=== PATIENT | female | born 1995 | race Caucasian/White ===

== ENCOUNTER → 2021-01-06 14:00 | Outpatient (BNVA) | payer MEDICAID, SELFPAY | PROVIDERS: Family Provider Nurse Practitioner Family; PCP Nurse Practitioner Family; Visit Provider Psychiatry & Neurology Psychiatry | DX: F43.12 Post-traumatic stress disorder, chronic (principal); F33.2 Major depressive disorder, recurrent severe without psychotic features; F41.1 Generalized anxiety disorder; F17.200 Nicotine dependence, unspecified, uncomplicated | CPT/HCPCS: 99204 ==

== ENCOUNTER 2021-01-15 20:46 | Emergency (ER) | payer MEDICAID, SELFPAY ==
[2021-01-15 21:22] VITALS: BP 146/96; PULSE 82; RESP 18; TEMP 36.5; O2SAT 97; BMI 45.0
--- NOTE | 2021-01-15 23:31 | W.ED.SKABFB ---
HPI - Skin/Abscess/Foreign Bdy General: Chief complaint: Skin/Abscess/Foreign Body Stated complaint: NOT WELL DUE TO MRSA INFECTION Time Seen by Provider: 01/15/21 23:08 Source: patient Mode of arrival: ambulatory Limitations: no limitations History of Present Illness: HPI narrative: 25-year-old female patient presents to the emergency department with complaints of not feeling well. She reports previous hospitalizations due to MRSA infections. She states went to urgent care this morning, was prescribed Bactrim for a staph infection to the left upper thigh. She reports has experienced nausea, and not feeling well since starting antibiotic. She reports has not taken tonight's dose. She reports previous prescription of Bactrim has been tolerated in the past. She denies fever or chills, she has denied vomiting. She is insistent she has blood work done to ensure she is not sick. She reports is concerned she is ill due to MRSA infection and may need hospitalization for IV antibiotics. She reports the boil to the left upper thigh did drain tonight. She reports popped it herself. Absents to the left lower extremity has been present for 4 days. She went to urgent care this morning and received prescription of Bactrim. She reports did not take her p.m. dose of Bactrim tonight. complaint: abscess/boil Onset (ago): day(s) (1) Location: LLE Severity: moderate Quality: burning Associated symptoms: Reports nausea; Deny chills, fever(s) or vomiting Treatments prior to arrival: attempted to drain pus at home Review of Systems General: Reports: 10 or more systems reviewed and unremarkable except in HPI and below Const: Reports: fatigue and malaise; Denies: fever(s), chills, change in appetite or diaphoresis Eyes: Denies: blurry vision or eye redness ENMT: Denies: throat pain, dental pain or disequilibrium Card: Denies: chest pain, palpitations or irregular heart rhythm Resp: Denies: dyspnea, productive cough, non-productive cough or wheezing GI: Reports: nausea; Denies: abdominal pain, vomiting, hematemesis, heartburn, diarrhea or constipation : Denies: difficulty voiding or dysuria Musc: Denies: neck pain, back pain, joint pain or joint warmth Skin/Breast: Denies: rash or pruritus Neuro: Denies: headache(s), weakness in extremities or behavioral changes Psych: Denies: anxiety, depression or change in appetite Vince/Lymph: Denies: easy bruising PFSH ED PFSH: Medical History (Updated 01/16/21 @ 00:00 by NAHOMY Suarez) MRSA (methicillin resistant Staphylococcus aureus) Social History Smoking and tobacco status: current every day smoker cigarettes Packs smoked per day: 1 Years cigarettes smoked: 15 Quit status (tobacco): has tried quititng Number of times tried to quit tobacco: 3 Second hand smoke exposure: No Female Reproductive History: Date of last menstrual period: 11/29/20 Physical Exam Const: COMMON NORMALS: no acute distress, patient oriented x3, healthy appearing, alert and well nourished GENERAL APPEARANCE: cooperative, well kempt, well developed and well hydrated NUTRITIONAL APPEARANCE: obese ORIENTATION/CONSCIOUSNESS: Yes awake, Yes oriented to person, Yes oriented to place and Yes oriented to time HENMT: COMMON NORMALS: normocephalic, atraumatic, Normal external nose present and moist oral mucous membranes HEAD & SCALP: normal to inspection, normocephalic and atraumatic NOSE: Normal external nose present MOUTH: Normal oral and palatal mucosa present, lip normal and tongue normal THROAT: posterior oropharynx normal, tonsils normal and uvula midline Eye: COMMON NORMALS: Equal, round and reactive pupils present and EOMs intact bilaterally GENERAL EYE: appearance normal, both eyes and all related structures PUPIL: Yes Equal, round and reactive pupils present Neck/C-Spine: COMMON NORMALS: full ROM and no lymphadenopathy GENERAL: Yes normal visual inspection and Yes trachea midline CERVICAL SPINE: Yes cervical ROM normal Lymph: LYMPHATIC: no lymphadenopathy noted Chest: COMMONS NORMALS: normal inspection of the chest and normal palpation of entire chest wall Resp: COMMON NORMALS: normal respiratory effort, No retractions, No use of accessory muscles and clear to auscultation bilaterally EFFORT & INSPECTION: Yes able to speak in complete sentences, No labored and No audible wheezes AUSCULTATION: clear to auscultation bilaterally Cardio: COMMON NORMALS: regular rate, regular rhythm, S1 normal heart sound present, S2 normal heart sound present and Peripheral pulses 2+ throughout RATE: regular rate RHYTHM: regular rhythm HEART SOUNDS: S1 normal heart sound present and S2 normal heart sound present PERIPHERAL PULSES: Peripheral pulses 2+ throughout GI: COMMON NORMALS: Normal to inspection, nondistended, normoactive bowel sounds present, Soft to palpation and non-tender INSPECTION: Yes normal to inspection, No abdominal wall ecchymosis, No abdominal distension and Yes central obesity AUSCULTATION: Yes normoactive bowel sounds PALPATION: Yes Soft to palpation and No Tenderness to palpation present (GI) : COMMON NORMALS: Yes no CVA tenderness BLADDER/KIDNEY EXAM: Yes no CVA tenderness Back/Pelvis: COMMON NORMALS: no CVA tenderness, thoracic and lumbar spine normal to inspection, no thoracic nor lumbar tenderness and thoraco-lumbar ROM normal Extremity: COMMON NORMALS: normal to inspection, full ROM, capillary refill normal, no joint enlargement, no clubbing, cyanosis or edema, no calf tenderness and no pedal edema GENERAL: Yes normal exam except as noted Neuro: COMMON NORMALS: patient oriented x3 and no focal motor deficits SENSORIUM/ORIENTATION: Yes alert, Yes oriented to person, Yes oriented to place and Yes oriented to time GAIT: Yes Normal gait present MOTOR EXAM: 5/5 motor strength present throughout Psych: COMMON NORMALS: mental status grossly normal, Normal thought process present and cooperative APPEARANCE: Yes well kempt ACTIVITY/MOTOR BEHAVIOR: Yes appropriate eye contact THOUGHT PROCESS: Normal thought process present Skin: COMMON NORMALS: no rashes or lesions noted, turgor normal, no petechiae and no mottling GENERAL SKIN EXAM: no rashes or lesions noted and turgor normal WOUNDS: Yes wounds noted size (1.5 cm x 1.5 cm abscess, increased warmth, no drainage, soft) and without odor; without any surrounding erythema Course Vital Signs: Vital signs: Vital Signs Temperature 97.7 F 01/15/21 21:22 Pulse Rate 82 01/15/21 21:22 Respiratory Rate 18 01/15/21 21:22 Blood Pressure 146/96 01/15/21 21:22 Pulse Oximetry 97 01/15/21 21:22 MDM - Skin/Abscess/Foreign Bdy MDM Narrative: Medical decision making narrative: 25-year-old female patient presents to the emergency department with history of MRSA, abscess to the left lower extremity, left upper thigh present for several days, she drained the abscess tonight -states started not feeling well and was concerned she may need IV antibiotics due to history of hospitalization due to MRSA in the past. White blood count 14.5 which is slightly elevated, she is only had 1 dose of antibiotic prior to tonight. She has prescription of Bactrim, Zofran alleviated her nausea. She reports was feeling better, she was able to drink a full glass of water without vomiting. She was discharged with Zofran and ibuprofen with instructions to continue Bactrim until all gone. She is advised to return the emergency department if she developed nausea vomiting fever, advised to follow-up with her primary care this week to ensure she was improving. Lab Data: Labs: Lab Results 01/15/21 01/15/21 01/15/21 Range/Units 23:40 23:40 23:40 WBC 14.5 H (4.0-10.0) 10^3/ uL RBC 4.52 (4.1-5.3) 10^6/u L Hgb 14.3 (11.5-15.3) g/dL Hct 42.4 (37.0-47.0) % MCV 93.8 (81-99) fL MCH 31.6 (28.0-34.0) pg MCHC 33.7 (30.0-36.0) g/dL RDW 13.2 (12.1-15.1) % Plt Count 432 H (130-400) 10^3/c mm MPV 9.5 (7.4-10.4) fL Neut % (Auto) 74.2 % Lymph % (Auto) 16.5 % [place] % (Auto) 6.6 % Eos % (Auto) 2.0 % Baso % (Auto) 0.3 % Neut # (Auto) 10.75 H (1.8-7.7) 10^3/u L Lymph # (Auto) 2.4 (0.8-4.8) 10^3/u L [place] # (Auto) 1.0 H (0.2-0.9) 10^3/u L Eos # (Auto) 0.3 (0.0-0.8) 10^3/u L Baso # (Auto) 0.0 (0.0-0.1) 10^3/u L Nucleated RBC % (a uto) 0 % Nucleated RBCs # 0.0 /100WBC Sodium 136 (136-145) mmol/L Potassium 3.8 (3.5-5.1) mmol/L Chloride 100 (98-107) mmol/L Carbon Dioxide 26 (22-29) mmol/L Anion Gap 13.8 (5-19) BUN 11 (6-20) mg/dL Creatinine 0.7 (0.5-0.9) mg/dL GFR Calculation 101.1 (90-130) mL/min Glucose 95 (65-115) mg/dL Calculated Osmolal ity 281 L (285-295) mOsm/k g Calcium 8.9 (8.5-10.5) mg/dL Total Bilirubin 0.2 (0.15-1.2) mg/dL AST 11 (0-32) U/L ALT 14 (0-33) U/L Alkaline Phosphata se 72 (35-105) IU/L Total Protein 7.2 (6.6-8.7) g/dL Albumin 4.1 (3.5-5.2) g/dL Globulin 3.1 (1.3-4.6) g/dL Lipase 29 (13-60) U/L HCG, Qual Negative (Negative) Discharge Plan Discharge Patient Disposition: Home Clinical Impression: MRSA (methicillin resistant Staphylococcus aureus) Abscess of skin or subcutaneous tissue Qualifiers: Site of cutaneous abscess: extremity Site of cutaneous abscess of extremity: lower extremity Laterality: left Qualified Code(s): L02.416 - Cutaneous abscess of left lower limb Condition: Stable Prescriptions: New Zofran 4 mg tablet 4 mg PO Q4H Qty: 10 RF: 0 IBU 600 mg tablet 600 mg PO TID PRN (Reason: pain) Qty: 20 RF: 0 No Action sulfamethoxazole-trimethoprim [Bactrim DS] 800-160 mg tablet 1 tab PO BID 7 Days Qty: 14 RF: 0 Latuda 120 mg tablet 120 mg PO DAILY Qty: 30 RF: 2 prazosin 5 mg capsule 5 mg PO .HS Qty: 30 RF: 2 trazodone 50 mg tablet 100 mg PO .HS PRN (Reason: insomnia) Qty: 60 RF: 2 fluoxetine [Prozac] 20 mg capsule 20 mg PO DAILY Qty: 30 RF: 2 Discharge Orders: Discharge ED (Routine); Ordered 01/15/21 Ordered By: Zhanna Lakhani Discharge Diet: Usual diet Discharge Activity: Resume usual activity Patient Instructions: Methicillin Resistant Staphylococcus Aureus (ED), Abscess (ED), Opioid Safety Activity Restrictions/Additional Instructions: Take Bactrim with large glass of water, complete prescription and until all gone, even if better Use antibacterial soap and wash the area daily, cover with Band-Aid if drainage occurs Wash hands after touching the area, you do not want to spread the infection Drink lots and lots of water to stay hydrated, follow-up with your primary care physician this week to ensure you are improving Coding Level of Care Code ED Eb[employer] Reseller for Sunil Fwd Exam Comprehensive
[2021-01-15] MEDS: sulfamethoxazole-trimeth DS 160-800 mg Tablet 1 TAB PO (23:39)
[2021-01-15] MEDS: ondansetron 4 MG Tablet PO (23:39)
[2021-01-15 23:49] LABS: Basophils % 0.3 %; Eosinophils # 0.3 10^3/uL (0.0-0.8); Hematocrit 42.4 % (37.0-47.0); Hemoglobin 14.3 g/dL (11.5-15.3); Lymphocytes # 2.4 10^3/uL (0.8-4.8); Lymphocytes % 16.5 %; Mean Corpuscular HGB Conc 33.7 g/dL (30.0-36.0); Mean Corpuscular Hemoglobin 31.6 pg (28.0-34.0); Mean Corpuscular Volume 93.8 fL (81-99); Mean Platelet Volume 9.5 fL (7.4-10.4); Monocytes % 6.6 %; Neutrophils # 10.75 10^3/uL (1.8-7.7); Neutrophils % 74.2 %; Nucleated Red Blood Cells % 0 %; Platelet Count 432 10^3/cmm (130-400); Red Blood Count 4.52 10^6/uL (4.1-5.3); Red Cell Distribution Width 13.2 % (12.1-15.1); White Blood Count 14.5 10^3/uL (4.0-10.0)
[2021-01-16 00:17] LABS: HCG, Serum Qual Negative (Negative)
[2021-01-16 00:23] LABS: Alanine Aminotransferase 14 U/L (0-33); Albumin Level 4.1 g/dL (3.5-5.2); Alkaline Phosphatase 72 IU/L (35-105); Anion Gap 13.8 (5-19); Aspartate Amino Transferase 11 U/L (0-32); Blood Urea Nitrogen 11 mg/dL (6-20); Calcium 8.9 mg/dL (8.5-10.5); Carbon Dioxide 26 mmol/L (22-29); Chloride 100 mmol/L (98-107); Globulin 3.1 g/dL (1.3-4.6); Glomerular Filtration Rate 101.1 mL/min (90-130); Glucose 95 mg/dL (65-115); Lipase 29 U/L (13-60); Osmolality Calculated 281 mOsm/kg (285-295); Potassium 3.8 mmol/L (3.5-5.1); Sodium 136 mmol/L (136-145); Total Bilirubin 0.2 mg/dL (0.15-1.2); Total Protein 7.2 g/dL (6.6-8.7)
[2021-01-16 00:40] VITALS: RESP 16; O2SAT 99
== END 2021-01-16 00:41 | disposition home or self-care (01) ==
PROVIDERS: Emergency Provider Nurse Practitioner Family
DX: L02.416 Cutaneous abscess of left lower limb (principal); A49.02 Methicillin resistant Staphylococcus aureus infection, unspecified site; Z86.14 Personal history of Methicillin resistant Staphylococcus aureus infection; F17.210 Nicotine dependence, cigarettes, uncomplicated
CPT/HCPCS: 80053; 83690; 84703; 85025; 99283; Q0162

== ENCOUNTER 2021-02-03 19:15 | Emergency (ER) | payer MEDICAID, SELFPAY ==
[2021-02-03 19:26] VITALS: BP 146/87; PULSE 80; RESP 16; TEMP 36.9; O2SAT 97; BMI 45.0
--- NOTE | 2021-02-03 19:31 | W.ED.DENTAL ---
HPI - Dental/Oral General: Chief complaint: Dental/Oral Stated complaint: tooth pain post extraction Time Seen by Provider: 02/03/21 19:31 History of Present Illness: HPI Narrative: Patient is a 25-year-old female comes to the ED with dental pain. Patient says on Sunday she had a tooth extracted. She states she is having increasing pain and rates it currently a 9 out of 10. Patient was unable to get a hold of her dentist today. She says that her dentist will be back in office on Sunday and she is going to call them then. Associated symptoms: Denies fever(s) or odynophagia Review of Systems Const: Denies: fever(s), chills or fatigue Eyes: Denies: change in vision or eye discomfort ENMT: Reports: dental pain; Denies: throat pain, odynophagia, nasal discharge or nasal congestion Card: Denies: chest pain, palpitations, edema, swelling of feet/ankles, dyspnea on exertion or orthopnea Resp: Denies: dyspnea, productive cough or non-productive cough GI: Denies: abdominal pain, nausea, vomiting, diarrhea, constipation or hematochezia : Denies: flank pain, dysuria or hematuria Musc: Denies: neck pain, back pain or extremity swelling Skin/Breast: Denies: rash or new lesions Neuro: Denies: headache(s), numbness in extremities or weakness in extremities PFSH ED PFSH: Medical History MRSA (methicillin resistant Staphylococcus aureus) Social History Smoking and tobacco status: current every day smoker cigarettes Packs smoked per day: 1 Years cigarettes smoked: 15 Quit status (tobacco): has tried quititng Number of times tried to quit tobacco: 3 Second hand smoke exposure: No Female Reproductive History: Date of last menstrual period: 01/28/21 Physical Exam Const: COMMON NORMALS: no acute distress, patient oriented x3 and alert GENERAL APPEARANCE: cooperative and comfortable NUTRITIONAL APPEARANCE: obese HENMT: COMMON NORMALS: normocephalic HEAD & SCALP: normocephalic MOUTH: Normal oral and palatal mucosa present TEETH & GINGIVA: Yes other (Patient had tooth #15 extracted. Mild gingival swelling no erythema.) THROAT: posterior oropharynx normal and uvula midline Neck/C-Spine: COMMON NORMALS: supple GENERAL: Yes normal visual inspection Resp: COMMON NORMALS: normal respiratory effort, No retractions, No use of accessory muscles and clear to auscultation bilaterally AUSCULTATION: clear to auscultation bilaterally Cardio: COMMON NORMALS: regular rate, regular rhythm, S1 normal heart sound present, S2 normal heart sound present, No gallops present (Cardio), No clicks present (Cardio), No murmurs present (Cardio) and Peripheral pulses 2+ throughout RATE: regular rate RHYTHM: regular rhythm HEART SOUNDS: S1 normal heart sound present and S2 normal heart sound present PERIPHERAL PULSES: Peripheral pulses 2+ throughout GI: COMMON NORMALS: Normal to inspection, nondistended, normoactive bowel sounds present, Soft to palpation, non-tender and no masses PALPATION: Yes Soft to palpation : COMMON NORMALS: Yes no CVA tenderness BLADDER/KIDNEY EXAM: Yes no CVA tenderness Back/Pelvis: COMMON NORMALS: no CVA tenderness Extremity: COMMON NORMALS: normal to inspection Neuro: COMMON NORMALS: patient oriented x3 and moves all extremities SENSORIUM/ORIENTATION: Yes alert Skin: GENERAL SKIN EXAM: dry skin Course Vital Signs: Vital signs: Vital Signs Temperature 98.4 F 02/03/21 19:59 Pulse Rate 80 02/03/21 19:26 Respiratory Rate 16 02/03/21 19:59 Blood Pressure 146/87 02/03/21 19:26 Pulse Oximetry 97 02/03/21 19:59 MDM - Dental/Oral MDM Narrative: Medical decision making narrative: Patient is a 25-year-old female comes to the ED with dental pain post tooth extraction. Patient was unable to get a hold of her duties today. Her dentist were back in office on Sunday. Exam findings are benign. Patient was given dose of hydrocodone while here in the ED to help with pain. She was discharged home with a written prescription for tramadol. She was told to contact her dentist on Sunday to get reevaluated. Patient understood and agreed with plan. Discharge Plan Discharge Patient Disposition: Home Clinical Impression: Pain, dental Condition: Stable Prescriptions: No Action sulfamethoxazole-trimethoprim [Bactrim DS] 800-160 mg tablet 1 tab PO BID 7 Days Qty: 14 RF: 0 Latuda 120 mg tablet 120 mg PO DAILY Qty: 30 RF: 2 prazosin 5 mg capsule 5 mg PO .HS Qty: 30 RF: 2 trazodone 50 mg tablet 100 mg PO .HS PRN (Reason: insomnia) Qty: 60 RF: 2 fluoxetine [Prozac] 20 mg capsule 20 mg PO DAILY Qty: 30 RF: 2 Zofran 4 mg tablet 4 mg PO Q4H Qty: 10 RF: 0 IBU 600 mg tablet 600 mg PO TID PRN (Reason: pain) Qty: 20 RF: 0 Discharge Orders: Discharge ED (Routine); Ordered 02/03/21 Ordered By: David Dumont Discharge Diet: Regular Discharge Activity: Resume usual activity Patient Instructions: Tramadol (By mouth) Activity Restrictions/Additional Instructions: Follow-up with medical provider as directed. Contact dentist on Sunday morning to set up an appointment to get reevaluated. Take medications as prescribed. Continue taking all previously prescribed medications. Return to the ER or your medical provider if condition worsens. Please read and understand discharge instructions. Thank you for choosing [facility] for your healthcare needs today. Please realize this is an emergency room and that we are providing you with a medical screening exam and this may not be complete and all inclusive of all the testing and or work up that you may need to determine your ailment or severity of your illness. It is very important that you follow up as instructed or that you return to the Emergency Department should you have concerns or if your condition changes or worsens in any way. Coding Level of Care Code ED System Consultant for Sunil Ace Exam Comprehensive
[2021-02-03] MEDS: HYDROcodone-acetaminophen 7.5-325 mg Tablet 1 TAB PO (19:58)
[2021-02-03 19:59] VITALS: RESP 16; TEMP 36.9; O2SAT 97
== END 2021-02-03 20:00 | disposition home or self-care (01) ==
PROVIDERS: Emergency Provider Physician Assistant
DX: K08.89 Other specified disorders of teeth and supporting structures (principal); Z86.14 Personal history of Methicillin resistant Staphylococcus aureus infection
CPT/HCPCS: 99282

== ENCOUNTER → 2021-02-04 10:27 | Outpatient (BNVA) | payer MEDICAID, SELFPAY | PROVIDERS: Visit Provider Psychiatry & Neurology Psychiatry | DX: F41.1 Generalized anxiety disorder (principal); F33.2 Major depressive disorder, recurrent severe without psychotic features; F43.12 Post-traumatic stress disorder, chronic; F17.200 Nicotine dependence, unspecified, uncomplicated | CPT/HCPCS: 99214 ==

== ENCOUNTER 2021-02-16 09:43 | Emergency (ER) | payer MEDICAID, SELFPAY ==
--- NOTE | 2021-02-16 10:01 | XR_ITS ---
WS: [id number] Portable AP upright chest, 02/16/2021 Clinical Data: cough/SOB Comparison: PA chest, 10/07/2015. Findings: No nodules, masses or effusions are seen. The heart is normal. The pulmonary vascularity is not increased. No pneumothorax is seen. Minimal patchy opacity from the right hilum extending into the right lower lobe is seen. This could represent atelectasis and/or minimal pneumonia. XR/XR chest 1V portable [id number] Impression: Minimal patchy opacity extending from right hilum and right lower lobe consiste nt with atelectasis and/or pneumonia.
[2021-02-16 10:15] VITALS: BP 136/86; PULSE 96; RESP 18; TEMP 36.2; O2SAT 95; BMI 45.0
[2021-02-16 11:30] LABS: Basophils # 0.1 10^3/uL (0.0-0.1); Basophils % 0.4 %; Eosinophils # 0.2 10^3/uL (0.0-0.8); Hematocrit 41.2 % (37.0-47.0); Hemoglobin 13.9 g/dL (11.5-15.3); Lymphocytes # 1.1 10^3/uL (0.8-4.8); Lymphocytes % 6.2 %; Mean Corpuscular HGB Conc 33.7 g/dL (30.0-36.0); Mean Corpuscular Hemoglobin 30.9 pg (28.0-34.0); Mean Corpuscular Volume 91.6 fL (81-99); Mean Platelet Volume 9.2 fL (7.4-10.4); Monocytes # 1.1 10^3/uL (0.2-0.9); Monocytes % 5.7 %; Neutrophils # 15.99 10^3/uL (1.8-7.7); Neutrophils % 86.2 %; Nucleated Red Blood Cells % 0 %; Platelet Count 333 10^3/cmm (130-400); White Blood Count 18.5 10^3/uL (4.0-10.0)
--- NOTE | 2021-02-16 11:41 | ED_ITS ---
HPI - URI/Sore Throat General: Chief Complaint: Upper Respiratory Infection Stated Complaint: cough Time Seen by Provider: 02/16/21 11:13 History of Present Illness: HPI Narrative: Patient is complaining of upper respiratory congestion cough shortness of breath for 2 days. She has felt chills and sweats but no known documented fevers she does feel she is lost taste and smell. She has no known Covid exposures but she does not regularly wear a mask. She has not been vaccinated. Patient is a smoker she has [place] respiratory problems in the past as she has inhalers at home and a nebulizer treatment. Patient was swabbed yesterday at [facility] for COVID-19 however she has not received her results. She came in today because she cannot breathe. They did prescribe her an inhaler as well as a steroid Dosepak. Review of Systems Narrative: General: sweats, chills, loss taste/smell HEENT: denies ear pain, denies nasal congestion, denies vision changes, denies sore throat Neck: denies masses or pain Resp: nonrproductive cough, +shortness of breath, denies pleuritic pain Cardio: denies chest pain, denies edema GI: denies abdominal pain, denies N/V/D, denies black/tarry or bloody stools : denies hematuria, denies dysuria Neuro: denies headache, denies dizziness, denies motor or sensory changes Musculoskeletal: denies pain, denies swelling Skin: denies rashes Psych: denies SI or HI Endocrine: denies thyroid symptoms, denies lymphadenopathy all over ROS reviewed and patient denies PFSH ED 2 PFSH: Medical History MRSA (methicillin resistant Staphylococcus aureus) Social History Smoking and tobacco status: current every day smoker cigarettes Packs smoked per day: 1 Years cigarettes smoked: 15 Quit status (tobacco): has tried quititng Number of times tried to quit tobacco: 3 Second hand smoke exposure: No Female Reproductive History: Date of last menstrual period: 01/12/21 Physical Exam Narrative: EXAM NARRATIVE: General: a/o/3, no distress, coughing Head: atraumatic HEENT: normal eyes, normal conjunctiva, normal hearing, normal external nose, normal mouth, mucous membranes moist, PHarynx negative for exudates or erythema, TM normal B/L Neck: FROM, trachea midline Chest: normal expansion, no gross deformities Resp: normal speech, no retractions, no accessory muscle use, mild wheeze bi basilar Cardio: regular rate and rhythm and no murmur, no peripheral edema, normal peripheral pulses GI: soft, flat non tender, no guarding normal BS : deferred Musculoskeletal: FROM, no pain or gross deformities Neuro: a/o appropriate for age, no gross motor or sensory deficitys, CN II-XII grossly intact, normal coordination, normal speech Skin: no rashes Psych: cooperative, normal mood and effect Course Vital Signs: Vital signs: Vital Signs Temperature 97.1 F L 02/16/21 10:15 Pulse Rate 96 02/16/21 12:42 Respiratory Rate 16 02/16/21 12:42 Blood Pressure 136/86 02/16/21 10:15 Pulse Oximetry 96 02/16/21 12:42 MDM - URI/Sore Throat MDM Narrative: Medical decision making narrative: Patient's chest x-ray does show right middle lobe findings patient does have some mild wheezing and is coughing. She did just start prednisone yesterday that could cause some false elevation in her white blood cell count. Discussed with patient we can do a ra pid antigen test here since her symptoms are under 5 days but that if she had a send out test down in [place] that might be more accurate. Patient is in no distress her O2 sats are 97% we will give her Decadron shot IM and some Rocephin and discussed with her can place her on antibiotics as precaution for possible bacterial pneumonia she does have a nebulizer at home and will think she is in distress enough that we have to give her treatment here in the ER she also has an inhaler in her pocket that she can use as well. Discussed with patient monitor her O2 sat at home she actually does have a pulse oximetry. We can go ahead and cover her for bacterial pneumonia I think I will put her on Levaquin the Bactrim listed on her medications us old She feels comfortable with discharge Medical Records: Attestation: I reviewed the patient's medical records. Lab Data: Attestation: I reviewed the patient's lab results. Labs: Lab Results 02/16/21 02/16/21 02/16/21 Range/Units 11:24 11:24 11:24 WBC 18.5 H (4.0-10.0) 10^3/ uL RBC 4.50 (4.1-5.3) 10^6/u L Hgb 13.9 (11.5-15.3) g/dL Hct 41.2 (37.0-47.0) % MCV 91.6 (81-99) fL MCH 30.9 (28.0-34.0) pg MCHC 33.7 (30.0-36.0) g/dL RDW 13.0 (12.1-15.1) % Plt Count 333 (130-400) 10^3/c mm MPV 9.2 (7.4-10.4) fL Neut % (Auto) 86.2 % Lymph % (Auto) 6.2 % [place] % (Auto) 5.7 % Eos % (Auto) 1.0 % Baso % (Auto) 0.4 % Neut # (Auto) 15.99 H (1.8-7.7) 10^3/u L Lymph # (Auto) 1.1 (0.8-4.8) 10^3/u L [place] # (Auto) 1.1 H (0.2-0.9) 10^3/u L Eos # (Auto) 0.2 (0.0-0.8) 10^3/u L Baso # (Auto) 0.1 (0.0-0.1) 10^3/u L Nucleated RBC % (a uto) 0 % Nucleated RBCs # 0.0 /100WBC Sodium 136 (136-145) mmol/L Potassium 4.0 (3.5-5.1) mmol/L Chloride 99 (98-107) mmol/L Carbon Dioxide 27 (22-29) mmol/L Anion Gap 14.0 (5-19) BUN 5 L (6-20) mg/dL Creatinine 0.5 (0.5-0.9) mg/dL GFR Calculation 149.1 H (90-130) mL/min Glucose 97 (65-115) mg/dL Calculated Osmolal ity 279 L (285-295) mOsm/k g Calcium 8.8 (8.5-10.5) mg/dL Total Bilirubin 0.4 (0.15-1.2) mg/dL AST 18 (0-32) U/L ALT 26 (0-33) U/L Alkaline Phosphata se 73 (35-105) IU/L Total Protein 7.4 (6.6-8.7) g/dL Albumin 3.9 (3.5-5.2) g/dL Globulin 3.5 (1.3-4.6) g/dL Procalcitonin 0.03 (0-0.5) ng/mL SARS-CoV-2 Ag (Rap id) Negative (Negative) Discharge Plan Discharge Patient Disposition: Home Clinical Impression: Pneumonia Qualifiers: Pneumonia type: due to unspecified organism Laterality: right Lung location: middle lobe of lung Qualified Code(s): J18.9 - Pneumonia, unspecified organism Condition: Stable Prescriptions: New levofloxacin 500 mg tablet 500 mg PO DAILY 10 Days Qty: 10 RF: 0 albuterol sulfate 2.5 mg /3 mL (0.083 %) solution for nebulization 2.5 mg inhalation Q6H PRN (Reason: shortness of breath or wheezing) Qty: 90 RF: 1 Tessalon Perles 100 mg capsule 100 mg PO TID PRN (Reason: cough) Qty: 21 RF: 0 No Action prazosin 5 mg capsule 10 mg PO .HS Qty: 60 RF: 2 trazodone 50 mg tablet 100 mg PO .HS PRN (Reason: insomnia) Qty: 60 RF: 2 Latuda 120 mg tablet 120 mg PO DAILY Qty: 30 RF: 2 fluoxetine [Prozac] 20 mg capsule 20 mg PO DAILY Qty: 30 RF: 2 sulfamethoxazole-trimethoprim [Bactrim DS] 800-160 mg tablet 1 tab PO BID 7 Days Qty: 14 RF: 0 Zofran 4 mg tablet 4 mg PO Q4H Qty: 10 RF: 0 IBU 600 mg tablet 600 mg PO TID PRN (Reason: pain) Qty: 20 RF: 0 Discharge Orders: Discharge ED (Routine); Ordered 02/16/21 Ordered By: Johnna Huggins Discharge Diet: Usual diet Discharge Activity: Resume usual activity Activity Restrictions/Additional Instructions: You can start the antibiotic today use your nebulizer every 6 hours as needed for wheezing or your inhaler. Continue your steroid Dosepak use the cough medication as needed. It is recommended you still quarantine for possibility of Covid until you receive your Covid testing from [facility] their test may be more sensitive and more specific so if it is positive that we will confirm that you do have Covid. You can still continue the antibiotics however as there is always the possibility get a bacterial pneumonia on top of a Covid pneumonia if your test were to be positive. Monitor your pulse ox at home if you start dropping below 90% you need to return to the emergency department Tylenol and/or ibuprofen for fever Thank you for choosing [facility] for your healthcare needs today. Please realize this is an emergency room and that we are providing you with a medical screening exam and this may not be complete and all inclusive of all the testing and or work up that you may need to determine your ailment or severity of your illness. It is very important that you follow up as instructed or that you return to the Emergency Department should you have concerns or if your condition changes or worsens in any way. 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
[2021-02-16 11:47] LABS: SARS Covid-2 Antigen Negative (Negative)
[2021-02-16 12:00] LABS: Procalcitonin 0.03 ng/mL (0-0.5)
[2021-02-16 12:11] LABS: Alanine Aminotransferase 26 U/L (0-33); Albumin Level 3.9 g/dL (3.5-5.2); Alkaline Phosphatase 73 IU/L (35-105); Aspartate Amino Transferase 18 U/L (0-32); Blood Urea Nitrogen 5 mg/dL (6-20); Calcium 8.8 mg/dL (8.5-10.5); Carbon Dioxide 27 mmol/L (22-29); Chloride 99 mmol/L (98-107); Globulin 3.5 g/dL (1.3-4.6); Glomerular Filtration Rate 149.1 mL/min (90-130); Glucose 97 mg/dL (65-115); Osmolality Calculated 279 mOsm/kg (285-295); Sodium 136 mmol/L (136-145); Total Bilirubin 0.4 mg/dL (0.15-1.2); Total Protein 7.4 g/dL (6.6-8.7)
[2021-02-16] MEDS: dexamethasone 10 mg/mL INJ IM (12:31)
[2021-02-16] MEDS: cefTRIAXone 1,000 MG in lidocaine 1% 2.1 ML 1 MG IM (12:31)
[2021-02-16 12:42] VITALS: PULSE 96; RESP 16; O2SAT 96
== END 2021-02-16 12:48 | disposition home or self-care (01) ==
PROVIDERS: Physician Assistant; Emergency Provider Emergency Medicine
DX: J18.9 Pneumonia, unspecified organism (principal); F17.210 Nicotine dependence, cigarettes, uncomplicated
CPT/HCPCS: 71045; 80053; 84145; 85025; 87426; 96372; 99283; J0696; J1100

== ENCOUNTER 2021-03-17 19:59 | Emergency (ER) | payer MEDICAID, SELFPAY ==
[2021-03-17 20:18] VITALS: BP 171/93; PULSE 83; RESP 18; TEMP 36.8; O2SAT 96; BMI 45.1
--- NOTE | 2021-03-17 20:42 | ED_ITS ---
HPI - General Adult General: Chief complaint: Nausea/Vomiting/Diarrhea Stated complaint: N/V/D Time Seen by Provider: 03/17/21 20:42 History of Present Illness: HPI narrative: 26-year-old female comes in today for complaints of nausea, vomiting, and diarrhea starting this morning. Patient appears mildly unwell but nontoxic. Patient appears in no pain. Patient reports general body aches. Patient states symptoms are started this morning. Patient has a history of depression and nicotine dependence. Patient was treated for pneumonia 1 month ago with antibiotics for 2 weeks. Onset (ago): hour(s) Associated symptoms: Reports malaise, nausea and vomiting Review of Systems General: Reports: 10 or more systems reviewed and unremarkable except in HPI and below Const: Reports: chills and malaise GI: Reports: nausea, vomiting and diarrhea PFS ED PFSH: Medical History MRSA (methicillin resistant Staphylococcus aureus) Social History Smoking and tobacco status: current every day smoker cigarettes Packs smoked per day: 1 Years cigarettes smoked: 15 Quit status (tobacco): has tried quititng Number of times tried to quit tobacco: 3 Second hand smoke exposure: No Female Reproductive History: Date of last menstrual period: 01/12/21 Physical Exam Const: COMMON NORMALS: no acute distress and patient oriented x3 GENERAL APPEARANCE: cooperative HENMT: COMMON NORMALS: normocephalic, TM's normal bilaterally and Normal external nose present HEAD & SCALP: normal to inspection and normocephalic NOSE: Normal external nose present TYMPANIC MEMBRANE: TM's normal bilaterally MOUTH: Normal oral and palatal mucosa present Eye: GENERAL EYE: appearance normal, both eyes and all related structures Neck/C-Spine: COMMON NORMALS: full ROM Lymph: LYMPHATIC: no lymphadenopathy noted Chest: COMMONS NORMALS: normal inspection of the chest Resp: COMMON NORMALS: normal respiratory effort EFFORT & INSPECTION: Yes able to speak in complete sentences Cardio: COMMON NORMALS: regular rate and regular rhythm RATE: regular rate RHYTHM: regular rhythm GI: COMMON NORMALS: Soft to palpation AUSCULTATION: Yes Hyperactive bowel sounds present PALPATION: Yes Soft to palpation and Yes Tenderness to pal pation present (GI) (mild general) : COMMON NORMALS: Yes no CVA tenderness BLADDER/KIDNEY EXAM: Yes no CVA tenderness Back/Pelvis: COMMON NORMALS: no CVA tenderness and thoracic and lumbar spine normal to inspection Extremity: COMMON NORMALS: normal to inspection Neuro: COMMON NORMALS: patient oriented x3 and moves all extremities Psych: COMMON NORMALS: mental status grossly normal and cooperative Skin: COMMON NORMALS: no rashes or lesions noted GENERAL SKIN EXAM: no rashes or lesions noted Course Vital Signs: Vital signs: Vital Signs Temperature 98.2 F 03/17/21 20:18 Pulse Rate 74 03/17/21 21:33 Respiratory Rate 18 03/17/21 21:33 Blood Pressure 128/84 03/17/21 21:33 Pulse Oximetry 97 03/17/21 21:33 MDM - General Adult MDM Narrative: Medical decision making narrative: Patient comes in today with complaints of nausea vomiting and some diarrhea. It started this morning. Patient reports decreased appetite. Patient reports some mild chills but no fever. On exam abdomen soft nontender with hyperactive bowel sounds. Patient denies any blood in the stool. Differential diagnosis includes but not limited to gastroenteritis, antibiotic associated diarrhea, dehydration. Laboratory values were unremarkable except for some mild elevation in the leukocytes at 11,000. Urinalysis was clear. hCG was negative. Patient was medicated with 1 L of IV fluids, 15 mg of Toradol, and 1 dose of ondansetron. Patient reported improvement in symptoms. Recommended patient continue with Zofran as needed for nausea and use Lomotil as needed for diarrhea. Encourage plenty of fluids and follow-up with primary care for further instruction or return to the ER for worsening symptoms or new concerns. Lab Data: Labs: Lab Results 03/17/21 03/17/21 03/17/21 Range/Units 21:01 21:30 21:30 WBC 11.5 H (4.0-10.0) 10^3/ uL RBC 4.68 (4.1-5.3) 10^6/u L Hgb 14.2 (11.5-15.3) g/dL Hct 42.9 (37.0-47.0) % MCV 91.7 (81-99) fL MCH 30.3 (28.0-34.0) pg MCHC 33.1 (30.0-36.0) g/dL RDW 13.5 (12.1-15.1) % Plt Count 390 (130-400) 10^3/c mm MPV 9.4 (7.4-10.4) fL Neut % (Auto) 68.1 % Lymph % (Auto) 21.7 % [place] % (Auto) 6.4 % Eos % (Auto) 2.9 % Baso % (Auto) 0.4 % Neut # (Auto) 7.82 H (1.8-7.7) 10^3/u L Lymph # (Auto) 2.5 (0.8-4.8) 10^3/u L [place] # (Auto) 0.7 (0.2-0.9) 10^3/u L Eos # (Auto) 0.3 (0.0-0.8) 10^3/u L Baso # (Auto) 0.1 (0.0-0.1) 10^3/u L Nucleated RBC % (a uto) 0 % Nucleated RBCs # 0.0 /100WBC Sodium 138 (136-145) mmol/L Potassium 4.0 (3.5-5.1) mmol/L Chloride 101 (98-107) mmol/L Carbon Dioxide 26 (22-29) mmol/L Anion Gap 15.0 (5-19) BUN 4 L (6-20) mg/dL Creatinine 0.5 (0.5-0.9) mg/dL GFR Calculation 148.0 H (90-130) mL/min Glucose 95 (65-115) mg/dL Calculated Osmolal ity 283 L (285-295) mOsm/k g Calcium 8.6 (8.5-10.5) mg/dL Total Bilirubin 0.2 (0.15-1.2) mg/dL AST 13 (0-32) U/L ALT 22 (0-33) U/L Alkaline Phosphata se 69 (35-105) IU/L Total Protein 6.6 (6.6-8.7) g/dL Albumin 3.6 (3.5-5.2) g/dL Globulin 3.0 (1.3-4.6) g/dL Lipase 22 (13-60) U/L HCG, Qual (Negative) Urine Color Yellow (Yellow) Urine Appearance Clear (CLEAR) Urine pH 6.5 (5-7) Ur Specific Gravit y 1.000 L (1.005-1.030) Urine Protein Neg (Negative) Urine Glucose (UA) Norm (Normal) Urine Ketones Negative (Negative) Urine Blood Neg (Negative) Urine Nitrate Negative (Negative) Urine Bilirubin Neg (Negative) Urine Urobilinogen Norm (Negative) mg/dL Ur Leukocyte Yuly ase Negative (Negative) 03/17/21 Range/Units 21:30 WBC (4.0-10.0) 10^3/ uL RBC (4.1-5.3) 10^6/u L Hgb (11.5-15.3) g/dL Hct (37.0-47.0) % MCV (81-99) fL MCH (28.0-34.0) pg MCHC (30.0-36.0) g/dL RDW (12.1-15.1) % Plt Count (130-400) 10^3/c mm MPV (7.4-10.4) fL Neut % (Auto) % Lymph % (Auto) % [place] % (Auto) % Eos % (Auto) % Baso % (Auto) % Neut # (Auto) (1.8-7.7) 10^3/u L Lymph # (Auto) (0.8-4.8) 10^3/u L [place] # (Auto) (0.2-0.9) 10^3/u L Eos # (Auto) (0.0-0.8) 10^3/u L Baso # (Auto) (0.0-0.1) 10^3/u L Nucleated RBC % (a uto) % Nucleated RBCs # /100WBC Sodium (136-145) mmol/L Potassium (3.5-5.1) mmol/L Chloride (98-107) mmol/L Carbon Dioxide (22-29) mmol/L Anion Gap (5-19) BUN (6-20) mg/dL Creatinine (0.5-0.9) mg/dL GFR Calculation (90-130) mL/min Glucose (65-115) mg/dL Calculated Osmolal ity (285-295) mOsm/k g Calcium (8.5-10.5) mg/dL Total Bilirubin (0.15-1.2) mg/dL AST (0-32) U/L ALT (0-33) U/L Alkaline Phosphata se (35-105) IU/L Total Protein (6.6-8.7) g/dL Albumin (3.5-5.2) g/dL Globulin (1.3-4.6) g/dL Lipase (13-60) U/L HCG, Qual Negative (Negative) Urine Color (Yellow) Urine Appearance (CLEAR) Urine pH (5-7) Ur Specific Gravit y (1.005-1.030) Urine Protein (Negative) Urine Glucose (UA) (Normal) Urine Ketones (Negative) Urine Blood (Negative) Urine Nitrate (Negative) Urine Bilirubin (Negative) Urine Urobilinogen (Negative) mg/dL Ur Leukocyte Yuly ase (Negative) Discharge Plan Discharge Patient Disposition: Home Clinical Impression: Gastroenteritis and colitis, viral Condition: Stable Prescriptions: New ondansetron HCl 4 mg tablet 4 mg PO Q8H PRN (Reason: nausea and vomiting) Qty: 6 RF: 0 Lomotil 2.5-0.025 mg tablet 1 tab PO Q6H PRN (Reason: diarrhea) Qty: 7 RF: 0 No Action Latuda 120 mg tablet 120 mg PO DAILY Qty: 30 RF: 2 fluoxetine [Prozac] 20 mg capsule 20 mg PO DAILY Qty: 30 RF: 2 ondansetron HCl [Zofran] 4 mg tablet 4 mg PO Q4H Qty: 10 RF: 0 ibuprofen [IBU] 600 mg tablet 600 mg PO TID PRN (Reason: pain) Qty: 20 RF: 0 albuterol sulfate 2.5 mg /3 mL (0.083 %) solution for nebulization 2.5 mg inhalation Q6H PRN (Reason: shortness of breath or wheezing) Qty: 90 RF: 1 Flovent HFA 44 mcg/actuation HFA aerosol inhaler 1 puff INHALATION BID RF: 0 ProAir HFA 90 mcg/actuation HFA aerosol inhaler 1 puff INHALATION Q4H PRN (Reason: Shortness Of Breath) RF: 0 trazodone 50 mg tablet 100 mg PO BEDTIME PRN (Reason: insomnia) RF: 0 prazosin 5 mg capsule 10 mg PO BEDTIME RF: 0 Discharge Orders: Discharge ED (Routine); Ordered 03/17/21 Ordered By: Deejay Tee Discharge Diet: Advance as tolerated Discharge Activity: Increase activity as tolerated Patient Instructions: Gastroenteritis (ED), Opioid Safety Activity Restrictions/Additional Instructions: Drink plenty of fluids. Use Pedialyte to help maintain electrolytes. Use acetaminophen or ibuprofen as needed for pain and discomfort. Use prescriptions as directed. Monitor for worsening pain into the right lower quadrant of the abdomen, or high fever. Follow-up with primary care as needed. Return to the ER for worsening symptoms. Coding Level of Care Code ED [place] Supervisor for Sunil [employer] Exam Comprehensive
[2021-03-17 21:06] LABS: Add Urine Microscopic? NO; Charge for UA Resulting for Rev
[2021-03-17 21:11] LABS: Bilirubin Urine Neg (Negative); Blood Urine Neg (Negative); Glucose Urine UA Norm (Normal); Ketones Urine Negative (Negative); Leukocyte Esterase Urine Negative (Negative); Nitrate Urine Negative (Negative); Protein Urine Neg (Negative); Urine Appearance Clear (CLEAR); Urine Color Yellow (Yellow); Urobilinogen Urine Norm (Negative); pH Urine 6.5 (5-7)
[2021-03-17 21:33] VITALS: BP 128/84; PULSE 74; RESP 18; O2SAT 97
[2021-03-17] MEDS: ondansetron 2 mg/ML SDV 2 mL 4 MG IVP (21:33)
[2021-03-17] MEDS: sodium chloride 0.9% 1,000 ML 999 ML IV (21:35)
[2021-03-17 21:39] LABS: Basophils # 0.1 10^3/uL (0.0-0.1); Basophils % 0.4 %; Eosinophils # 0.3 10^3/uL (0.0-0.8); Eosinophils % 2.9 %; Hematocrit 42.9 % (37.0-47.0); Hemoglobin 14.2 g/dL (11.5-15.3); Lymphocytes # 2.5 10^3/uL (0.8-4.8); Lymphocytes % 21.7 %; Mean Corpuscular HGB Conc 33.1 g/dL (30.0-36.0); Mean Corpuscular Hemoglobin 30.3 pg (28.0-34.0); Mean Corpuscular Volume 91.7 fL (81-99); Mean Platelet Volume 9.4 fL (7.4-10.4); Monocytes # 0.7 10^3/uL (0.2-0.9); Monocytes % 6.4 %; Neutrophils # 7.82 10^3/uL (1.8-7.7); Neutrophils % 68.1 %; Nucleated Red Blood Cells % 0 %; Platelet Count 390 10^3/cmm (130-400); Red Blood Count 4.68 10^6/uL (4.1-5.3); Red Cell Distribution Width 13.5 % (12.1-15.1); White Blood Count 11.5 10^3/uL (4.0-10.0)
[2021-03-17 21:54] LABS: HCG, Serum Qual Negative (Negative)
[2021-03-17 21:56] LABS: Alanine Aminotransferase 22 U/L (0-33); Albumin Level 3.6 g/dL (3.5-5.2); Alkaline Phosphatase 69 IU/L (35-105); Aspartate Amino Transferase 13 U/L (0-32); Blood Urea Nitrogen 4 mg/dL (6-20); Calcium 8.6 mg/dL (8.5-10.5); Carbon Dioxide 26 mmol/L (22-29); Chloride 101 mmol/L (98-107); Glucose 95 mg/dL (65-115); Lipase 22 U/L (13-60); Osmolality Calculated 283 mOsm/kg (285-295); Sodium 138 mmol/L (136-145); Total Bilirubin 0.2 mg/dL (0.15-1.2); Total Protein 6.6 g/dL (6.6-8.7)
[2021-03-17] MEDS: ketorolac 30 mg/mL INJ 15 MG IVP (21:57)
[2021-03-17 22:41] VITALS: BP 109/55; PULSE 72; RESP 16; O2SAT 97
== END 2021-03-17 22:42 | disposition home or self-care (01) ==
PROVIDERS: Emergency Medicine; Emergency Provider Nurse Practitioner Family
DX: A08.4 Viral intestinal infection, unspecified (principal); F17.210 Nicotine dependence, cigarettes, uncomplicated; Z86.14 Personal history of Methicillin resistant Staphylococcus aureus infection
CPT/HCPCS: 80053; 81003; 83690; 84703; 85025; 96361; 96374; 96375; 99283; J1885; J2405; J7040

== ENCOUNTER 2021-03-31 20:00 | Outpatient (CLI) | payer MEDICAID, SELFPAY | END 2021-03-31 20:01 | disposition home or self-care (01) | LOC: SLEEP 04-01 08:34 | PROVIDERS: Visit Provider Clinical Nurse Specialist Adult Health | DX: G47.33 Obstructive sleep apnea (adult) (pediatric) (principal) | CPT/HCPCS: 95810 ==

== ENCOUNTER → 2021-04-08 09:31 | Outpatient (BNVA) | payer MEDICAID, SELFPAY | PROVIDERS: Visit Provider Psychiatry & Neurology Psychiatry | DX: F17.200 Nicotine dependence, unspecified, uncomplicated (principal); F41.1 Generalized anxiety disorder; F33.2 Major depressive disorder, recurrent severe without psychotic features; F43.12 Post-traumatic stress disorder, chronic | CPT/HCPCS: 99214 ==

== ENCOUNTER 2021-05-16 00:30 | Emergency (ER) | payer MEDICAID, SELFPAY ==
[2021-05-16 00:34] VITALS: BP 179/91; PULSE 62; RESP 16; TEMP 36.8; O2SAT 98; BMI 44.4
--- NOTE | 2021-05-16 00:49 | W.ED.HA ---
HPI - Headache General: Chief Complaint: Headache Stated Complaint: numbness in extremities Time Seen by Provider: 05/16/21 00:49 History of Present Illness: HPI Narrative: Patient is a 26 female comes to the ED with headache. Symptoms started 2 days ago. She rates the headache an 8 out of 10 currently. The headache is located behind both right and left eyes. Endorses photophobia and nausea as well. Patient denies any history of past migraines. She says this is the worst headache she is ever had. She is also had some episodes of bilateral upper and lower extremity numbness/tingling. These episodes resolve on their own and currently she is not having any episode of numbness or tingling to her extremities while here in the ED. Endorses having some mild blurry vision but denies any other neurological symptoms. Associated symptoms: Reports nausea; Deny chest pain, fever(s), rash or vomiting Review of Systems Const: Denies: fever(s), chills or fatigue Eyes: Reports: photophobia; Denies: change in vision or eye discomfort ENMT: Denies: throat pain, odynophagia, nasal discharge or nasal congestion Card: Denies: chest pain, palpitations, edema, swelling of feet/ankles, dyspnea on exertion or orthopnea Resp: Denies: dyspnea, productive cough or non-productive cough GI: Reports: nausea; Denies: abdominal pain, vomiting, diarrhea, constipation or hematochezia : Denies: flank pain, dysuria or hematuria Musc: Denies: neck pain, back pain or extremity swelling Skin/Breast: Denies: rash or new lesions Neuro: Reports: headache(s) and numbness in extremities (Episodes of bilateral upper and lower extremity tingling/numbness); Denies: weakness in extremities [facility] ED PFSH: Medical History MRSA (methicillin resistant Staphylococcus aureus) Social History Smoking and tobacco status: current every day smoker cigarettes Packs smoked per day: 1 Years cigarettes smoked: 15 Quit status (tobacco): has tried quititng Number of times tried to quit tobacco: 3 Second hand smoke exposure: No Female Reproductive History: Date of last menstrual period: 05/15/21 Physical Exam Const: COMMON NORMALS: no acute distress, patient oriented x3 and alert GENERAL APPEARANCE: cooperative and comfortable NUTRITIONAL APPEARANCE: obese HENMT: COMMON NORMALS: normocephalic HEAD & SCALP: normocephalic MOUTH: Normal oral and palatal mucosa present THROAT: posterior oropharynx normal and uvula midline Eye: COMMON NORMALS: Equal, round and reactive pupils present, EOMs intact bilaterally, conjunctivae normal and normal visual moreno by confrontation CONJUNCTIVA: Yes conjunctivae normal PUPIL: Yes Equal, round and reactive pupils present Neck/C-Spine: COMMON NORMALS: supple GENERAL: Yes normal visual inspection Resp: COMMON NORMALS: normal respiratory effort, No retractions, No use of accessory muscles and clear to auscultation bilaterally AUSCULTATION: clear to auscultation bilaterally Cardio: COMMON NORMALS: regular rate, regular rhythm, S1 normal heart sound present, S2 normal heart sound present, No gallops present (Cardio), No clicks present (Cardio), No murmurs present (Cardio) and Peripheral pulses 2+ throughout RATE: regular rate RHYTHM: regular rhythm HEART SOUNDS: S1 normal heart sound present and S2 normal heart sound present PERIPHERAL PULSES: Peripheral pulses 2+ throughout GI: COMMON NORMALS: Normal to inspection, nondistended, normoactive bowel sounds present, Soft to palpation, non-tender and no masses PALPATION: Yes Soft to palpation : COMMON NORMALS: Yes no CVA tenderness BLADDER/KIDNEY EXAM: Yes no CVA tenderness Back/Pelvis: COMMON NORMALS: no CVA tenderness Extremity: COMMON NORMALS: normal to inspection Neuro: COMMON NORMALS: patient oriented x3, CN's II-XII intact bilaterally, moves all extremities, no focal motor deficits and no sensory deficits noted SENSORIUM/ORIENTATION: Yes alert COORDINATION/BALANCE: [id number] test normal SPEECH: speech normal SENSORY EXAM: Yes extremities (intact) MOTOR EXAM: 5/5 motor strength present throughout COORDINATION: [id number] test normal Skin: GENERAL SKIN EXAM: dry skin Course Reevaluation(s): Reevaluation #1: After patient received migraine med cocktail she says her migraine has improved and she feels comfortable and ready to go home. Time: 02:20 Vital Signs: Vital signs: Vital Signs Temperature 98.2 F 05/16/21 00:34 Pulse Rate 60 05/16/21 01:38 Respiratory Rate 16 05/16/21 01:38 Blood Pressure 160/98 05/16/21 01:38 Pulse Oximetry 98 05/16/21 01:38 MDM - Headache MDM Narrative: Medical decision making narrative: Patient is a 26 female comes to the ED with a headache. Patient has no history of migraines and says is the worst headache she is ever had. Headache located behind both eyes bilaterally. Endorses photophobia and nausea. Exam shows a healthy nontoxic appearing patient. Neuro exam was normal and the rest of exam was benign. CT of head showed no acute findings. Patient was given IV migraine cocktail of 500 mL of fluids, Toradol, Reglan, Decadron and Benadryl. Patient said her headache had improved after treatment and she feels ready to go home. Patient diagnosed with a migraine and discharged home. She was told to follow-up with her PCP in 7 to 10 days reevaluation. Return to ED precautions given. Patient understood and agreed with plan. Imaging Data^: CT Head: Attestation: I personally reviewed and interpreted this imaging study as follows: Radiologist's impression: [facility] [address] [address] Scan Report Signed Patient: Kamala Lovelace Unit #: [id number] : 1995 Age/Sex: 26 / F ADM Date: 05/16/21 Loc: ER Room/Bed: Attending Dr: Ordering Provider/Ordering MD: David Dumont Date of Service: 05/16/21 Procedure(s): CT head wo con* [id number] Accession Number(s): [id number] Report Number: [id number] PROCEDURE INFORMATION: Exam: CT Head Without Contrast Exam date and time: 05/16/2021 12:57 AM Age: 26 years old Clinical indication: Pain; Headache; Aura effect not specified; Does not respond to medication; Severity not specified; Patient HX: C/O migraine w/o HX of migraines; Additional info: Migraine headache, no history of migraines TECHNIQUE: Imaging protocol: Computed tomography of the head without contrast. Radiation optimization: All CT scans at this facility use at least one of these dose optimization techniques: automated exposure control; mA and/or kV adjustment per patient size (includes targeted exams where dose is matched to clinical indication); or iterative reconstruction. COMPARISON: No relevant prior studies available. RADIATION DOSE METRICS: Total DLP (mGy-cm): 901.16 FINDINGS: Brain: The brain is unremarkable. There is no mass effect or significant white matter disease. There is no acute intracranial hemorrhage. Cerebral ventricles: There is no significant ventricular dilation. The basal cisterns are unremarkable. Paranasal sinuses: The paranasal sinuses are clear. Mastoid air cells: Mastoid air cells are hypoplastic. Bones/joints: The calvarium is intact. Soft tissues: The visible extracranial soft tissues are unremarkable. CT/CT head wo con* [id number] IMPRESSION: No acute intracranial abnormality. Radiation Dose CTDIVOL = (mGy): DLP = 901.16 (mGy-cm) Dictated By: Armin Mojica MD Signed By: Armin Mojica MD Signed Date/Time: 05/16/21 020 DD/ 015 Discharge Plan Discharge Patient Disposition: Home Clinical Impression: Migraine Qualifiers: Migraine type: without aura Status migrainosus presence: without status migrainosus Intractability: not intractable Qualified Code(s): G43.009 - Migraine without aura, not intractable, without status migrainosus Condition: Stable Prescriptions: No Action Latuda 120 mg tablet 120 mg PO DAILY Qty: 30 RF: 2 hydroxyzine HCl 50 mg tablet 50 mg PO QID PRN (Reason: anxiety/insomnia) Qty: 120 RF: 2 fluoxetine [Prozac] 40 mg capsule 40 mg PO DAILY Qty: 30 RF: 2 ondansetron HCl [Zofran] 4 mg tablet 4 mg PO Q4H Qty: 10 RF: 0 ibuprofen [IBU] 600 mg tablet 600 mg PO TID PRN (Reason: pain) Qty: 20 RF: 0 albuterol sulfate 2.5 mg /3 mL (0.083 %) solution for nebulization 2.5 mg inhalation Q6H PRN (Reason: shortness of breath or wheezing) Qty: 90 RF: 1 Flovent HFA 44 mcg/actuation HFA aerosol inhaler 1 puff INHALATION BID RF: 0 ProAir HFA 90 mcg/actuation HFA aerosol inhaler 1 puff INHALATION Q4H PRN (Reason: Shortness Of Breath) RF: 0 trazodone 50 mg tablet 100 mg PO BEDTIME PRN (Reason: insomnia) RF: 0 prazosin 5 mg capsule 10 mg PO BEDTIME RF: 0 ondansetron HCl 4 mg tablet 4 mg PO Q8H PRN (Reason: nausea and vomiting) Qty: 6 RF: 0 Lomotil 2.5-0.025 mg tablet 1 tab PO Q6H PRN (Reason: diarrhea) Qty: 7 RF: 0 Discharge Orders: Discharge ED (Routine); Ordered 05/16/21 Ordered By: David Dumont Discharge Diet: Regular Discharge Activity: Resume usual activity Patient Instructions: Migraine Headache (ED) Activity Restrictions/Additional Instructions: Follow-up with medical provider as directed in 7 to 10 days for reevaluation. Take [id number] Tylenol or Motrin for any reoccurring headaches. Return to the ER or your medical provider if condition worsens. Please read and understand discharge instructions. Thank you for choosing [facility] for your healthcare needs today. Please realize this is an emergency room and that we are providing you with a medical screening exam and this may not be complete and all inclusive of all the testing and or work up that you may need to determine your ailment or severity of your illness. It is very important that you follow up as instructed or that you return to the Emergency Department should you have concerns or if your condition changes or worsens in any way. Coding Level of Care Code ED Examination Grader for Sunil Ace Exam Comprehensive
--- NOTE | 2021-05-16 00:57 | CTR_ITS ---
PROCEDURE INFORMATION: Exam: CT Head Without Contrast Exam date and time: 05/16/2021 12:57 AM Age: 26 years old Clinical indication: Pain; Headache; Aura effect not specified; Does not respond to medication; Severity not specified; Patient HX: C/O migraine w/o HX of migraines; Additional info: Migraine headache, no history of migraines TECHNIQUE: Imaging protocol: Computed tomography of the head without contrast. Radiation optimization: All CT scans at this facility use at least one of these dose optimization techniques: automated exposure control; mA and/or kV adjustment per patient size (includes targeted exams where dose is matched to clinical indication); or iterative reconstruction. COMPARISON: No relevant prior studies available. RADIATION DOSE METRICS: Total DLP (mGy-cm): 901.16 FINDINGS: Brain: The brain is unremarkable. There is no mass effect or significant white matter disease. There is no acute intracranial hemorrhage. Cerebral ventricles: There is no significant ventricular dilation. The basal cisterns are unremarkable. Paranasal sinuses: The paranasal sinuses are clear. Mastoid air cells: Mastoid air cells are hypoplastic. Bones/joints: The calvarium is intact. Soft tissues: The visible extracranial soft tissues are unremarkable. CT/CT head wo con* [id number] IMPRESSION: No acute intracranial abnormality. Radiation Dose CTDIVOL = (mGy): DLP = 901.16 (mGy-cm)
[2021-05-16] MEDS: sodium chloride 0.9% 500 ML 999 ML IV (01:15)
[2021-05-16] MEDS: metoclopramide 5 mg/mL SDV 2 mL 10 MG IVP (01:20)
[2021-05-16] MEDS: dexamethasone 10 mg/mL INJ IVP (01:30)
[2021-05-16] MEDS: ketorolac 30 mg/mL INJ IVP (01:30)
[2021-05-16] MEDS: diphenhydrAMINE 50 mg/mL SDV 1mL 25 MG IVP (01:30)
[2021-05-16 01:38] VITALS: BP 160/98; PULSE 60; RESP 16; O2SAT 98
[2021-05-16 02:37] VITALS: BP 147/93; PULSE 84; RESP 18; O2SAT 97
== END 2021-05-16 02:35 | disposition home or self-care (01) ==
PROVIDERS: Emergency Provider Physician Assistant
DX: G43.009 Migraine without aura, not intractable, without status migrainosus (principal); F17.210 Nicotine dependence, cigarettes, uncomplicated
CPT/HCPCS: 70450; 96374; 96375; 99284; J1100; J1200; J1885; J2765; J7040

== ENCOUNTER 2021-05-27 13:07 | Outpatient (CLI) | payer MEDICAID, SELFPAY ==
--- NOTE | 2021-05-27 13:21 | XR_ITS ---
WS: [id number] Exam: XR chest 2V* [id number] Date/Time of Exam: 05/27/2021 1:21 PM Reason For Exam: RESPIRATORY ILLNESS Comparison 02/16/2021. Findings: The lungs are clear and fully expanded. Costophrenic angles are sharp. No infiltrates. Bronchovascula r relief appears normal. Cardiac silhouette is unremarkable. Bony elements are intact. XR/XR chest 2V* [id number] IMPRESSION: Unremarkable chest radiograph.
== END 2021-05-27 13:08 | disposition home or self-care (01) ==
PROVIDERS: PCP Nurse Practitioner Family; Visit Provider Nurse Practitioner Family
DX: J98.9 Respiratory disorder, unspecified (principal)
CPT/HCPCS: 71046

== ENCOUNTER → 2021-06-01 11:00 | Outpatient (BNVA) | payer MEDICAID, SELFPAY | PROVIDERS: Visit Provider Counselor Mental Health | DX: F41.1 Generalized anxiety disorder (principal); F33.2 Major depressive disorder, recurrent severe without psychotic features; F43.12 Post-traumatic stress disorder, chronic | CPT/HCPCS: 90832 ==

== ENCOUNTER 2021-06-01 19:32 | Emergency (ER) | payer MEDICAID, SELFPAY ==
[2021-06-01 19:43] VITALS: BP 151/90; PULSE 70; RESP 18; TEMP 36.8; O2SAT 95; BMI 43.9
[2021-06-01 20:00] VITALS: BP 138/83; PULSE 68; RESP 14; TEMP 36.8; O2SAT 98
[2021-06-01 20:01] LABS: Add Urine Microscopic? NO; Charge for UA Resulting for Rev
--- NOTE | 2021-06-01 20:03 | CTR_ITS ---
PROCEDURE INFORMATION: Exam: CT Abdomen And Pelvis Without Contrast Exam date and time: 06/01/2021 8:03 PM Age: 26 years old Clinical indication: Other: Hematuria; Abdominal pain; Flank; Other: Bilat; Prior surgery; Surgery type: Gb; Additional info: Flank pain (mostly right side), dysuria TECHNIQUE: Imaging protocol: Computed tomography of the abdomen and pelvis without contrast. Radiation optimization: All CT scans at this facility use at least one of these dose optimization techniques: automated exposure control; mA and/or kV adjustment per patient size (includes targeted exams where dose is matched to clinical indication); or iterative reconstruction. COMPARISON: CT abdomen pelvis w con* [id number] 10/07/2015 11:49 PM RADIATION DOSE METRICS: Total DLP (mGy-cm): 1864.92 FINDINGS: Liver: Normal. No mass. Gallbladder and bile ducts: The gallbladder has been removed. No biliary ductal dilatation. Pancreas: Normal. No ductal dilation. Spleen: Normal. No splenomegaly. Adrenal glands: Normal. No mass. Kidneys and ureters: Normal. No renal stone or hydronephrosis. Stomach and bowel: Unremarkable. No obstruction. No mucosal thickening. Appendix: The appendix is normal. Intraperitoneal space: Unremarkable. No free air. No significant fluid collection. Vasculature: Unremarkable. No abdominal aortic aneurysm. Lymph nodes: Unremarkable. No enlarged lymph nodes. Urinary bladder: Unremarkable as visualized. Reproductive: The uterus and ovaries appear normal. Bones/joints: No acute fracture. Soft tissues: Unremarkable. CT/CT kidney stone [id number] IMPRESSION: No acute abnormality is seen. No renal stone is visualized. Radiation Dose CTDIVOL = (mGy): DLP = 1864.92 (mGy-cm)
--- NOTE | 2021-06-01 20:04 | W.ED.FEMALGU ---
HPI - Female Genitourinary General: Chief complaint: Urogenital-Female Stated complaint: Back Pain\Urinating Blood Time Seen by Provider: 06/01/21 19:56 History of Present Illness: HPI Narrative: Patient is a 26-year-old female who comes to the ED with flank pain/back pain. Symptoms started approximately 2 days ago. She reports bilateral flank pain but says that her right side is more painful than her left. She says any movement or ambulating causes pain in her back. She also endorses having some blood in her urine, dysuria and increased urine frequency. Patient saw her PCP earlier today and they said patient had some blood in her urine and is scheduling an outpatient kidney ultrasound. Associated symptoms: Deny abdominal pain, headache(s) or nausea Date of Last Menstrual Period: 05/15/21 Review of Systems Const: Denies: fever(s), chills or fatigue Eyes: Denies: change in vision or eye discomfort ENMT: Denies: throat pain, odynophagia, nasal discharge or nasal congestion Card: Denies: chest pain, palpitations, edema, swelling of feet/ankles, dyspnea on exertion or orthopnea Resp: Denies: dyspnea, productive cough or non-productive cough GI: Denies: abdominal pain, nausea, vomiting, diarrhea, constipation or hematochezia : Reports: flank pain, dysuria and hematuria Musc: Reports: back pain; Denies: neck pain or extremity swelling Skin/Breast: Denies: rash or new lesions Neuro: Denies: headache(s), numbness in extremities or weakness in extremities [facility] ED PFSH: Medical History MRSA (methicillin resistant Staphylococcus aureus) Social History Smoking and tobacco status: current every day smoker cigarettes Packs smoked per day: 1 Years cigarettes smoked: 15 Quit status (tobacco): has tried quititng Number of times tried to quit tobacco: 3 Second hand smoke exposure: No Female Reproductive History: Date of last menstrual period: 05/15/21 Physical Exam Const: COMMON NORMALS: no acute distress, patient oriented x3 and alert GENERAL APPEARANCE: cooperative and comfortable NUTRITIONAL APPEARANCE: obese HENMT: COMMON NORMALS: normocephalic HEAD & SCALP: normocephalic MOUTH: Normal oral and palatal mucosa present THROAT: posterior oropharynx normal and uvula midline Eye: COMMON NORMALS: Equal, round and reactive pupils present PUPIL: Yes Equal, round and reactive pupils present Neck/C-Spine: COMMON NORMALS: supple GENERAL: Yes normal visual inspection Resp: COMMON NORMALS: normal respiratory effort, No retractions, No use of accessory muscles and clear to auscultation bilaterally AUSCULTATION: clear to auscultation bilaterally Cardio: COMMON NORMALS: regular rate, regular rhythm, S1 normal heart sound present, S2 normal heart sound present, No gallops present (Cardio), No clicks present (Cardio), No murmurs present (Cardio) and Peripheral pulses 2+ throughout RATE: regular rate RHYTHM: regular rhythm HEART SOUNDS: S1 normal heart sound present and S2 normal heart sound present PERIPHERAL PULSES: Peripheral pulses 2+ throughout GI: COMMON NORMALS: Normal to inspection, nondistended, normoactive bowel sounds present, Soft to palpation, non-tender and no masses PALPATION: Yes Soft to palpation : BLADDER/KIDNEY EXAM: Yes CVA tenderness on the right (more tender on right side) and on the left Back/Pelvis: GENERAL BACK: Yes CVA tenderness THORACIC SPINE/UPPER BACK: Yes pain with ROM and Yes paraspinal muscle tenderness Thoracic paraspinal muscle tenderness: bilateral Bilateral thoracic paraspinal muscle tenderness: T10, T11 and T12 LUMBAR SPINE/LOWER BACK: Yes pain with ROM and Yes paraspinal muscle tenderness Lumbar paraspinal muscle tenderness: bilateral Bilateral lumbar paraspinal muscle tenderness: L1 Extremity: COMMON NORMALS: normal to inspection Neuro: COMMON NORMALS: patient oriented x3 and moves all extremities SENSORIUM/ORIENTATION: Yes alert Skin: GENERAL SKIN EXAM: dry skin Course Vital Signs: Vital signs: Vital Signs Temperature 98.2 F 06/01/21 22:58 Pulse Rate 69 06/01/21 22:58 Respiratory Rate 14 06/01/21 22:58 Blood Pressure 150/92 06/01/21 22:58 Pulse Oximetry 98 06/01/21 22:58 MDM - Female MDM Narrative: Medical decision making narrative: Patient is a 26-year-old female comes to the ED with lower back pain. Pain gets worse with movement. Patient saw her PCP couple days ago and they told her she had blood in her urine and her setting up an outpatient ultrasound of her kidneys. Here in the ED patient's vitals are stable she appears in no acute distress or pain. She does have some paraspinal muscle tenderness of the upper lumbar lower thoracic region. Rest of exam is benign. White blood cell count 12.1 the rest of CBC and CMP were unremarkable. hCG negative. UA showed no blood or any signs of infection. CT of abdomen pelvis showed no acute findings or stones seen. Patient diagnosed with musculoskeletal back pain and discharged home with a prescription for Celebrex and cyclobenzaprine. Return to ED precautions given. Follow-up with PCP in 7 to 10 days for reevaluation. Patient stood agree with plan. Lab Data: Attestation: I reviewed the patient's lab results. Labs: Lab Results 06/01/21 06/01/21 06/01/21 Range/Units 19:53 19:54 20:30 WBC 12.1 H (4.0-10.0) 10^3/ uL RBC 4.56 (4.1-5.3) 10^6/u L Hgb 14.3 (11.5-15.3) g/dL Hct 41.9 (37.0-47.0) % MCV 91.9 (81-99) fl MCH 31.4 (28.0-34.0) pg MCHC 34.1 (30.0-36.0) g/dL RDW 13.0 (12.1-15.1) % Plt Count 331 (130-400) 10^3/c mm MPV 9.8 (7.4-10.4) fL Neut % (Auto) 71.9 % Lymph % (Auto) 19.5 % [place] % (Auto) 6.1 % Eos % (Auto) 1.9 % Baso % (Auto) 0.3 % Neut # (Auto) 8.69 H (1.8-7.7) 10^3/u L Lymph # (Auto) 2.4 (0.8-4.8) 10^3/u L [place] # (Auto) 0.7 (0.2-0.9) 10^3/u L Eos # (Auto) 0.2 (0.0-0.8) 10^3/u L Baso # (Auto) 0.0 (0.0-0.1) 10^3/u L Nucleated RBC % (a uto) 0 % Nucleated RBCs # 0.0 /100WBC Sodium (136-145) mmol/L Potassium (3.5-5.1) mmol/L Chloride (98-107) mmol/L Carbon Dioxide (22-29) mmol/L Anion Gap (5-19) BUN (6-20) mg/dL Creatinine (0.5-0.9) mg/dL GFR Calculation (90-130) mL/min Glucose (65-115) mg/dL Calculated Osmolal ity (285-295) mOsm/k g Calcium (8.5-10.5) mg/dL Total Bilirubin (0.15-1.2) mg/dL AST (0-32) U/L ALT (0-33) U/L Alkaline Phosphata se (35-105) IU/L Total Protein (6.6-8.7) g/dL Albumin (3.5-5.2) g/dL Globulin (1.3-4.6) g/dL Urine Color Yellow (Yellow) Urine Appearance Clear (CLEAR) Urine pH 6 (5-7) Ur Specific Gravit y 1.005 (1.005-1.030) Urine Protein Neg (Negative) Urine Glucose (UA) Norm (Normal) Urine Ketones Negative (Negative) Urine Blood Neg (Negative) Urine Nitrate Negative (Negative) Urine Bilirubin Neg (Negative) Urine Urobilinogen Norm (Negative) mg/dL Ur Leukocyte Yuly ase Negative (Negative) Urine HCG, Qual Negative (Negative) 06/01/21 Range/Units 20:30 WBC (4.0-10.0) 10^3/ uL RBC (4.1-5.3) 10^6/u L Hgb (11.5-15.3) g/dL Hct (37.0-47.0) % MCV (81-99) fl MCH (28.0-34.0) pg MCHC (30.0-36.0) g/dL RDW (12.1-15.1) % Plt Count (130-400) 10^3/c mm MPV (7.4-10.4) fL Neut % (Auto) % Lymph % (Auto) % [place] % (Auto) % Eos % (Auto) % Baso % (Auto) % Neut # (Auto) (1.8-7.7) 10^3/u L Lymph # (Auto) (0.8-4.8) 10^3/u L [place] # (Auto) (0.2-0.9) 10^3/u L Eos # (Auto) (0.0-0.8) 10^3/u L Baso # (Auto) (0.0-0.1) 10^3/u L Nucleated RBC % (a uto) % Nucleated RBCs # /100WBC Sodium 135 L (136-145) mmol/L Potassium 3.8 (3.5-5.1) mmol/L Chloride 99 (98-107) mmol/L Carbon Dioxide 26 (22-29) mmol/L Anion Gap 13.8 (5-19) BUN 5 L (6-20) mg/dL Creatinine 0.4 L (0.5-0.9) mg/dL GFR Calculation 191.5 H (90-130) mL/min Glucose 85 (65-115) mg/dL Calculated Osmolal ity 277 L (285-295) mOsm/k g Calcium 8.9 (8.5-10.5) mg/dL Total Bilirubin 0.3 (0.15-1.2) mg/dL AST 12 (0-32) U/L ALT 16 (0-33) U/L Alkaline Phosphata se 68 (35-105) IU/L Total Protein 6.5 L (6.6-8.7) g/dL Albumin 3.7 (3.5-5.2) g/dL Globulin 2.8 (1.3-4.6) g/dL Urine Color (Yellow) Urine Appearance (CLEAR) Urine pH (5-7) Ur Specific Gravit y (1.005-1.030) Urine Protein (Negative) Urine Glucose (UA) (Normal) Urine Ketones (Negative) Urine Blood (Negative) Urine Nitrate (Negative) Urine Bilirubin (Negative) Urine Urobilinogen (Negative) mg/dL Ur Leukocyte Yuly ase (Negative) Urine HCG, Qual (Negative) Imaging Data: CT Abd/Pel: Attestation: I personally reviewed and interpreted this imaging study as follows: Radiologist's impression: CT abdomen-no acute abnormality seen. No renal stone visualized. Discharge Plan Discharge Patient Disposition: Home Clinical Impression: Musculoskeletal back pain Condition: Stable Prescriptions: New Celebrex 100 mg capsule 100 mg PO BID PRN (Reason: pain) Qty: 20 RF: 0 cyclobenzaprine 10 mg tablet 10 mg PO BID PRN (Reason: muscle spasm) Qty: 20 RF: 0 No Action Latuda 120 mg tablet 120 mg PO DAILY Qty: 30 RF: 2 hydroxyzine HCl 50 mg tablet 50 mg PO QID PRN (Reason: anxiety/insomnia) Qty: 120 RF: 2 fluoxetine [Prozac] 40 mg capsule 40 mg PO DAILY Qty: 30 RF: 2 ondansetron HCl [Zofran] 4 mg tablet 4 mg PO Q4H Qty: 10 RF: 0 ibuprofen [IBU] 600 mg tablet 600 mg PO TID PRN (Reason: pain) Qty: 20 RF: 0 albuterol sulfate 2.5 mg /3 mL (0.083 %) solution for nebulization 2.5 mg inhalation Q6H PRN (Reason: shortness of breath or wheezing) Qty: 90 RF: 1 Flovent HFA 44 mcg/actuation HFA aerosol inhaler 1 puff INHALATION BID RF: 0 ProAir HFA 90 mcg/actuation HFA aerosol inhaler 1 puff INHALATION Q4H PRN (Reason: Shortness Of Breath) RF: 0 trazodone 50 mg tablet 100 mg PO BEDTIME PRN (Reason: insomnia) RF: 0 prazosin 5 mg capsule 10 mg PO BEDTIME RF: 0 ondansetron HCl 4 mg tablet 4 mg PO Q8H PRN (Reason: nausea and vomiting) Qty: 6 RF: 0 Lomotil 2.5-0.025 mg tablet 1 tab PO Q6H PRN (Reason: diarrhea) Qty: 7 RF: 0 Discharge Orders: Discharge ED (Routine); Ordered 06/01/21 Ordered By: David Dumont Discharge Diet: Regular Discharge Activity: Resume usual activity Patient Instructions: Musculoskeletal Pain (ED), Back Pain (ED) Activity Restrictions/Additional Instructions: Follow-up with medical provider as directed in 7 to 10 days for reevaluation. Apply cold pack or heat on sore back to help with symptoms. Take medications as prescribed. Return to the ER or your medical provider if condition worsens. Please read and understand discharge instructions. Thank you for choosing [facility] for your healthcare needs today. Please realize this is an emergency room and that we are providing you with a medical screening exam and this may not be complete and all inclusive of all the testing and or work up that you may need to determine your ailment or severity of your illness. It is very important that you follow up as instructed or that you return to the Emergency Department should you have concerns or if your condition changes or worsens in any way. Coding Level of Care Code ED Pediatric Sports Medicine Specialist for Sunil Fwd Exam Comprehensive
[2021-06-01 20:08] LABS: Bilirubin Urine Neg (Negative); Blood Urine Neg (Negative); Glucose Urine UA Norm (Normal); Ketones Urine Negative (Negative); Leukocyte Esterase Urine Negative (Negative); Nitrate Urine Negative (Negative); Protein Urine Neg (Negative); Specific Gravity, Urine 1.005 (1.005-1.030); Urine Appearance Clear (CLEAR); Urine Color Yellow (Yellow); Urobilinogen Urine Norm (Negative); pH Urine 6 (5-7)
[2021-06-01] MEDS: HYDROcodone-acetaminophen 5-325 mg Tablet 1 TAB PO (20:10)
[2021-06-01 20:57] LABS: Basophils % 0.3 %; Eosinophils # 0.2 10^3/uL (0.0-0.8); Eosinophils % 1.9 %; Hematocrit 41.9 % (37.0-47.0); Hemoglobin 14.3 g/dL (11.5-15.3); Lymphocytes # 2.4 10^3/uL (0.8-4.8); Lymphocytes % 19.5 %; Mean Corpuscular HGB Conc 34.1 g/dL (30.0-36.0); Mean Corpuscular Hemoglobin 31.4 pg (28.0-34.0); Mean Corpuscular Volume 91.9 fl (81-99); Mean Platelet Volume 9.8 fL (7.4-10.4); Monocytes # 0.7 10^3/uL (0.2-0.9); Monocytes % 6.1 %; Neutrophils # 8.69 10^3/uL (1.8-7.7); Neutrophils % 71.9 %; Nucleated Red Blood Cells % 0 %; Platelet Count 331 10^3/cmm (130-400); Red Blood Count 4.56 10^6/uL (4.1-5.3); White Blood Count 12.1 10^3/uL (4.0-10.0)
[2021-06-01 21:07] LABS: Alanine Aminotransferase 16 U/L (0-33); Albumin Level 3.7 g/dL (3.5-5.2); Alkaline Phosphatase 68 IU/L (35-105); Anion Gap 13.8 (5-19); Aspartate Amino Transferase 12 U/L (0-32); Blood Urea Nitrogen 5 mg/dL (6-20); Calcium 8.9 mg/dL (8.5-10.5); Carbon Dioxide 26 mmol/L (22-29); Chloride 99 mmol/L (98-107); Globulin 2.8 g/dL (1.3-4.6); Glomerular Filtration Rate 191.5 mL/min (90-130); Glucose 85 mg/dL (65-115); Osmolality Calculated 277 mOsm/kg (285-295); Potassium 3.8 mmol/L (3.5-5.1); Sodium 135 mmol/L (136-145); Total Bilirubin 0.3 mg/dL (0.15-1.2); Total Protein 6.5 g/dL (6.6-8.7)
[2021-06-01 22:58] VITALS: BP 150/92; PULSE 69; RESP 14; TEMP 36.8; O2SAT 98
== END 2021-06-01 23:00 | disposition home or self-care (01) ==
PROVIDERS: Emergency Medicine; Emergency Provider Physician Assistant
DX: M54.9 Dorsalgia, unspecified (principal); F17.210 Nicotine dependence, cigarettes, uncomplicated
CPT/HCPCS: 74176; 80053; 81003; 81025; 85025; 99283

== ENCOUNTER → 2021-06-08 11:48 | Outpatient (BNVA) | payer MEDICAID, SELFPAY | PROVIDERS: Visit Provider Counselor Mental Health | DX: F41.1 Generalized anxiety disorder (principal); F33.2 Major depressive disorder, recurrent severe without psychotic features; F43.12 Post-traumatic stress disorder, chronic | CPT/HCPCS: 90834 ==

== ENCOUNTER 2021-06-08 14:45 | Emergency (ER) | payer MEDICAID, SELFPAY ==
[2021-06-08 16:19] VITALS: BP 153/91; PULSE 74; RESP 16; TEMP 36.8; O2SAT 96; BMI 43.5
[2021-06-08 16:45] LABS: Bilirubin Urine Neg (Negative); Blood Urine Neg (Negative); Glucose Urine UA Norm (Normal); Ketones Urine Negative (Negative); Leukocyte Esterase Urine Trace (Negative); Nitrate Urine Positive (Negative); Protein Urine Neg (Negative); Specific Gravity, Urine 1.015 (1.005-1.030); Urine Appearance SL Hazy (CLEAR); Urine Color Yellow (Yellow); Urobilinogen Urine Norm (Negative); pH Urine 6.5 (5-7)
[2021-06-08 16:46] LABS: Add Urine Microscopic? YES
[2021-06-08 16:51] LABS: Add Urine Culture? Yes; Bacteria Urine 4+ /hpf; Squamous Epithelial Cell Urine 0-4 /hpf (0-5); WBC Urine 0-4 /hpf (0-5)
== END 2021-06-08 18:49 | disposition left against medical advice (07) ==
PROVIDERS: Physician Assistant; Emergency Provider Family Medicine; PCP Nurse Practitioner Family
DX: Z53.21 Procedure and treatment not carried out due to patient leaving prior to being seen by health care provider (principal)
CPT/HCPCS: 81001; 87077; 87086; 87186

== ENCOUNTER 2021-06-09 10:56 | Outpatient (CLI) | payer MEDICAID, SELFPAY ==
--- NOTE | 2021-06-09 11:09 | XR_ITS ---
WS: [id number] Lumbar spine, AP, both obliques, lateral and L5-S1, 06/09/2021 Clinical Data: LOW BACK PAIN @ MULTIPLE SITES Comparison: None. Findings: No compression fractures or subluxation is seen. No disc space narrowing is seen. The transverse proc esses and SI joints are normal. No spondylolysis or spondylolisthesis is seen. There are clips in the right upper quadrant from a cho lecystectomy. XR/XR lumbar spine min 4V [id number] Impression: Negative lumbar spine with obliques.
== END 2021-06-09 10:57 | disposition home or self-care (01) ==
LOC: RAD 11:00
PROVIDERS: PCP Nurse Practitioner Family; Visit Provider Nurse Practitioner Family
DX: M54.5 Low back pain (principal)
CPT/HCPCS: 72110

== ENCOUNTER → 2021-06-10 09:47 | Outpatient (BNVA) | payer MEDICAID, SELFPAY | PROVIDERS: PCP Nurse Practitioner Family; Visit Provider Psychiatry & Neurology Psychiatry | DX: F41.1 Generalized anxiety disorder (principal); F33.2 Major depressive disorder, recurrent severe without psychotic features; F43.12 Post-traumatic stress disorder, chronic; F17.200 Nicotine dependence, unspecified, uncomplicated | CPT/HCPCS: 99214 ==

== ENCOUNTER → 2021-06-22 11:46 | Outpatient (BNVA) | payer MEDICAID, SELFPAY | PROVIDERS: Visit Provider Counselor Mental Health | DX: F41.1 Generalized anxiety disorder (principal); F33.2 Major depressive disorder, recurrent severe without psychotic features; F43.12 Post-traumatic stress disorder, chronic | CPT/HCPCS: 90834 ==

== ENCOUNTER → 2021-07-13 11:49 | Outpatient (BNVA) | payer MEDICAID, SELFPAY | PROVIDERS: PCP Urology; Visit Provider Counselor Mental Health | DX: F41.1 Generalized anxiety disorder (principal); F33.2 Major depressive disorder, recurrent severe without psychotic features; F43.12 Post-traumatic stress disorder, chronic | CPT/HCPCS: 90834 ==

== ENCOUNTER → 2023-05-28 15:05 | Outpatient (BNVA) | payer SELFPAY | PROVIDERS: PCP Urology; Visit Provider Family Medicine | DX: J45.909 Unspecified asthma, uncomplicated (principal); L90.0 Lichen sclerosus et atrophicus; L73.2 Hidradenitis suppurativa; F33.2 Major depressive disorder, recurrent severe without psychotic features; F41.1 Generalized anxiety disorder; F43.12 Post-traumatic stress disorder, chronic; F60.3 Borderline personality disorder; R11.10 Vomiting, unspecified; K92.1 Melena; R10.9 Unspecified abdominal pain; I51.7 Cardiomegaly; R76.8 Other specified abnormal immunological findings in serum; G47.30 Sleep apnea, unspecified; R73.09 Other abnormal glucose | CPT/HCPCS: 80053; 83036; 84439; 84443; 84481 ==

== ENCOUNTER → 2023-06-11 12:52 | Outpatient (BNVA) | payer MEDICAID, SELFPAY | PROVIDERS: PCP Urology; Referring Provider Family Medicine; Visit Provider Internal Medicine Pulmonary Disease | DX: J45.909 Unspecified asthma, uncomplicated (principal); R76.8 Other specified abnormal immunological findings in serum; G47.33 Obstructive sleep apnea (adult) (pediatric) | CPT/HCPCS: 36415; 82785; 86003 ==

== ENCOUNTER → 2023-06-19 11:47 | Outpatient (BNVA) | payer MEDICAID, SELFPAY | PROVIDERS: PCP Family Medicine; Visit Provider Clinical Nurse Specialist Adult Health | DX: J44.9 Chronic obstructive pulmonary disease, unspecified (principal); A08.4 Viral intestinal infection, unspecified; R11.2 Nausea with vomiting, unspecified; R19.7 Diarrhea, unspecified | CPT/HCPCS: 87426 ==

== ENCOUNTER 2023-07-02 13:52 | Emergency (ER) | payer MEDICAID, SELFPAY ==
[2023-07-02 13:59] VITALS: BP 167/98; PULSE 80; RESP 16; TEMP 36.9; O2SAT 95; BMI 44.2
--- NOTE | 2023-07-02 14:36 | W.ED.HA ---
HPI - Headache General: Chief Complaint: Headache Stated Complaint: full body pain/swelling, states autoimmune issue Time Seen by Provider: 07/02/23 14:23 Source: patient Mode of arrival: ambulatory Limitations: no limitations History of Present Illness: This patient presents herself to our emergency department primarily because of a headache that began approximately 3 to 4 hours ago. She states it gradually was onset and typical for her previous headaches which have been attributed to migraine headaches. She denies any fevers or recent head trauma etc. She has had no difficulty with any change in her usual clinical status other than she has total body pain which is not unusual for her. She describes pain in her large muscle groups her lower back in addition to her headache today. She states she was told she had a positive TELMA titer and is waiting to see a social welfare research worker. She states there is a family history of lupus on her maternal grand mother. Patient denies any fevers chills nausea vomiting or diarrhea. She states that there is been no focal weakness change in vision change in speech ability etc. She does use tobacco. She denies street drugs currently. She denies any known exposure to infectious disease. Associated symptoms: Deny chest pain, fever(s), nausea, rash or vomiting Review of Systems Const: Reports: body aches; Denies: fever(s) or chills Eyes: Denies: change in vision ENMT: Denies: throat pain or odynophagia Card: Denies: chest pain, palpitations or irregular heart rhythm Resp: Denies: dyspnea, productive cough or non-productive cough GI: Denies: abdominal pain, nausea, vomiting or diarrhea : Denies: flank pain, difficulty voiding or dysuria Musc: Reports: neck pain, back pain, extremity pain and joint pain Skin/Breast: Denies: rash or pruritus Neuro: Reports: headache(s); Denies: numbness in extremities, weakness in extremities, dizziness or Slurred speech present Psych: Reports: anxiety and depression PFSH ED PFSH: Medical History MRSA (methicillin resistant Staphylococcus aureus) Psychiatric care UTI (urinary tract infection) Surgical History History of cholecystectomy Family History Grandmother Lupus Mother Lung disease copd Other Hypertension Social History Smoking and tobacco status: current every day smoker cigarettes Packs smoked per day: 1.5 [ Other cigarette details: started at age 8] Alcohol intake: former Year of sobriety/quit date alcohol: 2014 Substance/Drug Use: current Substance/Drug use frequency: daily Other substance/drug use details: history opiate pill abuse Household members: children Number of children: 1 Current occupational status: unemployed 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 Special richa needs: No Agree to transfusion: Yes Physical Exam Narrative: EXAM NARRATIVE: She is alert and was questions and somewhat of a slow methodical voice but able to reach a logical conclusive answer. Const: COMMON NORMALS: patient oriented x3 and alert GENERAL APPEARANCE: cooperative and disheveled NUTRITIONAL APPEARANCE: obese HENMT: COMMON NORMALS: normocephalic, atraumatic, Normal nasal mucous membranes and turbinates present, moist oral mucous membranes and oropharynx normal HEAD & SCALP: normocephalic and atraumatic NOSE: Normal nasal mucous membranes and turbinates present Eye: COMMON NORMALS: Equal, round and reactive pupils present, EOMs intact bilaterally and conjunctivae normal CONJUNCTIVA: Yes conjunctivae normal PUPIL: Yes Equal, round and reactive pupils present Neck/C-Spine: COMMON NORMALS: full ROM and no meningeal signs CERVICAL SPINE: Yes Paracervical muscle tenderness and Yes Trapezius muscle tenderness Chest: COMMONS NORMALS: normal inspection of the chest Resp: COMMON NORMALS: normal respiratory effort, No retractions, No use of accessory muscles and clear to auscultation bilaterally EFFORT & INSPECTION: Yes able to speak in complete sentences AUSCULTATION: clear to auscultation bilaterally Cardio: COMMON NORMALS: regular rate, regular rhythm, No murmurs present (Cardio) and Peripheral pulses 2+ throughout RATE: regular rate RHYTHM: regular rhythm PERIPHERAL PULSES: Peripheral pulses 2+ throughout GI: COMMON NORMALS: Normal to inspection, nondistended, normoactive bowel sounds present Back/Pelvis: COMMON NORMALS: thoracic and lumbar spine normal to inspection and straight leg raise negative bilaterally OTHER: She has tenderness throughout the soft tissues along the axial spine from the base of the occiput to the lumbar region and including the over the soft tissues of the posterior superior iliac spines. There is no midline tenderness. No step-off. Extremity: COMMON NORMALS: normal to inspection and capillary refill normal NARRATIVE EXTREMITY EXAM: She has tenderness in various areas of her extremities particularly in the proximal muscle groups the musculotendinous junctions. She has normal range of motion although she provides poor effort when asked to move her extremities. There is no joint effusion, joint enlargements joint erythema etc. Neuro: COMMON NORMALS: patient oriented x3, moves all extremities, no focal motor deficits and no sensory deficits noted SENSORIUM/ORIENTATION: Yes alert MENINGEAL SIGNS: Yes no meningeal signs CRANIAL NERVES: Yes CN normal except as noted Psych: COMMON NORMALS: mental status grossly normal and cooperative MOOD & AFFECT: Yes depressed mood Skin: COMMON NORMALS: no rashes or lesions noted, no wounds and turgor normal GENERAL SKIN EXAM: no rashes or lesions noted and turgor normal Course Reevaluation(s): Reevaluation #1: Patient is clinically improved and stable and desires to be discharged this time. We will give her a short course of Celebrex to help with some of her generalized pain but obviously follow-up with rheumatology will be vital for her. No evidence at this time of other ongoing emergency medical condition. Time: 16:23 Vital Signs: Vital signs: Vital Signs Temperature 98.4 F 07/02/23 13:59 Pulse Rate 80 07/02/23 13:59 Respiratory Rate 16 07/02/23 13:59 Blood Pressure 167/98 07/02/23 13:59 Pulse Oximetry 95 07/02/23 13:59 Oxygen Delivery Me thod Room Air 07/02/23 13:59 MDM - Headache Medical Decision Making This patient who has a history of chronic back and neck pain as well as recurrent headaches presented with atypical headache in addition to complaining of generalized achiness and pain. No fevers or recent illness or other contributing factors. She states she is been taking her usual medication as prescribed. Her clinical examination revealed her to be alert without any focal findings. She had multiple soft tissue trigger points throughout areas areas of her body including paracervical muscles paravertebral muscles muscle tenderness insertions etc. No focal neurologic findings. Urinalysis was obtained as well as a basic metabolic profile. No evidence to suggest acute urinary tract infection and her renal function was preserved. She responded well to therapy and is suitable to be discharged on her usual regimen. I will add a short course of Celebrex to help with her generalized symptoms. She has a future appointment with rheumatology. Lab Data I reviewed the patient's lab results. 07/02/23 14:45 Laboratory Results ESR 27 mm/hr (0-15) H 07/02/23 14:45 Sodium 137 mmol/L (136-145) 07/02/23 14:45 Potassium 3.2 mmol/L (3.5-5.1) L 07/02/23 14:45 Chloride 100 mmol/L (98-107) 07/02/23 14:45 Carbon Dioxide 25 mmol/L (22-29) 07/02/23 14:45 Anion Gap 15.2 (5-19) 07/02/23 14:45 BUN 2 mg/dL (6-20) L 07/02/23 14:45 Creatinine 0.5 mg/dL (0.5-0.9) 07/02/23 14:45 GFR Calculation 145.9 mL/min (90-130) H 07/02/23 14:45 Glucose 130 mg/dL (65-115) H 07/02/23 14:45 Calculated Osmolality 282 mOsm/kg (285-295) L 07/02/23 14:45 Calcium 9.2 mg/dL (8.5-10.5) 07/02/23 14:45 Urine Color Yellow (Yellow) 07/02/23 15:50 Urine Appearance Clear (CLEAR) 07/02/23 15:50 Urine pH 6.5 (5-7) 07/02/23 15:50 Ur Specific [place] 1.005 (1.005-1.030) 07/02/23 15:50 Urine Protein Neg (Negative) 07/02/23 15:50 Urine Glucose (UA) Norm (Normal) 07/02/23 15:50 Urine Ketones Negative (Negative) 07/02/23 15:50 Urine Blood Neg (Negative) 07/02/23 15:50 Urine Nitrate Negative (Negative) 07/02/23 15:50 Urine Bilirubin Neg (Negative) 07/02/23 15:50 Urine Urobilinogen Norm mg/dL (Negative) 07/02/23 15:50 Ur Leukocyte Esterase Negative (Negative) 07/02/23 15:50 No radiology studies performed this visit Discharge Plan Discharge Patient Disposition: Home Clinical Impression: Headache, Myalgia Condition: Stable Prescriptions: New Celebrex 50 mg capsule 50 mg PO DAILY Qty: 14 0RF Held ibuprofen 800 mg tablet 800 mg PO TID PRN (Reason: Pain) Hold Instructions: Resume on 07/31/23. No Action lurasidone 60 mg tablet 60 mg PO BEDTIME buspirone 10 mg tablet 10 mg PO BID Trelegy Ellipta 200-62.5-25 mcg blister with device 1 inh inhalation QAM clobetasol 0.05 % ointment 1 applic topical .2-3 TIMES A WEEK montelukast 10 mg tablet 10 mg PO BEDTIME prednisone 10 mg tablet 10 mg PO QAM Women's Multivitamin 18 mg-400 mcg- 500 mg-50 mcg tablet 1 tab PO DAILY ascorbate calcium (vitamin C) 500 mg tablet 500 mg PO QAM pantoprazole [Protonix] 40 mg tablet,delayed release (DR/EC) 40 mg PO BID 42 Days Qty: 84 1RF Nucala 100 mg/mL auto-injector 100 mg SUBCUT .monthly Qty: 1 11RF Rx Instructions: (PT STATES NOT STARTED OF 07/02/23 STATES WAITING ON INSURANCE) ondansetron 8 mg tablet,disintegrating 8 mg PO Q8H PRN (Reason: nausea and vomiting) 5 Days Qty: 15 0RF gabapentin 100 mg capsule 100 mg PO TID Qty: 90 0RF albuterol sulfate 2.5 mg /3 mL (0.083 %) solution for nebulization 2.5 mg inhalation Q6H PRN (Reason: shortness of breath or wheezing) Qty: 90 1RF Rx Instructions: dispense 1 box albuterol sulfate [ProAir HFA] 90 mcg/actuation HFA aerosol inhaler 2 puff INHALATION Q4H PRN (Reason: Shortness Of Breath) trazodone 100 mg tablet 200 mg PO BEDTIME amlodipine 5 mg tablet 5 mg PO QAM losartan 100 mg tablet 100 mg PO QAM Discharge Orders: Discharge ED (Routine); Ordered 07/02/23 Ordered By: Napoleon Burciaga Referrals: Nathalie Madison MD [Primary Care Provider] - Discharge Diet: Usual diet Discharge Activity: Increase activity as tolerated Patient Instructions: Opioid Safety, Pain Management Activity Restrictions/Additional Instructions: We have prescribed a short-term anti-inflammatory to help with some of your myalgias and other chronic pain. Do not take this at the same time you take any ibuprofen or other anti-inflammatories. Continue all your other usual medication. Follow-up with your primary care clinic and/or social welfare research worker as scheduled. You may return to the emergency department anytime for any new or worsening symptoms. 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
[2023-07-02] MEDS: diphenhydrAMINE 50 mg/mL SDV 1mL IVP (14:53)
[2023-07-02] MEDS: metoclopramide 5 mg/mL SDV 2 mL 10 MG IVP (14:55)
[2023-07-02] MEDS: ketorolac 30 mg/mL INJ 15 MG IVP (14:56)
[2023-07-02 15:20] LABS: Erythrocyte Sedimentation Rate 27 mm/hr (0-15)
[2023-07-02 15:22] LABS: Anion Gap 15.2 (5-19); Blood Urea Nitrogen 2 mg/dL (6-20); Calcium 9.2 mg/dL (8.5-10.5); Carbon Dioxide 25 mmol/L (22-29); Chloride 100 mmol/L (98-107); Glomerular Filtration Rate 145.9 mL/min (90-130); Glucose 130 mg/dL (65-115); Osmolality Calculated 282 mOsm/kg (285-295); Potassium 3.2 mmol/L (3.5-5.1); Sodium 137 mmol/L (136-145)
[2023-07-02 15:58] LABS: Add Urine Microscopic? NO; Charge for UA Resulting for Rev
[2023-07-02 16:07] LABS: Bilirubin Urine Neg (Negative); Blood Urine Neg (Negative); Glucose Urine UA Norm (Normal); Ketones Urine Negative (Negative); Leukocyte Esterase Urine Negative (Negative); Nitrate Urine Negative (Negative); Protein Urine Neg (Negative); Specific Gravity, Urine 1.005 (1.005-1.030); Urine Appearance Clear (CLEAR); Urine Color Yellow (Yellow); Urobilinogen Urine Norm (Negative); pH Urine 6.5 (5-7)
== END 2023-07-02 16:39 | disposition home or self-care (01) ==
PROVIDERS: Emergency Provider Emergency Medicine; PCP Family Medicine
DX: R51.9 Headache, unspecified (principal); M79.10 Myalgia, unspecified site; F17.210 Nicotine dependence, cigarettes, uncomplicated
CPT/HCPCS: 80048; 81003; 85651; 96374; 96375; 99284; J1200; J1885; J2765

== ENCOUNTER → 2023-07-03 13:14 | Outpatient (BNVA) | payer MEDICAID, SELFPAY | PROVIDERS: PCP Family Medicine; Visit Provider Family Medicine | DX: R53.83 Other fatigue (principal); J45.50 Severe persistent asthma, uncomplicated; R11.2 Nausea with vomiting, unspecified; M34.9 Systemic sclerosis, unspecified; L73.2 Hidradenitis suppurativa; L90.0 Lichen sclerosus et atrophicus; M79.10 Myalgia, unspecified site; R51.9 Headache, unspecified | CPT/HCPCS: 85025 ==

== ENCOUNTER 2023-07-06 08:14 | Emergency (ER) | payer MEDICAID, SELFPAY ==
--- NOTE | 2023-07-06 08:33 | ED_ITS ---
HPI - General Adult General: Chief complaint: Nausea/Vomiting/Diarrhea Stated complaint: fatigue/nausea/vomiting/body aches Time Seen by Provider: 07/06/23 08:30 Source: patient Mode of arrival: ambulatory History of Present Illness: 28-year-old female presents emergency room clinic fatigue nausea vomiting generalized body aches. She was seen earlier in the week her white count was over 20,000 she still is complaining of generalized aches and pains some nausea. She denies any rash vomiting or diarrhea no anosmia. Onset (ago): day(s) Severity: moderate Quality: aching Pain Consistency: intermittent Relieving factors: none Exacerbating factors: none Associated symptoms: Reports cough, decreased appetite, fevers/chills, malaise, nausea and weakness; Deny chest pain, confusion, diaphoresis, dyspnea, headache(s), rash, p alpitations, seizures, short of breath, syncope, vomiting or other Treatments prior to arrival: none Review of Systems Const: Reports: malaise; Denies: diaphoresis Card: Denies: chest pain, palpitations or syncope Resp: Denies: dyspnea GI: Reports: abdominal pain and nausea; Denies: vomiting : Denies: dysuria, urinary frequency or urinary urgency Skin/Breast: Denies: rash Neuro: Denies: headache(s) or confusion PFSH ED PFSH: Medical History MRSA (methicillin resistant Staphylococcus aureus) Psychiatric care UTI (urinary tract infection) Surgical History History of cholecystectomy Family History Grandmother Lupus Mother Lung disease copd Other Hypertension Social History Smoking and tobacco status: current every day smoker cigarettes Packs smoked pe r day: 1.5 [ Other cigarette details: started at age 8] Alcohol intake: former Year of sobriety/quit date alcohol: 2014 Substance/Drug Use: current Substance/Drug use frequency: daily Other substance/drug use details: history opiate pill abuse Household members: children Number of children: 1 Current occupational status: unemployed 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 Special richa needs: No Agree to transfusion: Yes Physical Exam Const: GENERAL APPEARANCE: cooperative and comfortable O RIENTATION/CONSCIOUSNESS: Yes awake, Yes oriented to person, Yes oriented to place and Yes oriented to time HENMT: COMMON NORMALS: normocephalic, atraumatic and hearing grossly normal bilaterally HEAD & SCALP: normocephalic and atraumatic Resp: COMMON NORMALS: normal respiratory effort, No retractions, No use of accessory muscles and clear to auscultation bilaterally AUSCULTATION: clear to auscultation bilaterally Cardio: COMMON NORMALS: regular rate, regular rhythm and No murmurs present (Cardio) RATE: regular rate RHYTHM: regular rhythm GI: COMMON NORMALS: Soft to palpation and No hepatosplenomegaly present AUSCULTATION: Yes normoactive bowel sounds PALPATION: Yes Soft to palpation, No Tenderness to palpation present (GI), No Guarding due to palpation present (GI) and Yes No hepatosplenomegaly present Extremity: COMMON NORMALS: normal to inspection, capillary refill normal, no clubbing, cyanosis or edema, no calf tenderness and no pedal edema Neuro: SENSORIUM/ORIENTATION: Yes oriented to person, Yes oriented to place and Yes oriented to time Skin: COMMON NORMALS: no rashes or lesions noted GENERAL SKIN EXAM: no rashes or lesions noted Course Vital Signs: Vital signs: Vital Signs Pulse Rate 69 07/06/23 12:16 Respiratory Rate 16 07/06/23 12:16 Blood Pressure 150/83 07/06/23 12:16 Pulse Oximetry 98 07/06/23 12:16 Oxygen Delivery Me thod Room Air 07/06/23 08:55 MDM - General Adult Medical Decision Making Basilar pneumonia bilaterally. Start on doxycycline for 10 days. Recheck if not improving. COVID is negative. Medical Records I reviewed the patient's medical records. Lab Data I reviewed the patient's lab results. 07/06/23 09:15 07/06/23 09:15 Laboratory Results WBC 10.83 10^3/uL (3.29-11.43) 07/06/23 09:15 RBC 4.58 10^6/uL (3.85-5.65) 07/06/23 09:15 Hgb 14.30 g/dL (11.27-16.99) 07/06/23 09:15 Hct 42.5 % (36-47) 07/06/23 09:15 MCV 92.8 fl (85-98) 07/06/23 09:15 MCH 31.2 pg (27-33) 07/06/23 09:15 MCHC 33.6 g/dL (30-55) 07/06/23 09:15 RDW 13.3 % (12.1-15.1) 07/06/23 09:15 Plt Count 402 10^3/cmm (157-399) H 07/06/23 09:15 MPV 9.4 fL (7.4-10.4) 07/06/23 09:15 Neut % (Auto) 71.6 % 07/06/23 09:15 Lymph % (Auto) 19.0 % 07/06/23 09:15 Dukes % (Auto) 5.6 % 07/06/23 09:15 Eos % (Auto) 2.8 % 07/06/23 09:15 Baso % (Auto) 0.3 % 07/06/23 09:15 Neut # (Auto) 7.75 10^3/uL (1.8-7.7) H 07/06/23 09:15 Lymph # (Auto) 2.1 10^3/uL (0.8-4.8) 07/06/23 09:15 Dukes # (Auto) 0.6 10^3/uL (0.2-0.9) 07/06/23 09:15 Eos # (Auto) 0.3 10^3/uL (0.0-0.8) 07/06/23 09:15 Baso # (Auto) 0.0 10^3/uL (0.0-0.1) 07/06/23 09:15 Nucleated RBC % (auto) 0 % 07/06/23 09:15 Nucleated RBCs # 0.0 /100WBC 07/06/23 09:15 Sodium 136 mmol/L (136-145) 07/06/23 09:15 Potassium 3.9 mmol/L (3.5-5.1) 07/06/23 09:15 Chloride 98 mmol/L (98-107) 07/06/23 09:15 Carbon Dioxide 30 mmol/L (22-29) H 07/06/23 09:15 Anion Gap 11.9 (5-19) 07/06/23 09:15 BUN 4 mg/dL (6-20) L 07/06/23 09:15 Creatinine 0.6 mg/dL (0.5-0.9) 07/06/23 09:15 GFR Calculation 118.2 mL/min (90-130) 07/06/23 09:15 Glucose 92 mg/dL (65-115) 07/06/23 09:15 Calculated Osmolality 279 mOsm/kg (285-295) L 07/06/23 09:15 Calcium 9.1 mg/dL (8.5-10.5) 07/06/23 09:15 Total Bilirubin 0.2 mg/dL (0.15-1.2) 07/06/23 09:15 AST 10 U/L (0-32) 07/06/23 09:15 ALT 14 U/L (0-33) 07/06/23 09:15 Alkaline Phosphatase 72 U/L (35-105) 07/06/23 09:15 Total Protein 7.0 g/dL (6.6-8.7) 07/06/23 09:15 Albumin 3.9 g/dL (3.5-5.2) 07/06/23 09:15 Globulin 3.1 g/dL (1.3-4.6) 07/06/23 09:15 HCG, Qual Negative (Negative) 07/06/23 09:15 Urine Color Yellow (Yellow) 07/06/23 08:42 Urine Appearance Sl hazy (CLEAR) A 07/06/23 08:42 Urine pH 5 (5-7) 07/06/23 08:42 Ur Specific [place] 1.015 (1.005-1.030) 07/06/23 08:42 Urine Protein 1+ (Negative) H 07/06/23 08:42 Urine Glucose (UA) Norm (Normal) 07/06/23 08:42 Urine Ketones 1+ (Negative) H 07/06/23 08:42 Urine Blood 3+ (Negative) H 07/06/23 08:42 Urine Nitrate Negative (Negative) 07/06/23 08:42 Urine Bilirubin Neg (Negative) 07/06/23 08:42 Urine Urobilinogen 1 mg/dL (Negative) H 07/06/23 08:42 Ur Leukocyte Esterase Trace (Negative) H 07/06/23 08:42 Urine RBC 40-50 /hpf (0-2) H 07/06/23 08:42 Urine WBC 0-4 /hpf (0-5) H 07/06/23 08:42 Ur Squamous Epith Cells 10-15 /hpf (0-5) H 07/06/23 08:42 Amorphous Sediment Not Reportable 07/06/23 08:42 Urine Bacteria Trace /hpf (NONE) 07/06/23 08:42 Urine Mucus Trace /hpf 07/06/23 08:42 Coronavirus 229E (PCR) Not detected (NOT DETECT) 07/06/23 09:40 Influenza Type A Ag negative (Negative) 07/06/23 09:40 Influenza Type B Ag negative (Negative) 07/06/23 09:40 SARS-CoV-2 (PCR) Not detected (NOT DETECT) 07/06/23 09:40 All radiology interpretation(s) finalized by discharge Discharge Plan Discharge Patient Disposition: Home Clinical Impression: Pneumonia Condition: Stable Prescriptions: New albuterol sulfate 90 mcg/actuation HFA aerosol inhaler 2 inh INHALATION Q4H PRN (Reason: shortness of breath or wheezing) Qty: 18 0RF doxycycline hyclate 100 mg capsule 100 mg PO BID 10 Days Qty: 20 0RF No Action buspirone 10 mg tablet 10 mg PO BID Trelegy Ellipta 200-62.5-25 mcg blister with device 1 inh inhalation QAM clobetasol 0.05 % ointment 1 applic topical .2-3 TIMES A WEEK montelukast 10 mg tablet 10 mg PO BEDTIME prednisone 10 mg tablet 10 mg PO QAM ibuprofen 800 mg tablet 800 mg PO TID PRN (Reason: Pain) Hold Instructions: Resume on 07/31/23. Women's Multivitamin 18 mg-400 mcg- 500 mg-50 mcg tablet 1 tab PO QAM ascorbate calcium (vitamin C) 500 mg tablet 500 mg PO QAM pantoprazole [Protonix] 40 mg tablet,delayed release (DR/EC) 40 mg PO BID 42 Days Qty: 84 1RF Nucala 100 mg/mL auto-injector 100 mg SUBCUT .monthly Qty: 1 11RF Rx Instructions: (PT STATES NOT STARTED OF 07/02/23 STATES WAITING ON INSURANCE) ondansetron 8 mg tablet,disintegrating 8 mg PO Q8H PRN (Reason: nausea and vomiting) 5 Days Qty: 15 0RF gabapentin 100 mg capsule 100 mg PO TID Qty: 90 0RF albuterol sulfate 2.5 mg /3 mL (0.083 %) solution for nebulization 2.5 mg inhalation Q6H PRN (Reason: shortness of breath or wheezing) Qty: 90 1RF Rx Instructions: dispense 1 box albuterol sulfate [ProAir HFA] 90 mcg/actuation HFA aerosol inhaler 2 puff INHALATION Q4H PRN (Reason: Shortness Of Breath) Celebrex 50 mg capsule 50 mg PO QAM trazodone 100 mg tablet 200 mg PO BEDTIME amlodipine 5 mg tablet 5 mg PO QAM losartan 100 mg tablet 100 mg PO QAM Discharge Orders: Discharge ED (Routine); Ordered 07/06/23 Ordered By: Jonathan Arias Referrals: Nathalie Madison MD [Primary Care Provider] - Discharge Diet: Usual diet Discharge Activity: Increase activity as tolerated Patient Instructions: Opioid Safety, Pain Management Coding Level of Care Code ED Link Train[employer] for [employer]
[2023-07-06 08:55] VITALS: BP 154/100; PULSE 65; RESP 18; O2SAT 97; BMI 44.2
[2023-07-06 09:34] LABS: Basophils % 0.3 %; Eosinophils # 0.3 10^3/uL (0.0-0.8); Eosinophils % 2.8 %; Hematocrit 42.5 % (36-47); Lymphocytes # 2.1 10^3/uL (0.8-4.8); Mean Corpuscular HGB Conc 33.6 g/dL (30-55); Mean Corpuscular Hemoglobin 31.2 pg (27-33); Mean Corpuscular Volume 92.8 fl (85-98); Mean Platelet Volume 9.4 fL (7.4-10.4); Monocytes # 0.6 10^3/uL (0.2-0.9); Monocytes % 5.6 %; Neutrophils # 7.75 10^3/uL (1.8-7.7); Neutrophils % 71.6 %; Nucleated Red Blood Cells % 0 %; Platelet Count 402 10^3/cmm (157-399); Red Blood Count 4.58 10^6/uL (3.85-5.65); Red Cell Distribution Width 13.3 % (12.1-15.1); White Blood Count 10.83 10^3/uL (3.29-11.43)
[2023-07-06] MEDS: sodium chloride 0.9% 1,000 ML 999 ML IV (09:40)
--- NOTE | 2023-07-06 09:41 | CT_ITS ---
WS: [id number] CT ABDOMEN PELVIS TECHNIQUE: Noncontrast CT of the abdomen and pelvis with coronal and sagittal reformatted images. CLINICAL INFORMATION: Abdominal pain COMPARISON: CT 2020 DLP: 1293.[address] scans at [facility] use at least one of these dose optimization techniques: automated e xposure control; mA and/or kV adjustment per patient size (includes targeted exams where dose is matc hed to clinical indication); or iterative reconstruction. FINDINGS: Normal noncontrast liver. Cholecystectomy clips. Normal noncontrast spleen. Normal GE junction. A few slight hazy opacities in the lung bases LEFT greater than RIGHT. Normal GE junction. Normal noncontrast pancreas. Adrenal glands are normal. No hydronephrosis in eith er kidney. No obstructing renal or ureteral calculi. Normal caliber abdominal aorta. Normal appendix in the RIGHT lower quadrant. No evidence of acute shady endicitis. No high-grade small or large bowel obstruction. Multi follicular ovaries bilaterally. No s ignificant free fluid in the pelvis. IMPRESSION: 1. Normal appendix in the RIGHT lower quadrant. No evidence of acute appendicitis. 2. Slight hazy infiltrates in the lung bases 3. Correlation for developing pneumonitis. 4. Prior cholecystectomy. 5. No hydronephrosis. No obstructing renal or ureteral calculi. 6. No other suspicious findings.
[2023-07-06] MEDS: ondansetron 2 mg/ML SDV 2 mL 4 MG IVP (09:42)
[2023-07-06 09:55] LABS: HCG, Serum Qual Negative (Negative)
[2023-07-06 09:59] LABS: Alanine Aminotransferase 14 U/L (0-33); Albumin Level 3.9 g/dL (3.5-5.2); Alkaline Phosphatase 72 U/L (35-105); Anion Gap 11.9 (5-19); Aspartate Amino Transferase 10 U/L (0-32); Blood Urea Nitrogen 4 mg/dL (6-20); Calcium 9.1 mg/dL (8.5-10.5); Carbon Dioxide 30 mmol/L (22-29); Chloride 98 mmol/L (98-107); Globulin 3.1 g/dL (1.3-4.6); Glomerular Filtration Rate 118.2 mL/min (90-130); Glucose 92 mg/dL (65-115); Osmolality Calculated 279 mOsm/kg (285-295); Potassium 3.9 mmol/L (3.5-5.1); Sodium 136 mmol/L (136-145); Total Bilirubin 0.2 mg/dL (0.15-1.2)
[2023-07-06 10:23] LABS: Add Urine Microscopic? YES; Bilirubin Urine Neg (Negative); Blood Urine 3+ (Negative); Glucose Urine UA Norm (Normal); Ketones Urine 1+ (Negative); Leukocyte Esterase Urine Trace (Negative); Nitrate Urine Negative (Negative); Protein Urine 1+ (Negative); Specific Gravity, Urine 1.015 (1.005-1.030); Urine Appearance SL Hazy (CLEAR); Urine Color Yellow (Yellow); Urobilinogen Urine 1 mg/dL (Negative); pH Urine 5 (5-7)
[2023-07-06 10:24] LABS: Add Urine Culture? No; Bacteria Urine TRACE /hpf; Mucus Urine TRACE /hpf; RBC Urine 40-50 /hpf (0-2); WBC Urine 0-4 /hpf (0-5)
[2023-07-06 10:36] LABS: Influenza A by IFA negative (Negative); Influenza B by IFA negative (Negative)
--- NOTE | 2023-07-06 11:28 | XR_ITS ---
WS: [id number] EXAMINATION: XR chest 1V portable [id number] REASON FOR EXAM: dyspnea/cough COMPARISON: 05/27/2021 ORDER DATE: 07/06/2023 11:28 AM TECHNIQUE: A single, portable frontal chest x-ray was obtained. X-RAY FINDINGS: The lungs are clear. Pleural spaces are clear. No pleural effusions or pneumothorax. Cardiomediastinal silhouette is normal. No evidence for pulmonary edema. Soft tissue and osseous structures are unremarkable. No tubes or lines are present. IMPRESSION: Unremarkable frontal portable chest x-ray.
[2023-07-06 11:32] VITALS: PULSE 64; RESP 16; O2SAT 96
[2023-07-06 12:01] LABS: Adenovirus Not Detected (NOT DETECT); Chlamydia Pneumoniae Not Detected (NOT DETECT); Coronavirus 229E,HKU1,NL63,OC4 Not Detected (NOT DETECT); Human Metapneumovirus Not Detected (NOT DETECT); Human Rhinovirus/Enterovirus Not Detected (NOT DETECT); Influenza A Not Detected (NOT DETECT); Influenza A H1 Not Detected (NOT DETECT); Influenza A H1-2009 Not Detected (NOT DETECT); Influenza A H3 Not Detected (NOT DETECT); Influenza B Not Detected (NOT DETECT); Mycoplasma Pneumoniae Not Detected (NOT DETECT); Parainfluenza Virus Type 1 Not Detected (NOT DETECT); Parainfluenza Virus Type 2 Not Detected (NOT DETECT); Parainfluenza Virus Type 3 Not Detected (NOT DETECT); Parainfluenza Virus Type 4 Not Detected (NOT DETECT); Respiratory Syncytial Virus A Not Detected (NOT DETECT); Respiratory Syncytial Virus B Not Detected (NOT DETECT); SARS-COV-2 Not Detected (NOT DETECT)
[2023-07-06 12:16] VITALS: BP 150/83; PULSE 69; RESP 16; O2SAT 98
== END 2023-07-06 12:17 | disposition home or self-care (01) ==
PROVIDERS: Emergency Provider Family Medicine; PCP Family Medicine
DX: J18.9 Pneumonia, unspecified organism (principal); Z11.52 Encounter for screening for COVID-19; F17.210 Nicotine dependence, cigarettes, uncomplicated
CPT/HCPCS: 71045; 74176; 80053; 81001; 84703; 85025; 87635; 87804; 96361; 96374; 99285; J2405; J7030

== ENCOUNTER 2023-08-02 12:49 | Emergency (ER) | payer MEDICAID, SELFPAY ==
--- NOTE | 2023-08-02 13:01 | ECG_ITS ---
[facility] Test Date: 2023-08-02 Pat Name: Kamala Lovelace Department: Room: Gender: Female Team Guide: : 1995 Requested By: Jonathan Waldrop Order Number: [id number] Mary Jane MD: Alli Amador M.D. Measurements Intervals [place] Rate: 89 P: 41 TN: 169 QRS: -12 QRSD: 102 T: 13 QT: 390 QTc: 477 Interpretive Statements SINUS RHYTHM POSSIBLE LEFT ATRIAL ENLARGEMENT [-0.1mV P-WAVE IN V1/V2] INCOMPLETE RIGHT BUNDLE BRANCH BLOCK [90+ ms QRS DURATION, TERMINAL R IN V1/V2, 40+ ms S IN I/aVL/V4/V5/V6] No previous ECG available for comparison Electronically Signed On 08-02-2023 14:58:07 CDT by Alli Amador M.D. [email or web address] specialty [id number]
[2023-08-02 13:09] VITALS: PULSE 104; RESP 16; TEMP 36.8; O2SAT 97; BMI 46.0
--- NOTE | 2023-08-02 13:29 | W.ED.CHESTPA ---
HPI - Chest Pain General: Chief Complaint: Chest Pain Stated Complaint: Abd pain/Chest pains Time Seen by Provider: 08/02/23 13:28 History of Present Illness: 28-year-old female presents emergency department complaints of left anterior chest wall pain that started last night. She describes it as a tightness that does not radiate. She states she has a longstanding history of 7 COVID infections as well as asthma. She states she has been diagnosed with fibromyalgia and scleroderma. She states she also has lower abdominal pain that started last night when she attempted to get in bed. She states the pain at that time was a 9 out of 10 sharp and stabbing. She states she has had her gallbladder out sometime ago. She states she has had nausea without vomiting. She states she has had her normal bowel movements and she does endorse recent sick contacts. Associated symptoms: Reports abdominal pain and nausea Review of Systems General: Reports: 10 or more systems reviewed and unremarkable except in HPI and below Card: Reports: chest pain GI: Reports: abdominal pain and nausea PFS ED PFSH: Medical History MRSA (methicillin resistant Staphylococcus aureus) Psychiatric care UTI (urinary tract infection) Surgical History History of cholecystectomy Family History Grandmother Lupus Mother Lung disease copd Other Hypertension Social History Smoking and tobacco/nicotine status: current every day tobacco/nicotine user cigarettes Packs smoked per day: 1.5 Years cigarettes smoked: 20 [ Other cigarette details: started at age 8] Alcohol intake: former Year of sobriety/quit date alcohol: 2014 Substance/Drug Use: current Substance/Drug use frequency: daily Other substance/drug use details: history opiate pill abuse Household members: children Number of children: 1 Current occupational status: unemployed 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 Special richa needs: No Agree to transfusion: Yes Physical Exam Const: COMMON NORMALS: no acute distress, patient oriented x3 and alert HENMT: COMMON NORMALS: normocephalic, atraumatic and Normal nasal mucous membranes and turbinates present HEAD & SCALP: normocephalic and atraumatic NOSE: Normal nasal mucous membranes and turbinates present Eye: COMMON NORMALS: Equal, round and reactive pupils present and EOMs intact bilaterally PUPIL: Yes Equal, round and reactive pupils present Neck/C-Spine: COMMON NORMALS: full ROM, no lymphadenopathy, supple and no meningeal signs Resp: COMMON NORMALS: normal respiratory effort, No use of accessory muscles and clear to auscultation bilaterally AUSCULTATION: clear to auscultation bilaterally Cardio: COMMON NORMALS: regular rate, regular rhythm, S1 normal heart sound present, S2 normal heart sound present and Peripheral pulses 2+ throughout RATE: regular rate RHYTHM: regular rhythm HEART SOUNDS: S1 normal heart sound present and S2 normal heart sound present PERIPHERAL PULSES: Peripheral pulses 2+ throughout GI: COMMON NORMALS: Soft to palpation and non-tender PALPATION: Yes Soft to palpation : COMMON NORMALS: Yes no CVA tenderness BLADDER/KIDNEY EXAM: Yes no CVA tenderness Back/Pelvis: COMMON NORMALS: no CVA tenderness and thoracic and lumbar spine normal to inspection Extremity: COMMON NORMALS: normal to inspection, full ROM and capillary refill normal Neuro: COMMON NORMALS: patient oriented x3, moves all extremities, no focal motor deficits and no sensory deficits noted SENSORIUM/ORIENTATION: Yes alert MENINGEAL SIGNS: Yes no meningeal signs Psych: COMMON NORMALS: mental status grossly normal, Normal thought process present and cooperative THOUGHT PROCESS: Normal thought process present Skin: COMMON NORMALS: no rashes or lesions noted GENERAL SKIN EXAM: no rashes or lesions noted Course Vital Signs: Vital signs: Vital Signs Temperature 98.2 F 08/02/23 13:09 Pulse Rate 63 08/02/23 16:00 Respiratory Rate 16 08/02/23 16:00 Blood Pressure 132/71 08/02/23 16:00 Pulse Oximetry 96 08/02/23 16:00 Oxygen Delivery Me thod Room Air 08/02/23 13:09 MDM - Chest Pain Medical Decision Making Physical exam completed and documented, given the patient's presenting complaints of abdominal pain and chest pain we will provide her chest radiograph, CBC, CMP, lipase and cardiac enzymes as well as twelve-lead EKG to evaluate her presenting complaints. Medical Records I reviewed the patient's medical records. Lab Data I reviewed the patient's lab results. 08/02/23 13:51 08/02/23 13:51 Radiology Impressions Abdomen/Pelvis CT 08/02/23 13:44 IMPRESSION: 1.3 cm complex cystic lesion with indistinct margins midpole right kidney, nonspecific. Cannot exclude small renal abscess. Follow-up renal ultrasound recommended for further evaluation. COMMENTS: Consistent with the [employer]'s Incidental Findings Committee white paper (J Am Juan Radiol 2018): Any incidental renal lesion less than 1 cm or classified as too small to characterize, or any incidental cystic renal lesion characterized as simple-appearing, is likely benign. No follow-up imaging is recommended for these lesions per consensus recommendations based on imaging criteria. Chest X-Ray 08/02/23 13:44 IMPRESSION: Borderline cardiomegaly otherwise negative chest. Laboratory Results WBC 11.45 10^3/uL (3.29-11.43) H 08/02/23 13:51 RBC 4.70 10^6/uL (3.85-5.65) 08/02/23 13:51 Hgb 14.60 g/dL (11.27-16.99) 08/02/23 13:51 Hct 42.7 % (36-47) 08/02/23 13:51 MCV 90.9 fl (85-98) 08/02/23 13:51 MCH 31.1 pg (27-33) 08/02/23 13:51 MCHC 34.2 g/dL (30-55) 08/02/23 13:51 RDW 13.2 % (12.1-15.1) 08/02/23 13:51 Plt Count 422 10^3/cmm (157-399) H 08/02/23 13:51 MPV 9.2 fL (7.4-10.4) 08/02/23 13:51 Neut % (Auto) 73.3 % 08/02/23 13:51 Lymph % (Auto) 18.5 % 08/02/23 13:51 Terrell % (Auto) 5.4 % 08/02/23 13:51 Eos % (Auto) 2.1 % 08/02/23 13:51 Baso % (Auto) 0.3 % 08/02/23 13:51 Neut # (Auto) 8.38 10^3/uL (1.8-7.7) H 08/02/23 13:51 Lymph # (Auto) 2.1 10^3/uL (0.8-4.8) 08/02/23 13:51 Terrell # (Auto) 0.6 10^3/uL (0.2-0.9) 08/02/23 13:51 Eos # (Auto) 0.2 10^3/uL (0.0-0.8) 08/02/23 13:51 Baso # (Auto) 0.0 10^3/uL (0.0-0.1) 08/02/23 13:51 Nucleated RBC % (auto) 0 % 08/02/23 13:51 Nucleated RBCs # 0.0 /100WBC 08/02/23 13:51 Sodium 136 mmol/L (136-145) 08/02/23 13:51 Potassium 3.3 mmol/L (3.5-5.1) L 08/02/23 13:51 Chloride 98 mmol/L (98-107) 08/02/23 13:51 Carbon Dioxide 29 mmol/L (22-29) 08/02/23 13:51 Anion Gap 12.3 (5-19) 08/02/23 13:51 BUN 3 mg/dL (6-20) L 08/02/23 13:51 Creatinine 0.5 mg/dL (0.5-0.9) 08/02/23 13:51 GFR Calculation 145.9 mL/min (90-130) H 08/02/23 13:51 Glucose 104 mg/dL (65-115) 08/02/23 13:51 Calculated Osmolality 279 mOsm/kg (285-295) L 08/02/23 13:51 Calcium 9.1 mg/dL (8.5-10.5) 08/02/23 13:51 Total Bilirubin 0.2 mg/dL (0.15-1.2) 08/02/23 13:51 AST 11 U/L (0-32) 08/02/23 13:51 ALT 13 U/L (0-33) 08/02/23 13:51 Alkaline Phosphatase 85 U/L (35-105) 08/02/23 13:51 Troponin T Baseline < 6 ng/L (0-10) 08/02/23 13:51 Troponin T 120 Minute 6.03 ng/L (0-10) 08/02/23 15:55 Delta Troponin T 0.14745 ABS# (0-10) 08/02/23 15:55 Total Protein 7.0 g/dL (6.6-8.7) 08/02/23 13:51 Albumin 4.0 g/dL (3.5-5.2) 08/02/23 13:51 Globulin 3.0 g/dL (1.3-4.6) 08/02/23 13:51 Lipase 22 U/L (13-60) 08/02/23 13:51 HCG, Qual Negative (Negative) 08/02/23 15:15 Urine Color Red (Yellow) A 08/02/23 15:15 Urine Appearance Cloudy (CLEAR) A 08/02/23 15:15 Urine pH 7 (5-7) 08/02/23 15:15 Ur Specific [place] 1.010 (1.005-1.030) 08/02/23 15:15 Urine Protein 1+ (Negative) H 08/02/23 15:15 Urine Glucose (UA) Norm (Normal) 08/02/23 15:15 Urine Ketones Negative (Negative) 08/02/23 15:15 Urine Blood 3+ (Negative) H 08/02/23 15:15 Urine Nitrate Negative (Negative) 08/02/23 15:15 Urine Bilirubin Neg (Negative) 08/02/23 15:15 Urine Urobilinogen Norm mg/dL (Negative) 08/02/23 15:15 Ur Leukocyte Esterase 2+ (Negative) H 08/02/23 15:15 Urine RBC 5-10 /hpf (0-2) H 08/02/23 15:15 Urine WBC 25-40 /hpf (0-5) H 08/02/23 15:15 Ur Squamous Epith Cells 5-10 /hpf (0-5) H 08/02/23 15:15 Amorphous Sediment Not Reportable 08/02/23 15:15 Urine Bacteria Trace /hpf (NONE) 08/02/23 15:15 Urine Mucus Trace /hpf 08/02/23 15:15 Influenza Type A Ag Negative (Negative) 08/02/23 13:57 Influenza Type B Ag Negative (Negative) 08/02/23 13:57 SARS-CoV-2 Ag (Rapid) negative (Negative) 08/02/23 13:51 All radiology interpretation(s) finalized by discharge ED provider radiology interpretation(s): FINDINGS: ?Lungs: Unremarkable. No consolidation. ?Pleural spaces: Unremarkable. No pleural effusion. No pneumothorax. ?Heart/Mediastinum: Cardiac silhouette appears borderline enlarged on this portable chest. ?Bones/joints: Unremarkable. XR/XR chest 1V portable [id number] IMPRESSION: Borderline cardiomegaly otherwise negative chest. CT ABD/Pelvis FINDINGS: Lungs: Lung bases are clear. Liver: Normal. No mass. Gallbladder and bile ducts: Gallbladder has been removed. Bile ducts are not appreciably dilated. Pancreas: Normal. No ductal dilation. Spleen: Normal. No splenomegaly. Adrenal glands: Normal. No mass. Kidneys and ureters: 1.3 cm indistinct, septated cystic lesion midpole right kidney not evident on prior study which may be due to differences in technique, nonspecific. Cannot rule out small renal abscess. Kidneys otherwise unremarkable. Stomach and bowel: Unremarkable. No obstruction. No mucosal thickening. Appendix: No evidence of acute appendicitis. Intraperitoneal space: Unremarkable. No free air. No significant fluid collection. Vasculature: Unremarkable. No abdominal aortic aneurysm. Lymph nodes: Unremarkable. No enlarged lymph nodes. Urinary bladder: Unremarkable as visualized. Reproductive: Unremarkable as visualized. Bones/joints:? 2 cm circumscribed bone cyst right acetabular roof unchanged likely benign.. No acute fracture. Soft tissues: Unremarkable. CT/CT abdomen pelvis w con* [id number] IMPRESSION: 1.3 cm complex cystic lesion with indistinct margins midpole right kidney, nonspecific. Cannot exclude small renal abscess. Follow-up renal ultrasound recommended for further evaluation. ? COMMENTS: Consistent with the [employer]'s Incidental Findings Committee white paper (J Am Juan Radiol 2018): Any incidental renal lesion less than 1 cm or classified as too small to characterize, or any incidental cystic renal lesion characterized as simple-appearing, is likely benign. No follow-up imaging is recommended for these lesions per consensus recommendations based on imaging criteria. ? Discharge Plan Discharge Patient Disposition: Home Clinical Impression: Atypical chest pain, Abdominal pain Condition: Stable Prescriptions: No Action Trelegy Ellipta 200-62.5-25 mcg blister with device 1 inh inhalation QAM clobetasol 0.05 % ointment 1 applic topical .2-3 TIMES A WEEK montelukast 10 mg tablet 10 mg PO BEDTIME prednisone 10 mg tablet 10 mg PO QAM ibuprofen 800 mg tablet 800 mg PO TID PRN (Reason: Pain) Hold Instructions: Resume on 07/31/23. Women's Multivitamin 18 mg-400 mcg- 500 mg-50 mcg tablet 1 tab PO QAM ascorbate calcium (vitamin C) 500 mg tablet 500 mg PO QAM lurasidone 60 mg tablet 60 mg PO DAILY Qty: 30 1RF Rx Instructions: Take one tablet each evening; administer with food (at least 350 calories); stop 40 mg dose buspirone 15 mg tablet 15 mg PO BID Qty: 60 1RF trazodone 100 mg tablet 200 mg PO BEDTIME PRN (Reason: insomnia) Qty: 60 1RF Rx Instructions: Take two tablets daily at bedtime, if needed for insomnia pantoprazole [Protonix] 40 mg tablet,delayed release (DR/EC) 40 mg PO BID 42 Days Qty: 84 1RF Nucala 100 mg/mL auto-injector 100 mg SUBCUT .monthly Qty: 1 11RF Rx Instructions: (PT STATES NOT STARTED OF 07/02/23 STATES WAITING ON INSURANCE) ondansetron 8 mg tablet,disintegrating 8 mg PO Q8H PRN (Reason: nausea and vomiting) 5 Days Qty: 15 0RF albuterol sulfate 2.5 mg /3 mL (0.083 %) solution for nebulization 2.5 mg inhalation Q6H PRN (Reason: shortness of breath or wheezing) Qty: 90 1RF Rx Instructions: dispense 1 box albuterol sulfate [ProAir HFA] 90 mcg/actuation HFA aerosol inhaler 2 puff INHALATION Q4H PRN (Reason: Shortness Of Breath) celecoxib [Celebrex] 50 mg capsule 50 mg PO QAM amlodipine 5 mg tablet 5 mg PO DAILY gabapentin 100 mg capsule 100 mg PO TID losartan 100 mg tablet 100 mg PO DAILY Discharge Orders: Discharge ED (Routine); Ordered 08/02/23 Ordered By: Imtiaz Cabrera Referrals: Nathalie Madison MD [Primary Care Provider] - Discharge Diet: Advance as tolerated Discharge Activity: Resume usual activity Patient Instructions: Abdominal Pain (ED), Opioid Safety, Pain Management Coding Level of Care Code ED Marina Porter for Sunil Ace
--- NOTE | 2023-08-02 13:44 | XRR_ITS ---
PROCEDURE INFORMATION: Exam: XR Chest Exam date and time: 08/02/2023 2:02 PM Age: 28 years old Clinical indication: Pain; Angina pectoris; Additional info: Chest pain TECHNIQUE: Imaging protocol: Radiologic exam of the chest. Views: 1 view. COMPARISON: CR XR chest 1V portable [id number] 07/06/2023 11:45 AM FINDINGS: Lungs: Unremarkable. No consolidation. Pleural spaces: Unremarkable. No pleural effusion. No pneumothorax. Heart/Mediastinum: Cardiac silhouette appears borderline enlarged on this portable chest. Bones/joints: Unremarkable. XR/XR chest 1V portable [id number] IMPRESSION: Borderline cardiomegaly otherwise negative chest.
--- NOTE | 2023-08-02 13:44 | CTR_ITS ---
PROCEDURE INFORMATION: Exam: CT Abdomen And Pelvis With Contrast Exam date and time: 08/02/2023 4:26 PM Age: 28 years old Clinical indication: Abdominal pain; Generalized TECHNIQUE: Imaging protocol: Computed tomography of the abdomen and pelvis with contrast. Radiation optimization: All CT scans at this facility use at least one of these dose optimization techniques: automated exposure control; mA and/or kV adjustment per patient size (includes targeted exams where dose is matched to clinical indication); or iterative reconstruction. Contrast material: OMNI 350; Contrast volume: 100 ml; Contrast route: INTRAVENOUS (IV); REPORTING DATA: Count of CT and Cardiac NM exams in prior 12 months: This patient has received [address] and 0 known cardiac nuclear medicine studies in the 12 months prior to the current study. COMPARISON: CT abdomen pelvis wo con [id number] 07/06/2023 9:49 AM RADIATION DOSE METRICS: Total DLP (mGy-cm): 1230.33 FINDINGS: Lungs: Lung bases are clear. Liver: Normal. No mass. Gallbladder and bile ducts: Gallbladder has been removed. Bile ducts are not appreciably dilated. Pancreas: Normal. No ductal dilation. Spleen: Normal. No splenomegaly. Adrenal glands: Normal. No mass. Kidneys and ureters: 1.3 cm indistinct, septated cystic lesion midpole right kidney not evident on prior study which may be due to differences in technique, nonspecific. Cannot rule out small renal abscess. Kidneys otherwise unremarkable. Stomach and bowel: Unremarkable. No obstruction. No mucosal thickening. Appendix: No evidence of acute appendicitis. Intraperitoneal space: Unremarkable. No free air. No significant fluid collection. Vasculature: Unremarkable. No abdominal aortic aneurysm. Lymph nodes: Unremarkable. No enlarged lymph nodes. Urinary bladder: Unremarkable as visualized. Reproductive: Unremarkable as visualized. Bones/joints: 2 cm circumscribed bone cyst right acetabular roof unchanged likely benign.. No acute fracture. Soft tissues: Unremarkable. CT/CT abdomen pelvis w con* [id number] IMPRESSION: 1.3 cm complex cystic lesion with indistinct margins midpole right kidney, nonspecific. Cannot exclude small renal abscess. Follow-up renal ultrasound recommended for further evaluation. COMMENTS: Consistent with the [employer]'s Incidental Findings Committee white paper (J Am Juan Radiol 2018): Any incidental renal lesion less than 1 cm or classified as too small to characterize, or any incidental cystic renal lesion characterized as simple-appearing, is likely benign. No follow-up imaging is recommended for these lesions per consensus recommendations based on imaging criteria.
[2023-08-02 13:56] VITALS: BP 138/92; PULSE 75; RESP 21; O2SAT 97
[2023-08-02 14:00] LABS: Basophils % 0.3 %; Eosinophils # 0.2 10^3/uL (0.0-0.8); Eosinophils % 2.1 %; Hematocrit 42.7 % (36-47); Lymphocytes # 2.1 10^3/uL (0.8-4.8); Lymphocytes % 18.5 %; Mean Corpuscular HGB Conc 34.2 g/dL (30-55); Mean Corpuscular Hemoglobin 31.1 pg (27-33); Mean Corpuscular Volume 90.9 fl (85-98); Mean Platelet Volume 9.2 fL (7.4-10.4); Monocytes # 0.6 10^3/uL (0.2-0.9); Monocytes % 5.4 %; Neutrophils # 8.38 10^3/uL (1.8-7.7); Neutrophils % 73.3 %; Nucleated Red Blood Cells % 0 %; Platelet Count 422 10^3/cmm (157-399); Red Cell Distribution Width 13.2 % (12.1-15.1); White Blood Count 11.45 10^3/uL (3.29-11.43)
[2023-08-02 14:17] LABS: Alanine Aminotransferase 13 U/L (0-33); Alkaline Phosphatase 85 U/L (35-105); Anion Gap 12.3 (5-19); Aspartate Amino Transferase 11 U/L (0-32); Blood Urea Nitrogen 3 mg/dL (6-20); Calcium 9.1 mg/dL (8.5-10.5); Carbon Dioxide 29 mmol/L (22-29); Chloride 98 mmol/L (98-107); Glomerular Filtration Rate 145.9 mL/min (90-130); Glucose 104 mg/dL (65-115); Lipase 22 U/L (13-60); Osmolality Calculated 279 mOsm/kg (285-295); Potassium 3.3 mmol/L (3.5-5.1); Sodium 136 mmol/L (136-145); Total Bilirubin 0.2 mg/dL (0.15-1.2)
[2023-08-02 14:19] LABS: Troponin(5th) Baseline < 6 ng/L (0-10)
[2023-08-02 14:29] LABS: SARS Covid-2 Antigen negative (Negative)
[2023-08-02 14:32] LABS: Influenza A by IFA Negative (Negative); Influenza B by IFA Negative (Negative)
[2023-08-02 15:17] VITALS: BP 116/66; PULSE 60; RESP 16; O2SAT 98
[2023-08-02 15:36] LABS: Blood Urine 3+ (Negative); Glucose Urine UA Norm (Normal); Ketones Urine Negative (Negative); Protein Urine 1+ (Negative); Urine Appearance Cloudy (CLEAR); Urine Color Red (Yellow); pH Urine 7 (5-7)
[2023-08-02 15:37] LABS: Add Urine Microscopic? YES; Bilirubin Urine Neg (Negative); Leukocyte Esterase Urine 2+ (Negative); Nitrate Urine Negative (Negative); Urobilinogen Urine Norm (Negative)
[2023-08-02 15:42] LABS: Add Urine Culture? Yes; Bacteria Urine TRACE /hpf; Mucus Urine TRACE /hpf; WBC Urine 25-40 /hpf (0-5)
--- NOTE | 2023-08-02 15:44 | ECG_ITS ---
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 Measurements Intervals [place] Rate: 63 P: 35 NV: 174 QRS: -1 QRSD: 122 T: 30 QT: 442 QTc: 453 Interpretive Statements SINUS RHYTHM MODERATE INTRAVENTRICULAR CONDUCTION DELAY [110+ ms QRS DURATION] Compared to ECG 08/02/2023 13:07:30 Intraventricular conduction delay now present Incomplete right bundle-branch block no longer present Electronically Signed On 08-02-2023 16:43:35 CDT by Alli Amador M.D. [id number]
[2023-08-02 15:50] VITALS: BP 115/67; PULSE 72; RESP 16; O2SAT 95
[2023-08-02] MEDS: potassium chloride ER 20 mEq Tablet 40 MEQ PO (15:50)
[2023-08-02 15:53] LABS: HCG Qualitative Urine. Negative (Negative)
[2023-08-02 16:00] VITALS: BP 132/71; PULSE 63; RESP 16; O2SAT 96
[2023-08-02] MEDS: ketorolac 30 mg/mL INJ 15 MG IVP (16:02)
[2023-08-02 16:31] LABS: Troponin 5 2HR 6.03 ng/L (0-10); Troponin 5 2HR Delta 0.03001 ABS# (0-10)
[2023-08-02] MEDS: iohexol 350 mg/mL 500 mL Btl (per mL) IV (16:48)
[2023-08-02 17:30] VITALS: BP 122/76; PULSE 67; RESP 16; O2SAT 96
== END 2023-08-02 17:37 | disposition home or self-care (01) ==
PROVIDERS: Emergency Provider Internal Medicine; PCP Family Medicine
DX: R07.89 Other chest pain (principal); R10.9 Unspecified abdominal pain; Z11.52 Encounter for screening for COVID-19; F17.210 Nicotine dependence, cigarettes, uncomplicated
CPT/HCPCS: 36415; 71045; 74177; 80053; 81000; 81001; 81025; 83690; 84484; 85025; 87086; 87426; 87804; 93005; 96374; 99285; J1885; Q9967

== ENCOUNTER 2023-08-07 10:33 | Outpatient (CLI) | payer MEDICAID, SELFPAY ==
--- NOTE | 2023-08-07 12:15 | USCV_ITS ---
Kamala Lovelace Age: 28 Gender: F : 1995 Exam Date: 08/07/2023 11:29 Ordering Phys: Nathalie Madison MD Technologist: EDWIN [place] [facility] [place]: cp BP: 120 / 80 HR: 72 Rhythm: Sinus Technical Quality: Adequate MEASUREMENTS (Male / Female) Normal Values 2D ECHO LV Diastolic Diameter PLAX 4.4 cm 4.2 - 5.9 / 3.9 - 5.3 cm LV Systolic Diameter PLAX 3.0 cm LV Chamber Size 3.9 cm IVS Diastolic Thickness 1.3 cm 0.6 - 1.0 / 0.6 - 0.9 cm IVS Systolic Thickness 1.7 cm LVPW Diastolic Thickness 1.4 cm 0.6 - 1.0 / 0.6 - 0.9 cm LVPW Systolic Thickness 1.8 cm RV Chamber Size 3.0 cm LVOT Diameter 2.0 cm LV Ejection Fraction 2D Teich 64.7 % LV Ejection Fraction MOD 2C 50.9 % LV Ejection Fraction 2C AL 52.8 % LA Diameter 4.0 cm LA Width 3.3 cm LA Height 4.2 cm RA Width 2.8 cm RA Height 3.7 cm Aorta at Sinotubular Diameter 2.6 cm IVC Diameter 1.7 cm M-MODE Aortic Annulus Diameter 2.9 cm LA Ao Ratio MM 1.7 MV E Point Septal Separation 0.5 cm DOPPLER AV Peak Velocity 162.0 cm/s LVOT Peak Velocity 91.0 cm/s AV Area Cont Eq vti 2.0 cm squared AV Area Cont Eq pk 1.9 cm squared MV Area PHT 4.2 cm squared Mitral E to A Ratio 1.2 MV E' Velocity 59.0 cm/s Mitral E to MV E' Ratio 12.3 Mitral E to LV E' Lateral Ratio 11.9 Mitral E to LV E' Septal Ratio 12.9 TR Peak Velocity 213.6 cm/s TR Peak Gradient 18.2 mmHg TR Mean Velocity 155.7 cm/s TR Mean Gradient 10.3 mmHg TR Velocity Time Integral 50.0 cm TV Peak E Velocity 77.0 cm/s Right Atrial Pressure 3.0 mmHg Pulmonary Artery Systolic Pressu 21.2 mmHg PV Peak Velocity 81.0 cm/s RV Acceleration Time 0.2 s RV Ejection Time 0.4 s RV AcT/ET 0.4 FINDINGS Left Ventricle Normal left ventricular size and systolic function, EF 64%. No regional wall motion abnormalities. Right Ventricle Normal right ventricular size and systolic function. Right Atrium The right atrium is normal in size. Left Atrium The left atrium is normal in size. Mitral Valve Mild mitral valve regurgitation. Aortic Valve No significant abnormalities noted Tricuspid Valve Trace tricuspid valve regurgitation. Estimated pulmonary artery peak systolic pressure 22 mm of Hg. Pulmonic Valve Pulmonic valve not well visualized. Pericardium Normal pericardium without effusion. Aorta Normal ascending aorta dimension. IVC The inferior vena cava appears normal. CONCLUSIONS Normal left ventricular size and systolic function, EF 64%. No regional wall motion abnormalities. Mild mitral valve regurgitation. Trace tricuspid valve regurgitation. Estimated pulmonary artery peak systolic pressure 22 mm of Hg. There is no pericardial effusion. Technically difficult study because of the poor ultrasonic window. Dr Laurie Graves MD FAC (Electronically Signed) Final Date: 09 August 2023 11:15 S
== END 2023-08-07 10:34 | disposition home or self-care (01) ==
LOC: RAD 10:34
PROVIDERS: PCP Family Medicine; Visit Provider Family Medicine
DX: I51.7 Cardiomegaly (principal)
CPT/HCPCS: 93306

== ENCOUNTER 2023-08-10 14:56 | Outpatient (CLI) | payer MEDICAID, SELFPAY ==
--- NOTE | 2023-08-10 15:05 | US_ITS ---
WS: [id number] RENAL ULTRASOUND HISTORY: R RENAL COMPLEX CYST ON CT/FOLLOW UP COMPARISON: CT 08/02/2023 TECHNIQUE: 2-D and color Doppler imaging of the kidney submitted. Right kidney: 11.9 cm x 6.6 cm x 5.4 cm. Cortex: 1.4 cm Previously described complex cyst in the RIGHT kidney seen on CT is not well visualized by ultrasound . This does not appear to be a simple cyst by ultrasound. Left kidney: 11.3 cm x 5.2 cm x 5.2 cm. Cortex: 1.7 cm Normal echogenicity with no hydronephrosis or mass. Aorta: Normal. Urinary Bladder: Normal distention. IMPRESSION: 1. No hydronephrosis or simple renal cyst. 2. Indeterminate mass mid RIGHT kidney. Cannot characterize further by ultrasound. Consider additiona l evaluation by renal mass CT or MRI protocol. IV contrast will be necessary.
== END 2023-08-10 14:57 | disposition home or self-care (01) ==
LOC: RAD 14:57
PROVIDERS: PCP Family Medicine; Visit Provider Family Medicine
DX: N28.89 Other specified disorders of kidney and ureter (principal)
CPT/HCPCS: 76770

== ENCOUNTER 2023-08-10 15:01 | Outpatient (CLI) | payer MEDICAID, SELFPAY | END 2023-08-10 15:02 | disposition home or self-care (01) | LOC: LAB 15:02 | PROVIDERS: PCP Family Medicine; Visit Provider Surgery | DX: R19.7 Diarrhea, unspecified (principal); R10.9 Unspecified abdominal pain; R11.2 Nausea with vomiting, unspecified | CPT/HCPCS: 36415; 82784; 83516; 83630; 83993; 84443; 85651; 86140 ==

== ENCOUNTER 2023-08-22 14:55 | Emergency (ER) | payer MEDICAID, SELFPAY ==
[2023-08-22 15:06] VITALS: BP 156/100; PULSE 72; RESP 16; TEMP 36.8; O2SAT 97; BMI 44.5
[2023-08-22 15:30] LABS: Basophils # 0.1 10^3/uL (0.0-0.1); Basophils % 0.4 %; Eosinophils # 0.2 10^3/uL (0.0-0.8); Eosinophils % 1.7 %; Hematocrit 43.6 % (36-47); Lymphocytes # 2.1 10^3/uL (0.8-4.8); Lymphocytes % 15.8 %; Mean Corpuscular HGB Conc 33.3 g/dL (30-55); Mean Corpuscular Hemoglobin 31.3 pg (27-33); Mean Corpuscular Volume 94.2 fl (85-98); Monocytes # 0.6 10^3/uL (0.2-0.9); Monocytes % 4.5 %; Neutrophils % 77.3 %; Nucleated Red Blood Cells % 0 %; Platelet Count 382 10^3/cmm (157-399); Red Blood Count 4.63 10^6/uL (3.85-5.65); Red Cell Distribution Width 13.5 % (12.1-15.1); White Blood Count 13.45 10^3/uL (3.29-11.43)
[2023-08-22 15:53] LABS: Alanine Aminotransferase 17 U/L (0-33); Albumin Level 3.7 g/dL (3.5-5.2); Alkaline Phosphatase 90 U/L (35-105); Aspartate Amino Transferase 16 U/L (0-32); Blood Urea Nitrogen 4 mg/dL (6-20); Calcium 9.1 mg/dL (8.5-10.5); Carbon Dioxide 27 mmol/L (22-29); Chloride 100 mmol/L (98-107); Globulin 3.4 g/dL (1.3-4.6); Glomerular Filtration Rate 145.9 mL/min (90-130); Glucose 119 mg/dL (65-115); Lipase 18 U/L (13-60); Osmolality Calculated 280 mOsm/kg (285-295); Sodium 136 mmol/L (136-145); Total Bilirubin 0.3 mg/dL (0.15-1.2); Total Protein 7.1 g/dL (6.6-8.7)
[2023-08-22 16:09] LABS: Add Urine Microscopic? NO; Charge for UA Resulting for Rev
--- NOTE | 2023-08-22 16:15 | ED_ITS ---
HPI - Female Genitourinary General: Chief complaint: Urogenital-Female Stated complaint: abd pain, left side back pain Time Seen by Provider: 08/22/23 16:03 History of Present Illness: 28-year-old female comes in today with bilateral flank pain and complaints of nausea and vomiting and diarrhea. Patient appears nontoxic. Patient is had pain on and off for 4 weeks now and also complains of fever and chills. Patient also reports frequent urination. Patient is scheduled to see a urologist for further evaluation of a cyst to the right kidney. Patient has no significant weight loss on record. Patient has had her gallbladder removed. Patient is a daily tobacco user. Associated symptoms: Reports nausea; Deny headache(s) Review of Systems General: Reports: 10 or more systems reviewed and unremarkable except in HPI and below Const: Denies: fever(s) or chills ENMT: Denies: throat pain or nasal discharge Card: Denies: chest pain Resp: Denies: dyspnea GI: Reports: nausea, vomiting and diarrhea : Reports: urinary frequency; Denies: difficulty voiding Musc: Reports: back pain Neuro: Denies: headache(s) PFSH ED PFSH: Medical History MRSA (methicillin resistant Staphylococcus aureus) Psychiatric care UTI (urinary tract infection) Surgical History History of cholecystectomy Family History Grandmother Lupus Mother Lung disease copd Other Hypertension Social History Smoking and tobacco/nicotine status: current every day tobacco/nicotine user cigarettes Packs smoked per day: 1.5 Years cigarettes smoked: 20 [ Other cigarette details: started at age 8] Alcohol intake: former Year of sobriety/quit date alcohol: 2014 Substance/Drug Use: current Substance/Drug use frequency: daily Other substance/drug use details: history opiate pill abuse Household members: children Number of children: 1 Current occupational status: unemployed 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 Special richa needs: No Agree to transfusion: Yes Physical Exam Const: COMMON NORMALS: alert HENMT: COMMON NORMALS: normocephalic HEAD & SCALP: normocephalic Neck/C-Spine: COMMON NORMALS: full ROM Resp: COMMON NORMALS: normal respiratory effort Cardio: COMMON NORMALS: regular rate RATE: regular rate GI: COMMON NORMALS: non-tender Back/Pelvis: THORACIC SPINE/UPPER BACK: Yes paraspinal muscle tenderness LUMBAR SPINE/LOWER BACK: Yes paraspinal muscle tenderness Extremity: COMMON NORMALS: normal to inspection Neuro: SENSORIUM/ORIENTATION: Yes alert Skin: COMMON NORMALS: turgor normal GENERAL SKIN EXAM: turgor normal Course Vital Signs: Vital signs: Vital Signs Temperature 98.3 F 08/22/23 15:06 Pulse Rate 72 08/22/23 15:06 Respiratory Rate 16 08/22/23 15:06 Blood Pressure 156/100 08/22/23 15:06 Pulse Oximetry 97 08/22/23 15:06 Oxygen Delivery Me thod Room Air 08/22/23 15:06 MDM - Female Medical Decision Making 28-year-old female comes in today with complaints of back pain. On exam patient has muscle tenderness to her mid to low back. No point spine tenderness is noted. Patient moves all extremities well. Abdomen soft nontender. Vital signs are normal. Patient appears nontoxic. Patient appears in no pain at rest. Review of the record patient does have a renal cyst that appears complex and is being recommended for referral and evaluation with urology which patient has appointment for. Patient was concerned that she may have a infection in her urine due to abnormal smell and her pain in her back. Differential diagnosis includes UTI, abscess of the kidney, renal cyst, renal carcinoma, musculoskeletal back pain. CBC is did have some mild leukocytosis at 13,000, CMP was unremarkable, urinalysis was clean. No signs of serious illness or injury is noted. Believe patient probably has musculoskeletal back pain. P atient was given 1 dose of hydrocodone and was recommended to follow-up with primary care for further evaluation and treatment. Did recommend patient return to the ER for worsening symptoms such as high fever, blood in vomit or stool, or other new concerns. Patient should continue with her evaluation with urology for the cyst on the kidney. Patient reported understanding and agreed to plan. Lab Data 08/22/23 15:23 08/22/23 15:23 Laboratory Results WBC 13.45 10^3/uL (3.29-11.43) H 08/22/23 15:23 RBC 4.63 10^6/uL (3.85-5.65) 08/22/23 15: Hgb 14.50 g/dL (11.27-16.99) 08/22/23 15: Hct 43.6 % (36-47) 08/22/23 15: MCV 94.2 fl (85-98) 08/22/23 15: MCH 31.3 pg (27-33) 08/22/23 15: MCHC 33.3 g/dL (30-55) 08/22/23 15: RDW 13.5 % (12.1-15.1) 08/22/23 15: Plt Count 382 10^3/cmm (157-399) 08/22/23 15: MPV 9.0 fL (7.4-10.4) 08/22/23 15: Neut % (Auto) 77.3 % 08/22/23: Lymph % (Auto) 15.8 % 08/22/23: [place] % (Auto) 4.5 % 08/22/23 15: Eos % (Auto) 1.7 % 08/22/23: Baso % (Auto) 0.4 % 08/22/23: Neut # (Auto) 10.40 10^3/uL (1.8-7.7) H 08/22/23: Lymph # (Auto) 2.1 10^3/uL (0.8-4.8) 08/22/23: [place] # (Auto) 0.6 10^3/uL (0.2-0.9) 08/22/23: Eos # (Auto) 0.2 10^3/uL (0.0-0.8) 08/22/23: Baso # (Auto) 0.1 10^3/uL (0.0-0.1) 08/22/23: Nucleated RBC % (auto) 0 % 08/22/23: Nucleated RBCs # 0.0 /100WBC 08/22/23 15: Sodium 136 mmol/L (136-145) 08/22/23 15: Potassium 4.0 mmol/L (3.5-5.1) 08/22/23 15: Chloride 100 mmol/L (98-107) 08/22/23 15: Carbon Dioxide 27 mmol/L (22-29) 08/22/23 15: Anion Gap 13.0 (5-19) 08/22/23 15: BUN 4 mg/dL (6-20) L 08/22/23 15: Creatinine 0.5 mg/dL (0.5-0.9) 08/22/23 15: GFR Calculation 145.9 mL/min (90-130) H 08/22/23 15: Glucose 119 mg/dL (65-115) H 08/22/23 15: Calculated Osmolality 280 mOsm/kg (285-295) L 08/22/23 15: Calcium 9.1 mg/dL (8.5-10.5) 08/22/23 15: Total Bilirubin 0.3 mg/dL (0.15-1.2) 08/22/23 15: AST 16 U/L (0-32) 08/22/23 15: ALT 17 U/L (0-33) 08/22/23 15: Alkaline Phosphatase 90 U/L (35-105) 08/22/23 15: Total Protein 7.1 g/dL (6.6-8.7) 08/22/23 15: Albumin 3.7 g/dL (3.5-5.2) 08/22/23 15: Globulin 3.4 g/dL (1.3-4.6) 08/22/23 15: Lipase 18 U/L (13-60) 08/22/23 15:23 Urine Color Yellow (Yellow) 08/22/23 16:04 Urine Appearance Clear (CLEAR) 08/22/23 16:04 Urine pH 6 (5-7) 08/22/23 16:04 Ur Specific [place] 1.010 (1.005-1.030) 08/22/23 16:04 Urine Protein Neg (Negative) 08/22/23 16:04 Urine Glucose (UA) Norm (Normal) 08/22/23 16:04 Urine Ketones Negative (Negative) 08/22/23 16:04 Urine Blood Neg (Negative) 08/22/23 16:04 Urine Nitrate Negative (Negative) 08/22/23 16:04 Urine Bilirubin Neg (Negative) 08/22/23 16:04 Urine Urobilinogen Norm mg/dL (Negative) 08/22/23 16:04 Ur Leukocyte Esterase Negative (Negative) 08/22/23 16:04 No radiology studies performed this visit Discharge Plan Discharge Patient Disposition: Home Clinical Impression: Back pain Qualifiers: Back pain location: low back pain Chronicity: chronic Back pain laterality: bilateral Sciatica presence: without sciatica Qualified Code(s): M54.50 - Low back pain, unspecified Condition: Stable Prescriptions: No Action Trelegy Ellipta 200-62.5-25 mcg blister with device 1 inh inhalation QAM clobetasol 0.05 % ointment 1 applic topical .2-3 TIMES A WEEK montelukast 10 mg tablet 10 mg PO BEDTIME prednisone 10 mg tablet 10 mg PO QAM Women's Multivitamin 18 mg-400 mcg- 500 mg-50 mcg tablet 1 tab PO QAM ascorbate calcium (vitamin C) 500 mg tablet 500 mg PO QAM lurasidone 60 mg tablet 60 mg PO DAILY Qty: 30 1RF Rx Instructions: Take one tablet each evening; administer with food (at least 350 calories); stop 40 mg dose buspirone 15 mg tablet 15 mg PO BID Qty: 60 1RF trazodone 100 mg tablet 200 mg PO BEDTIME PRN (Reason: insomnia) Qty: 60 1RF Rx Instructions: Take two tablets daily at bedtime, if needed for insomnia pantoprazole [Protonix] 40 mg tablet,delayed release (DR/EC) 40 mg PO BID 42 Days Qty: 84 1RF Fasenra Pen 30 mg/mL auto-injector 30 mg SUBCUT Q28D Qty: 1 2RF Fasenra Pen 30 mg/mL auto-injector 30 mg SUBCUT .q 8 weeks Qty: 1 11RF hydrocodone-acetaminophen 10-325 mg tablet 1 tab PO BID PRN (Reason: pain) 7 Days Qty: 14 0RF celecoxib 100 mg capsule 100 mg PO QAM Qty: 30 0RF ondansetron 8 mg tablet,disintegrating 8 mg PO Q8H PRN (Reason: nausea and vomiting) 5 Days Qty: 15 0RF albuterol sulfate 2.5 mg /3 mL (0.083 %) solution for nebulization 2.5 mg inhalation Q6H PRN (Reason: shortness of breath or wheezing) Qty: 90 1RF Rx Instructions: dispense 1 box albuterol sulfate [ProAir HFA] 90 mcg/actuation HFA aerosol inhaler 2 puff INHALATION Q4H PRN (Reason: Shortness Of Breath) amlodipine 5 mg tablet 5 mg PO DAILY gabapentin 100 mg capsule 100 mg PO TID losartan 100 mg tablet 100 mg PO DAILY dicyclomine 20 mg tablet 20 mg PO TID Qty: 20 0RF Discharge Orders: Discharge ED (Routine); Ordered 08/22/23 Ordered By: Deejay Tee Referrals: Nathalie Madison MD [Primary Care Provider] - Discharge Diet: Usual diet Discharge Activity: Increase activity as tolerated Patient Instructions: Back Pain (ED) Activity Restrictions/Additional Instructions: Home and rest. Drink plenty of water and fluids. Continue with your routine care. Follow-up with primary care for further evaluation and treatment. Return to ER for worsening symptoms such as fever greater than 100.4, blood in vomit or stool, or new concerns. 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
[2023-08-22 16:22] LABS: Bilirubin Urine Neg (Negative); Blood Urine Neg (Negative); Glucose Urine UA Norm (Normal); Ketones Urine Negative (Negative); Leukocyte Esterase Urine Negative (Negative); Nitrate Urine Negative (Negative); Protein Urine Neg (Negative); Urine Appearance Clear (CLEAR); Urine Color Yellow (Yellow); Urobilinogen Urine Norm (Negative); pH Urine 6 (5-7)
[2023-08-22] MEDS: HYDROcodone-acetaminophen 7.5-325 mg Tablet 1 TAB PO (16:33)
== END 2023-08-22 16:58 | disposition home or self-care (01) ==
PROVIDERS: Emergency Medicine; Emergency Provider Nurse Practitioner Family; PCP Family Medicine
DX: M54.50 Low back pain, unspecified (principal); F17.210 Nicotine dependence, cigarettes, uncomplicated
CPT/HCPCS: 36415; 80053; 81003; 83690; 85025; 99283

== ENCOUNTER 2023-09-04 12:46 | Outpatient (CLI) | payer MEDICAID, SELFPAY ==
[2023-09-04 13:07] VITALS: PULSE 86; RESP 18; O2SAT 98
[2023-09-04] MEDS: albuterol 2.5 mg/3 mL Neb INHALATION (13:07)
[2023-09-04 13:11] VITALS: PULSE 78
== END 2023-09-04 12:47 | disposition home or self-care (01) ==
LOC: RT 12:47
PROVIDERS: PCP Family Medicine; Visit Provider Internal Medicine Pulmonary Disease
DX: J45.909 Unspecified asthma, uncomplicated (principal); G47.33 Obstructive sleep apnea (adult) (pediatric); R76.8 Other specified abnormal immunological findings in serum
CPT/HCPCS: 94060; 94618; 94726; 94729; J7613

== ENCOUNTER 2023-09-13 12:46 | Outpatient (CLI) | payer MEDICAID, SELFPAY ==
--- NOTE | 2023-09-13 12:48 | XR_ITS ---
WS: [id number] Exam: XR lumbar spine 2-3V* [id number] Date/Time of Exam: 09/13/2023 1:02 PM Reason For Exam: worsening low back pain w/ radiculopathy No fracture or dislocation. Disc spaces are preserved. Posterior elements are intact. No scoliosis. N o change since 06/09/2021. IMPRESSION: 1. Negative lumbar spine study.
== END 2023-09-13 12:47 | disposition home or self-care (01) ==
LOC: RAD 12:46
PROVIDERS: PCP Family Medicine; Visit Provider Family Medicine
DX: M54.16 Radiculopathy, lumbar region (principal); R30.0 Dysuria
CPT/HCPCS: 72100; 81000

== ENCOUNTER 2023-09-18 10:56 | Oncology outpatient (recurring) (ONCR) | payer BC, MEDICAID, SELFPAY ==
[2023-09-18] MEDS: Benralizumab *no charge* 30 mg/ml syringe SUBCUT (11:34)
[2023-09-18 11:35] VITALS: BP 139/90; PULSE 71; RESP 16; TEMP 36.6; O2SAT 99
--- NOTE | 2023-09-18 11:38 | PC.NURSE ---
Patient scheduled today for first dose of Fasenra injection. Patient educated on how to self-administer injection at home. Patient provided with information handout. Patient verbalized understanding and tolerated injection well.
== END 2023-09-30 23:59 | disposition home or self-care (01) ==
PROVIDERS: PCP Family Medicine; Visit Provider Family Medicine
DX: M19.90 Unspecified osteoarthritis, unspecified site (principal); Z11.1 Encounter for screening for respiratory tuberculosis; Z79.899 Other long term (current) drug therapy; R76.8 Other specified abnormal immunological findings in serum; N28.9 Disorder of kidney and ureter, unspecified
CPT/HCPCS: 36415; 73130; 73562; 73630; 82306; 86200; 86235; 86480; 86704; 86803; 86812; 87340; 96372; 99204

== ENCOUNTER 2023-09-27 14:04 | Outpatient (CLI) | payer BC, MEDICAID, SELFPAY ==
--- NOTE | 2023-09-27 14:30 | USCV_ITS ---
Kamala Lovelace Age: 28 Gender: F : 1995 Exam Date: 09/27/2023 14:21 Ordering Phys: Gerald Gregorio MD Technologist: Ronda Sharma [place] [facility] [place]: cardiomegaly, SOB BP: 129 / 86 HR: 68 Rhythm: Sinus Technical Quality: Adequate MEASUREMENTS (Male / Female) Normal Values 2D ECHO LV Diastolic Diameter PLAX 5.4 cm 4.2 - 5.9 / 3.9 - 5.3 cm LV Systolic Diameter PLAX 3.3 cm IVS Diastolic Thickness 1.4 cm 0.6 - 1.0 / 0.6 - 0.9 cm IVS Systolic Thickness 1.6 cm LVPW Diastolic Thickness 0.9 cm 0.6 - 1.0 / 0.6 - 0.9 cm LVPW Systolic Thickness 2.0 cm LVOT Diameter 2.1 cm LV Ejection Fraction 2D Teich 69.4 % LV Ejection Fraction MOD 2C 77.0 % LV Ejection Fraction 2C AL 78.3 % LA Diameter 3.5 cm LA Width 3.1 cm LA Height 4.2 cm RA Width 3.6 cm Aorta at Sinotubular Diameter 2.4 cm IVC Diameter 1.3 cm M-MODE Aortic Annulus Diameter 2.7 cm LA Ao Ratio MM 1.4 MV E Point Septal Separation 0.6 cm DOPPLER AV Peak Velocity 156.0 cm/s LVOT Peak Velocity 128.0 cm/s AV Area Cont Eq vti 3.2 cm squared AV Area Cont Eq pk 3.0 cm squared MV Peak Velocity 125.0 cm/s MV Area PHT 5.0 cm squared Mitral E to A Ratio 1.1 MV E' Velocity 59.0 cm/s Mitral E to MV E' Ratio 7.7 Mitral E to LV E' Lateral Ratio 7.0 Mitral E to LV E' Septal Ratio 8.4 TR Peak Velocity 229.5 cm/s TR Peak Gradient 21.1 mmHg Right Atrial Pressure 5.0 mmHg Pulmonary Artery Systolic Pressu 26.1 mmHg PV Peak Velocity 107.0 cm/s RV Acceleration Time 0.2 s RV Ejection Time 0.3 s RV AcT/ET 0.5 FINDINGS Left Ventricle Left ventricle is mildly dilated. LV systolic function is normal with EF of 55 to 60%. No regional wall motion abnormalities are seen. Right Ventricle Normal in size and function Right Atrium Normal in size Left Atrium Normal in size Mitral Valve Structurally normal mitral valve. Mild mitral regurgitation Aortic Valve Structurally normal aortic valve. No significant stenosis or regurgitation. Tricuspid Valve Mild tricuspid regurgitation. Insufficient TR jet to calculate RVSP Pulmonic Valve Not well visualized Pericardium Normal Aorta Normal in size IVC Appears to be normal CONCLUSIONS Left ventricle is normal in size and function with EF of 55 to 60%. Mild mitral regurgitation Mild tricuspid regurgitation. Insufficient TR jet to calculate RVSP. Compared to prior echocardiogram from 08/2023, no significant change are seen. Alli Amador MD (Electronically Signed) Final Date: 04 October 2023 18:23 S
== END 2023-09-27 14:05 | disposition home or self-care (01) ==
LOC: RAD 14:04
PROVIDERS: PCP Family Medicine; Visit Provider Internal Medicine Rheumatology
DX: R06.02 Shortness of breath (principal); I08.1 Rheumatic disorders of both mitral and tricuspid valves
CPT/HCPCS: 93306

== ENCOUNTER → 2023-10-08 15:23 | Outpatient (BNVA) | payer BC, SELFPAY | PROVIDERS: PCP Family Medicine; Visit Provider Family Medicine | DX: M34.9 Systemic sclerosis, unspecified (principal); R76.8 Other specified abnormal immunological findings in serum; M19.90 Unspecified osteoarthritis, unspecified site; N92.1 Excessive and frequent menstruation with irregular cycle | CPT/HCPCS: 85025 ==

== ENCOUNTER → 2023-10-11 15:03 | Outpatient (BNVA) | payer BC, SELFPAY | PROVIDERS: PCP Family Medicine; Visit Provider Nurse Practitioner Psychiatric/Mental Health | DX: Z03.89 Encounter for observation for other suspected diseases and conditions ruled out (principal) | CPT/HCPCS: 80306 ==

== ENCOUNTER → 2023-10-17 12:11 | Outpatient (BNVA) | payer BC, SELFPAY | PROVIDERS: PCP Family Medicine; Visit Provider Family Medicine | DX: N63.0 Unspecified lump in unspecified breast (principal); Z12.4 Encounter for screening for malignant neoplasm of cervix; Z01.419 Encounter for gynecological examination (general) (routine) without abnormal findings | CPT/HCPCS: 88175 ==

== ENCOUNTER 2023-10-25 07:52 | Day surgery (SDC) | payer BC, MEDICAID, SELFPAY ==
--- NOTE | 2023-10-25 06:50 | P.HP_ITS ---
Same Day Surgery H&P Indication for Procedure/HPI DATE OF PROCEDURE: October 25, 2023 CHIEF COMPLAINT/INDICATIONFOR SURGICAL PROCEDURE: abdominal pain PREOP DIAGNOSIS: irritable bowel syndrme PLANNED PROCEDURE: Operation Date: 10/25/23 08:55 Proposed Procedures p 25840 egd [id number] colon G0121 screen colon A risk K21.9,R19.7,R11.2,R10.9(Not Applicable) - Boo Watkins MD s Colonoscopy(Not Applicable) - Boo Watkins MD Medications/Allergies* Home Medications Medication Instructions Recorded Confirmed Type ascorbate calcium (vitamin C) 500 500 mg PO QAM 05/28/23 10/23/23 History mg tablet clobetasol 0.05 % topical ointment 1 applic topical .2-3 TIMES A WEEK 05/28/23 10/23/23 History montelukast 10 mg tablet 10 mg PO BEDTIME 05/28/23 10/23/23 History [id number] 18 mg-FA 400 1 tab PO QAM 05/28/23 10/23/23 History mcg-calcium 500 mg-vit K 50 mcg tablet (Women's Multivitamin) gabapentin 100 mg capsule 200 mg PO .q hs 10/11/23 10/23/23 History lurasidone 20 mg tablet (Latuda) 20 mg PO DAILY 10/23/23 10/23/23 History Allergies/Adverse Reactions Allergy/AdvReac Type Severity Reaction Status Date / Time No Known Allergies Allergy Verified 10/23/23 08:47 Pertinent History/Comorbid Conditions* Medical History (Updated 10/08/23 @ 15:21 by Nathalie Madison MD) Scl-70 antibody positive Inflammatory arthritis UTI (urinary tract infection) Psychiatric care MRSA (methicillin resistant Staphylococcus aureus) Surgical History (Updated 05/28/23 @ 12:21 by Nathalie Madison MD) History of cholecystectomy Family History (Updated 09/18/23 @ 09:43 by Priya Carbone LPN) Lupus (systemic lupus erythematosus) Rheumatoid arthritis Lupus Grandmother Heart disease Chronic kidney disease (CKD) Lung disease Mother copd Hypertension Stroke Social History Smoking and tobacco/nicotine status: current every day tobacco/nicotine user cigarettes Packs smoked per day: 1.5 Years cigarettes smoked: 20 [ Other cigarette details: started at age 8] Alcohol intake: former Year of sobriety/quit date alcohol: 2014 Substance/Drug Use: current Substance/Drug use frequency: daily Other substance/drug use details: history opiate pill abuse Household members: children Number of children: 1 Current occupational status: unemployed 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 Special richa needs: No Agree to transfusion: Yes Pertinent Exam Findings alert, oriented x 3, clear to auscultation bilaterally and regular rate & rhythm Recommendations Surgery/Procedure today Coding Level of Care Code Acute Code for [facility] Db
[2023-10-25 08:23] VITALS: BP 151/94; PULSE 89; RESP 18; TEMP 36.4; O2SAT 98; BMI 43.5
[2023-10-25] MEDS: sodium chloride 0.9% 1,000 ML 30 ML IV (08:31)
[2023-10-25 08:38] LABS: OR HCG Qualitative Urine Negative (Negative)
--- NOTE | 2023-10-25 08:38 | ANES.PREANE2 ---
Pre-Anesthetic Assessment Height/Weight: Height 1.68 m Weight 122.47 kg Temp Pulse Resp BP Pulse Ox O2 Del Method 97.5 F L 89 18 151/94 98 Room Air 10/25/23 08:23 10/25/23 08:23 10/25/23 08:23 10/25/23 08:23 10/25/23 08:23 10/25/23 08:23 Preop Diagnosis: irritable bowel syndrme Operation Date: 10/25/23 08:55 Proposed Procedures p 49815 egd 96994 colon G0121 screen colon A risk K21.9,R19.7,R11.2,R10.9(Not Applicable) - Boo Watkins MD s Colonoscopy(Not Applicable) - Boo Watkins MD Last intake: Intake Last Liquid Date 10/24/23 Last Liquid Time 22:00 Last Solid Date 10/23/23 Last Solid Time 20:00 Social Tobacco 1 pack(s) per day 20 pack years Exam alert, oriented x 3, clear to auscultation bilaterally and regular rate & rhythm slightly coarse chronic cough Airway Submandibular: within normal limits Cervical ROM: within normal limits Mallampati: Class III Dentition: chipped Comments: Comments: Multiple missing. 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 GI Gastroesophageal Reflux Disease certain foods takes no meds Metabolic Morbid Obesity Musc/skel Fibromyalgia scleraderma Neuropsych Anxiety and Bipolar Anesthetic Plan ASA status: 3 Anesthesia: Anesthesia Evaluation and MAC Risk of > 500 ml blood loss (7ml/kg in children): No Medications/Allergies Home Medications Medication Instructions Recorded Confirmed Last Taken Type ascorbate calcium (vitamin C) 500 500 mg PO QAM 05/28/23 10/23/23 10/24/23 History mg tablet clobetasol 0.05 % topical ointment 1 applic topical .2-3 TIMES A WEEK 05/28/23 10/23/23 10/21/23 History montelukast 10 mg tablet 10 mg PO BEDTIME 05/28/23 10/23/23 10/24/23 History [id number] 18 mg-FA 400 1 tab PO QAM 05/28/23 10/23/23 10/24/23 History mcg-calcium 500 mg-vit K 50 mcg tablet (Women's Multivitamin) pantoprazole 40 mg tablet,delayed 40 mg PO BID 6 weeks #84 tabs 06/20/23 10/23/23 10/24/23 Rx release (Protonix) benralizumab 30 mg/mL subcutaneous 30 mg SUBCUT .q 8 weeks 3 doses #1 08/17/23 10/23/23 Unknown Rx auto-injector (Fasenra Pen) mL benralizumab 30 mg/mL subcutaneous 30 mg SUBCUT Q28D 3 doses #1 mL 08/17/23 10/23/23 10/16/23 Rx auto-injector (Fasenra Pen) ondansetron 8 mg disintegrating 8 mg PO Q8H PRN nausea and 08/21/23 10/23/23 10/22/23 Rx tablet vomiting 5 days #15 tabs celecoxib 200 mg capsule (Celebrex) 200 mg PO BID #60 caps 09/18/23 10/23/23 10/24/23 Rx albuterol sulfate 2.5 mg/3 mL 2.5 mg (3 mL) inhalation Q6H PRN 09/21/23 10/23/23 10/21/23 Rx (0.083 %) solution for nebulization shortness of breath or wheezing #360 mL albuterol sulfate 90 mcg/actuation 2 puff inhalation Q4H PRN 09/21/23 10/25/23 10/21/23 Rx aerosol inhaler (ProAir HFA) Shortness Of Breath #8.5 grams fluticasone fur. 200 mcg-umeclid 1 inh inhalation QAM #60 ea 09/21/23 10/23/23 10/24/23 Rx 62.5 mcg-vilant 25 mcg inhalat.powder (Trelegy Ellipta) furosemide 20 mg tablet 20 mg PO DAILY #30 tabs 09/21/23 10/23/23 10/24/23 Rx nicotine (polacrilex) 4 mg gum 4 mg buccal Q1H #110 ea 09/21/23 10/23/23 Unknown Rx nicotine See Rx Instructions transdermal 09/21/23 10/23/23 Unknown Rx 21mg/24hr-14mg/24hr-7mg/24hr daily .COMPLEX #56 patches transderm patches,sequentl hydrocodone 7.5 mg-acetaminophen 1 tab PO BID PRN pain 10 days #20 10/09/23 10/23/23 10/24/23 Rx 325 mg tablet tabs buspirone 10 mg tablet 20 mg (2 x 10 mg) PO BID #120 tabs 10/11/23 10/23/23 10/24/23 Rx gabapentin 100 mg capsule 200 mg PO .q hs 10/11/23 10/23/23 10/24/23 History lurasidone 80 mg tablet 80 mg PO DAILY #30 tabs 10/11/23 10/23/23 10/24/23 Rx trazodone 100 mg tablet 100 mg PO .q hs PRN insomnia #30 10/11/23 10/23/23 10/22/23 Rx tabs amlodipine 5 mg tablet 5 mg PO DAILY #30 tabs 10/16/23 10/23/23 10/24/23 Rx losartan 100 mg tablet 100 mg PO DAILY #30 tabs 10/16/23 10/23/23 10/24/23 Rx lorazepam 0.5 mg tablet 0.25 mg (1/2 x 0.5 mg) PO BID PRN 10/17/23 10/23/23 10/25/23 06:00 Rx anxiety #30 tabs lurasidone 20 mg tablet (Latuda) 20 mg PO DAILY 10/23/23 10/23/23 10/24/23 History Allergies Allergy/AdvReac Type Severity Reaction Status Date / Time No Known Allergies Allergy Verified 10/23/23 08:47 Current Medications Generic Name Dose Route Start Last Admin Trade Name Freq PRN Reason Stop Dose Admin Sodium Chloride 1,000 mls @ 30 mls/hr 10/25/23 08:00 10/25/23 08:31 Sodium Chloride 0.9% IV 30 mls/hr .Q24H JULIANA Administration PFSH Anesthesia Medical History Scl-70 antibody positive Inflammatory arthritis UTI (urinary tract infection) Psychiatric care MRSA (methicillin resistant Staphylococcus aureus) Surgical History History of cholecystectomy Family History Grandmother Lupus Mother Lung disease copd Other Chronic kidney disease (CKD) Heart disease Hypertension Lupus (systemic lupus erythematosus) Rheumatoid arthritis Stroke Social History Smoking and tobacco/nicotine status: current every day tobacco/nicotine user cigarettes Packs smoked per day: 1.5 Years cigarettes smoked: 20 [ Other cigarette details: started at age 8] Alcohol intake: former Year of sobriety/quit date alcohol: 2014 Substance/Drug Use: current Substance/Drug use frequency: daily Other substance/drug use details: history opiate pill abuse Household members: children Number of children: 1 Current occupational status: unemployed 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 Special richa needs: No Agree to transfusion: Yes Female Reproductive History Date of last menstrual period: 10/04/23 Data Anesthesia Cardiac Studies: Echocardiogram 09/27/23
[2023-10-25] MEDS: midazolam 1 mg/mL INJ 2 mL 2 MG IVP (08:55)
[2023-10-25 09:00] VITALS: BP 120/82; PULSE 79; RESP 18; O2SAT 97
[2023-10-25 09:54] VITALS: BP 98/64; PULSE 79; RESP 18; TEMP 36.4; O2SAT 97
[2023-10-25 10:04] VITALS: BP 110/69; PULSE 76; RESP 18; O2SAT 97
[2023-10-25 10:15] VITALS: BP 104/74; PULSE 69; RESP 18; O2SAT 99
--- NOTE | 2023-10-25 15:45 | ANE.PACU2 ---
Inpatient post-anesthesia follow up: Airway intact: Yes Vital signs: Temperature 97.5 F Pulse Rate 69 Respiratory Rate 18 Blood Pressure 104/74 Pulse Oximetry 99 Oxygen Delivery Me thod Room Air Oxygen Flow Rate Fraction of Inspir ed Oxygen Hydration adequate: Yes Nausea and vomiting: No Pain level: 2 Mental status: Baseline
== END 2023-10-25 10:21 | disposition home or self-care (01) ==
PROVIDERS: Anesthesiology; PCP Family Medicine; Visit Provider Surgery
PROC: 0DJ08ZZ Inspection of Upper Intestinal Tract, Via Natural or Artificial Opening Endoscopic (ICD-10-PCS; CPT 43235; principal; 2023-10-25 08:55)
PROC: 0DJD8ZZ Inspection of Lower Intestinal Tract, Via Natural or Artificial Opening Endoscopic (ICD-10-PCS; CPT 45378; 2023-10-25 08:55)
DX: R10.9 Unspecified abdominal pain (principal); R11.2 Nausea with vomiting, unspecified; R19.7 Diarrhea, unspecified; K21.9 Gastro-esophageal reflux disease without esophagitis; D12.8 Benign neoplasm of rectum; K29.50 Unspecified chronic gastritis without bleeding; J44.9 Chronic obstructive pulmonary disease, unspecified; G47.30 Sleep apnea, unspecified; I10 Essential (primary) hypertension; E66.01 Morbid (severe) obesity due to excess calories; Z68.41 Body mass index [BMI] 40.0-44.9, adult; M79.7 Fibromyalgia; Z86.14 Personal history of Methicillin resistant Staphylococcus aureus infection
CPT/HCPCS: 43239; 45380; 81025; 84703; 88305; J2250; J2704; J7030

== ENCOUNTER 2023-11-02 15:41 | Outpatient (CLI) | payer BC, MEDICAID, SELFPAY ==
--- NOTE | 2023-11-02 16:00 | MR_ITS ---
WS: [id number] MRI HEAD WITHOUT CONTRAST TECHNIQUE: Sagittal T1, T2 axial, T2 axial FLAIR, axial and coronal T1 images, axial susceptibility w eighted imaging, axial diffusion weighted images, and coronal T2 images were obtained. CLINICAL INFORMATION: R41.3 - Other amnesia COMPARISON: CT head 05/16/2021 FINDINGS: No evidence restricted diffusion to suggest acute ischemia. Ventricular system and basal cisterns are patent. Normal posterior fossa. Normal vascular flow voids at the skull base. No extra-axial fluid c ollections. No evidence of mass or mass effect. Partial opacification mastoid air cells bilaterally. Mucosal thickening in the ethmoid air cells. Normal posterior nasopharynx. No hemosiderin on the susceptibly weighted images. Normal optic chiasm and pituitary infundibulum. Te mporal lobes and hippocampal formations are normal in appearance. No other suspicious findings. IMPRESSION: 1. No evidence of restricted diffusion to suggest acute ischemia. 2. No suspicious intracranial signal abnormalities. 3. Temporal lobes and hippocampal formations are normal in appearance. 4. Mild mucosal thickening in the ethmoid air cells and mastoid air cells bilaterally. 5. No hemosiderin on susceptibly weighted images.
== END 2023-11-02 15:42 | disposition home or self-care (01) ==
LOC: RAD 15:41
PROVIDERS: PCP Family Medicine; Visit Provider Internal Medicine Rheumatology
DX: R41.3 Other amnesia (principal)
CPT/HCPCS: 70551

== ENCOUNTER 2023-11-05 10:49 | Outpatient (CLI) | payer BC, MEDICAID, SELFPAY ==
--- NOTE | 2023-11-05 10:54 | US_ITS ---
WS: [id number] ULTRASOUND RIGHT BREAST HISTORY: CYSTIC LESION 6 OCLOCK COMPARISON: None available. TECHNIQUE: 2-D and Doppler. Palpable area RIGHT breast at 6:00, 3 cm from the nipple corresponds to a subcutaneous hypoechoic mas s. Due to its position and ultrasound appearance this is most consistent with a subcutaneous sebaceou s cyst measuring 7 x 7 x 3 mm. There is minimal peripheral increased vascularity. No tract is identif ied but this does abut the very superficial skin surface. IMPRESSION: US/US breast RT limited* [id number] BI-RADS: 2-Benign FOLLOW-UP: See Report Palpable area RIGHT breast corresponds to a sebaceous cyst. Benign.
== END 2023-11-05 10:50 | disposition home or self-care (01) ==
LOC: RAD 10:50
PROVIDERS: PCP Family Medicine; Visit Provider Family Medicine
DX: N63.15 Unspecified lump in the right breast, overlapping quadrants (principal)
CPT/HCPCS: 76642

== ENCOUNTER 2023-11-19 13:39 | Emergency (ER) | payer BC, MEDICAID, SELFPAY ==
[2023-11-19 13:44] VITALS: BP 151/87; PULSE 86; RESP 14; TEMP 36.5; O2SAT 96; BMI 47.9
--- NOTE | 2023-11-19 14:10 | ED_ITS ---
HPI - Back Pain/Injury 2 General: Chief Complaint: Back Pain/Injury Stated Complaint: Right lower back pain Time Seen by Provider: 11/19/23 13:44 Source: patient Mode of arrival: ambulatory Limitations: no limitations History of Present Illness: Patient is a 28-year-old female presents to ED today with a complaint of right- sided back/flank pain. Patient states back in August she was found to have an incidental right renal mass/cyst (measured 1.3cm via CT imaging in early August-had subsequent renal US which stated mass could not be characterized at that time). She has intermittently had pain to her right flank ever since this was found. She states she has been evaluated by urology and has an MRI renal mass protocol imaging study scheduled for December 03. She is requesting this be completed today today. Denies any changes to urination. No fevers. MD elicited complaint: back pain and other (R flank pain) Pertinent past history: other (known R renal cyst/mass) Onset (ago): week(s) Timing: constant Severity: severe Similar Symptoms Previously: Yes Location: right flank Radiation: none Exacerbating factors: none Relieving factors: none Associated symptoms: Reports abdominal pain; Deny chills, dysuria, fatigue, fever(s), nausea, urinary urgency or vomiting Work related injury: No Review of Systems 2 Const: Denies: fever(s), chills, body aches, fatigue or malaise Card: Denies: chest pain Resp: Denies: dyspnea GI: Reports: abdominal pain; Denies: nausea, vomiting or diarrhea : Reports: flank pain; Denies: difficulty voiding, dysuria, urinary frequency, urinary urgency or urinary hesitancy Musc: Reports: back pain; Denies: neck pain, extremity pain, extremity swelling, joint pain or joint swelling Skin/Breast: Denies: rash Neuro: Denies: headache(s), numbness in extremities, weakness in extremities or sensory changes PFSH ED 2 PFSH: Medical History Scl-70 antibody positive Inflammatory arthritis UTI (urinary tract infection) Psychiatric care MRSA (methicillin resistant Staphylococcus aureus) Surgical History History of cholecystectomy Family History Grandmother Lupus Mother Lung disease copd Other Chronic kidney disease (CKD) Heart disease Hypertension Lupus (systemic lupus erythematosus) Rheumatoid arthritis Stroke Social History Smoking and tobacco/nicotine status: current every day tobacco/nicotine user cigarettes Packs smoked per day: 1.5 Years cigarettes smoked: 20 [ Other cigarette details: started at age 8] Alcohol intake: former Year of sobriety/quit date alcohol: 2014 Substance/Drug Use: current Substance/Drug use frequency: daily Other substance/drug use details: history opiate pill abuse Household members: children Number of children: 1 Current occupational status: unemployed 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 Special richa needs: No Agree to transfusion: Yes Physical Exam 2 Const: COMMON NORMALS: patient oriented x3, no limitations and alert G ENERAL APPEARANCE: cooperative and in distress (appears uncomfortable ) N UTRITIONAL APPEARANCE: obese morbidly obese (BMI is 47.9) O RIENTATION/CONSCIOUSNESS: Yes awake, Yes oriented to person, Yes oriented to place and Yes oriented to time Resp: COMMON NORMALS: normal respiratory effort and clear to auscultation bilaterally AUSCULTATION: clear to auscultation bilaterally Cardio: COMMON NORMALS: regular rate and regular rhythm RATE: regular rate RHYTHM: regular rhythm GI: COMMON NORMALS: Soft to palpation INSPECTION: Yes normal to inspection PALPATION: Yes Soft to palpation and Yes Other GI palpation findings present (limited secondary to body habitus) : BLADDER/KIDNEY EXAM: Yes CVA tenderness on the right Back/Pelvis: COMMON NORMALS: thoracic and lumbar spine normal to inspection, no thoracic nor lumbar tenderness, thoraco-lumbar ROM normal and straight leg raise negative bilaterally GENERAL BACK: Yes CVA tenderness Extremity: GENERAL: Yes normal exam except as noted Neuro: COMMON NORMALS: patient oriented x3 SENSORIUM/ORIENTATION: Yes alert, Yes oriented to person, Yes oriented to place and Yes oriented to time Skin: COMMON NORMALS: no rashes or lesions noted GENERAL SKIN EXAM: no rashes or lesions noted Course 2 Vital Signs: Vital signs: Vital Signs Temperature 97.7 F 11/19/23 13:44 Pulse Rate 86 11/19/23 13:44 Respiratory Rate 14 11/19/23 13:44 Blood Pressure 151/87 11/19/23 13:44 Pulse Oximetry 96 11/19/23 13:44 Oxygen Delivery Me thod Room Air 11/19/23 13:44 MDM - Back Pain/Injury Medical Decision Making Patient's vital signs are stable. Her blood work including BUN/Cr are unremarkable. Her urine is completely clear. Ultrasound of the kidney obtained to rule out enlarging/obstructive mass. Renal cyst/mass that was found on her CT scan back in August is not evident on ultrasound imaging today. No other abnormalities found. Recommend to continue plan for MRI renal mass protocol that is already scheduled. I question whether her significant pain is coming from a 1.3 cm renal cyst. She states her urologist told her the same thing. Patient has recently been evaluated by general surgery for nonspecific abdominal pains and is recently underwent endoscopy/colonoscopy imaging as well. Ultimately patient has been having this pain since August. I do not suspect any emergent or life-threatening etiology at this time and she is stable for discharge from an ED standpoint. Labs 11/19/23 14:17 11/19/23 14:17 Laboratory Results WBC 9.95 10^3/uL (3.29-11.43) 11/19/23 14:17 RBC 4.88 10^6/uL (3.85-5.65) 11/19/23 14:17 Hgb 15.00 g/dL (11.27-16.99) 11/19/23 14:17 Hct 44.8 % (36-47) 11/19/23 14:17 MCV 91.8 fl (85-98) 11/19/23 14:17 MCH 30.7 pg (27-33) 11/19/23 14:17 MCHC 33.5 g/dL (30-55) 11/19/23 14:17 RDW 13.2 % (12.1-15.1) 11/19/23 14:17 Plt Count 399 10^3/cmm (157-399) 11/19/23 14:17 MPV 8.9 fL (7.4-10.4) 11/19/23 14:17 Neut % (Auto) 73.8 % 11/19/23 14:17 Lymph % (Auto) 20.5 % 11/19/23 14:17 [place] % (Auto) 5.3 % 11/19/23 14:17 Eos % (Auto) 0.0 % 11/19/23 14:17 Baso % (Auto) 0.1 % 11/19/23 14:17 Neut # (Auto) 7.34 10^3/uL (1.8-7.7) 11/19/23 14:17 Lymph # (Auto) 2.0 10^3/uL (0.8-4.8) 11/19/23 14:17 [place] # (Auto) 0.5 10^3/uL (0.2-0.9) 11/19/23 14:17 Eos # (Auto) 0.0 10^3/uL (0.0-0.8) 11/19/23 14:17 Baso # (Auto) 0.0 10^3/uL (0.0-0.1) 11/19/23 14:17 Nucleated RBC % (auto) 0 % 11/19/23 14:17 Nucleated RBCs # 0.0 /100WBC 11/19/23 14:17 Sodium 136 mmol/L (136-145) 11/19/23 14:17 Potassium 4.5 mmol/L (3.5-5.1) 11/19/23 14:17 Chloride 99 mmol/L (98-107) 11/19/23 14:17 Carbon Dioxide 28 mmol/L (22-29) 11/19/23 14:17 Anion Gap 13.5 (5-19) 11/19/23 14:17 BUN 5 mg/dL (6-20) L 11/19/23 14:17 Creatinine 0.5 mg/dL (0.5-0.9) 11/19/23 14:17 GFR Calculation 145.9 mL/min (90-130) H 11/19/23 14:17 Glucose 97 mg/dL (65-115) 11/19/23 14:17 Calculated Osmolality 279 mOsm/kg (285-295) L 11/19/23 14:17 Calcium 9.1 mg/dL (8.5-10.5) 11/19/23 14:17 Total Bilirubin 0.2 mg/dL (0.15-1.2) 11/19/23 14:17 AST 11 U/L (0-32) 11/19/23 14:17 ALT 13 U/L (0-33) 11/19/23 14:17 Alkaline Phosphatase 95 U/L (35-105) 11/19/23 14:17 Total Protein 7.4 g/dL (6.6-8.7) 11/19/23 14:17 Albumin 3.9 g/dL (3.5-5.2) 11/19/23 14:17 Globulin 3.5 g/dL (1.3-4.6) 11/19/23 14:17 HCG, Qual Negative (Negative) 11/19/23 14:17 Urine Color Yellow (Yellow) 11/19/23 14:25 Urine Appearance Clear (CLEAR) 11/19/23 14:25 Urine pH 6 (5-7) 11/19/23 14:25 Ur Specific [place] 1.010 (1.005-1.030) 11/19/23 14:25 Urine Protein Neg (Negative) 11/19/23 14:25 Urine Glucose (UA) Norm (Normal) 11/19/23 14:25 Urine Ketones Negative (Negative) 11/19/23 14:25 Urine Blood Neg (Negative) 11/19/23 14:25 Urine Nitrate Negative (Negative) 11/19/23 14:25 Urine Bilirubin Neg (Negative) 11/19/23 14:25 Urine Urobilinogen Norm mg/dL (Negative) 11/19/23 14:25 Ur Leukocyte Esterase Negative (Negative) 11/19/23 14:25 All radiology interpretation(s) finalized by discharge Discharge Plan Discharge Patient Disposition: Home Clinical Impression: Right flank pain Condition: Stable Prescriptions: No Action clobetasol 0.05 % ointment 1 applic topical .2-3 TIMES A WEEK montelukast 10 mg tablet 10 mg PO BEDTIME Women's Multivitamin 18 mg-400 mcg- 500 mg-50 mcg tablet 1 tab PO QAM ascorbate calcium (vitamin C) 500 mg tablet 500 mg PO QAM trazodone 100 mg tablet 100 mg PO .q hs PRN (Reason: insomnia) Qty: 30 1RF Rx Instructions: Take one tablet daily at bedtime, if needed for insomnia lurasidone 120 mg tablet 120 mg PO DAILY Qty: 30 1RF Rx Instructions: Take one tablet once daily; take with food or snack of at least 350 calories; stop other doses buspirone 30 mg tablet 30 mg PO BID Qty: 60 1RF Rx Instructions: Take one tablet by mouth each morning and evening; stop other doses of this medication lorazepam 0.5 mg tablet 0.5 mg PO BID PRN (Reason: anxiety) Qty: 60 1RF Rx Instructions: Take one tablet twice a day, if needed for anxiety, at least 4 to 6 hours apart pantoprazole [Protonix] 40 mg tablet,delayed release (DR/EC) 40 mg PO BID 42 Days Qty: 84 0RF celecoxib [Celebrex] 200 mg capsule 200 mg PO BID Qty: 60 3RF albuterol sulfate [ProAir HFA] 90 mcg/actuation HFA aerosol inhaler 2 puff INHALATION Q4H PRN (Reason: Shortness Of Breath) Qty: 8.5 6RF albuterol sulfate 2.5 mg /3 mL (0.083 %) solution for nebulization 2.5 mg inhalation Q6H PRN (Reason: shortness of breath or wheezing) Qty: 360 6RF nicotine (polacrilex) 4 mg gum 4 mg buccal Q1H Qty: 110 6RF nicotine 21-14-7 mg/24 hr patch, TD daily, sequential See Rx Instructions transdermal .COMPLEX Qty: 56 0RF Rx Instructions: apply 1-21 mg NICOTINE PATCH daily for 28 days; follow with 1-14 mg PATCH daily for 14 days, then 1-7mg PATCH daily for 14 days transdermal furosemide 20 mg tablet 20 mg PO DAILY Qty: 30 2RF Fasenra Pen 30 mg/mL auto-injector 30 mg SUBCUT Q28D Qty: 1 2RF Fasenra Pen 30 mg/mL auto-injector 30 mg SUBCUT .q 8 weeks Qty: 1 11RF ondansetron 8 mg tablet,disintegrating 8 mg PO Q8H PRN (Reason: nausea and vomiting) 5 Days Qty: 15 0RF hydrocodone-acetaminophen 7.5-325 mg tablet 1 tab PO BID PRN (Reason: pain) 10 Days Qty: 20 0RF amlodipine 5 mg tablet 5 mg PO DAILY Qty: 30 0RF losartan 100 mg tablet 100 mg PO DAILY Qty: 30 0RF fluticasone propion-salmeterol [Advair Diskus] 250-50 mcg/dose blister with device 1 inh inhalation BID Qty: 60 0RF tiotropium bromide [Spiriva with HandiHaler] 18 mcg capsule, w/inhalation device 1 cap inhalation DAILY Qty: 60 0RF Rx Instructions: puncture 1 cap using device; one dose = 2 inhalations gabapentin 100 mg capsule See Rx Instructions .ROUTE .COMPLEX Qty: 90 0RF Dose Instruction: take 1 capsule BY MOUTH THREE TIMES DAILY Rx Instructions: take 1 capsule BY MOUTH THREE TIMES DAILY sucralfate 100 mg/mL suspension 1 g PO BID 28 Days Qty: 560 0RF Discharge Orders: Discharge ED (Routine); Ordered 11/19/23 Ordered By: Helen Zimmerman Referrals: Nathalie Madison MD [Primary Care Provider] - Coding 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
--- NOTE | 2023-11-19 14:18 | US_ITS ---
WS: [id number] RENAL ULTRASOUND HISTORY: R flank pain, reports hx of renal mass/cyst COMPARISON: CT 08/02/2023 and renal ultrasound 08/10/2023 TECHNIQUE: 2-D and color Doppler imaging of the kidney submitted. Right kidney: 10.7 cm x 6.2 cm x 5.9 cm. Cortex: 1.5 cm Normal size kidney. Previously described indeterminate mass by prior CT and ultrasound is not identif ied. No hydronephrosis. Left kidney: 10.7 cm x 5.6 cm x 5.4 cm. Cortex: 1.3 cm Normal echogenicity with no hydronephrosis or mass. Aorta: Normal. Urinary Bladder: Normal distention. IMPRESSION: 1. Previously described indeterminate RIGHT renal mass is not identified by ultrasound. Due to its s mall size and the patient's body habitus this mass would be difficult to evaluate adequately by ultra sound. Follow-up by renal mass CT protocol or MRI protocol was recommended on 08/10/2023. This can be performed as an outpatient. 2. No hydronephrosis.
[2023-11-19] MEDS: morphine 4 mg/mL SDV 1 mL IM (14:23)
[2023-11-19 14:25] LABS: Basophils % 0.1 %; Hematocrit 44.8 % (36-47); Lymphocytes % 20.5 %; Mean Corpuscular HGB Conc 33.5 g/dL (30-55); Mean Corpuscular Hemoglobin 30.7 pg (27-33); Mean Corpuscular Volume 91.8 fl (85-98); Mean Platelet Volume 8.9 fL (7.4-10.4); Monocytes # 0.5 10^3/uL (0.2-0.9); Monocytes % 5.3 %; Neutrophils # 7.34 10^3/uL (1.8-7.7); Neutrophils % 73.8 %; Nucleated Red Blood Cells % 0 %; Platelet Count 399 10^3/cmm (157-399); Red Blood Count 4.88 10^6/uL (3.85-5.65); Red Cell Distribution Width 13.2 % (12.1-15.1); White Blood Count 9.95 10^3/uL (3.29-11.43)
[2023-11-19 14:34] LABS: Add Urine Microscopic? NO; Charge for UA Resulting for Rev
[2023-11-19 14:36] LABS: Bilirubin Urine Neg (Negative); Blood Urine Neg (Negative); Glucose Urine UA Norm (Normal); Ketones Urine Negative (Negative); Leukocyte Esterase Urine Negative (Negative); Nitrate Urine Negative (Negative); Protein Urine Neg (Negative); Urine Appearance Clear (CLEAR); Urine Color Yellow (Yellow); Urobilinogen Urine Norm (Negative); pH Urine 6 (5-7)
[2023-11-19 14:41] LABS: Alanine Aminotransferase 13 U/L (0-33); Albumin Level 3.9 g/dL (3.5-5.2); Alkaline Phosphatase 95 U/L (35-105); Anion Gap 13.5 (5-19); Aspartate Amino Transferase 11 U/L (0-32); Blood Urea Nitrogen 5 mg/dL (6-20); Calcium 9.1 mg/dL (8.5-10.5); Carbon Dioxide 28 mmol/L (22-29); Chloride 99 mmol/L (98-107); Globulin 3.5 g/dL (1.3-4.6); Glomerular Filtration Rate 145.9 mL/min (90-130); Glucose 97 mg/dL (65-115); Osmolality Calculated 279 mOsm/kg (285-295); Potassium 4.5 mmol/L (3.5-5.1); Sodium 136 mmol/L (136-145); Total Bilirubin 0.2 mg/dL (0.15-1.2); Total Protein 7.4 g/dL (6.6-8.7)
[2023-11-19 14:42] LABS: HCG, Serum Qual Negative (Negative)
[2023-11-19 15:29] VITALS: BP 142/78; PULSE 77; RESP 16; O2SAT 97
== END 2023-11-19 15:30 | disposition home or self-care (01) ==
PROVIDERS: Emergency Provider Physician Assistant; PCP Family Medicine
DX: R10.9 Unspecified abdominal pain (principal); F17.210 Nicotine dependence, cigarettes, uncomplicated
CPT/HCPCS: 36415; 76770; 80053; 81003; 84703; 85025; 96372; 99284; J2270

== ENCOUNTER 2023-12-04 07:49 | Outpatient (CLI) | payer BC, MEDICAID, SELFPAY ==
--- NOTE | 2023-12-04 07:54 | MR_ITS ---
WS: [id number] MRI ABDOMEN WITH AND WITHOUT CONTRAST. COMPARISON: Prior CT abdomen 08/02/2023, renal ultrasound 08/10/2023 and 11/19/2023 Multiplanar, multisequence imaging is performed with and without contrast. MultiHance 20 mL IV. Kidneys are normal size. No hydronephrosis. No perinephric stranding. The previously described indete rminant mass in the central RIGHT kidney is identified. This mass is of increased T2 signal and isoec hoic to the kidney on the T1 sequences. There is no fat suppression. On the postcontrast sequences th ere is no enhancement identified. Unfortunately the dynamic imaging is significantly degraded by jose alejandro on artifact. On the post 5-minute sequence this mass does not enhance and measures 13 x 13 mm. This i s most consistent with a cyst. No additional renal abnormalities are identified. The visualized portion of the liver and spleen are normal. There is mild hepatic steatosis. Gallbladd er has been surgically removed. Visualized pancreas is normal. No bile duct dilatation. No adrenal ma ss. No adenopathy or ascites. Normal aorta. IMPRESSION: 1. Previously described indeterminate mass in the RIGHT kidney does not enhance and consistent with a cyst measuring 13 x 13 mm. 2. No solid mass or obstruction. 3. Prior cholecystectomy.
[2023-12-04] MEDS: gadobenate dimeglumine 20 mL vial IV (08:49)
== END 2023-12-04 07:50 | disposition home or self-care (01) ==
LOC: RAD 07:49
PROVIDERS: PCP Family Medicine; Visit Provider Surgery Trauma Surgery
DX: N28.89 Other specified disorders of kidney and ureter (principal); Z90.49 Acquired absence of other specified parts of digestive tract
CPT/HCPCS: 74183; A9577

== ENCOUNTER → 2023-12-10 15:30 | Outpatient (BNVA) | payer BC, MEDICAID, SELFPAY | PROVIDERS: PCP Family Medicine; Visit Provider Internal Medicine Rheumatology | DX: R76.8 Other specified abnormal immunological findings in serum (principal); Z79.899 Other long term (current) drug therapy; K13.0 Diseases of lips; M19.90 Unspecified osteoarthritis, unspecified site | CPT/HCPCS: 36415; 82607; 82746; 83540; 84252; 84630; 87070; 87075; 87205; 87255 ==

== ENCOUNTER 2023-12-11 20:00 | Outpatient (CLI) | payer BC, MEDICAID, SELFPAY | END 2023-12-11 20:01 | disposition home or self-care (01) | LOC: SLEEP 12-12 06:23 | PROVIDERS: PCP Family Medicine; Visit Provider Internal Medicine Pulmonary Disease | DX: G47.33 Obstructive sleep apnea (adult) (pediatric) (principal); G47.61 Periodic limb movement disorder | CPT/HCPCS: 95811 ==

== ENCOUNTER 2024-01-29 18:23 | Emergency (ER) | payer BC, MEDICAID, SELFPAY ==
[2024-01-29 18:30] VITALS: BP 148/91; PULSE 83; RESP 16; TEMP 36.7; O2SAT 98
--- NOTE | 2024-01-29 18:32 | XRR_ITS ---
PROCEDURE INFORMATION: Exam: XR Right Hip Exam date and time: 01/29/2024 7:05 PM Age: 28 years old Clinical indication: Hip pain; Right hip TECHNIQUE: Imaging protocol: Radiologic exam of the right hip. Views: 1 view hip with pelvis when performed. COMPARISON: CT abdomen pelvis w con* [id number] 08/02/2023 4:26 PM FINDINGS: Bones/joints: No fracture or dislocation. Soft tissues: No acute findings. XR/XR hip RT 2-3V wo/w pel* [id number] IMPRESSION: No acute findings.
--- NOTE | 2024-01-29 19:32 | ED_ITS ---
Documented by User: [email or web address] [place] 01/29/24 20:00 HPI - Extremity Problem General: Chief complaint: Extremity Injury, Lower Stated complaint: RIGHT HIP PAIN Time Seen by Provider: 01/29/24 18:34 History of Present Illness: Patient is a 28-year-old female who presents to the emergency department complaining of right hip pain. She notes she has a history of scleroderma, inflammatory arthritis, and fibromyalgia and states she injured her right hip while stretching. She notes that the pain is worse with ambulation, relieved with rest. She takes hydrocodone for pain, but states this has not done anything for pain relief. She notes that the pain is shooting down the right leg, however denies any back pain at this time. No trauma or falls reported. She does note that she recently had an intra-articular steroid injection to the left hip, and is wondering if she needs the same on the right. MD Complaint: joint pain (Hip) Pain Consistency: constant Location: right Quality: sharp Radiation: distal Relieving factors: rest Exacerbating factors: range of motion, weight bearing and walking Associated symptoms: Reports no associated symptoms; Deny chest pain, fever(s) or rash Review of Systems General: Reports: 10 or more systems reviewed and unremarkable except in HPI and below Const: Denies: fever(s), chills or fatigue Eyes: Denies: change in vision ENMT: Denies: throat pain, ear or mastoid pain or nasal discharge Card: Denies: chest pain, palpitations, swelling of feet/ankles or lightheadedness Resp: Denies: dyspnea, productive cough or wheezing GI: Denies: abdominal pain, nausea, vomiting, diarrhea or constipation : Denies: flank pain, difficulty voiding, dysuria or urinary frequency Musc: Reports: extremity pain (Right leg) and joint pain (Right hip); Denies: neck pain or back pain Skin/Breast: Denies: rash Neuro: Denies: headache(s), numbness in extremities or weakness in extremities PFSH ED PFSH: Medical History Scl-70 antibody positive Inflammatory arthritis UTI (urinary tract infection) Psychiatric care MRSA (methicillin resistant Staphylococcus aureus) Surgical History History of cholecystectomy Family History Grandmother Lupus Mother Lung disease copd Other Chronic kidney disease (CKD) Heart disease Hypertension Lupus (systemic lupus erythematosus) Rheumatoid arthritis Stroke Social History Smoking and tobacco/nicotine status: current every day tobacco/nicotine user cigarettes Packs smoked per day: 1.5 Years cigarettes smoked: 20 [ Other cigarette details: started at age 8] Alcohol intake: former Year of sobriety/quit date alcohol: 2014 Substance/Drug Use: current Substance/Drug use frequency: daily Other substance/drug use details: history opiate pill abuse Household members: children Number of children: 1 Current occupational status: unemployed 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 Special richa needs: No Agree to transfusion: Yes Physical Exam Const: COMMON NORMALS: no acute distress, patient oriented x3 and no limitations GENERAL APPEARANCE: cooperative, comfortable and well developed ORIENTATION/CONSCIOUSNESS: Yes awake, Yes oriented to person, Yes oriented to place and Yes oriented to time HENMT: COMMON NORMALS: normocephalic, atraumatic and hearing grossly normal bilaterally HEAD & SCALP: normocephalic and atraumatic Eye: COMMON NORMALS: Equal, round and reactive pupils present, EOMs intact bilaterally and conjunctivae normal CONJUNCTIVA: Yes conjunctivae normal PUPIL: Yes Equal, round and reactive pupils present Neck/C-Spine: COMMON NORMALS: full ROM, supple and no JVD Resp: COMMON NORMALS: normal respiratory effort, No retractions, No use of accessory muscles and clear to auscultation bilaterally AUSCULTATION: clear to auscultation bilaterally Cardio: COMMON NORMALS: no JVD, regular rate, regular rhythm, No clicks present (Cardio), No murmurs present (Cardio) and No rub (Cardio) RATE: regular rate RHYTHM: regular rhythm GI: COMMON NORMALS: Normal to inspection, nondistended, normoactive bowel sounds present, Soft to palpation and non-tender AUSCULTATION: Yes normoactive bowel sounds PALPATION: Yes Soft to palpation RECTAL EXAM: deferred Back/Pelvis: COMMON NORMALS: thoracic and lumbar spine normal to inspection, no thoracic nor lumbar tenderness and thoraco-lumbar ROM normal Extremity: COMMON NORMALS: normal to inspection, full ROM and capillary refill normal NARRATIVE EXTREMITY EXAM: Lateral right hip is tender to palpation. Full range of motion though with pain. Straight leg raise negative bilaterally. Negative logroll. No overlying skin changes or deformities. Neuro: COMMON NORMALS: patient oriented x3, moves all extremities, no focal motor deficits and no sensory deficits noted SENSORIUM/ORIENTATION: Yes oriented to person, Yes oriented to place and Yes oriented to time Psych: COMMON NORMALS: mental status grossly normal and Normal thought process present THOUGHT PROCESS: Normal thought process present Skin: COMMON NORMALS: no rashes or lesions noted GENERAL SKIN EXAM: no rashes or lesions noted Course Vital Signs: Vital signs: Vital Signs Temperature 98.0 F 01/29/24 18:30 Pulse Rate 83 01/29/24 18:30 Respiratory Rate 16 01/29/24 18:30 Blood Pressure 148/91 01/29/24 18:30 Pulse Oximetry 98 01/29/24 18:30 MDM - Extremity (Nontraumatic) Medical Decision Making Patient seen for right hip pain. Reports history of multiple musculoskeletal conditions. States this pain began after stretching. Patient's exam does show some reproducible tenderness palpation about the left lateral hip. Her x-ray was normal. I believe patient's pain due to a muscle strain, will send home with a muscle relaxer and can take her prescribed hydrocodone. She will also follow-up with primary care for further evaluation such as MRI or joint injections. Return precautions given. Patient agrees with plan. She did note some pain relief after shot of Toradol, steroid, and muscle relaxer. Lab Data Radiology Impressions Hip/Pelvis X-Ray 01/29/24 18:32 IMPRESSION: No acute findings. All radiology interpretation(s) finalized by discharge Discharge Plan Discharge Patient Disposition: Home Clinical Impression: Strain of right hip Qualifiers: Encounter type: initial encounter Qualified Code(s): S76.011A - Strain of muscle, fascia and tendon of right hip, initial encounter Condition: Stable Prescriptions: New cyclobenzaprine 10 mg tablet 10 mg PO TID Qty: 30 0RF No Action clobetasol 0.05 % ointment 1 applic topical .2-3 TIMES A WEEK montelukast 10 mg tablet 10 mg PO BEDTIME Women's Multivitamin 18 mg-400 mcg- 500 mg-50 mcg tablet 1 tab PO QAM ascorbate calcium (vitamin C) 500 mg tablet 500 mg PO QAM trazodone 100 mg tablet 100 mg PO .q hs PRN (Reason: insomnia) Qty: 30 1RF Rx Instructions: Take one tablet daily at bedtime, if needed for insomnia leflunomide 20 mg tablet 20 mg PO DAILY Qty: 30 5RF diclofenac sodium 75 mg tablet,delayed release (DR/EC) 75 mg PO Q12H PRN (Reason: moderate to severe pain as needed) Qty: 60 1RF lidocaine HCl [Lidocaine Viscous] 2 % solution 1 applic mucous membrane QID PRN (Reason: corner of mouth pain/lesion) Qty: 100 1RF fluticasone propion-salmeterol [Advair Diskus] 500-50 mcg/dose blister with device 1 inh inhalation Q12H Qty: 60 3RF pantoprazole [Protonix] 40 mg tablet,delayed release (DR/EC) 40 mg PO BID 42 Days Qty: 84 0RF [id number] 27 mg iron- 1 mg-400 mg capsule 1 cap PO DAILY Qty: 90 0RF cyanocobalamin (vitamin B-12) 1,000 mcg capsule 1,000 mcg PO DAILY Qty: 30 0RF ibuprofen 800 mg tablet 800 mg PO Q8H PRN (Reason: headache) Qty: 60 0RF pilocarpine HCl 5 mg tablet 5 mg PO TID Qty: 90 5RF buspirone 30 mg tablet 30 mg PO BID Qty: 60 1RF Rx Instructions: Take one tablet by mouth each morning and evening lurasidone 120 mg tablet 120 mg PO DAILY Qty: 30 1RF Rx Instructions: Take one tablet once daily; take with food or snack of at least 350 calories lorazepam 1 mg tablet 1 mg PO BID PRN (Reason: anxiety) Qty: 60 1RF Rx Instructions: Take one tablet up to twice daily, if needed for anxiety, at least 4 hours apart albuterol sulfate [ProAir HFA] 90 mcg/actuation HFA aerosol inhaler 2 puff INHALATION Q4H PRN (Reason: Shortness Of Breath) Qty: 8.5 6RF albuterol sulfate 2.5 mg /3 mL (0.083 %) solution for nebulization 2.5 mg inhalation Q6H PRN (Reason: shortness of breath or wheezing) Qty: 360 6RF nicotine (polacrilex) 4 mg gum 4 mg buccal Q1H Qty: 110 6RF nicotine 21-14-7 mg/24 hr patch, TD daily, sequential See Rx Instructions transdermal .COMPLEX Qty: 56 0RF Rx Instructions: apply 1-21 mg NICOTINE PATCH daily for 28 days; follow with 1-14 mg PATCH daily for 14 days, then 1-7mg PATCH daily for 14 days transdermal ondansetron 8 mg tablet,disintegrating 8 mg PO Q8H PRN (Reason: nausea and vomiting) 5 Days Qty: 15 0RF hydrocodone-acetaminophen 7.5-325 mg tablet 1 tab PO BID PRN (Reason: pain) 10 Days Qty: 20 0RF mupirocin 2 % ointment 1 applic topical TID Qty: 22 0RF Rx Instructions: apply 3 times a day for 10days to the outer corner of the mouth Cinqair 10 mg/mL solution 408 mg IV Q28D 360 Days Rx Instructions: administer over 20-50 minutes losartan 100 mg tablet See Rx Instructions .ROUTE .COMPLEX Qty: 30 0RF Dose Instruction: TAKE 1 TABLET BY MOUTH EVERY DAY Rx Instructions: TAKE 1 TABLET BY MOUTH EVERY DAY gabapentin 300 mg capsule 300 mg PO BID Qty: 60 0RF cetirizine 10 mg tablet 10 mg PO DAILY PRN (Reason: allergy symptoms) Qty: 30 0RF amlodipine 5 mg tablet See Rx Instructions .ROUTE .COMPLEX Qty: 30 0RF Dose Instruction: TAKE 1 TABLET BY MOUTH EVERY DAY Rx Instructions: TAKE 1 TABLET BY MOUTH EVERY DAY tiotropium bromide [Spiriva with HandiHaler] 18 mcg capsule, w/inhalation device 1 cap inhalation DAILY 360 Days Qty: 90 6RF Rx Instructions: puncture 1 cap using device; one dose = 2 inhalations furosemide 20 mg tablet 20 mg PO DAILY Qty: 30 2RF Discharge Orders: Discharge ED (Routine); Ordered 01/29/24 Ordered By: Boo Ruffin Referrals: Nathalie Madison MD [Primary Care Provider] - Discharge Diet: Usual diet Discharge Activity: Increase activity as tolerated Patient Instructions: Hip Pain (ED), Opioid Safety, Pain Management Activity Restrictions/Additional Instructions: Gentle range of motion exercises as tolerated. Continue taking your hydrocodone at home for pain. Muscle relaxer as prescribed. Ice for added relief. Follow- up with primary care as discussed. Return if you develop any new or worsening symptoms. Coding Level of Care Code ED Field Cane Scaler for Chg Fwd Documented by User: Jonathan Arias DO 01/31/24 06:48 HPI - Extremity Problem General: Chief complaint: Extremity Injury, Lower Stated complaint: RIGHT HIP PAIN Time Seen by Provider: 01/29/24 18:34 PFSH ED PFSH: Medical History Scl-70 antibody positive Inflammatory arthritis UTI (urinary tract infection) Psychiatric care MRSA (methicillin resistant Staphylococcus aureus) Surgical History History of cholecystectomy Family History Grandmother Lupus Mother Lung disease copd Other Chronic kidney disease (CKD) Heart disease Hypertension Lupus (systemic lupus erythematosus) Rheumatoid arthritis Stroke Social History Smoking and tobacco/nicotine status: current every day tobacco/nicotine user c igarettes Packs smoked per day: 1.5 Years cigarettes smoked: 20 [ Other cigarette details: started at age 8] Alcohol intake: former Year of sobriety/quit date alcohol: 2014 Substance/Drug Use: current Substance/Drug use frequency: daily Other substance/drug use details: history opiate pill abuse Household members: children Number of children: 1 Current occupational status: unemployed 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 Special richa needs: No Agree to transfusion: Yes Course Vital Signs: Vital signs: Vital Signs Temperature 98.0 F 01/29/24 18:30 Pulse Rate 83 01/29/24 18:30 Respiratory Rate 16 01/29/24 18:30 Blood Pressure 148/91 01/29/24 18:30 Pulse Oximetry 98 01/29/24 18:30 MDM - Extremity (Nontraumatic) Medical Decision Making Patient seen for right hip pain. Reports history of multiple musculoskeletal conditions. States this pain began after stretching. Patient's exam does show some reproducible tenderness palpation about the left lateral hip. Her x-ray was normal. I believe patient's pain due to a muscle strain, will send home with a muscle relaxer and can take her prescribed hydrocodone. She will also follow-up with primary care for further evaluation such as MRI or joint injections. Return precautions given. Patient agrees with plan. She did note some pain relief after shot of Toradol, steroid, and muscle relaxer. Chart reviewed Lab Data Radiology Impressions Hip/Pelvis X-Ray 01/29/24 18:32 IMPRESSION: No acute findings. Discharge Plan Discharge Patient Disposition: Home Clinical Impression: Strain of right hip Qualifiers: Encounter type: initial encounter Qualified Code(s): S76.011A - Strain of muscle, fascia and tendon of right hip, initial encounter Condition: Stable Prescriptions: New cyclobenzaprine 10 mg tablet 10 mg PO TID Qty: 30 0RF No Action clobetasol 0.05 % ointment 1 applic topical .2-3 TIMES A WEEK montelukast 10 mg tablet 10 mg PO BEDTIME Women's Multivitamin 18 mg-400 mcg- 500 mg-50 mcg tablet 1 tab PO QAM ascorbate calcium (vitamin C) 500 mg tablet 500 mg PO QAM trazodone 100 mg tablet 100 mg PO .q hs PRN (Reason: insomnia) Qty: 30 1RF Rx Instructions: Take one tablet daily at bedtime, if needed for insomnia leflunomide 20 mg tablet 20 mg PO DAILY Qty: 30 5RF diclofenac sodium 75 mg tablet,delayed release (DR/EC) 75 mg PO Q12H PRN (Reason: moderate to severe pain as needed) Qty: 60 1RF lidocaine HCl [Lidocaine Viscous] 2 % solution 1 applic mucous membrane QID PRN (Reason: corner of mouth pain/lesion) Qty: 100 1RF fluticasone propion-salmeterol [Advair Diskus] 500-50 mcg/dose blister with device 1 inh inhalation Q12H Qty: 60 3RF pantoprazole [Protonix] 40 mg tablet,delayed release (DR/EC) 40 mg PO BID 42 Days Qty: 84 0RF [id number] 27 mg iron- 1 mg-400 mg capsule 1 cap PO DAILY Qty: 90 0RF cyanocobalamin (vitamin B-12) 1,000 mcg capsule 1,000 mcg PO DAILY Qty: 30 0RF ibuprofen 800 mg tablet 800 mg PO Q8H PRN (Reason: headache) Qty: 60 0RF pilocarpine HCl 5 mg tablet 5 mg PO TID Qty: 90 5RF buspirone 30 mg tablet 30 mg PO BID Qty: 60 1RF Rx Instructions: Take one tablet by mouth each morning and evening lurasidone 120 mg tablet 120 mg PO DAILY Qty: 30 1RF Rx Instructions: Take one tablet once daily; take with food or snack of at least 350 calories lorazepam 1 mg tablet 1 mg PO BID PRN (Reason: anxiety) Qty: 60 1RF Rx Instructions: Take one tablet up to twice daily, if needed for anxiety, at least 4 hours apart albuterol sulfate [ProAir HFA] 90 mcg/actuation HFA aerosol inhaler 2 puff INHALATION Q4H PRN (Reason: Shortness Of Breath) Qty: 8.5 6RF albuterol sulfate 2.5 mg /3 mL (0.083 %) solution for nebulization 2.5 mg inhalation Q6H PRN (Reason: shortness of breath or wheezing) Qty: 360 6RF nicotine (polacrilex) 4 mg gum 4 mg buccal Q1H Qty: 110 6RF nicotine 21-14-7 mg/24 hr patch, TD daily, sequential See Rx Instructions transdermal .COMPLEX Qty: 56 0RF Rx Instructions: apply 1-21 mg NICOTINE PATCH daily for 28 days; follow with 1-14 mg PATCH daily for 14 days, then 1-7mg PATCH daily for 14 days transdermal ondansetron 8 mg tablet,disintegrating 8 mg PO Q8H PRN (Reason: nausea and vomiting) 5 Days Qty: 15 0RF hydrocodone-acetaminophen 7.5-325 mg tablet 1 tab PO BID PRN (Reason: pain) 10 Days Qty: 20 0RF mupirocin 2 % ointment 1 applic topical TID Qty: 22 0RF Rx Instructions: apply 3 times a day for 10days to the outer corner of the mouth Cinqair 10 mg/mL solution 408 mg IV Q28D 360 Days Rx Instructions: administer over 20-50 minutes losartan 100 mg tablet See Rx Instructions .ROUTE .COMPLEX Qty: 30 0RF Dose Instruction: TAKE 1 TABLET BY MOUTH EVERY DAY Rx Instructions: TAKE 1 TABLET BY MOUTH EVERY DAY gabapentin 300 mg capsule 300 mg PO BID Qty: 60 0RF cetirizine 10 mg tablet 10 mg PO DAILY PRN (Reason: allergy symptoms) Qty: 30 0RF amlodipine 5 mg tablet See Rx Instructions .ROUTE .COMPLEX Qty: 30 0RF Dose Instruction: TAKE 1 TABLET BY MOUTH EVERY DAY Rx Instructions: TAKE 1 TABLET BY MOUTH EVERY DAY tiotropium bromide [Spiriva with HandiHaler] 18 mcg capsule, w/inhalation device 1 cap inhalation DAILY 360 Days Qty: 90 6RF Rx Instructions: puncture 1 cap using device; one dose = 2 inhalations furosemide 20 mg tablet 20 mg PO DAILY Qty: 30 2RF Discharge Orders: Discharge ED (Routine); Ordered 01/29/24 Ordered By: Boo Ruffin Referrals: Nathalie Madison MD [Primary Care Provider] - Discharge Diet: Usual diet Discharge Activity: Increase activity as tolerated Patient Instructions: Hip Pain (ED), Opioid Safety, Pain Management Activity Restrictions/Additional Instructions: Gentle range of motion exercises as tolerated. Continue taking your hydrocodone at home for pain. Muscle relaxer as prescribed. Ice for added relief. Follow- up with primary care as discussed. Return if you develop any new or worsening symptoms. Coding Level of Care Code ED Field Cane Scaler for Sunil Ace
[2024-01-29] MEDS: ketorolac 60 mg/2 mL INJ IM (19:36)
[2024-01-29] MEDS: dexamethasone 10 mg/mL INJ 8 MG IM (19:37)
[2024-01-29] MEDS: orphenadrine 30 mg/mL Inj 2 mL 60 MG IM (19:38)
== END 2024-01-29 20:22 | disposition home or self-care (01) ==
PROVIDERS: Emergency Provider Physician Assistant; PCP Family Medicine
DX: S76.011A Strain of muscle, fascia and tendon of right hip, initial encounter (principal); F17.210 Nicotine dependence, cigarettes, uncomplicated; X50.9XXA Other and unspecified overexertion or strenuous movements or postures, initial encounter
CPT/HCPCS: 73502; 96372; 99284; J1100; J1885; J2360

== ENCOUNTER 2024-02-25 21:53 | Emergency (ER) | payer BC, MEDICAID, SELFPAY ==
[2024-02-25 21:58] VITALS: BP 176/91; PULSE 80; RESP 18; TEMP 36.7; O2SAT 97; BMI 48.4
--- NOTE | 2024-02-25 22:01 | CTR_ITS ---
PROCEDURE INFORMATION: Exam: CT Abdomen And Pelvis With Contrast Exam date and time: 02/25/2024 10:41 PM Age: 29 years old Clinical indication: Abdominal pain; Prior surgery; Surgery date: 6+ months; Surgery type: Gb; Additional info: Luq/ruq pain - HX of cholecystectomy TECHNIQUE: Imaging protocol: Computed tomography of the abdomen and pelvis with contrast. Radiation optimization: All CT scans at this facility use at least one of these dose optimization techniques: automated exposure control; mA and/or kV adjustment per patient size (includes targeted exams where dose is matched to clinical indication); or iterative reconstruction. Contrast material: OMNI 350; Contrast volume: 100 ml; Contrast route: INTRAVENOUS (IV); COMPARISON: MR abdomen wo/w con* [id number] 12/04/2023 8:09 AM RADIATION DOSE METRICS: Total DLP (mGy-cm): 1299.9 FINDINGS: Lungs: The lung bases are clear. Heart: Heart size is within normal limits. There is no pericardial effusion or pericardial thickening. Liver: The liver is normal. No hepatic masses are identified. Gallbladder and bile ducts: The gallbladder is surgically absent. There is no ductal dilatation. Pancreas: The pancreas is normal. Spleen: The spleen is normal. Adrenal glands: The adrenal glands are normal. Kidneys and ureters: There is normal enhancement of the kidneys. No renal calcifications are identified. There is no hydronephrosis. See recent MR abdomen. Stomach and bowel: There is no large or small bowel obstruction. There is no evidence of bowel wall thickening. Appendix: A normal appendix is identified. Intraperitoneal space: No inflammatory changes are identified. There is no free fluid or fluid collection seen. There is no pneumoperitoneum. Vasculature: The aorta is normal in course and caliber. No significant atherosclerotic calcifications are present. Lymph nodes: There are no enlarged retroperitoneal or mesenteric lymph nodes. Urinary bladder: The bladder is decompressed and collapsed. No abnormality identified. Reproductive: The uterus is present. Bones/joints: No acute osseous abnormalities are seen. Soft tissues: The soft tissues are within normal limits. CT/CT abdomen pelvis w con* [id number] IMPRESSION: No acute intra-abdominal or pelvic process.
--- NOTE | 2024-02-25 22:02 | ED_ITS ---
Documented by User: [email or web address] [place] 02/25/24 23:31 HPI - Abdominal Pain 2 General: Chief Complaint: Abdominal Pain Stated Complaint: Abd Pain Time Seen by Provider: 02/25/24 21:55 Source: patient Mode of arrival: ambulatory Limitations: no limitations History of Present Illness: Patient is a 29-year-old female presents to the emergency department complaining of abdominal pain onset today. Initially patient presented to the urgent care planing of left lower quadrant pain, was discharged home and told to present to the emergency department with any worsening. She had no testing or imaging done at that time. She presents tonight stating that she took a hydrocodone when she got home from the urgent care, however she has had worsening left upper quadrant pain that is now in the right upper quadrant. She does note history of cholecystectomy and appendectomy. She notes some nausea, but states that she has not vomited and has been able to keep down food and water as normal. She states she has a history of fibromyalgia and cannot tell if the pain radiates at all. She does deny history of pancreatitis or diverticulitis as well. Denies any changes in bowel. States she is currently on her menstrual cycle, so she is unable to tell if there is blood in her urine or not. Pain is currently a 10/10, and when asked what makes it worse she states it just hurts. No specific alleviating factors at this time. Patient notes she was running a fever earlier though this broke, and no other symptoms to report at this time. MD elicited complaint: abdominal pain Pertinent past history: none Onset (ago): hour(s) Pain Consistency: constant Location: LUQ and RUQ Severity: severe Relieving factors: nothing Associated Symptoms: Reports fever(s) and nausea; Denies bloating, change in stool character, chills, constipation, diarrhea, dysuria, hematochezia and vomiting Treatments prior to arrival: prescription analgesics Review of Systems 2 General: Reports: 10 or more systems reviewed and unremarkable except in HPI and below Const: Reports: fever(s); Denies: chills, change in appetite, change in weight or diaphoresis ENMT: Denies: throat pain or hoarseness Card: Denies: chest pain, palpitations or lightheadedness Resp: Denies: dyspnea, productive cough or wheezing GI: Reports: abdominal pain and nausea; Denies: vomiting, diarrhea, constipation, bloating, change in stool character or hematochezia : Denies: flank pain, difficulty voiding, dysuria, urinary frequency or urinary urgency Musc: Denies: neck pain or back pain Skin/Breast: Denies: rash or new lesions Neuro: Denies: headache(s) or dizziness PFSH ED 2 PFSH: Medical History Scl-70 antibody positive Inflammatory arthritis UTI (urinary tract infection) Psychiatric care MRSA (methicillin resistant Staphylococcus aureus) Surgical History History of cholecystectomy Family History Grandmother Lupus Mother Lung disease copd Other Chronic kidney disease (CKD) Heart disease Hypertension Lupus (systemic lupus erythematosus) Rheumatoid arthritis Stroke Social History Smoking and tobacco/nicotine status: current every day tobacco/nicotine user cigarettes Packs smoked per day: 1.5 Years cigarettes smoked: 20 [ Other cigarette details: started at age 8] Alcohol intake: former Year of sobriety/quit date alcohol: 2014 Substance/Drug Use: current Substance/Drug use frequency: daily Other substance/drug use details: history opiate pill abuse Household members: children Number of children: 1 Current occupational status: unemployed 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 Special richa needs: No Agree to transfusion: Yes Physical Exam 2 Const: COMMON NORMALS: patient oriented x3, no limitations, healthy appearing, alert and well nourished GENERAL APPEARANCE: cooperative and in distress N UTRITIONAL APPEARANCE: obese morbidly obese ORIENTATION/CONSCIOUSNESS: Yes awake HENMT: COMMON NORMALS: normocephalic, atraumatic, hearing grossly normal bilaterally, external ears normal, Normal external nose present, Normal nasal mucous membranes and turbinates present and moist oral mucous membranes HEAD & SCALP: normocephalic and atraumatic NOSE: Normal external nose present and Normal nasal mucous membranes and turbinates present EXTERNAL EAR: Yes external ears normal Eye: COMMON NORMALS: Equal, round and reactive pupils present, EOMs intact bilaterally, conjunctivae normal and normal visual moreno by confrontation C ONJUNCTIVA: Yes conjunctivae normal PUPIL: Yes Equal, round and reactive pupils present Neck/C-Spine: COMMON NORMALS: full ROM, supple, no meningeal signs and no JVD Resp: COMMON NORMALS: normal respiratory effort, No retractions, No use of accessory muscles and clear to auscultation bilaterally AUSCULTATION: clear to auscultation bilaterally, no crackles, no rales, no rhonchi and no wheezes Cardio: COMMON NORMALS: no JVD, regular rate, regular rhythm, S1 normal heart sound present, S2 normal heart sound present, No gallops present (Cardio), No clicks present (Cardio), No murmurs present (Cardio), No rub (Cardio) and Peripheral pulses 2+ throughout RATE: regular rate RHYTHM: regular rhythm HEART SOUNDS: S1 normal heart sound present and S2 normal heart sound present PERIPHERAL PULSES: Peripheral pulses 2+ throughout GI: COMMON NORMALS: Normal to inspection, nondistended, normoactive bowel sounds present, Soft to palpation, No hepatosplenomegaly present and no masses INSPECTION: Yes central obesity AUSCULTATION: Yes normoactive bowel sounds PALPATION: Yes Soft to palpation, Yes Tenderness to palpation present (GI) (LUQ>RUQ) Details: LUQ and RUQ, Yes Guarding due to palpation present (GI) (Voluntary), No Rigid due to palpation and Yes No hepatosplenomegaly present RECTAL EXAM: deferred : COMMON NORMALS: Yes no CVA tenderness BLADDER/KIDNEY EXAM: Yes no CVA tenderness Back/Pelvis: COMMON NORMALS: no CVA tenderness Extremity: COMMON NORMALS: normal to inspection and full ROM Neuro: COMMON NORMALS: patient oriented x3, moves all extremities, no focal motor deficits and no sensory deficits noted SENSORIUM/ORIENTATION: Yes alert MENINGEAL SIGNS: Yes no meningeal signs Psych: COMMON NORMALS: mental status grossly normal, cooperative and speech normal SPEECH: Yes normal speech Skin: COMMON NORMALS: no rashes or lesions noted GENERAL SKIN EXAM: no rashes or lesions noted Course 2 Vital Signs: Vital signs: Vital Signs Temperature 98.1 F 02/25/24 21:58 Pulse Rate 61 02/25/24 23:38 Respiratory Rate 16 02/25/24 23:38 Blood Pressure 134/78 02/25/24 23:38 Pulse Oximetry 95 02/25/24 23:38 Oxygen Delivery Me thod Room Air 02/25/24 21:58 MDM - Abdominal Pain Medical Decision Making Patient seen today for acute onset of left upper and right upper quadrant pain. Initially seen in urgent care, pain had worsened throughout the day so she presents for evaluation. Her vitals on arrival were unremarkable and condition has remained stable. Her physical exam positive for some reproducible tenderness palpation about the bilateral upper quadrants, though there was some voluntary guarding noted. Basic lab workup unremarkable. Urinalysis did show signs of urinary tract infection with 2+ bacteria and leukocytes. Her abdominal pelvis CT was unremarkable, and negative. Will treat for urinary tract infection and informed patient to follow-up with primary care for further outpatient management such as potential upper/lower scope. Patient agrees with plan and states her pain is improved after receiving IV morphine. Return precautions were given and patient will be discharged home. Lab Data 02/25/24 22:03 02/25/24 22:03 Labs/Radiology: Radiology Impressions Abdomen/Pelvis CT 02/25/24 22:01 IMPRESSION: No acute intra-abdominal or pelvic process. Laboratory Results WBC 12.20 10^3/uL (3.29-11.43) H 02/25/24 22: RBC 4.69 10^6/uL (3.85-5.65) 02/25/24 22:03 Hgb 14.60 g/dL (11.27-16.99) 02/25/24 22: Hct 43.0 % (36-47) 02/25/24 22:03 MCV 91.7 fl (85-98) 02/25/24 22:03 MCH 31.1 pg (27-33) 02/25/24 22: MCHC 34.0 g/dL (30-55) 02/25/24 22:03 RDW 13.6 % (12.1-15.1) 02/25/24 22:03 Plt Count 397 10^3/cmm (157-399) 02/25/24 22:03 MPV 9.5 fL (7.4-10.4) 02/25/24 22:03 Neut % (Auto) 70.3 % 02/25/24 22:03 Lymph % (Auto) 20.3 % 02/25/24 22:03 [place] % (Auto) 7.9 % 02/25/24 22:03 Eos % (Auto) 0.4 % 02/25/24 22:03 Baso % (Auto) 0.7 % 02/25/24 22:03 Neut # (Auto) 8.58 10^3/uL (1.8-7.7) H 02/25/24 22:03 Lymph # (Auto) 2.5 10^3/uL (0.8-4.8) 02/25/24 22:03 [place] # (Auto) 1.0 10^3/uL (0.2-0.9) H 02/25/24 22:03 Eos # (Auto) 0.1 10^3/uL (0.0-0.8) 02/25/24 22:03 Baso # (Auto) 0.1 10^3/uL (0.0-0.1) 02/25/24 22:03 Nucleated RBC % (auto) 0 % 02/25/24 22:03 Nucleated RBCs # 0.0 /100WBC 02/25/24 22:03 Sodium 141 mmol/L (136-145) 02/25/24 22:03 Potassium 3.6 mmol/L (3.5-5.1) 02/25/24 22:03 Chloride 102 mmol/L (98-107) 02/25/24 22:03 Carbon Dioxide 28 mmol/L (22-29) 02/25/24 22:03 Anion Gap 14.6 (5-19) 02/25/24 22:03 BUN 6 mg/dL (6-20) 02/25/24 22:03 Creatinine 0.6 mg/dL (0.5-0.9) 02/25/24 22:03 GFR Calculation 117.4 mL/min (90-130) 02/25/24 22:03 Glucose 102 mg/dL (65-115) 02/25/24 22:03 Calculated Osmolality 290 mOsm/kg (285-295) 02/25/24 22:03 Calcium 8.9 mg/dL (8.5-10.5) 02/25/24 22:03 Total Bilirubin 0.2 mg/dL (0.15-1.2) 02/25/24 22:03 AST 12 U/L (0-32) 02/25/24 22:03 ALT 20 U/L (0-33) 02/25/24 22:03 Alkaline Phosphatase 77 U/L (35-105) 02/25/24 22:03 Total Protein 7.3 g/dL (6.6-8.7) 02/25/24 22:03 Albumin 3.8 g/dL (3.5-5.2) 02/25/24 22:03 Globulin 3.5 g/dL (1.3-4.6) 02/25/24 22:03 Lipase 29 U/L (13-60) 02/25/24 22:03 HCG, Qual Negative (Negative) 02/25/24 22:03 Urine Color Yellow (Yellow) 02/25/24 22:17 Urine Appearance Cloudy (CLEAR) A 02/25/24 22:17 Urine pH 5 (5-7) 02/25/24 22:17 Ur Specific [place] 1.020 (1.005-1.030) 02/25/24 22:17 Urine Protein 1+ (Negative) H 02/25/24 22:17 Urine Glucose (UA) Norm (Normal) 02/25/24 22:17 Urine Ketones 1+ (Negative) H 02/25/24 22:17 Urine Blood 3+ (Negative) H 02/25/24 22:17 Urine Nitrate Negative (Negative) 02/25/24 22:17 Urine Bilirubin Neg (Negative) 02/25/24 22:17 Urine Urobilinogen 1 mg/dL (Negative) H 02/25/24 22:17 Ur Leukocyte Esterase Trace (Negative) H 02/25/24 22:17 Urine RBC 5-10 /hpf (0-2) H 02/25/24 22:17 Urine WBC 0-4 /hpf (0-5) H 02/25/24 22:17 Ur Squamous Epith Cells 5-10 /hpf (0-5) H 02/25/24 22:17 Amorphous Sediment 1+ /hpf 02/25/24 22:17 Urine Bacteria 2+ /hpf (NONE) H 02/25/24 22:17 Urine Mucus 2+ /hpf 02/25/24 22:17 All radiology interpretation(s) finalized by discharge Discharge Plan Discharge Patient Disposition: Home Clinical Impression: Urinary tract infection Qualifiers: Urinary tract infection type: acute cystitis Hematuria presence: without hematuria Qualified Code(s): N30.00 - Acute cystitis without hematuria Abdominal pain Qualifiers: Abdominal location: left upper quadrant Qualified Code(s): R10.12 - Left upper quadrant pain Condition: Stable Prescriptions: New cefdinir 300 mg capsule 300 mg PO BID 10 Days Qty: 20 0RF No Action clobetasol 0.05 % ointment 1 applic topical .2-3 TIMES A WEEK montelukast 10 mg tablet 10 mg PO BEDTIME Women's Multivitamin 18 mg-400 mcg- 500 mg-50 mcg tablet 1 tab PO QAM ascorbate calcium (vitamin C) 500 mg tablet 500 mg PO QAM trazodone 100 mg tablet 100 mg PO .q hs PRN (Reason: insomnia) Qty: 30 1RF Rx Instructions: Take one tablet daily at bedtime, if needed for insomnia leflunomide 20 mg tablet 20 mg PO DAILY Qty: 30 5RF lidocaine HCl [Lidocaine Viscous] 2 % solution 1 applic mucous membrane QID PRN (Reason: corner of mouth pain/lesion) Qty: 100 1RF fluticasone propion-salmeterol [Advair Diskus] 500-50 mcg/dose blister with device 1 inh inhalation Q12H Qty: 60 3RF pantoprazole [Protonix] 40 mg tablet,delayed release (DR/EC) 40 mg PO BID 42 Days Qty: 84 0RF cyanocobalamin (vitamin B-12) 1,000 mcg capsule 1,000 mcg PO DAILY Qty: 30 0RF ibuprofen 800 mg tablet 800 mg PO Q8H PRN (Reason: headache) Qty: 60 0RF pilocarpine HCl 5 mg tablet 5 mg PO TID Qty: 90 5RF buspirone 30 mg tablet 30 mg PO BID Qty: 60 1RF Rx Instructions: Take one tablet by mouth each morning and evening lurasidone 120 mg tablet 120 mg PO DAILY Qty: 30 1RF Rx Instructions: Take one tablet once daily; take with food or snack of at least 350 calories lorazepam 1 mg tablet 1 mg PO BID PRN (Reason: anxiety) Qty: 60 1RF Rx Instructions: Take one tablet up to twice daily, if needed for anxiety, at least 4 hours apart albuterol sulfate [ProAir HFA] 90 mcg/actuation HFA aerosol inhaler 2 puff INHALATION Q4H PRN (Reason: Shortness Of Breath) Qty: 8.5 6RF albuterol sulfate 2.5 mg /3 mL (0.083 %) solution for nebulization 2.5 mg inhalation Q6H PRN (Reason: shortness of breath or wheezing) Qty: 360 6RF nicotine (polacrilex) 4 mg gum 4 mg buccal Q1H Qty: 110 6RF nicotine 21-14-7 mg/24 hr patch, TD daily, sequential See Rx Instructions transdermal .COMPLEX Qty: 56 0RF Rx Instructions: apply 1-21 mg NICOTINE PATCH daily for 28 days; follow with 1-14 mg PATCH daily for 14 days, then 1-7mg PATCH daily for 14 days transdermal ondansetron 8 mg tablet,disintegrating 8 mg PO Q8H PRN (Reason: nausea and vomiting) 5 Days Qty: 15 0RF hydrocodone-acetaminophen 7.5-325 mg tablet 1 tab PO BID PRN (Reason: pain) 10 Days Qty: 20 0RF mupirocin 2 % ointment 1 applic topical TID Qty: 22 0RF Rx Instructions: apply 3 times a day for 10days to the outer corner of the mouth Cinqair 10 mg/mL solution 408 mg IV Q28D 360 Days Rx Instructions: administer over 20-50 minutes tiotropium bromide [Spiriva with HandiHaler] 18 mcg capsule, w/inhalation device 1 cap inhalation DAILY 360 Days Qty: 90 6RF Rx Instructions: puncture 1 cap using device; one dose = 2 inhalations furosemide 20 mg tablet 20 mg PO DAILY Qty: 30 2RF diclofenac sodium 75 mg tablet,delayed release (DR/EC) 75 mg PO Q12H PRN (Reason: moderate to severe pain as needed) Qty: 60 1RF losartan 100 mg tablet See Rx Instructions .ROUTE .COMPLEX Qty: 30 0RF Dose Instruction: TAKE 1 TABLET BY MOUTH EVERY DAY Rx Instructions: TAKE 1 TABLET BY MOUTH EVERY DAY amlodipine 5 mg tablet See Rx Instructions .ROUTE .COMPLEX Qty: 30 0RF Dose Instruction: TAKE 1 TABLET BY MOUTH EVERY DAY Rx Instructions: TAKE 1 TABLET BY MOUTH EVERY DAY cetirizine 10 mg tablet 10 mg PO DAILY PRN (Reason: allergy symptoms) Qty: 30 0RF gabapentin 300 mg capsule 300 mg PO BID Qty: 60 0RF Vitamin Plus Low Iron 27 mg iron- 1 mg tablet See Rx Instructions .ROUTE .COMPLEX Qty: 90 0RF Dose Instruction: take 1 capsule BY MOUTH DAILY Rx Instructions: take 1 capsule BY MOUTH DAILY cyclobenzaprine 10 mg tablet 10 mg PO TID Qty: 30 0RF Discharge Orders: Discharge ED (Routine); Ordered 02/25/24 Ordered By: Boo Ruffin Referrals: Nathalie Madison MD [Primary Care Provider] - Patient Instructions: Abdominal Pain (ED), Opioid Safety, Pain Management Activity Restrictions/Additional Instructions: Take antibiotics as prescribed. Pain medications at home as already prescribed. Follow-up with primary care for further evaluation and outpatient management. Return with any new or concerning symptoms may have. Stand Alone Forms: Work/School Release Coding Level of Care Code ED Security Orderly for Chg Fwd Documented by User: Jonathan Arias DO 03/03/24 07:28 HPI - Abdominal Pain 2 General: Chief Complaint: Abdominal Pain Stated Complaint: Abd Pain Time Seen by Provider: 02/25/24 21:55 PFSH ED 2 PFSH: Medical History Scl-70 antibody positive Inflammatory arthritis UTI (urinary tract infection) Psychiatric care MRSA (methicillin resistant Staphylococcus aureus) Surgical History History of cholecystectomy Family History Grandmother Lupus Mother Lung disease copd Other Chronic kidney disease (CKD) Heart disease Hypertension Lupus (systemic lupus erythematosus) Rheumatoid arthritis Stroke Social History Smoking and tobacco/nicotine status: current every day tobacco/nicotine user cigarettes Packs smoked per day: 1.5 Years cigarettes smoked: 20 [ Other cigarette details: started at age 8] Alcohol intake: former Year of sobriety/quit date alcohol: 2014 Substance/Drug Use: current Substance/Drug use frequency: daily Other substance/drug use details: history opiate pill abuse Household members: children Number of children: 1 Current occupational status: unemployed 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 Special richa needs: No Agree to transfusion: Yes Course 2 Vital Signs: Vital signs: Vital Signs Temperature 98.1 F 02/25/24 21:58 Pulse Rate 61 02/25/24 23:38 Respiratory Rate 16 02/25/24 23:38 Blood Pressure 134/78 02/25/24 23:38 Pulse Oximetry 95 02/25/24 23:38 Oxygen Delivery Me thod Room Air 02/25/24 21:58 MDM - Abdominal Pain Medical Decision Making Patient seen today for acute onset of left upper and right upper quadrant pain. Initially seen in urgent care, pain had worsened throughout the day so she presents for evaluation. Her vitals on arrival were unremarkable and condition has remained stable. Her physical exam positive for some reproducible tenderness palpation about the bilateral upper quadrants, though there was some voluntary guarding noted. Basic lab workup unremarkable. Urinalysis did show signs of urinary tract infection with 2+ bacteria and leukocytes. Her abdominal pelvis CT was unremarkable, and negative. Will treat for urinary tract infection and informed patient to follow-up with primary care for further outpatient management such as potential upper/lower scope. Patient agrees with plan and states her pain is improved after receiving IV morphine. Return precautions were given and patient will be discharged home. Chart reviewed Lab Data 02/25/24 22:03 02/25/24 22:03 Labs/Radiology: Radiology Impressions Abdomen/Pelvis CT 02/25/24 22:01 IMPRESSION: No acute intra-abdominal or pelvic process. Laboratory Results WBC 12.20 10^3/uL (3.29-11.43) H 02/25/24 22:03 RBC 4.69 10^6/uL (3.85-5.65) 02/25/24 22:03 Hgb 14.60 g/dL (11.27-16.99) 02/25/24 22:03 Hct 43.0 % (36-47) 02/25/24 22:03 MCV 91.7 fl (85-98) 02/25/24 22:03 MCH 31.1 pg (27-33) 02/25/24 22:03 MCHC 34.0 g/dL (30-55) 02/25/24 22:03 RDW 13.6 % (12.1-15.1) 02/25/24 22:03 Plt Count 397 10^3/cmm (157-399) 02/25/24 22:03 MPV 9.5 fL (7.4-10.4) 02/25/24 22:03 Neut % (Auto) 70.3 % 02/25/24 22:03 Lymph % (Auto) 20.3 % 02/25/24 22:03 [place] % (Auto) 7.9 % 02/25/24 22:03 Eos % (Auto) 0.4 % 02/25/24 22:03 Baso % (Auto) 0.7 % 02/25/24 22:03 Neut # (Auto) 8.58 10^3/uL (1.8-7.7) H 02/25/24 22:03 Lymph # (Auto) 2.5 10^3/uL (0.8-4.8) 02/25/24 22:03 [place] # (Auto) 1.0 10^3/uL (0.2-0.9) H 02/25/24 22:03 Eos # (Auto) 0.1 10^3/uL (0.0-0.8) 02/25/24 22:03 Baso # (Auto) 0.1 10^3/uL (0.0-0.1) 02/25/24 22:03 Nucleated RBC % (auto) 0 % 02/25/24 22: Nucleated RBCs # 0.0 /100WBC 02/25/24 22:03 Sodium 141 mmol/L (136-145) 02/25/24 22:03 Potassium 3.6 mmol/L (3.5-5.1) 02/25/24 22:03 Chloride 102 mmol/L (98-107) 02/25/24 22:03 Carbon Dioxide 28 mmol/L (22-29) 02/25/24 22:03 Anion Gap 14.6 (5-19) 02/25/24 22:03 BUN 6 mg/dL (6-20) 02/25/24 22:03 Creatinine 0.6 mg/dL (0.5-0.9) 02/25/24 22:03 GFR Calculation 117.4 mL/min (90-130) 02/25/24 22:03 Glucose 102 mg/dL (65-115) 02/25/24 22:03 Calculated Osmolality 290 mOsm/kg (285-295) 02/25/24 22:03 Calcium 8.9 mg/dL (8.5-10.5) 02/25/24 22:03 Total Bilirubin 0.2 mg/dL (0.15-1.2) 02/25/24 22:03 AST 12 U/L (0-32) 02/25/24 22:03 ALT 20 U/L (0-33) 02/25/24 22:03 Alkaline Phosphatase 77 U/L (35-105) 02/25/24 22:03 Total Protein 7.3 g/dL (6.6-8.7) 02/25/24 22:03 Albumin 3.8 g/dL (3.5-5.2) 02/25/24 22:03 Globulin 3.5 g/dL (1.3-4.6) 02/25/24 22:03 Lipase 29 U/L (13-60) 02/25/24 22:03 HCG, Qual Negative (Negative) 02/25/24 22:03 Urine Color Yellow (Yellow) 02/25/24 22:17 Urine Appearance Cloudy (CLEAR) A 02/25/24 22:17 Urine pH 5 (5-7) 02/25/24 22:17 Ur Specific [place] 1.020 (1.005-1.030) 02/25/24 22:17 Urine Protein 1+ (Negative) H 02/25/24 22:17 Urine Glucose (UA) Norm (Normal) 02/25/24 22:17 Urine Ketones 1+ (Negative) H 02/25/24 22:17 Urine Blood 3+ (Negative) H 02/25/24 22:17 Urine Nitrate Negative (Negative) 02/25/24 22:17 Urine Bilirubin Neg (Negative) 02/25/24 22:17 Urine Urobilinogen 1 mg/dL (Negative) H 02/25/24 22:17 Ur Leukocyte Esterase Trace (Negative) H 02/25/24 22:17 Urine RBC 5-10 /hpf (0-2) H 02/25/24 22:17 Urine WBC 0-4 /hpf (0-5) H 02/25/24 22:17 Ur Squamous Epith Cells 5-10 /hpf (0-5) H 02/25/24 22:17 Amorphous Sediment 1+ /hpf 02/25/24 22:17 Urine Bacteria 2+ /hpf (NONE) H 02/25/24 22:17 Urine Mucus 2+ /hpf 02/25/24 22:17 Discharge Plan Discharge Patient Disposition: Home Clinical Impression: Urinary tract infection Qualifiers: Urinary tract infection type: acute cystitis Hematuria presence: without hematuria Qualified Code(s): N30.00 - Acute cystitis without hematuria Abdominal pain Qualifiers: Abdominal location: left upper quadrant Qualified Code(s): R10.12 - Left upper quadrant pain Condition: Stable Prescriptions: New cefdinir 300 mg capsule 300 mg PO BID 10 Days Qty: 20 0RF No Action clobetasol 0.05 % ointment 1 applic topical .2-3 TIMES A WEEK montelukast 10 mg tablet 10 mg PO BEDTIME Women's Multivitamin 18 mg-400 mcg- 500 mg-50 mcg tablet 1 tab PO QAM ascorbate calcium (vitamin C) 500 mg tablet 500 mg PO QAM trazodone 100 mg tablet 100 mg PO .q hs PRN (Reason: insomnia) Qty: 30 1RF Rx Instructions: Take one tablet daily at bedtime, if needed for insomnia leflunomide 20 mg tablet 20 mg PO DAILY Qty: 30 5RF lidocaine HCl [Lidocaine Viscous] 2 % solution 1 applic mucous membrane QID PRN (Reason: corner of mouth pain/lesion) Qty: 100 1RF fluticasone propion-salmeterol [Advair Diskus] 500-50 mcg/dose blister with device 1 inh inhalation Q12H Qty: 60 3RF pantoprazole [Protonix] 40 mg tablet,delayed release (DR/EC) 40 mg PO BID 42 Days Qty: 84 0RF cyanocobalamin (vitamin B-12) 1,000 mcg capsule 1,000 mcg PO DAILY Qty: 30 0RF ibuprofen 800 mg tablet 800 mg PO Q8H PRN (Reason: headache) Qty: 60 0RF pilocarpine HCl 5 mg tablet 5 mg PO TID Qty: 90 5RF buspirone 30 mg tablet 30 mg PO BID Qty: 60 1RF Rx Instructions: Take one tablet by mouth each morning and evening lurasidone 120 mg tablet 120 mg PO DAILY Qty: 30 1RF Rx Instructions: Take one tablet once daily; take with food or snack of at least 350 calories lorazepam 1 mg tablet 1 mg PO BID PRN (Reason: anxiety) Qty: 60 1RF Rx Instructions: Take one tablet up to twice daily, if needed for anxiety, at least 4 hours apart albuterol sulfate [ProAir HFA] 90 mcg/actuation HFA aerosol inhaler 2 puff INHALATION Q4H PRN (Reason: Shortness Of Breath) Qty: 8.5 6RF albuterol sulfate 2.5 mg /3 mL (0.083 %) solution for nebulization 2.5 mg inhalation Q6H PRN (Reason: shortness of breath or wheezing) Qty: 360 6RF nicotine (polacrilex) 4 mg gum 4 mg buccal Q1H Qty: 110 6RF nicotine 21-14-7 mg/24 hr patch, TD daily, sequential See Rx Instructions transdermal .COMPLEX Qty: 56 0RF Rx Instructions: apply 1-21 mg NICOTINE PATCH daily for 28 days; follow with 1-14 mg PATCH daily for 14 days, then 1-7mg PATCH daily for 14 days transdermal ondansetron 8 mg tablet,disintegrating 8 mg PO Q8H PRN (Reason: nausea and vomiting) 5 Days Qty: 15 0RF hydrocodone-acetaminophen 7.5-325 mg tablet 1 tab PO BID PRN (Reason: pain) 10 Days Qty: 20 0RF mupirocin 2 % ointment 1 applic topical TID Qty: 22 0RF Rx Instructions: apply 3 times a day for 10days to the outer corner of the mouth Cinqair 10 mg/mL solution 408 mg IV Q28D 360 Days Rx Instructions: administer over 20-50 minutes tiotropium bromide [Spiriva with HandiHaler] 18 mcg capsule, w/inhalation device 1 cap inhalation DAILY 360 Days Qty: 90 6RF Rx Instructions: puncture 1 cap using device; one dose = 2 inhalations furosemide 20 mg tablet 20 mg PO DAILY Qty: 30 2RF diclofenac sodium 75 mg tablet,delayed release (DR/EC) 75 mg PO Q12H PRN (Reason: moderate to severe pain as needed) Qty: 60 1RF losartan 100 mg tablet See Rx Instructions .ROUTE .COMPLEX Qty: 30 0RF Dose Instruction: TAKE 1 TABLET BY MOUTH EVERY DAY Rx Instructions: TAKE 1 TABLET BY MOUTH EVERY DAY amlodipine 5 mg tablet See Rx Instructions .ROUTE .COMPLEX Qty: 30 0RF Dose Instruction: TAKE 1 TABLET BY MOUTH EVERY DAY Rx Instructions: TAKE 1 TABLET BY MOUTH EVERY DAY cetirizine 10 mg tablet 10 mg PO DAILY PRN (Reason: allergy symptoms) Qty: 30 0RF gabapentin 300 mg capsule 300 mg PO BID Qty: 60 0RF Vitamin Plus Low Iron 27 mg iron- 1 mg tablet See Rx Instructions .ROUTE .COMPLEX Qty: 90 0RF Dose Instruction: take 1 capsule BY MOUTH DAILY Rx Instructions: take 1 capsule BY MOUTH DAILY cyclobenzaprine 10 mg tablet 10 mg PO TID Qty: 30 0RF Discharge Orders: Discharge ED (Routine); Ordered 02/25/24 Ordered By: Boo Ruffin Referrals: Nathalie Madison MD [Primary Care Provider] - Patient Instructions: Abdominal Pain (ED), Opioid Safety, Pain Management Activity Restrictions/Additional Instructions: Take antibiotics as prescribed. Pain medications at home as already prescribed. Follow-up with primary care for further evaluation and outpatient management. Return with any new or concerning symptoms may have. Stand Alone Forms: Work/School Release Coding Level of Care Code ED Security Orderly for Sunil Ace
[2024-02-25] MEDS: sodium chloride 0.9% 1,000 ML 999 ML IV (22:08)
[2024-02-25 22:09] VITALS: RESP 16; O2SAT 98
[2024-02-25] MEDS: ondansetron 2 mg/ML SDV 2 mL 4 MG IVP (22:09)
[2024-02-25] MEDS: morphine 4 mg/mL SDV 1 mL IVP (22:09)
[2024-02-25 22:10] LABS: Basophils # 0.1 10^3/uL (0.0-0.1); Basophils % 0.7 %; Eosinophils # 0.1 10^3/uL (0.0-0.8); Eosinophils % 0.4 %; Lymphocytes # 2.5 10^3/uL (0.8-4.8); Lymphocytes % 20.3 %; Mean Corpuscular Hemoglobin 31.1 pg (27-33); Mean Corpuscular Volume 91.7 fl (85-98); Mean Platelet Volume 9.5 fL (7.4-10.4); Monocytes % 7.9 %; Neutrophils # 8.58 10^3/uL (1.8-7.7); Neutrophils % 70.3 %; Nucleated Red Blood Cells % 0 %; Platelet Count 397 10^3/cmm (157-399); Red Blood Count 4.69 10^6/uL (3.85-5.65); Red Cell Distribution Width 13.6 % (12.1-15.1)
[2024-02-25 22:25] LABS: HCG, Serum Qual Negative (Negative)
[2024-02-25 22:26] LABS: Alanine Aminotransferase 20 U/L (0-33); Albumin Level 3.8 g/dL (3.5-5.2); Alkaline Phosphatase 77 U/L (35-105); Anion Gap 14.6 (5-19); Aspartate Amino Transferase 12 U/L (0-32); Blood Urea Nitrogen 6 mg/dL (6-20); Calcium 8.9 mg/dL (8.5-10.5); Carbon Dioxide 28 mmol/L (22-29); Chloride 102 mmol/L (98-107); Creatinine Clr Calc Pharmacy 194.8159; Globulin 3.5 g/dL (1.3-4.6); Glomerular Filtration Rate 117.4 mL/min (90-130); Glucose 102 mg/dL (65-115); Lipase 29 U/L (13-60); Osmolality Calculated 290 mOsm/kg (285-295); Potassium 3.6 mmol/L (3.5-5.1); Sodium 141 mmol/L (136-145); Total Bilirubin 0.2 mg/dL (0.15-1.2); Total Protein 7.3 g/dL (6.6-8.7)
[2024-02-25 22:32] LABS: Add Urine Microscopic? YES; Bacteria Urine 2+ /hpf; Bilirubin Urine Neg (Negative); Blood Urine 3+ (Negative); Glucose Urine UA Norm (Normal); Ketones Urine 1+ (Negative); Leukocyte Esterase Urine Trace (Negative); Mucus Urine 2+ /hpf; Nitrate Urine Negative (Negative); Protein Urine 1+ (Negative); Urine Appearance Cloudy (CLEAR); Urine Color Yellow (Yellow); Urobilinogen Urine 1 mg/dL (Negative); WBC Urine 0-4 /hpf (0-5); pH Urine 5 (5-7)
[2024-02-25 22:33] LABS: Add Urine Culture? Yes; Amorphous Sediment Urine 1+ /hpf
[2024-02-25] MEDS: iohexol 350 mg/mL 500 mL Btl (per mL) IV (22:44)
[2024-02-25] MEDS: cefdinir 300 MG CAPSULE PO (23:30)
[2024-02-25 23:38] VITALS: BP 134/78; PULSE 61; RESP 16; O2SAT 95
== END 2024-02-25 23:40 | disposition home or self-care (01) ==
PROVIDERS: Emergency Medicine; Emergency Provider Physician Assistant; PCP Family Medicine
DX: N30.00 Acute cystitis without hematuria (principal); R10.12 Left upper quadrant pain; F17.210 Nicotine dependence, cigarettes, uncomplicated; Z87.440 Personal history of urinary (tract) infections
CPT/HCPCS: 74177; 80053; 81001; 83690; 84703; 85025; 87086; 96361; 96374; 96375; 99285; J2270; J2405; J7030; Q9967

== ENCOUNTER → 2024-03-24 13:26 | Outpatient (BNVA) | payer BC, MEDICAID, SELFPAY | PROVIDERS: PCP Family Medicine; Visit Provider Registered Nurse Neonatal Intensive Care | DX: R39.9 Unspecified symptoms and signs involving the genitourinary system (principal); R30.0 Dysuria | CPT/HCPCS: 81000; 87086 ==

== ENCOUNTER 2024-04-24 17:25 | Emergency (ER) | payer BC, MEDICAID, SELFPAY ==
[2024-04-24 17:28] VITALS: BP 168/110; PULSE 99; RESP 18; O2SAT 99
--- NOTE | 2024-04-24 17:33 | ED_ITS ---
Documented by User: Jonathan Arias DO 04/24/24 18:06 HPI - Chest Pain 2 General: Chief Complaint: Chest Pain Stated Complaint: SOB, chest pain Time Seen by Provider: 04/24/24 17:31 History of Present Illness: 29-year-old female presents emergency ro om complaining of chest pain and shortness of breath. Began about an hour prior to arrival. She has a history of asthma and COPD. She complaining of difficulty breathing. She has a baseline productive cough that has really changed significantly subjectively does not report fever sweats chills no radiation of the pain. She used her albuterol inhaler about 1/2-hour before coming in with mild improvement at best. She denies any hemoptysis. Associated symptoms: Reports dyspnea; Deny abdominal pain or fever(s) Review of Systems 2 Const: Denies: fever(s) or chills Card: Denies: chest pain Resp: Reports: dyspnea, non-productive cough and wheezing GI: Denies: abdominal pain : Denies: dysuria, urinary frequency or urinary urgency Musc: Denies: neck pain or back pain Skin/Breast: Denies: rash PFSH ED 2 PFSH: Medical History Scl-70 antibody positive Inflammatory arthritis UTI (urinary tract infection) Psychiatric care MRSA (methicillin resistant Staphylococcus aureus) Surgical History History of cholecystectomy Family History Grandmother Lupus Mother Lung disease copd Other Chronic kidney disease (CKD) Heart disease Hypertension Lupus (systemic lupus erythematosus) Rheumatoid arthritis Stroke Social History Smoking and tobacco/nicotine status: current every day tobacco/nicotine user cigarettes Packs smoked per day: 1.5 Years cigarettes smoked: 20 [ Other cigarette details: started at age 8] Alcohol intake: former Year of sobriety/quit date alcohol: 2014 Substance/Drug Use: current Substance/Drug use frequency: daily Other substance/drug use details: history opiate pill abuse Household members: children Number of children: 1 Current occupational status: unemployed 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 Special richa needs: No Agree to transfusion: Yes Physical Exam 2 Const: COMMON NORMALS: no acute distress GENERAL APPEARANCE: cooperative and comfortable ORIENTATION/CONSCIOUSNESS: Yes awake, Yes oriented to person, Yes oriented to place and Yes oriented to time HENMT: COMMON NORMALS: normocephalic, atraumatic and hearing grossly normal bilaterally HEAD & SCALP: normocephalic and atraumatic Resp: COMMON NORMALS: normal respiratory effort, No retractions and No use of accessory muscles AUSCULTATION: wheezes Cardio: COMMON NORMALS: regular rate, regular rhythm and No murmurs present (Cardio) RATE: regular rate RHYTHM: regular rhythm GI: COMMON NORMALS: Soft to palpation and No hepatosplenomegaly present A USCULTATION: Yes normoactive bowel sounds PALPATION: Yes Soft to palpation, No Tenderness to palpation present (GI), No Guarding due to palpation present (GI) and Yes No hepatosplenomegaly present Extremity: COMMON NORMALS: normal to inspection, capillary refill normal, no clubbing, cyanosis or edema, no calf tenderness and no pedal edema Neuro: SENSORIUM/ORIENTATION: Yes oriented to person, Yes oriented to place and Yes oriented to time Skin: COMMON NORMALS: no rashes or lesions noted GENERAL SKIN EXAM: no rashes or lesions noted Course 2 Vital Signs: Vital signs: Vital Signs Pulse Rate 88 04/24/24 18:23 Respiratory Rate 16 04/24/24 18:23 Blood Pressure 162/90 04/24/24 18:23 Pulse Oximetry 94 04/24/24 18:23 Oxygen Delivery Me thod Room Air 04/24/24 18:23 MDM - Chest Pain Medical Decision Making Care signed out to Dr. Dave at change of shift. See final notes for diagnosis and disposition. Lab Data 04/24/24 17:47 04/24/24 17:47 Radiology Impressions Chest X-Ray 04/24/24 17:41 IMPRESSION: No acute findings. Laboratory Results WBC 9.64 10^3/uL (3.29-11.43) 04/24/24 17:47 RBC 4.51 10^6/uL (3.85-5.65) 04/24/24 17:47 Hgb 13.90 g/dL (11.27-16.99) 04/24/24 17:47 Hct 41.0 % (36-47) 04/24/24 17:47 MCV 90.9 fl (85-98) 04/24/24 17:47 MCH 30.8 pg (27-33) 04/24/24 17:47 MCHC 33.9 g/dL (30-55) 04/24/24 17:47 RDW 13.3 % (12.1-15.1) 04/24/24 17:47 Plt Count 341 10^3/cmm (157-399) 04/24/24 17:47 MPV 9.7 fL (7.4-10.4) 04/24/24 17:47 Neut % (Auto) 67.8 % 04/24/24 17:47 Lymph % (Auto) 21.7 % 04/24/24 17:47 Sebastian % (Auto) 7.3 % 04/24/24 17:47 Eos % (Auto) 2.4 % 04/24/24 17:47 Baso % (Auto) 0.5 % 04/24/24 17:47 Neut # (Auto) 6.54 10^3/uL (1.8-7.7) 04/24/24 17:47 Lymph # (Auto) 2.1 10^3/uL (0.8-4.8) 04/24/24 17:47 Sebastian # (Auto) 0.7 10^3/uL (0.2-0.9) 04/24/24 17:47 Eos # (Auto) 0.2 10^3/uL (0.0-0.8) 04/24/24 17:47 Baso # (Auto) 0.1 10^3/uL (0.0-0.1) 04/24/24 17:47 Nucleated RBC % (auto) 0 % 04/24/24 17:47 Nucleated RBCs # 0.0 /100WBC 04/24/24 17:47 Sodium 142 mmol/L (136-145) 04/24/24 17:47 Potassium 3.5 mmol/L (3.5-5.1) 04/24/24 17:47 Chloride 103 mmol/L (98-107) 04/24/24 17:47 Carbon Dioxide 27 mmol/L (22-29) 04/24/24 17:47 Anion Gap 15.5 (5-19) 04/24/24 17:47 BUN 7 mg/dL (6-20) 04/24/24 17:47 Creatinine 0.7 mg/dL (0.5-0.9) 04/24/24 17:47 GFR Calculation 98.3 mL/min (90-130) 04/24/24 17:47 Glucose 121 mg/dL (65-115) H 04/24/24 17:47 Calculated Osmolality 293 mOsm/kg (285-295) 04/24/24 17:47 Calcium 8.8 mg/dL (8.5-10.5) 04/24/24 17:47 Total Bilirubin 0.3 mg/dL (0.15-1.2) 04/24/24 17:47 AST 16 U/L (0-32) 04/24/24 17:47 ALT 25 U/L (0-33) 04/24/24 17:47 Alkaline Phosphatase 75 U/L (35-105) 04/24/24 17:47 Total Protein 6.9 g/dL (6.6-8.7) 04/24/24 17:47 Albumin 3.8 g/dL (3.5-5.2) 04/24/24 17:47 Globulin 3.1 g/dL (1.3-4.6) 04/24/24 17:47 XR interpretation done by ED provider, pending radiology final review Discharge Plan Discharge Patient Disposition: Home Clinical Impression: Atypical chest pain, Shortness of breath Condition: Stable Prescriptions: No Action clobetasol 0.05 % ointment 1 applic topical .2-3 TIMES A WEEK montelukast 10 mg tablet 10 mg PO BEDTIME Women's Multivitamin 18 mg-400 mcg- 500 mg-50 mcg tablet 1 tab PO QAM ascorbate calcium (vitamin C) 500 mg tablet 500 mg PO QAM leflunomide 20 mg tablet 20 mg PO DAILY Qty: 30 5RF lidocaine HCl [Lidocaine Viscous] 2 % solution 1 applic mucous membrane QID PRN (Reason: corner of mouth pain/lesion) Qty: 100 1RF fluticasone propion-salmeterol [Advair Diskus] 500-50 mcg/dose blister with device 1 inh inhalation Q12H Qty: 60 3RF pantoprazole [Protonix] 40 mg tablet,delayed release (DR/EC) 40 mg PO BID 42 Days Qty: 84 0RF cyanocobalamin (vitamin B-12) 1,000 mcg capsule 1,000 mcg PO DAILY Qty: 30 0RF ibuprofen 800 mg tablet 800 mg PO Q8H PRN (Reason: headache) Qty: 60 0RF pilocarpine HCl 5 mg tablet 5 mg PO TID Qty: 90 5RF buspirone 30 mg tablet 30 mg PO BID Qty: 60 1RF Rx Instructions: Take one tablet by mouth each morning and evening trazodone 100 mg tablet 100 mg PO .q hs PRN (Reason: insomnia) Qty: 30 1RF Rx Instructions: Take one tablet daily at bedtime, if needed for insomnia lurasidone 120 mg tablet 120 mg PO DAILY Qty: 30 1RF Rx Instructions: Take one tablet once daily; take with food or snack of at least 350 calories lorazepam 2 mg tablet See Rx Instructions PO BID PRN (Reason: anxiety) Qty: 60 1RF Rx Instructions: Take one-half to one tablet twice daily, if needed, for anxiety albuterol sulfate [ProAir HFA] 90 mcg/actuation HFA aerosol inhaler 2 puff INHALATION Q4H PRN (Reason: Shortness Of Breath) Qty: 8.5 6RF albuterol sulfate 2.5 mg /3 mL (0.083 %) solution for nebulization 2.5 mg inhalation Q6H PRN (Reason: shortness of breath or wheezing) Qty: 360 6RF nicotine (polacrilex) 4 mg gum 4 mg buccal Q1H Qty: 110 6RF nicotine 21-14-7 mg/24 hr patch, TD daily, sequential See Rx Instructions transdermal .COMPLEX Qty: 56 0RF Rx Instructions: apply 1-21 mg NICOTINE PATCH daily for 28 days; follow with 1-14 mg PATCH daily for 14 days, then 1-7mg PATCH daily for 14 days transdermal ondansetron 8 mg tablet,disintegrating 8 mg PO Q8H PRN (Reason: nausea and vomiting) 5 Days Qty: 15 0RF hydrocodone-acetaminophen 7.5-325 mg tablet 1 tab PO BID PRN (Reason: pain) 10 Days Qty: 20 0RF mupirocin 2 % ointment 1 applic topical TID Qty: 22 0RF Rx Instructions: apply 3 times a day for 10days to the outer corner of the mouth Cinqair 10 mg/mL solution 408 mg IV Q28D 360 Days Rx Instructions: administer over 20-50 minutes tiotropium bromide [Spiriva with HandiHaler] 18 mcg capsule, w/inhalation device 1 cap inhalation DAILY 360 Days Qty: 90 6RF Rx Instructions: puncture 1 cap using device; one dose = 2 inhalations furosemide 20 mg tablet 20 mg PO DAILY Qty: 30 2RF Vitamin Plus Low Iron 27 mg iron- 1 mg tablet See Rx Instructions .ROUTE .COMPLEX Qty: 90 0RF Dose Instruction: take 1 capsule BY MOUTH DAILY Rx Instructions: take 1 capsule BY MOUTH DAILY cetirizine 10 mg tablet See Rx Instructions .ROUTE .COMPLEX Qty: 90 0RF Dose Instruction: TAKE 1 TABLET BY MOUTH DAILY NEEDED FOR allergy symptoms Rx Instructions: TAKE 1 TABLET BY MOUTH DAILY NEEDED FOR allergy symptoms nitrofurantoin monohyd/m-cryst [Macrobid] 100 mg capsule 100 mg PO BID 5 Days Qty: 10 0RF Rx Instructions: must administer with a meal/food diclofenac sodium 75 mg tablet,delayed release (DR/EC) 75 mg PO Q12H PRN (Reason: moderate to severe pain as needed) Qty: 60 1RF losartan 100 mg tablet See Rx Instructions .ROUTE .COMPLEX Qty: 30 0RF Dose Instruction: TAKE 1 TABLET BY MOUTH EVERY DAY Rx Instructions: TAKE 1 TABLET BY MOUTH EVERY DAY gabapentin 300 mg capsule 300 mg PO BID Qty: 60 0RF amlodipine 5 mg tablet See Rx Instructions .ROUTE .COMPLEX Qty: 30 0RF Dose Instruction: TAKE 1 TABLET BY MOUTH EVERY DAY Rx Instructions: TAKE 1 TABLET BY MOUTH EVERY DAY cyclobenzaprine 10 mg tablet 10 mg PO TID Qty: 30 0RF Discharge Orders: Discharge ED (Routine); Ordered 04/24/24 Ordered By: Anmol Dave Referrals: Nathalie Madison MD [Primary Care Provider] - 1 week Patient Instructions: Chest Pain (ED), Shortness of Breath (ED) Activity Restrictions/Additional Instructions: Your evaluation in the ER today through lab work, x-ray, physical exam did not reveal any acute cardiac issues for your chest pain and shortness of breath. Is felt to be noncardiac in nature. Please follow-up with your family practice physician in the next 7 to 10 days for further evaluation and treatment. Thank you for choosing [facility] for your healthcare needs today. Please realize that you were seen in the emergency department and that we are providing you with an emergency medical screening exam and this may not be a complete and all exclusive of all testing and/or medical workup we may need to determine your element or severity of your illness. It is very important that you follow-up as instructed with your primary care provider or specialist for the additional evaluation and to discuss your medical treatment plan. You may return to the emergency department should you have concerns or if your condition changes or worsens in any way. Coding Level of Care Code ED Production Sound Mixer for Chg Fwd Documented by User: Anmol Dave DO 04/24/24 19:30 HPI - Chest Pain 2 General: Chief Complaint: Chest Pain Stated Complaint: SOB, chest pain Time Seen by Provider: 04/24/24 17:31 PFSH ED 2 PFSH: Medical History Scl-70 antibody positive Inflammatory arthritis UTI (urinary tract infection) Psychiatric care MRSA (methicillin resistant Staphylococcus aureus) Surgical History History of cholecystectomy Family History Grandmother Lupus Mother Lung disease copd Other Chronic kidney disease (CKD) Heart disease Hypertension Lupus (systemic lupus erythematosus) Rheumatoid arthritis Stroke Social History Smoking and tobacco/nicotine status: current every day tobacco/nicotine user cigarettes Packs smoked per day: 1.5 Years cigarettes smoked: 20 [ Other cigarette details: started at age 8] Alcohol intake: former Year of sobriety/quit date alcohol: 2014 Substance/Drug Use: current Substance/Drug use frequency: daily Other substance/drug use details: history opiate pill abuse Household members: children Number of children: 1 Current occupational status: unemployed 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 Special richa needs: No Agree to transfusion: Yes Course 2 Vital Signs: Vital signs: Vital Signs Pulse Rate 88 04/24/24 18:23 Respiratory Rate 16 04/24/24 18:23 Blood Pressure 162/90 04/24/24 18:23 Pulse Oximetry 94 04/24/24 18:23 Oxygen Delivery Me thod Room Air 04/24/24 18:23 MDM - Chest Pain Medical Decision Making Care signed out to Dr. Dave at change of shift. See final notes for diagnosis and disposition. Care turned over to myself at shift change, lab work was reviewed as well as chest x-ray, patient is ready to go home. No abnormalities on lab work that are significant, patient will be discharged home. Lab Data 04/24/24 17:47 04/24/24 17:47 Radiology Impressions Chest X-Ray 04/24/24 17:41 IMPRESSION: No acute findings. Laboratory Results WBC 9.64 10^3/uL (3.29-11.43) 04/24/24 17:47 RBC 4.51 10^6/uL (3.85-5.65) 04/24/24 17:47 Hgb 13.90 g/dL (11.27-16.99) 04/24/24 17:47 Hct 41.0 % (36-47) 04/24/24 17:47 MCV 90.9 fl (85-98) 04/24/24 17:47 MCH 30.8 pg (27-33) 04/24/24 17:47 MCHC 33.9 g/dL (30-55) 04/24/24 17:47 RDW 13.3 % (12.1-15.1) 04/24/24 17:47 Plt Count 341 10^3/cmm (157-399) 04/24/24 17:47 MPV 9.7 fL (7.4-10.4) 04/24/24 17:47 Neut % (Auto) 67.8 % 04/24/24 17:47 Lymph % (Auto) 21.7 % 04/24/24 17:47 Sebastian % (Auto) 7.3 % 04/24/24 17:47 Eos % (Auto) 2.4 % 04/24/24 17:47 Baso % (Auto) 0.5 % 04/24/24 17:47 Neut # (Auto) 6.54 10^3/uL (1.8-7.7) 04/24/24 17:47 Lymph # (Auto) 2.1 10^3/uL (0.8-4.8) 04/24/24 17:47 Sebastian # (Auto) 0.7 10^3/uL (0.2-0.9) 04/24/24 17:47 Eos # (Auto) 0.2 10^3/uL (0.0-0.8) 04/24/24 17:47 Baso # (Auto) 0.1 10^3/uL (0.0-0.1) 04/24/24 17:47 Nucleated RBC % (auto) 0 % 04/24/24 17:47 Nucleated RBCs # 0.0 /100WBC 04/24/24 17:47 Sodium 142 mmol/L (136-145) 04/24/24 17:47 Potassium 3.5 mmol/L (3.5-5.1) 04/24/24 17:47 Chloride 103 mmol/L (98-107) 04/24/24 17:47 Carbon Dioxide 27 mmol/L (22-29) 04/24/24 17:47 Anion Gap 15.5 (5-19) 04/24/24 17:47 BUN 7 mg/dL (6-20) 04/24/24 17:47 Creatinine 0.7 mg/dL (0.5-0.9) 04/24/24 17:47 GFR Calculation 98.3 mL/min (90-130) 04/24/24 17:47 Glucose 121 mg/dL (65-115) H 04/24/24 17:47 Calculated Osmolality 293 mOsm/kg (285-295) 04/24/24 17:47 Calcium 8.8 mg/dL (8.5-10.5) 04/24/24 17:47 Total Bilirubin 0.3 mg/dL (0.15-1.2) 04/24/24 17:47 AST 16 U/L (0-32) 04/24/24 17:47 ALT 25 U/L (0-33) 04/24/24 17:47 Alkaline Phosphatase 75 U/L (35-105) 04/24/24 17:47 Total Protein 6.9 g/dL (6.6-8.7) 04/24/24 17:47 Albumin 3.8 g/dL (3.5-5.2) 04/24/24 17:47 Globulin 3.1 g/dL (1.3-4.6) 04/24/24 17:47 Discharge Plan Discharge Patient Disposition: Home Clinical Impression: Atypical chest pain, Shortness of breath Condition: Stable Prescriptions: No Action clobetasol 0.05 % ointment 1 applic topical .2-3 TIMES A WEEK montelukast 10 mg tablet 10 mg PO BEDTIME Women's Multivitamin 18 mg-400 mcg- 500 mg-50 mcg tablet 1 tab PO QAM ascorbate calcium (vitamin C) 500 mg tablet 500 mg PO QAM leflunomide 20 mg tablet 20 mg PO DAILY Qty: 30 5RF lidocaine HCl [Lidocaine Viscous] 2 % solution 1 applic mucous membrane QID PRN (Reason: corner of mouth pain/lesion) Qty: 100 1RF fluticasone propion-salmeterol [Advair Diskus] 500-50 mcg/dose blister with device 1 inh inhalation Q12H Qty: 60 3RF pantoprazole [Protonix] 40 mg tablet,delayed release (DR/EC) 40 mg PO BID 42 Days Qty: 84 0RF cyanocobalamin (vitamin B-12) 1,000 mcg capsule 1,000 mcg PO DAILY Qty: 30 0RF ibuprofen 800 mg tablet 800 mg PO Q8H PRN (Reason: headache) Qty: 60 0RF pilocarpine HCl 5 mg tablet 5 mg PO TID Qty: 90 5RF buspirone 30 mg tablet 30 mg PO BID Qty: 60 1RF Rx Instructions: Take one tablet by mouth each morning and evening trazodone 100 mg tablet 100 mg PO .q hs PRN (Reason: insomnia) Qty: 30 1RF Rx Instructions: Take one tablet daily at bedtime, if needed for insomnia lurasidone 120 mg tablet 120 mg PO DAILY Qty: 30 1RF Rx Instructions: Take one tablet once daily; take with food or snack of at least 350 calories lorazepam 2 mg tablet See Rx Instructions PO BID PRN (Reason: anxiety) Qty: 60 1RF Rx Instructions: Take one-half to one tablet twice daily, if needed, for anxiety albuterol sulfate [ProAir HFA] 90 mcg/actuation HFA aerosol inhaler 2 puff INHALATION Q4H PRN (Reason: Shortness Of Breath) Qty: 8.5 6RF albuterol sulfate 2.5 mg /3 mL (0.083 %) solution for nebulization 2.5 mg inhalation Q6H PRN (Reason: shortness of breath or wheezing) Qty: 360 6RF nicotine (polacrilex) 4 mg gum 4 mg buccal Q1H Qty: 110 6RF nicotine 21-14-7 mg/24 hr patch, TD daily, sequential See Rx Instructions transdermal .COMPLEX Qty: 56 0RF Rx Instructions: apply 1-21 mg NICOTINE PATCH daily for 28 days; follow with 1-14 mg PATCH daily for 14 days, then 1-7mg PATCH daily for 14 days transdermal ondansetron 8 mg tablet,disintegrating 8 mg PO Q8H PRN (Reason: nausea and vomiting) 5 Days Qty: 15 0RF hydrocodone-acetaminophen 7.5-325 mg tablet 1 tab PO BID PRN (Reason: pain) 10 Days Qty: 20 0RF mupirocin 2 % ointment 1 applic topical TID Qty: 22 0RF Rx Instructions: apply 3 times a day for 10days to the outer corner of the mouth Cinqair 10 mg/mL solution 408 mg IV Q28D 360 Days Rx Instructions: administer over 20-50 minutes tiotropium bromide [Spiriva with HandiHaler] 18 mcg capsule, w/inhalation device 1 cap inhalation DAILY 360 Days Qty: 90 6RF Rx Instructions: puncture 1 cap using device; one dose = 2 inhalations furosemide 20 mg tablet 20 mg PO DAILY Qty: 30 2RF Vitamin Plus Low Iron 27 mg iron- 1 mg tablet See Rx Instructions .ROUTE .COMPLEX Qty: 90 0RF Dose Instruction: take 1 capsule BY MOUTH DAILY Rx Instructions: take 1 capsule BY MOUTH DAILY cetirizine 10 mg tablet See Rx Instructions .ROUTE .COMPLEX Qty: 90 0RF Dose Instruction: TAKE 1 TABLET BY MOUTH DAILY NEEDED FOR allergy symptoms Rx Instructions: TAKE 1 TABLET BY MOUTH DAILY NEEDED FOR allergy symptoms nitrofurantoin monohyd/m-cryst [Macrobid] 100 mg capsule 100 mg PO BID 5 Days Qty: 10 0RF Rx Instructions: must administer with a meal/food diclofenac sodium 75 mg tablet,delayed release (DR/EC) 75 mg PO Q12H PRN (Reason: moderate to severe pain as needed) Qty: 60 1RF losartan 100 mg tablet See Rx Instructions .ROUTE .COMPLEX Qty: 30 0RF Dose Instruction: TAKE 1 TABLET BY MOUTH EVERY DAY Rx Instructions: TAKE 1 TABLET BY MOUTH EVERY DAY gabapentin 300 mg capsule 300 mg PO BID Qty: 60 0RF amlodipine 5 mg tablet See Rx Instructions .ROUTE .COMPLEX Qty: 30 0RF Dose Instruction: TAKE 1 TABLET BY MOUTH EVERY DAY Rx Instructions: TAKE 1 TABLET BY MOUTH EVERY DAY cyclobenzaprine 10 mg tablet 10 mg PO TID Qty: 30 0RF Discharge Orders: Discharge ED (Routine); Ordered 04/24/24 Ordered By: Anmol Dave Referrals: Nathalie Madison MD [Primary Care Provider] - 1 week Patient Instructions: Chest Pain (ED), Shortness of Breath (ED) Activity Restrictions/Additional Instructions: Your evaluation in the ER today through lab work, x-ray, physical exam did not reveal any acute cardiac issues for your chest pain and shortness of breath. Is felt to be noncardiac in nature. Please follow-up with your family practice physician in the next 7 to 10 days for further evaluation and treatment. Thank you for choosing [facility] for your healthcare needs today. Please realize that you were seen in the emergency department and that we are providing you with an emergency medical screening exam and this may not be a complete and all exclusive of all testing and/or medical workup we may need to determine your element or severity of your illness. It is very important that you follow-up as instructed with your primary care provider or specialist for the additional evaluation and to discuss your medical treatment plan. You may return to the emergency department should you have concerns or if your condition changes or worsens in any way. Coding Level of Care Code ED Production Sound Mixer for Sunil Ace
--- NOTE | 2024-04-24 17:41 | XRR_ITS ---
PROCEDURE INFORMATION: Exam: XR Chest Exam date and time: 04/24/2024 6:03 PM Age: 29 years old Clinical indication: Shortness of breath; Additional info: Dyspnea/cough TECHNIQUE: Imaging protocol: Radiologic exam of the chest. Views: 1 view. COMPARISON: CR XR chest 1V portable [id number] 08/02/2023 2:02 PM FINDINGS: Lungs: Unremarkable. No consolidation. Pleural spaces: Unremarkable. No pleural effusion. No pneumothorax. Heart/Mediastinum: Unremarkable. No cardiomegaly. Bones/joints: Unremarkable. XR/XR chest 1V portable [id number] IMPRESSION: No acute findings.
[2024-04-24] MEDS: dexamethasone 10 mg/mL INJ IM (17:51)
[2024-04-24 17:52] LABS: Basophils # 0.1 10^3/uL (0.0-0.1); Basophils % 0.5 %; Eosinophils # 0.2 10^3/uL (0.0-0.8); Eosinophils % 2.4 %; Lymphocytes # 2.1 10^3/uL (0.8-4.8); Lymphocytes % 21.7 %; Mean Corpuscular HGB Conc 33.9 g/dL (30-55); Mean Corpuscular Hemoglobin 30.8 pg (27-33); Mean Corpuscular Volume 90.9 fl (85-98); Mean Platelet Volume 9.7 fL (7.4-10.4); Monocytes # 0.7 10^3/uL (0.2-0.9); Monocytes % 7.3 %; Neutrophils # 6.54 10^3/uL (1.8-7.7); Neutrophils % 67.8 %; Nucleated Red Blood Cells % 0 %; Platelet Count 341 10^3/cmm (157-399); Red Blood Count 4.51 10^6/uL (3.85-5.65); Red Cell Distribution Width 13.3 % (12.1-15.1); White Blood Count 9.64 10^3/uL (3.29-11.43)
[2024-04-24 17:53] VITALS: BP 168/110; PULSE 85; RESP 18; O2SAT 98
[2024-04-24] MEDS: ipratropium-albuterol 3 mL Neb INHALATION (17:56)
[2024-04-24 17:59] VITALS: PULSE 86; RESP 18; O2SAT 98
[2024-04-24 18:04] VITALS: PULSE 90
[2024-04-24 18:14] LABS: Alanine Aminotransferase 25 U/L (0-33); Albumin Level 3.8 g/dL (3.5-5.2); Alkaline Phosphatase 75 U/L (35-105); Anion Gap 15.5 (5-19); Aspartate Amino Transferase 16 U/L (0-32); Blood Urea Nitrogen 7 mg/dL (6-20); Calcium 8.8 mg/dL (8.5-10.5); Carbon Dioxide 27 mmol/L (22-29); Chloride 103 mmol/L (98-107); Creatinine Clr Calc Pharmacy 166.9851; Globulin 3.1 g/dL (1.3-4.6); Glomerular Filtration Rate 98.3 mL/min (90-130); Glucose 121 mg/dL (65-115); Osmolality Calculated 293 mOsm/kg (285-295); Potassium 3.5 mmol/L (3.5-5.1); Sodium 142 mmol/L (136-145); Total Bilirubin 0.3 mg/dL (0.15-1.2); Total Protein 6.9 g/dL (6.6-8.7)
[2024-04-24 18:23] VITALS: BP 162/90; PULSE 88; RESP 16; O2SAT 94
[2024-04-24 19:37] VITALS: PULSE 87; RESP 16; O2SAT 98
== END 2024-04-24 19:38 | disposition home or self-care (01) ==
PROVIDERS: Emergency Provider Family Medicine; PCP Family Medicine
DX: R07.89 Other chest pain (principal); R06.02 Shortness of breath; F17.210 Nicotine dependence, cigarettes, uncomplicated
CPT/HCPCS: 36415; 71045; 80053; 85025; 94640; 96372; 99284; J1100

== ENCOUNTER 2024-05-17 12:07 | Emergency (ER) | payer BC, MEDICAID, SELFPAY ==
[2024-05-17 12:37] VITALS: BP 144/88; PULSE 82; RESP 16; TEMP 36.7; O2SAT 98; BMI 48.2
[2024-05-17 13:11] LABS: Basophils % 0.4 %; Eosinophils # 0.2 10^3/uL (0.0-0.8); Eosinophils % 2.2 %; Hematocrit 41.1 % (36-47); Lymphocytes # 1.4 10^3/uL (0.8-4.8); Lymphocytes % 15.4 %; Mean Corpuscular HGB Conc 33.6 g/dL (30-55); Mean Corpuscular Volume 92.4 fl (85-98); Mean Platelet Volume 9.6 fL (7.4-10.4); Monocytes # 0.1 10^3/uL (0.2-0.9); Neutrophils # 7.28 10^3/uL (1.8-7.7); Neutrophils % 80.7 %; Nucleated Red Blood Cells % 0 %; Platelet Count 329 10^3/cmm (157-399); Red Blood Count 4.45 10^6/uL (3.85-5.65); Red Cell Distribution Width 12.8 % (12.1-15.1); White Blood Count 9.03 10^3/uL (3.29-11.43)
--- NOTE | 2024-05-17 13:11 | PC.NURSE ---
This nurse called poison control and spoke with Susan BACK. Susan states that pt needs baseline labs and Renal labs. Susan states the antidote for methotrexate is Leucovorin. Poison control faxed info packet. Packet given to
[2024-05-17 13:33] LABS: Alanine Aminotransferase 70 U/L (0-33); Albumin Level 3.7 g/dL (3.5-5.2); Alkaline Phosphatase 77 U/L (35-105); Anion Gap 17.1 (5-19); Aspartate Amino Transferase 37 U/L (0-32); Blood Urea Nitrogen 7 mg/dL (6-20); Calcium 9.2 mg/dL (8.5-10.5); Carbon Dioxide 24 mmol/L (22-29); Chloride 100 mmol/L (98-107); Creatinine Clr Calc Pharmacy 194.4229; Globulin 3.2 g/dL (1.3-4.6); Glomerular Filtration Rate 117.4 mL/min (90-130); Glucose 122 mg/dL (65-115); Osmolality Calculated 283 mOsm/kg (285-295); Potassium 4.1 mmol/L (3.5-5.1); Sodium 137 mmol/L (136-145); Total Bilirubin 0.3 mg/dL (0.15-1.2); Total Protein 6.9 g/dL (6.6-8.7)
[2024-05-17 13:36] LABS: Acetaminophen < 5.0 ug/mL (10-30); Alcohol Level < 10 mg/dL (0-10); Salicylate < 0.3 mg/dL (3-10)
[2024-05-17 13:36] LABS: Amphetamines Screen Urine Negative (Negative); Barbiturates Screen Urine Negative (Negative); Benzodiazepines Screen Urine Negative (Negative); Cocaine Screen Urine Negative (Negative); HCG Qualitative Urine. Negative (Negative); Opiate Screen Urine Negative (Negative); PCP Screen Urine Negative (Negative); THC Screen Urine Positive (Negative)
--- NOTE | 2024-05-17 14:00 | ED_ITS ---
HPI - Overdose 2 General: Chief Complaint: Overdose Stated Complaint: TOO MUCH MEDICATION / MOUTH SORES AND ABD PAIN Time Seen by Provider: 05/17/24 13:04 Source: patient Mode of arrival: ambulatory Limitations: no limitations History of Present Illness: Patient is a 29-year-old female presenting to the emergency department with accidental overdose of methotrexate. She was prescribed this earlier this week for an autoimmune condition, and states that instead of taking 4 doses in the morning and at night once a week, she did this for 3 days straight. She started beginning to have symptoms of oral sores at the corners of her mouth, left upper quadrant abdominal pain, vomiting, fatigue, headache, and overall malaise. She was initially seen in urgent care but sent over here for further evaluation. Poison control was contacted at this time. Vital stable on arrival. MD complaint: accidental overdose Onset (ago): day(s) Related Data Home Medications Medication Instructions Recorded Confirmed ascorbate calcium (vitamin C) 500 500 mg PO QAM 05/28/23 05/17/24 mg tablet clobetasol 0.05 % topical ointment 1 applic topical .2-3 TIMES A WEEK 05/28/23 05/17/24 montelukast 10 mg tablet 10 mg PO BEDTIME 05/28/23 05/17/24 [id number] 18 mg-FA 400 1 tab PO QAM 05/28/23 05/17/24 mcg-calcium 500 mg-vit K 50 mcg tablet (Women's Multivitamin) Previous Rx's Medication Instructions Recorded ondansetron 8 mg disintegrating 8 mg PO Q8H PRN nausea and 08/21/23 tablet vomiting 5 days #15 tabs albuterol sulfate 2.5 mg/3 mL 2.5 mg (3 mL) inhalation Q6H PRN 09/21/23 (0.083 %) solution for nebulization shortness of breath or wheezing #360 mL albuterol sulfate 90 mcg/actuation 2 puff inhalation Q4H PRN 09/21/23 aerosol inhaler (ProAir HFA) Shortness Of Breath #8.5 grams nicotine (polacrilex) 4 mg gum 4 mg buccal Q1H #110 ea 09/21/23 hydrocodone 7.5 mg-acetaminophen 1 tab PO BID PRN pain 10 days #20 10/09/23 325 mg tablet tabs lidocaine HCl 2 % mucosal solution 1 applic mucous membrane QID PRN 12/10/23 (Lidocaine Viscous) corner of mouth pain/lesion #100 mL mupirocin 2 % topical ointment 1 applic topical TID #22 grams 12/12/23 cyanocobalamin (vitamin B-12) 1,000 mcg PO DAILY #30 caps 12/14/23 1,000 mcg capsule fluticasone 500 mcg-salmeterol 50 1 inh inhalation Q12H #60 ea 12/20/23 mcg/dose blistr powdr for inhalation (Advair Diskus) tiotropium bromide 18 mcg capsule 1 cap inhalation DAILY 12 months 01/18/24 with inhalation device (Spiriva #90 inhalations with HandiHaler) cyclobenzaprine 10 mg tablet 10 mg PO TID #30 tabs 01/29/24 furosemide 20 mg tablet 20 mg PO DAILY #30 tabs 01/30/24 vitamin with calcium See Rx Instructions .Route 02/21/24 no.72-iron 27 mg-folic acid 1 mg .COMPLEX #90 tabs tablet ( Vitamins Plus Low Iron) buspirone 30 mg tablet 30 mg PO BID #60 tabs 03/18/24 lorazepam 2 mg tablet See Rx Instructions PO BID PRN 03/18/24 anxiety #60 tabs lurasidone 120 mg tablet 120 mg PO DAILY #30 tabs 03/18/24 trazodone 100 mg tablet 100 mg PO .q hs PRN insomnia #30 03/18/24 tabs cetirizine 10 mg tablet See Rx Instructions .Route 03/21/24 .COMPLEX #90 tabs amlodipine 5 mg tablet See Rx Instructions .Route 04/23/24 .COMPLEX #30 tabs losartan 100 mg tablet See Rx Instructions .Route 04/23/24 .COMPLEX #30 tabs benralizumab 30 mg/mL subcutaneous 30 mg SUBCUT .q 8 weeks #1 mL 05/12/24 auto-injector (Fasenra Pen) benralizumab 30 mg/mL subcutaneous 30 mg SUBCUT Q28D 3 doses #1 mL 05/12/24 auto-injector (Fasenra Pen) cevimeline 30 mg capsule 1 cap PO TID #90 caps 05/12/24 diclofenac sodium 100 mg 100 mg PO BID PRN pain, severe #60 05/12/24 tablet,extended release 24 hr tabs folic acid 1 mg tablet 1 mg PO DAILY #30 tabs 05/12/24 methotrexate sodium 2.5 mg tablet See Rx Instructions PO .week 05/12/24 Rheumatoid Arthritis #40 tabs nicotine See Rx Instructions transdermal 05/12/24 21mg/24hr-14mg/24hr-7mg/24hr daily .COMPLEX #56 patches transderm patches,sequentl pantoprazole 40 mg tablet,delayed 40 mg PO DAILY #30 tabs 05/12/24 release (Protonix) pregabalin 100 mg capsule (Lyrica) 100 mg PO BID #60 caps 05/12/24 leucovorin calcium 15 mg tablet 15 mg PO Q6H 4 days #16 tabs 05/17/24 Allergies Allergy/AdvReac Type Severity Reaction Status Date / Time No Known Allergies Allergy Verified 05/17/24 11:42 Review of Systems 2 General: Reports: 10 or more systems reviewed and unremarkable except in HPI and below Const: Reports: fatigue and malaise; Denies: fever(s) or chills Eyes: Denies: change in vision ENMT: Reports: oral sores; Denies: throat pain, ear or mastoid pain or nasal discharge Card: Denies: chest pain, palpitations, swelling of feet/ankles or lightheadedness Resp: Denies: dyspnea, productive cough or wheezing GI: Reports: abdominal pain and nausea; Denies: vomiting, diarrhea or constipation : Denies: flank pain, difficulty voiding, dysuria or urinary frequency Musc: Denies: neck pain, back pain or joint pain Skin/Breast: Denies: rash Neuro: Reports: headache(s); Denies: numbness in extremities or weakness in extremities PFSH ED 2 PFSH: Medical History Immunization counseling High risk medication use 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 Inflammatory arthritis UTI (urinary tract infection) Psychiatric care MRSA (methicillin resistant Staphylococcus aureus) Surgical History History of cholecystectomy Family History Grandmother Lupus Mother Lung disease copd Other Chronic kidney disease (CKD) Heart disease Hypertension Lupus (systemic lupus erythematosus) Rheumatoid arthritis Stroke Social History Smoking and tobacco/nicotine status: current every day tobacco/nicotine user (1 ppd) cigarettes Packs smoked per day: 1.5 Years cigarettes smoked: 20 [ Other cigarette details: started at age 8] Alcohol intake: former Year of sobriety/quit date alcohol: 2014 Substance/Drug Use: current Substance/Drug use frequency: daily Other substance/drug use details: history opiate pill abuse Household members: children Number of children: 1 Current occupational status: unemployed 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 Special richa needs: No Agree to transfusion: Yes Physical Exam 2 Const: COMMON NORMALS: no acute distress, patient oriented x3 and no limitations GENERAL APPEARANCE: cooperative and well developed NUTRITIONAL APPEARANCE: obese ORIENTATION/CONSCIOUSNESS: Yes awake, Yes oriented to person, Yes oriented to place and Yes oriented to time HENMT: COMMON NORMALS: normocephalic, atraumatic, hearing grossly normal bilaterally and Normal external nose present HEAD & SCALP: normocephalic and atraumatic FACE & SINUS: normal facial exam NOSE: Normal external nose present and Normal nares present MOUTH: tongue normal and other (Small superficial ulcers at the corners of both sides of the mouth) THROAT: p osterior oropharynx normal Eye: COMMON NORMALS: Equal, round and reactive pupils present, EOMs intact bilaterally and conjunctivae normal CONJUNCTIVA: Yes conjunctivae normal P UPIL: Yes Equal, round and reactive pupils present Neck/C-Spine: COMMON NORMALS: full ROM, supple and no JVD Resp: COMMON NORMALS: normal respiratory effort, No retractions, No use of accessory muscles and clear to auscultation bilaterally AUSCULTATION: clear to auscultation bilaterally Cardio: COMMON NORMALS: no JVD, regular rate, regular rhythm, No clicks present (Cardio), No murmurs present (Cardio) and No rub (Cardio) RATE: r egular rate RHYTHM: regular rhythm GI: COMMON NORMALS: Normal to inspection, nondistended, normoactive bowel sounds present and Soft to palpation AUSCULTATION: Yes normoactive bowel sounds PALPATION: Yes Soft to palpation and Yes Tenderness to palpation present (GI) Details: LUQ RECTAL EXAM: deferred Extremity: COMMON NORMALS: normal to inspection, full ROM and capillary refill normal Neuro: COMMON NORMALS: patient oriented x3, moves all extremities, no focal motor deficits and no sensory deficits noted SENSORIUM/ORIENTATION: Yes oriented to person, Yes oriented to place and Yes oriented to time Psych: COMMON NORMALS: mental status grossly normal and Normal thought process present THOUGHT PROCESS: Normal thought process present Skin: COMMON NORMALS: no rashes or lesions noted GENERAL SKIN EXAM: no rashes or lesions noted Course 2 Vital Signs: Vital signs: Vital Signs Temperature 98.1 F 05/17/24 12:37 Pulse Rate 82 05/17/24 12:37 Respiratory Rate 16 05/17/24 12:37 Blood Pressure 144/88 05/17/24 12:37 Pulse Oximetry 98 05/17/24 12:37 Oxygen Delivery Me thod Room Air 05/17/24 12:37 MDM - Overdose Medical Decision Making Patient presented to the emergency department after accidentally taking too much methotrexate. It had been calculated that she had taken 3 times the dose over the past few days, had developed symptoms of abdominal pain, oral sores, among other symptoms. Poison control was contacted and recommended evaluation of her kidney and liver function, as well as to begin administration of leucovorin. Her labs were unremarkable, kidney and liver function appeared to be normal along with her other lab work. Her vitals have remained stable throughout ED course. Spoke with poison control again, who states that patient can treat with p.o. leucovorin outpatient every 6 hours for the next 4 days, until she follows up with primary care early next week for redraw of her labs and reevaluation of starting methotrexate again. Shared decision making was discussed with the patient in regards to if she felt more comfortable being observed in the hospital, she states she wants to treat at home and strict return precautions are given such that if her symptoms worsening she will come back. This case was discussed with both Dr. Stockton and Dr. Cahvez who agrees with disposition at this time. Lab Data 05/17/24 12:55 05/17/24 12:55 Laboratory Results WBC 9.03 10^3/uL (3.29-11.43) 05/17/24 12:55 RBC 4.45 10^6/uL (3.85-5.65) 05/17/24 12:55 Hgb 13.80 g/dL (11.27-16.99) 05/17/24 12:55 Hct 41.1 % (36-47) 05/17/24 12:55 MCV 92.4 fl (85-98) 05/17/24 12:55 MCH 31.0 pg (27-33) 05/17/24 12:55 MCHC 33.6 g/dL (30-55) 05/17/24 12:55 RDW 12.8 % (12.1-15.1) 05/17/24 12:55 Plt Count 329 10^3/cmm (157-399) 05/17/24 12:55 MPV 9.6 fL (7.4-10.4) 05/17/24 12:55 Neut % (Auto) 80.7 % 05/17/24 12:55 Lymph % (Auto) 15.4 % 05/17/24 12:55 [place] % (Auto) 1.0 % 05/17/24 12:55 Eos % (Auto) 2.2 % 05/17/24 12:55 Baso % (Auto) 0.4 % 05/17/24 12:55 Neut # (Auto) 7.28 10^3/uL (1.8-7.7) 05/17/24 12:55 Lymph # (Auto) 1.4 10^3/uL (0.8-4.8) 05/17/24 12:55 [place] # (Auto) 0.1 10^3/uL (0.2-0.9) L 05/17/24 12:55 Eos # (Auto) 0.2 10^3/uL (0.0-0.8) 05/17/24 12:55 Baso # (Auto) 0.0 10^3/uL (0.0-0.1) 05/17/24 12:55 Nucleated RBC % (auto) 0 % 05/17/24 12:55 Nucleated RBCs # 0.0 /100WBC 05/17/24 12:55 Sodium 137 mmol/L (136-145) 05/17/24 12:55 Potassium 4.1 mmol/L (3.5-5.1) 05/17/24 12:55 Chloride 100 mmol/L (98-107) 05/17/24 12:55 Carbon Dioxide 24 mmol/L (22-29) 05/17/24 12:55 Anion Gap 17.1 (5-19) 05/17/24 12:55 BUN 7 mg/dL (6-20) 05/17/24 12:55 Creatinine 0.6 mg/dL (0.5-0.9) 05/17/24 12:55 GFR Calculation 117.4 mL/min (90-130) 05/17/24 12:55 Glucose 122 mg/dL (65-115) H 05/17/24 12:55 Calculated Osmolality 283 mOsm/kg (285-295) L 05/17/24 12:55 Calcium 9.2 mg/dL (8.5-10.5) 05/17/24 12:55 Total Bilirubin 0.3 mg/dL (0.15-1.2) 05/17/24 12:55 AST 37 U/L (0-32) H 05/17/24 12:55 ALT 70 U/L (0-33) H 05/17/24 12:55 Alkaline Phosphatase 77 U/L (35-105) 05/17/24 12:55 Total Protein 6.9 g/dL (6.6-8.7) 05/17/24 12:55 Albumin 3.7 g/dL (3.5-5.2) 05/17/24 12:55 Globulin 3.2 g/dL (1.3-4.6) 05/17/24 12:55 HCG, Qual Negative (Negative) 05/17/24 13:19 Salicylates < 0.3 mg/dL (3-10) L 05/17/24 12:55 Urine Opiates Screen Negative ng/mL (Negative) 05/17/24 13:19 Acetaminophen < 5.0 ug/mL (10-30) L 05/17/24 12:55 Ur Barbiturates Screen Negative ng/mL (Negative) 05/17/24 13:19 Ur Phencyclidine Scrn Negative ng/mL (Negative) 05/17/24 13:19 Ur Amphetamines Screen Negative ng/mL (Negative) 05/17/24 13:19 U Benzodiazepines Scrn Negative ng/mL (Negative) 05/17/24 13:19 Urine Cocaine Screen Negative ng/mL (Negative) 05/17/24 13:19 U Marijuana (THC) Screen Positive ng/mL (Negative) H 05/17/24 13:19 Ethyl Alcohol < 10 mg/dL (0-10) 05/17/24 12:55 No radiology studies performed this visit Discharge Plan Discharge Patient Disposition: Home Clinical Impression: Accidental methotrexate overdose Condition: Stable Prescriptions: New leucovorin calcium 15 mg tablet 15 mg PO Q6H 4 Days Qty: 16 0RF No Action clobetasol 0.05 % ointment 1 applic topical .2-3 TIMES A WEEK montelukast 10 mg tablet 10 mg PO BEDTIME Women's Multivitamin 18 mg-400 mcg- 500 mg-50 mcg tablet 1 tab PO QAM ascorbate calcium (vitamin C) 500 mg tablet 500 mg PO QAM lidocaine HCl [Lidocaine Viscous] 2 % solution 1 applic mucous membrane QID PRN (Reason: corner of mouth pain/lesion) Qty: 100 1RF fluticasone propion-salmeterol [Advair Diskus] 500-50 mcg/dose blister with device 1 inh inhalation Q12H Qty: 60 3RF cyanocobalamin (vitamin B-12) 1,000 mcg capsule 1,000 mcg PO DAILY Qty: 30 0RF buspirone 30 mg tablet 30 mg PO BID Qty: 60 1RF Rx Instructions: Take one tablet by mouth each morning and evening trazodone 100 mg tablet 100 mg PO .q hs PRN (Reason: insomnia) Qty: 30 1RF Rx Instructions: Take one tablet daily at bedtime, if needed for insomnia lurasidone 120 mg tablet 120 mg PO DAILY Qty: 30 1RF Rx Instructions: Take one tablet once daily; take with food or snack of at least 350 calories lorazepam 2 mg tablet See Rx Instructions PO BID PRN (Reason: anxiety) Qty: 60 1RF Rx Instructions: Take one-half to one tablet twice daily, if needed, for anxiety albuterol sulfate [ProAir HFA] 90 mcg/actuation HFA aerosol inhaler 2 puff INHALATION Q4H PRN (Reason: Shortness Of Breath) Qty: 8.5 6RF albuterol sulfate 2.5 mg /3 mL (0.083 %) solution for nebulization 2.5 mg inhalation Q6H PRN (Reason: shortness of breath or wheezing) Qty: 360 6RF nicotine (polacrilex) 4 mg gum 4 mg buccal Q1H Qty: 110 6RF diclofenac sodium 100 mg tablet extended release 24 hr 100 mg PO BID PRN (Reason: pain, severe) Qty: 60 1RF pregabalin [Lyrica] 100 mg capsule 100 mg PO BID Qty: 60 4RF methotrexate sodium 2.5 mg tablet See Rx Instructions PO .week Qty: 40 5RF Rx Instructions: Split dose.. take 4 tabs in the AM and 4 tabs in the PM on the same day once a week folic acid 1 mg tablet 1 mg PO DAILY Qty: 30 5RF cevimeline 30 mg capsule 1 cap PO TID Qty: 90 5RF Fasenra Pen 30 mg/mL auto-injector 30 mg SUBCUT Q28D Qty: 1 2RF Fasenra Pen 30 mg/mL auto-injector 30 mg SUBCUT .q 8 weeks Qty: 1 6RF pantoprazole [Protonix] 40 mg tablet,delayed release (DR/EC) 40 mg PO DAILY Qty: 30 4RF nicotine 21-14-7 mg/24 hr patch, TD daily, sequential See Rx Instructions transdermal .COMPLEX Qty: 56 0RF Rx Instructions: apply 1-21 mg NICOTINE PATCH daily for 28 days; follow with 1-14 mg PATCH daily for 14 days, then 1-7mg PATCH daily for 14 days transdermal ondansetron 8 mg tablet,disintegrating 8 mg PO Q8H PRN (Reason: nausea and vomiting) 5 Days Qty: 15 0RF hydrocodone-acetaminophen 7.5-325 mg tablet 1 tab PO BID PRN (Reason: pain) 10 Days Qty: 20 0RF mupirocin 2 % ointment 1 applic topical TID Qty: 22 0RF Rx Instructions: apply 3 times a day for 10days to the outer corner of the mouth tiotropium bromide [Spiriva with HandiHaler] 18 mcg capsule, w/inhalation device 1 cap inhalation DAILY 360 Days Qty: 90 6RF Rx Instructions: puncture 1 cap using device; one dose = 2 inhalations furosemide 20 mg tablet 20 mg PO DAILY Qty: 30 2RF Vitamin Plus Low Iron 27 mg iron- 1 mg tablet See Rx Instructions .ROUTE .COMPLEX Qty: 90 0RF Dose Instruction: take 1 capsule BY MOUTH DAILY Rx Instructions: take 1 capsule BY MOUTH DAILY cetirizine 10 mg tablet See Rx Instructions .ROUTE .COMPLEX Qty: 90 0RF Dose Instruction: TAKE 1 TABLET BY MOUTH DAILY NEEDED FOR allergy symptoms Rx Instructions: TAKE 1 TABLET BY MOUTH DAILY NEEDED FOR allergy symptoms losartan 100 mg tablet See Rx Instructions .ROUTE .COMPLEX Qty: 30 0RF Dose Instruction: TAKE 1 TABLET BY MOUTH EVERY DAY Rx Instructions: TAKE 1 TABLET BY MOUTH EVERY DAY amlodipine 5 mg tablet See Rx Instructions .ROUTE .COMPLEX Qty: 30 0RF Dose Instruction: TAKE 1 TABLET BY MOUTH EVERY DAY Rx Instructions: TAKE 1 TABLET BY MOUTH EVERY DAY cyclobenzaprine 10 mg tablet 10 mg PO TID Qty: 30 0RF Discharge Orders: Discharge ED (Routine); Ordered 05/17/24 Ordered By: Boo Ruffin Referrals: Nathalie Madison MD [Primary Care Provider] - Discharge Diet: Usual diet Discharge Activity: Increase activity as tolerated Patient Instructions: Methotrexate (By mouth) Activity Restrictions/Additional Instructions: Take leucovorin as prescribed, every 6 hours for the next few days. Please follow-up with your primary care provider on Sunday as discussed for redraw of your labs and reevaluation of your methotrexate. Do not take any NSAIDs, Tylenol, or proton pump inhibitors while taking leucovorin. Plenty of fluids. If you develop any worsening of your symptoms, please return to the emergency department immediately. Otherwise follow-up on Sunday as planned. Coding Level of Care Code ED Nuclear Medicine Supervisor for Sunil Ace
[2024-05-17 14:21] VITALS: BP 138/86; PULSE 81; RESP 16; TEMP 36.7; O2SAT 99
== END 2024-05-17 14:22 | disposition home or self-care (01) ==
PROVIDERS: Emergency Medicine; Emergency Provider Physician Assistant; PCP Family Medicine
DX: T45.1X1A Poisoning by antineoplastic and immunosuppressive drugs, accidental (unintentional), initial encounter (principal); F17.210 Nicotine dependence, cigarettes, uncomplicated
CPT/HCPCS: 36415; 80053; 80306; 80307; 81025; 85025; 99283; 99291

== ENCOUNTER 2024-05-17 18:45 | Observation (INO) | payer BC, MEDICAID, SELFPAY ==
[2024-05-17 19:04] VITALS: BP 161/96; PULSE 88; RESP 17; TEMP 37.1; O2SAT 97; BMI 48.2
--- NOTE | 2024-05-17 20:01 | ED_ITS ---
Documented by User: [email or web address] [place] 05/17/24 20:06 HPI - General Adult General: Chief complaint: General Medical Stated complaint: OD Accidental Time Seen by Provider: 05/17/24 19:42 Source: patient Mode of arrival: ambulatory Limitations: no limitations History of Present Illness: Patient is a 29-year-old female who presents the emergency department for the second time today due to accidental methotrexate overdose. Had been taking 3 times normal dose, was seen here earlier and Poison control contacted. They recommended the workup as well as starting leucovorin due to her GI symptoms and oral lesions. We had elected at that time with shared decision making to treat outpatient with p.o. leucovorin, however no pharmacies around here had the medication. She was called to present back to receive the medication through the IV here in the hospital, to which she obliged. She also was reporting worsening of her GI symptoms and overall malaise, and is requesting something for pain at this time. MD complaint: Accidental methotrexate overdose Onset (ago): day(s) Associated symptoms: Reports headache(s), malaise and nausea; Deny chest pain, dyspnea, rash, palpitations or vomiting Related Data Home Medications Medication Instructions Recorded Confirmed clobetasol 0.05 % topical ointment 1 applic topical .2-3 TIMES A WEEK 05/28/23 05/17/24 montelukast 10 mg tablet 10 mg PO BEDTIME 05/28/23 05/17/24 [id number] 18 mg-FA 400 1 tab PO QAM 05/28/23 05/17/24 mcg-calcium 500 mg-vit K 50 mcg tablet (Women's Multivitamin) gabapentin 300 mg capsule 300 mg PO BID 05/17/24 05/17/24 Previous Rx's Medication Instructions Recorded ondansetron 8 mg disintegrating 8 mg PO Q8H PRN nausea and 08/21/23 tablet vomiting 5 days #15 tabs albuterol sulfate 2.5 mg/3 mL 2.5 mg (3 mL) inhalation Q6H PRN 09/21/23 (0.083 %) solution for nebulization shortness of breath or wheezing #360 mL albuterol sulfate 90 mcg/actuation 2 puff inhalation Q4H PRN 09/21/23 aerosol inhaler (ProAir HFA) Shortness Of Breath #8.5 grams hydrocodone 7.5 mg-acetaminophen 1 tab PO BID PRN pain 10 days #20 10/09/23 325 mg tablet tabs lidocaine HCl 2 % mucosal solution 1 applic mucous membrane QID PRN 12/10/23 (Lidocaine Viscous) corner of mouth pain/lesion #100 mL mupirocin 2 % topical ointment 1 applic topical TID #22 grams 12/12/23 cyanocobalamin (vitamin B-12) 1,000 mcg PO DAILY #30 caps 12/14/23 1,000 mcg capsule fluticasone 500 mcg-salmeterol 50 1 inh inhalation Q12H #60 ea 12/20/23 mcg/dose blistr powdr for inhalation (Advair Diskus) cyclobenzaprine 10 mg tablet 10 mg PO TID #30 tabs 01/29/24 furosemide 20 mg tablet 20 mg PO DAILY #30 tabs 01/30/24 vitamin with calcium See Rx Instructions .Route 02/21/24 no.72-iron 27 mg-folic acid 1 mg .COMPLEX #90 tabs tablet ( Vitamins Plus Low Iron) buspirone 30 mg tablet 30 mg PO BID #60 tabs 03/18/24 lorazepam 2 mg tablet See Rx Instructions PO BID PRN 03/18/24 anxiety #60 tabs lurasidone 120 mg tablet 120 mg PO DAILY #30 tabs 03/18/24 cetirizine 10 mg tablet See Rx Instructions .Route 03/21/24 .COMPLEX #90 tabs amlodipine 5 mg tablet See Rx Instructions .Route 04/23/24 .COMPLEX #30 tabs losartan 100 mg tablet See Rx Instructions .Route 04/23/24 .COMPLEX #30 tabs benralizumab 30 mg/mL subcutaneous 30 mg SUBCUT Q28D 3 doses #1 mL 05/12/24 auto-injector (Fasenra Pen) cevimeline 30 mg capsule 1 cap PO TID #90 caps 05/12/24 diclofenac sodium 100 mg 100 mg PO BID PRN pain, severe #60 05/12/24 tablet,extended release 24 hr tabs folic acid 1 mg tablet 1 mg PO DAILY #30 tabs 05/12/24 methotrexate sodium 2.5 mg tablet See Rx Instructions PO .week 05/12/24 Rheumatoid Arthritis #40 tabs nicotine See Rx Instructions transdermal 05/12/24 21mg/24hr-14mg/24hr-7mg/24hr daily .COMPLEX #56 patches transderm patches,sequentl pantoprazole 40 mg tablet,delayed 40 mg PO DAILY #30 tabs 05/12/24 release (Protonix) leucovorin calcium 15 mg tablet 15 mg PO Q6H 4 days #16 tabs 05/17/24 Allergies Allergy/AdvReac Type Severity Reaction Status Date / Time No Known Allergies Allergy Verified 05/17/24 19:08 Review of Systems General: Reports: 10 or more systems reviewed and unremarkable except in HPI and below Const: Reports: fatigue and malaise; Denies: fever(s) or chills Eyes: Denies: change in vision ENMT: Reports: oral sores; Denies: throat pain, ear or mastoid pain or nasal discharge Card: Denies: chest pain, palpitations, swelling of feet/ankles or lighthe adedness Resp: Denies: dyspnea, productive cough or wheezing GI: Reports: abdominal pain and nausea; Denies: vomiting, diarrhea or constipation : Denies: flank pain, difficulty voiding, dysuria or urinary frequency Musc: Denies: neck pain, back pain or joint pain Skin/Breast: Denies: rash Neuro: Reports: headache(s); Denies: numbness in extremities or weakness in extremities PFSH ED PFSH: Medical History (Updated 05/17/24 @ 21:18 by David Garcia MD) Chronic cough Low back pain Lesion of right [place] kidney complex cyst in the RIGHT kidney Elevated glucose Left atrial enlargement Lichen sclerosus Asthma Nicotine dependence, unspecified, uncomplicated Immunization counseling High risk medication use 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 Inflammatory arthritis UTI (urinary tract infection) Psychiatric care MRSA (methicillin resistant Staphylococcus aureus) Surgical History History of cholecystectomy Family History Grandmother Lupus Mother Lung disease copd Other Chronic kidney disease (CKD) Heart disease Hypertension Lupus (systemic lupus erythematosus) Rheumatoid arthritis Stroke Social History Smoking and tobacco/nicotine status: current every day tobacco/nicotine user (1 ppd) cigarettes Packs smoked per day: 1.5 Years cigarettes smoked: 20 [ Other cigarette details: started at age 8] Alcohol intake: former Year of sobriety/quit date alcohol: 2014 Substance/Drug Use: current Substance/Drug use frequency: daily Other substance/drug use details: history opiate pill abuse Household members: children Number of children: 1 Current occupational status: unemployed 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 Special richa needs: No Agree to transfusion: Yes Physical Exam Const: COMMON NORMALS: no acute distress and no limitations GENERAL APPEARANCE: cooperative and well developed NUTRITIONAL APPEARANCE: obese morbidly obese ORIENTATION/CONSCIOUSNESS: Yes awake HENMT: COMMON NORMALS: normocephalic, atraumatic and hearing grossly normal bilaterally HEAD & SCALP: normocephalic and atraumatic OTHER: Oral lesions still present do not appear to worsen Eye: COMMON NORMALS: Equal, round and reactive pupils present, EOMs intact bilaterally and conjunctivae normal CONJUNCTIVA: Yes conjunctivae normal PUPIL: Yes Equal, round and reactive pupils present Neck/C-Spine: COMMON NORMALS: full ROM, supple and no JVD Resp: COMMON NORMALS: normal respiratory effort, No retractions, No use of accessory muscles and clear to auscultation bilaterally AUSCULTATION: clear to auscultation bilaterally Cardio: COMMON NORMALS: no JVD, regular rate, regular rhythm, No clicks present (Cardio), No murmurs present (Cardio) and No rub (Cardio) RATE: regular rate RHYTHM: regular rhythm GI: COMMON NORMALS: Normal to inspection, nondistended, normoactive bowel sounds present and Soft to palpation AUSCULTATION: Yes normoactive bowel sounds PALPATION: Yes Soft to palpation and Yes Tenderness to palpation present (GI) Details: LUQ RECTAL EXAM: deferred Extremity: COMMON NORMALS: normal to inspection, full ROM and capillary refill normal Psych: COMMON NORMALS: mental status grossly normal and Normal thought process present THOUGHT PROCESS: Normal thought process present Skin: COMMON NORMALS: no rashes or lesions noted GENERAL SKIN EXAM: no rashes or lesions noted Course Vital Signs: Vital signs: Vital Signs Temperature 98.2 F 05/18/24 00:00 Pulse Rate 77 05/18/24 00:00 Respiratory Rate 15 05/18/24 00:00 Blood Pressure 145/84 05/18/24 00:00 Pulse Oximetry 97 05/18/24 00:00 Oxygen Delivery Me thod Room Air 05/18/24 00:00 MDM - General Adult Medical Decision Making Patient presented to be admitted to the hospital to receive IV leucovorin as admitted for methotrexate toxicity. Poison control was contacted with earlier visit, and patient's case discussed with Dr. Garcia who agrees to accept the patient. Pharmacy was called to obtain the medication from oncology, and patient is given morphine here for pain control. She will be admitted to receive the leucovorin, and this case is discussed with Dr. Herron who is putting in admit orders at this time. 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 Documented by User: Giorgi Herron DO 05/18/24 01:59 HPI - General Adult General: Chief complaint: General Medical Stated complaint: OD Accidental Time Seen by Provider: 05/17/24 19:42 Related Data Home Medications Medication Instructions Recorded Confirmed clobetasol 0.05 % topical ointment 1 applic topical .2-3 TIMES A WEEK 05/28/23 05/17/24 montelukast 10 mg tablet 10 mg PO BEDTIME 05/28/23 05/17/24 [id number] 18 mg-FA 400 1 tab PO QAM 05/28/23 05/17/24 mcg-calcium 500 mg-vit K 50 mcg tablet (Women's Multivitamin) gabapentin 300 mg capsule 300 mg PO BID 05/17/24 05/17/24 Previous Rx's Medication Instructions Recorded ondansetron 8 mg disintegrating 8 mg PO Q8H PRN nausea and 08/21/23 tablet vomiting 5 days #15 tabs albuterol sulfate 2.5 mg/3 mL 2.5 mg (3 mL) inhalation Q6H PRN 09/21/23 (0.083 %) solution for nebulization shortness of breath or wheezing #360 mL albuterol sulfate 90 mcg/actuation 2 puff inhalation Q4H PRN 09/21/23 aerosol inhaler (ProAir HFA) Shortness Of Breath #8.5 grams hydrocodone 7.5 mg-acetaminophen 1 tab PO BID PRN pain 10 days #20 10/09/23 325 mg tablet tabs lidocaine HCl 2 % mucosal solution 1 applic mucous membrane QID PRN 12/10/23 (Lidocaine Viscous) corner of mouth pain/lesion #100 mL mupirocin 2 % topical ointment 1 applic topical TID #22 grams 12/12/23 cyanocobalamin (vitamin B-12) 1,000 mcg PO DAILY #30 caps 12/14/23 1,000 mcg capsule fluticasone 500 mcg-salmeterol 50 1 inh inhalation Q12H #60 ea 12/20/23 mcg/dose blistr powdr for inhalation (Advair Diskus) cyclobenzaprine 10 mg tablet 10 mg PO TID #30 tabs 01/29/24 furosemide 20 mg tablet 20 mg PO DAILY #30 tabs 01/30/24 vitamin with calcium See Rx Instructions .Route 02/21/24 no.72-iron 27 mg-folic acid 1 mg .COMPLEX #90 tabs tablet ( Vitamins Plus Low Iron) buspirone 30 mg tablet 30 mg PO BID #60 tabs 03/18/24 lorazepam 2 mg tablet See Rx Instructions PO BID PRN 03/18/24 anxiety #60 tabs lurasidone 120 mg tablet 120 mg PO DAILY #30 tabs 03/18/24 cetirizine 10 mg tablet See Rx Instructions .Route 03/21/24 .COMPLEX #90 tabs amlodipine 5 mg tablet See Rx Instructions .Route 04/23/24 .COMPLEX #30 tabs losartan 100 mg tablet See Rx Instructions .Route 04/23/24 .COMPLEX #30 tabs benralizumab 30 mg/mL subcutaneous 30 mg SUBCUT Q28D 3 doses #1 mL 05/12/24 auto-injector (Fasenra Pen) cevimeline 30 mg capsule 1 cap PO TID #90 caps 05/12/24 diclofenac sodium 100 mg 100 mg PO BID PRN pain, severe #60 05/12/24 tablet,extended release 24 hr tabs folic acid 1 mg tablet 1 mg PO DAILY #30 tabs 05/12/24 methotrexate sodium 2.5 mg tablet See Rx Instructions PO .week 05/12/24 Rheumatoid Arthritis #40 tabs nicotine See Rx Instructions transdermal 05/12/24 21mg/24hr-14mg/24hr-7mg/24hr daily .COMPLEX #56 patches transderm patches,sequentl pantoprazole 40 mg tablet,delayed 40 mg PO DAILY #30 tabs 05/12/24 release (Protonix) leucovorin calcium 15 mg tablet 15 mg PO Q6H 4 days #16 tabs 05/17/24 Allergies Allergy/AdvReac Type Severity Reaction Status Date / Time No Known Allergies Allergy Verified 05/17/24 19:[facility]: Medical History (Updated 05/17/24 @ 21:18 by David Garcia MD) Chronic cough Low back pain Lesion of right [place] kidney complex cyst in the RIGHT kidney Elevated glucose Left atrial enlargement Lichen sclerosus Asthma Nicotine dependence, unspecified, uncomplicated Immunization counseling High risk medication use 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 Inflammatory arthritis UTI (urinary tract infection) Psychiatric care MRSA (methicillin resistant Staphylococcus aureus) Surgical History History of cholecystectomy Family History Grandmother Lupus Mother Lung disease copd Other Chronic kidney disease (CKD) Heart disease Hypertension Lupus (systemic lupus erythematosus) Rheumatoid arthritis Stroke Social History Smoking and tobacco/nicotine status: current every day tobacco/nicotine user (1 ppd) cigarettes Packs smoked per day: 1.5 Years cigarettes smoked: 20 [ Other cigarette details: started at age 8] Alcohol intake: former Year of sobriety/quit date alcohol: 2014 Substance/Drug Use: current Substance/Drug use frequency: daily Other substance/drug use details: history opiate pill abuse Household members: children Number of children: 1 Current occupational status: unemployed 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 Special richa needs: No Agree to transfusion: Yes Course Vital Signs: Vital signs: Vital Signs Temperature 98.2 F 05/18/24 00:00 Pulse Rate 77 05/18/24 00:00 Respiratory Rate 15 05/18/24 00:00 Blood Pressure 145/84 05/18/24 00:00 Pulse Oximetry 97 05/18/24 00:00 Oxygen Delivery Me thod Room Air 05/18/24 00:00 MDM - General Adult Medical Decision Making Patient presented to be admitted to the hospital to receive IV leucovorin as admitted for methotrexate toxicity. Poison control was contacted with earlier visit, and patient's case discussed with Dr. Garcia who agrees to accept the patient. Pharmacy was called to obtain the medication from oncology, and patient is given morphine here for pain control. She will be admitted to receive the leucovorin, and this case is discussed with Dr. Herron who is putting in admit orders at this time. This patient was originally seen by Mr. Augustin PA-C.? I agree with his history, evaluation, and treatment. 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
--- NOTE | 2024-05-17 20:04 | PM.HP ---
Providers/Chief Complaint Admitting Physician: David Garcia MD Primary Care Provider: Nathalie Madison MD Chief Complaint: OD Accidental\Dr called to come back History of Present Illness Kamala Lovelace is a 29 year old female with a past medical history significant for seronegative rheumatoid arthritis, hypertension, tobacco use disorder, and multiple other comorbidities who presents to the emergency department with nausea, left upper quadrant abdominal pain, headaches, fatigue, malaise and lesions on her lips x couple days. She describes her right upper quadrant pain is achy without radiation. Currently rates it about a 7 out of 10. Endorses associated nausea with decreased oral intake. She describes her oral lesions as severely painful. Touching the lesions worsens the pain. Denies other alleviating or aggravating factors. Of note, patient was recently started on methotrexate for rheumatoid arthritis. She was started on 20 mg once a week by rheumatology clinic. However, patient consumed 20 mg daily x 3 days in a row. She was seen in clinic earlier today diagnosed with methotrexate overdose and directed straight to the emergency department. Plan was for outpatient treatment, however no local pharmacies were able to provide leucovorin. She therefore returned to the emergency department later today due to lack of access to medication. Review of Systems Narrative: A complete review of systems was obtained and is negative except as stated in HPI. Medications/Allergies Home Medications Medication Instructions Recorded Confirmed Last Taken Type ascorbate calcium (vitamin C) 500 500 mg PO QAM 05/28/23 05/17/24 10/24/23 History mg tablet clobetasol 0.05 % topical ointment 1 applic topical .2-3 TIMES A WEEK 05/28/23 05/17/24 10/21/23 History montelukast 10 mg tablet 10 mg PO BEDTIME 05/28/23 05/17/24 10/24/23 History [id number] 18 mg-FA 400 1 tab PO QAM 05/28/23 05/17/24 10/24/23 History mcg-calcium 500 mg-vit K 50 mcg tablet (Women's Multivitamin) ondansetron 8 mg disintegrating 8 mg PO Q8H PRN nausea and 08/21/23 05/17/24 10/22/23 Rx tablet vomiting 5 days #15 tabs albuterol sulfate 2.5 mg/3 mL 2.5 mg (3 mL) inhalation Q6H PRN 09/21/23 05/17/24 10/21/23 Rx (0.083 %) solution for nebulization shortness of breath or wheezing #360 mL albuterol sulfate 90 mcg/actuation 2 puff inhalation Q4H PRN 09/21/23 05/17/24 10/21/23 Rx aerosol inhaler (ProAir HFA) Shortness Of Breath #8.5 grams nicotine (polacrilex) 4 mg gum 4 mg buccal Q1H #110 ea 09/21/23 05/17/24 Unknown Rx hydrocodone 7.5 mg-acetaminophen 1 tab PO BID PRN pain 10 days #20 10/09/23 05/17/24 10/24/23 Rx 325 mg tablet tabs lidocaine HCl 2 % mucosal solution 1 applic mucous membrane QID PRN 12/10/23 05/17/24 Unknown Rx (Lidocaine Viscous) corner of mouth pain/lesion #100 mL mupirocin 2 % topical ointment 1 applic topical TID #22 grams 12/12/23 05/17/24 Unknown Rx cyanocobalamin (vitamin B-12) 1,000 mcg PO DAILY #30 caps 12/14/23 05/17/24 Unknown Rx 1,000 mcg capsule fluticasone 500 mcg-salmeterol 50 1 inh inhalation Q12H #60 ea 12/20/23 05/17/24 Unknown Rx mcg/dose blistr powdr for inhalation (Advair Diskus) tiotropium bromide 18 mcg capsule 1 cap inhalation DAILY 12 months 01/18/24 05/17/24 Unknown Rx with inhalation device (Spiriva #90 inhalations with HandiHaler) cyclobenzaprine 10 mg tablet 10 mg PO TID #30 tabs 01/29/24 05/17/24 Unknown Rx furosemide 20 mg tablet 20 mg PO DAILY #30 tabs 01/30/24 05/17/24 Unknown Rx vitamin with calcium See Rx Instructions .Route 02/21/24 05/17/24 Unknown Rx no.72-iron 27 mg-folic acid 1 mg .COMPLEX #90 tabs tablet ( Vitamins Plus Low Iron) buspirone 30 mg tablet 30 mg PO BID #60 tabs 03/18/24 05/17/24 Unknown Rx lorazepam 2 mg tablet See Rx Instructions PO BID PRN 03/18/24 05/17/24 Unknown Rx anxiety #60 tabs lurasidone 120 mg tablet 120 mg PO DAILY #30 tabs 03/18/24 05/17/24 Unknown Rx trazodone 100 mg tablet 100 mg PO .q hs PRN insomnia #30 03/18/24 05/17/24 Unknown Rx tabs cetirizine 10 mg tablet See Rx Instructions .Route 03/21/24 05/17/24 Unknown Rx .COMPLEX #90 tabs amlodipine 5 mg tablet See Rx Instructions .Route 04/23/24 05/17/24 Unknown Rx .COMPLEX #30 tabs losartan 100 mg tablet See Rx Instructions .Route 04/23/24 05/17/24 Unknown Rx .COMPLEX #30 tabs benralizumab 30 mg/mL subcutaneous 30 mg SUBCUT .q 8 weeks #1 mL 05/12/24 05/17/24 Unknown Rx auto-injector (Fasenra Pen) benralizumab 30 mg/mL subcutaneous 30 mg SUBCUT Q28D 3 doses #1 mL 05/12/24 05/17/24 Unknown Rx auto-injector (Fasenra Pen) cevimeline 30 mg capsule 1 cap PO TID #90 caps 05/12/24 05/17/24 Unknown Rx diclofenac sodium 100 mg 100 mg PO BID PRN pain, severe #60 05/12/24 05/17/24 Unknown Rx tablet,extended release 24 hr tabs folic acid 1 mg tablet 1 mg PO DAILY #30 tabs 05/12/24 05/17/24 Unknown Rx methotrexate sodium 2.5 mg tablet See Rx Instructions PO .week 05/12/24 05/17/24 Unknown Rx Rheumatoid Arthritis #40 tabs nicotine See Rx Instructions transdermal 05/12/24 05/17/24 Unknown Rx 21mg/24hr-14mg/24hr-7mg/24hr daily .COMPLEX #56 patches transderm patches,sequentl pantoprazole 40 mg tablet,delayed 40 mg PO DAILY #30 tabs 05/12/24 05/17/24 Unknown Rx release (Protonix) pregabalin 100 mg capsule (Lyrica) 100 mg PO BID #60 caps 05/12/24 05/17/24 Unknown Rx leucovorin calcium 15 mg tablet 15 mg PO Q6H 4 days #16 tabs 05/17/24 Unknown Rx Allergies Allergy/AdvReac Type Severity Reaction Status Date / Time No Known Allergies Allergy Verified 05/17/24 19:08 PFSH Acute PFSH: Medical History (Updated 05/17/24 @ 21:18 by David Garcia MD) Chronic cough Low back pain 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 Elevated glucose Left atrial enlargement Lichen sclerosus Asthma Nicotine dependence, unspecified, uncomplicated Immunization counseling High risk medication use 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 Inflammatory arthritis UTI (urinary tract infection) Psychiatric care MRSA (methicillin resistant Staphylococcus aureus) Surgical History History of cholecystectomy Family History Grandmother Lupus Mother Lung disease copd Other Chronic kidney disease (CKD) Heart disease Hypertension Lupus (systemic lupus erythematosus) Rheumatoid arthritis Stroke Social History Smoking and tobacco/nicotine status: current every day tobacco/nicotine user (1 ppd) cigarettes Packs smoked per day: 1.5 Years cigarettes smoked: 20 [ Other cigarette details: started at age 8] Alcohol intake: former Year of sobriety/quit date alcohol: 2014 Substance/Drug Use: current Substance/Drug use frequency: daily Other substance/drug use details: history opiate pill abuse Household members: children Number of children: 1 Current occupational status: unemployed 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 Special richa needs: No Agree to transfusion: Yes Vitals/I&O/Wt Last Vital Signs Temp 98.7 F 05/17/24 19:04 Pulse 88 05/17/24 19:04 Resp 17 05/17/24 19:04 BP 161/96 05/17/24 19:04 Pulse Ox 97 05/17/24 19:04 O2 Del Method Room Air 05/17/24 19:04 Weight last 48 hrs Weight 135.624 kg Physical Exam Narrative: General: Patient is awake. Appears fatigued but pleasant. Head: Normocephalic. EOM intact. Lesions present at lip fissures. Neck: No JVD. Cardiovascular: RRR. No gallops. No murmurs. No peripheral edema. Lungs: Clear to auscultation, no use of accessory muscles, no crackles or wheezes. Skin: No jaundice. No rashes. Abdomen: Left upper quadrant is tender to palpation. Bowel sounds present. Genito Urinary: Genital exam not performed since complaints not related. Rectal: Rectal exam not performed since no symptoms indicated blood loss. Extremities: No cyanosis or clubbing. Musculoskeletal: No swollen or erythematous joints. Neurological: Moves all 4 extremities. No myoclonus. A&P Assessment and plan (1) Accidental methotrexate overdose: Accidental overdose of methotrexate Hold methotrexate Avoid hepatotoxins Poison control contacted, appreciate recommendations Monitor kidney function Discussed with pharmacy, proceed with IV leucovorin Avoid drug to drug interactions Control underlying nausea Monitor for worsening condition Qualifiers: Encounter type: initial encounter Qualified Code(s): T45.1X1A - Poisoning by antineoplastic and immunosuppressive drugs, accidental (unintentional), initial encounter (2) Seronegative rheumatoid arthritis of both hands: Patient follows with rheumatology clinic Methotrexate placed on hold, recommended do not take until follow-up with rheumatology clinic Continue home pain regiment IV morphine for breakthrough pain (3) Asthma-COPD overlap syndrome: Not in exacerbation Breathing treatments as needed (4) Hypertension: Continue home blood pressure regiment (5) Generalized anxiety disorder: Continue home medications (6) Tobacco dependence with current use: Patient would benefit from tobacco cessation Plan DVT prophylaxis: Patient low risk and ambulatory. CODE STATUS: Full code Attestations Medical Necessity Statement*: Patient presents with methotrexate overdose requiring hospitalization as outpatient treatment is not currently feasible with expected hospitalization not to cross 2 midnights for IV leucovorin, monitoring of labs, symptom control, and supportive care. Coding Level of Care Code Acute Code for Chg Fwd Diagnoses Accidental methotrexate overdose T45.1X1A Encounter type: initial encounter Seronegative rheumatoid arthritis of both hands M06.041; M06.042 Asthma-COPD overlap syndrome J44.9 Hypertension I10 Generalized anxiety disorder F41.1 Tobacco dependence with current use F17.200
[2024-05-17 20:22] VITALS: RESP 18; O2SAT 97
[2024-05-17] MEDS: morphine 4 mg/mL SDV 1 mL IM (20:22)
[2024-05-17 20:24] VITALS: BP 162/134; PULSE 83; RESP 18; O2SAT 97
[2024-05-17] MEDS: LEUCOVORIN IV (20:28)
[2024-05-17 20:53] VITALS: PULSE 83; RESP 18; O2SAT 98
[2024-05-17 21:08] VITALS: BP 155/102; PULSE 86; RESP 15; TEMP 36.8; O2SAT 95
[2024-05-17 22:28] VITALS: BP 155/102
[2024-05-17] MEDS: amlodipine 5 mg Tablet PO (22:28)
[2024-05-17] MEDS: losartan 50 mg Tablet 100 MG PO (22:28)
[2024-05-17] MEDS: lurasidone 20 mg Tablet 120 MG PO (22:28)
[2024-05-17] MEDS: cetirizine 10 mg Tablet PO (22:28)
[2024-05-17] MEDS: nicotine 21 mg Patch 1 PATCH TRANSDERMA (23:18)
[2024-05-18] VITALS (11 sets, daily range): BP systolic 121–147; BP diastolic 71–97; PULSE 65–91; RESP 13–20; TEMP 36.6–36.8; O2SAT 92–98
[2024-05-18] MEDS: LEUCOVORIN IV ×3 (02:21→16:34)
[2024-05-18 04:05] LABS: Basophils % 0.3 %; Eosinophils # 0.3 10^3/uL (0.0-0.8); Eosinophils % 3.4 %; Hematocrit 38.6 % (36-47); Lymphocytes # 2.1 10^3/uL (0.8-4.8); Lymphocytes % 27.1 %; Mean Corpuscular HGB Conc 33.4 g/dL (30-55); Mean Corpuscular Hemoglobin 30.9 pg (27-33); Mean Corpuscular Volume 92.3 fl (85-98); Mean Platelet Volume 9.7 fL (7.4-10.4); Monocytes # 0.1 10^3/uL (0.2-0.9); Monocytes % 1.6 %; Neutrophils # 5.32 10^3/uL (1.8-7.7); Neutrophils % 67.2 %; Nucleated Red Blood Cells % 0 %; Platelet Count 309 10^3/cmm (157-399); Red Blood Count 4.18 10^6/uL (3.85-5.65); Red Cell Distribution Width 12.9 % (12.1-15.1); White Blood Count 7.91 10^3/uL (3.29-11.43)
[2024-05-18 04:36] LABS: Alanine Aminotransferase 58 U/L (0-33); Albumin Level 3.5 g/dL (3.5-5.2); Alkaline Phosphatase 69 U/L (35-105); Anion Gap 12.8 (5-19); Aspartate Amino Transferase 32 U/L (0-32); Blood Urea Nitrogen 7 mg/dL (6-20); Calcium 8.9 mg/dL (8.5-10.5); Carbon Dioxide 28 mmol/L (22-29); Chloride 103 mmol/L (98-107); Creatinine Clr Calc Pharmacy 196.0427; Globulin 2.7 g/dL (1.3-4.6); Glomerular Filtration Rate 117.4 mL/min (90-130); Glucose 116 mg/dL (65-115); Magnesium 1.8 mg/dL (1.7-2.3); Osmolality Calculated 289 mOsm/kg (285-295); Potassium 3.8 mmol/L (3.5-5.1); Sodium 140 mmol/L (136-145); Total Bilirubin 0.3 mg/dL (0.15-1.2); Total Protein 6.2 g/dL (6.6-8.7)
--- NOTE | 2024-05-18 08:50 | P.PN_ITS ---
Subjective 2 Subjective: No active nausea or vomiting No active chest pain Requested methotrexate level I have asked patient to stay 1 more day in the hospital patient has a nicotine patch on as well Vitals/I&O/Wt Last Vital Signs Temp 98 F 05/18/24 08:00 Pulse 70 05/18/24 08:00 Resp 16 05/18/24 08:00 BP 147/97 05/18/24 08:00 Pulse Ox 96 05/18/24 08:00 O2 Del Method Room Air 05/18/24 08:00 05/17/24 05/18/24 05/18/24 22:59 06:59 14:59 Intake Total 301.5 / 301.5 501.5 / 803.0 Balance 301.5 / 301.5 501.5 / 803.0 Weight last 48 hrs Weight 137.495 kg Weight 135.624 kg Physical Exam 2 Narrative: Patient awake and alert Morbid obese Has nicotine patch Pleasant cooperative focal Abdomen soft, Nonfocal neuroexam S1, S2 Data 05/18/24 03:53 05/18/24 03:53 A&P Assessment and plan (1) Accidental methotrexate overdose: Qualifiers: Encounter type: subsequent encounter Qualified Code(s): T45.1X1D - Poisoning by antineoplastic and immunosuppressive drugs, accidental (unintentional), subsequent encounter (2) Tobacco dependence with current use: (3) Asthma-COPD overlap syndrome: Plan Plan to discharge on Sunday, no worsening of liver enzymes and afebrile pressure stable No active nausea vomit muscle soreness and pain left in hypogastric region Able to tolerate diet To discharge by tomorrow Requested methotrexate level Attestations 2 Medical Necessity Statement*: Discharge tomorrow Diagnoses Accidental methotrexate overdose T45.1X1D Encounter type: subsequent encounter Tobacco dependence with current use F17.200 Asthma-COPD overlap syndrome J44.9
[2024-05-18] MEDS: cetirizine 10 mg Tablet PO (09:09)
[2024-05-18] MEDS: cyclobenzaprine 10 mg Tablet PO ×3 (09:09→21:43)
[2024-05-18] MEDS: gabapentin 300 mg Capsule PO ×2 (09:09→17:26)
[2024-05-18] MEDS: amlodipine 5 mg Tablet PO (09:09)
[2024-05-18] MEDS: BuSPIRONE 10 mg Tablet 30 MG PO ×2 (09:10→17:26)
[2024-05-18] MEDS: FUROsemide 20 mg Tablet PO (09:10)
[2024-05-18] MEDS: folic acid 1 mg Tablet PO (09:10)
[2024-05-18] MEDS: pantoprazole DR 40 mg Tablet PO (09:10)
[2024-05-18] MEDS: oxyCODONE 5 mg IR Tab/Cap PO (09:15)
[2024-05-18] MEDS: morphine 4 mg/mL SDV 1 mL IVP ×2 (10:21→18:37)
[2024-05-18] MEDS: ondansetron 2 mg/ML SDV 2 mL 4 MG IVP ×2 (10:29→18:37)
[2024-05-18] MEDS: montelukast sodium 10 mg Tablet PO (21:42)
[2024-05-18] MEDS: losartan 50 mg Tablet 100 MG PO (21:43)
[2024-05-18] MEDS: sennosides 8.6 mg Tablet 17.2 MG PO (21:43)
[2024-05-18] MEDS: lurasidone 20 mg Tablet 120 MG PO (21:43)
[2024-05-18] MEDS: nicotine 21 mg Patch 1 PATCH TRANSDERMA (21:44)
[2024-05-19] MEDS: LEUCOVORIN IV (00:04)
[2024-05-19 00:23] VITALS: BP 128/84; PULSE 72; RESP 17; TEMP 36.6; O2SAT 95
[2024-05-19 04:00] VITALS: BP 125/78; PULSE 61; RESP 16; TEMP 36.7; O2SAT 97
[2024-05-19 04:07] LABS: Alanine Aminotransferase 51 U/L (0-33); Albumin Level 3.5 g/dL (3.5-5.2); Alkaline Phosphatase 73 U/L (35-105); Anion Gap 12.4 (5-19); Aspartate Amino Transferase 23 U/L (0-32); Blood Urea Nitrogen 6 mg/dL (6-20); Calcium 8.8 mg/dL (8.5-10.5); Carbon Dioxide 30 mmol/L (22-29); Chloride 104 mmol/L (98-107); Creatinine Clr Calc Pharmacy 196.0427; Globulin 2.7 g/dL (1.3-4.6); Glomerular Filtration Rate 117.4 mL/min (90-130); Glucose 114 mg/dL (65-115); Osmolality Calculated 292 mOsm/kg (285-295); Potassium 4.4 mmol/L (3.5-5.1); Sodium 142 mmol/L (136-145); Total Bilirubin 0.2 mg/dL (0.15-1.2); Total Protein 6.2 g/dL (6.6-8.7)
[2024-05-19 07:29] VITALS: BP 125/81; PULSE 63; RESP 16; TEMP 36.8; O2SAT 97
[2024-05-19 08:58] VITALS: PULSE 63; RESP 16; O2SAT 97
--- NOTE | 2024-05-19 09:09 | PC.CHAP ---
Pastoral Care Encounter/Spiritual Assessment Type of Contact [] Declined racker octave board visit [] Patient/Family/Request visit [] Outpatient visit [] Follow-up visit [] Physician referral [] Code/Alert [x] Routine visit [] Staff referral [] Actively dying [] Patient sleeping [] Family support [] [] Out of room [] Palliative care [] [] Receiving care in room [] Pre-surgical visit [] Trauma [] Long length of stay [] ICU visit [] Other: Relational/Emotional Strength [] Patient feels connected with others/family/visitors/staff [] Distress [] Loneliness/isolation [] Abandonment Spirituality of Patient [x] Person of Jenifer [] Attends Adventist of their Jenifer [x] Believes in Prayer [] Reads Bible or Adventism materials [] There are Spiritual issues to be addressed Printing Machine Mechanic Interventions [x] Prayer [x] Active listening [] Non-anxious presence [] Spiritual/emotional support [] Crisis/trauma care [] Spiritual counseling [] Bereavement support [] Provided bereavement packet [x] Provided Bible/devotional materials [] Provided toy/stuffed animal, coloring book to patient or family member [] Provided Communion [] Anointing/Noble [] Salvation [x] Completed spiritual assessment [] Other: Impact on Illness or Injury [] Angry [] Fearful [] Anxious [] Often cries [] Exhaustion [] Unable to work [] Unable to attend jewish [] Unable to walk/stand [] Unable to read [] Unable to drive [] Unable to eat/drink [] Unable to sleep [] Unable to be with family [] Patient intubated [] Other: Summary Time spent with patient 10 min
[2024-05-19] MEDS: BuSPIRONE 10 mg Tablet 30 MG PO (09:36)
[2024-05-19] MEDS: FUROsemide 20 mg Tablet PO (09:36)
[2024-05-19] MEDS: pantoprazole DR 40 mg Tablet PO (09:36)
[2024-05-19] MEDS: folic acid 1 mg Tablet PO (09:36)
[2024-05-19] MEDS: cetirizine 10 mg Tablet PO (09:36)
[2024-05-19] MEDS: cyclobenzaprine 10 mg Tablet PO (09:36)
[2024-05-19] MEDS: amlodipine 5 mg Tablet PO (09:36)
[2024-05-19] MEDS: LEUCOVORIN 3 MG IV (09:37)
--- NOTE | 2024-05-19 09:51 | P.DS_ITS ---
Discharge Providers Date of Admission: 05/17/24 19:53 Date of Discharge: May 19, 2024 Attending Provider at Admission: David Garcia MD Attending Provider at Discharge: Ricardo Echeverria MD Primary Care Provider: Nathalie Madison MD Diagnoses at Discharge Discharge Diagnosis (1) Accidental methotrexate overdose: Status: Acute Qualifiers: Encounter type: subsequent encounter Qualified Code(s): T45.1X1D - Poisoning by antineoplastic and immunosuppressive drugs, accidental (unintentional), subsequent encounter (2) Tobacco dependence with current use: Status: Acute (3) Asthma-COPD overlap syndrome: Status: Acute Reason for Visit Reason for Visit: OD Accidental\ called to come back Hospital Course Hospital Course 29-year-old female who was admitted for management evaluation of methotrexate accidental overdose, which she took 20 mg for 3 consecutive days, she was started on IV leucovorin every 6 hours regimen, no signs of liver injury skin ulcer muscle damage, weakness or fatigue, she did not experience nausea or vomit ing, she remained hemodynamically stable methotrexate levels are pending, I have asked her not to take methotrexate medication until we know about the levels, she will follow-up with before resuming her methotrexate. Patient has remained hemodynamically stable in the hospital. Physical Exam Narrative: Morbid obese Awake and alert Muscle pain left upper quadrant, no active nausea vomiting no stomatitis No skin ulcers S1, S2 Morbidly obese Currently on room air Hemodynamic stable Discharge Data Studies Completed and Pending Pending at discharge Category Date Time Status CDIFF [C.Diff PCR (Lab)] Routine Lab 05/18/24 11:18 Uncollected Methotrexate Level Stat Lab 05/18/24 03:53 Received Laboratory Results WBC 7.91 10^3/uL (3.29-11.43) 05/18/24 03:53 RBC 4.18 10^6/uL (3.85-5.65) 05/18/24 03:53 Hgb 12.90 g/dL (11.27-16.99) 05/18/24 03:53 Hct 38.6 % (36-47) 05/18/24 03:53 MCV 92.3 fl (85-98) 05/18/24 03:53 MCH 30.9 pg (27-33) 05/18/24 03:53 MCHC 33.4 g/dL (30-55) 05/18/24 03:53 RDW 12.9 % (12.1-15.1) 05/18/24 03:53 Plt Count 309 10^3/cmm (157-399) 05/18/24 03:53 MPV 9.7 fL (7.4-10.4) 05/18/24 03:53 Neut % (Auto) 67.2 % 05/18/24 03:53 Lymph % (Auto) 27.1 % 05/18/24 03:53 [place] % (Auto) 1.6 % 05/18/24 03:53 Eos % (Auto) 3.4 % 05/18/24 03:53 Baso % (Auto) 0.3 % 05/18/24 03:53 Neut # (Auto) 5.32 10^3/uL (1.8-7.7) 05/18/24 03:53 Lymph # (Auto) 2.1 10^3/uL (0.8-4.8) 05/18/24 03:53 [place] # (Auto) 0.1 10^3/uL (0.2-0.9) L 05/18/24 03:53 Eos # (Auto) 0.3 10^3/uL (0.0-0.8) 05/18/24 03:53 Baso # (Auto) 0.0 10^3/uL (0.0-0.1) 05/18/24 03:53 Nucleated RBC % (auto) 0 % 05/18/24 03:53 Nucleated RBCs # 0.0 /100WBC 05/18/24 03:53 Sodium 142 mmol/L (136-145) 05/19/24 03:19 Potassium 4.4 mmol/L (3.5-5.1) 05/19/24 03:19 Chloride 104 mmol/L (98-107) 05/19/24 03:19 Carbon Dioxide 30 mmol/L (22-29) H 05/19/24 03:19 Anion Gap 12.4 (5-19) 05/19/24 03:19 BUN 6 mg/dL (6-20) 05/19/24 03:19 Creatinine 0.6 mg/dL (0.5-0.9) 05/19/24 03:19 GFR Calculation 117.4 mL/min (90-130) 05/19/24 03:19 Glucose 114 mg/dL (65-115) 05/19/24 03:19 Calculated Osmolality 292 mOsm/kg (285-295) 05/19/24 03:19 Calcium 8.8 mg/dL (8.5-10.5) 05/19/24 03:19 Phosphorus 4.0 mg/dL (2.5-4.5) 05/18/24 03:53 Magnesium 1.8 mg/dL (1.7-2.3) 05/18/24 03:53 Total Bilirubin 0.2 mg/dL (0.15-1.2) 05/19/24 03:19 AST 23 U/L (0-32) 05/19/24 03:19 ALT 51 U/L (0-33) H 05/19/24 03:19 Alkaline Phosphatase 73 U/L (35-105) 05/19/24 03:19 Total Protein 6.2 g/dL (6.6-8.7) L 05/19/24 03:19 Albumin 3.5 g/dL (3.5-5.2) 05/19/24 03:19 Globulin 2.7 g/dL (1.3-4.6) 05/19/24 03:19 Vitals Last Vital Signs Temp 98.2 F 05/19/24 07:29 Pulse 63 05/19/24 08:58 Resp 16 05/19/24 08:58 BP 125/81 05/19/24 07:29 Pulse Ox 97 05/19/24 08:58 O2 Del Method Room Air 05/19/24 08:58 Discharge Plan Discharge Patient Disposition: Home Condition: Stable Prescriptions: Continued clobetasol 0.05 % ointment 1 applic topical .2-3 TIMES A WEEK montelukast 10 mg tablet 10 mg PO BEDTIME Women's Multivitamin 18 mg-400 mcg- 500 mg-50 mcg tablet 1 tab PO QAM lidocaine HCl [Lidocaine Viscous] 2 % solution 1 applic mucous membrane QID PRN (Reason: corner of mouth pain/lesion) Qty: 100 1RF fluticasone propion-salmeterol [Advair Diskus] 500-50 mcg/dose blister with device 1 inh inhalation Q12H Qty: 60 3RF cyanocobalamin (vitamin B-12) 1,000 mcg capsule 1,000 mcg PO DAILY Qty: 30 0RF buspirone 30 mg tablet 30 mg PO BID Qty: 60 1RF Rx Instructions: Take one tablet by mouth each morning and evening lurasidone 120 mg tablet 120 mg PO DAILY Qty: 30 1RF Rx Instructions: Take one tablet once daily; take with food or snack of at least 350 calories lorazepam 2 mg tablet See Rx Instructions PO BID PRN (Reason: anxiety) Qty: 60 1RF Rx Instructions: Take one-half to one tablet twice daily, if needed, for anxiety albuterol sulfate [ProAir HFA] 90 mcg/actuation HFA aerosol inhaler 2 puff INHALATION Q4H PRN (Reason: Shortness Of Breath) Qty: 8.5 6RF albuterol sulfate 2.5 mg /3 mL (0.083 %) solution for nebulization 2.5 mg inhalation Q6H PRN (Reason: shortness of breath or wheezing) Qty: 360 6RF diclofenac sodium 100 mg tablet extended release 24 hr 100 mg PO BID PRN (Reason: pain, severe) Qty: 60 1RF folic acid 1 mg tablet 1 mg PO DAILY Qty: 30 5RF cevimeline 30 mg capsule 1 cap PO TID Qty: 90 5RF Fasenra Pen 30 mg/mL auto-injector 30 mg SUBCUT Q28D Qty: 1 2RF Rx Instructions: new rx naseem for sunday05/19/24 pantoprazole [Protonix] 40 mg tablet,delayed release (DR/EC) 40 mg PO DAILY Qty: 30 4RF nicotine 21-14-7 mg/24 hr patch, TD daily, sequential See Rx Instructions transdermal .COMPLEX Qty: 56 0RF Rx Instructions: apply 1-21 mg NICOTINE PATCH daily for 28 days; follow with 1-14 mg PATCH daily for 14 days, then 1-7mg PATCH daily for 14 days transdermal ondansetron 8 mg tablet,disintegrating 8 mg PO Q8H PRN (Reason: nausea and vomiting) 5 Days Qty: 15 0RF hydrocodone-acetaminophen 7.5-325 mg tablet 1 tab PO BID PRN (Reason: pain) 10 Days Qty: 20 0RF mupirocin 2 % ointment 1 applic topical TID Qty: 22 0RF Rx Instructions: apply 3 times a day for 10days to the outer corner of the mouth furosemide 20 mg tablet 20 mg PO DAILY Qty: 30 2RF Vitamin Plus Low Iron 27 mg iron- 1 mg tablet See Rx Instructions .ROUTE .COMPLEX Qty: 90 0RF Dose Instruction: take 1 capsule BY MOUTH DAILY Rx Instructions: take 1 capsule BY MOUTH DAILY cetirizine 10 mg tablet See Rx Instructions .ROUTE .COMPLEX Qty: 90 0RF Dose Instruction: TAKE 1 TABLET BY MOUTH DAILY NEEDED FOR allergy symptoms Rx Instructions: TAKE 1 TABLET BY MOUTH DAILY NEEDED FOR allergy symptoms losartan 100 mg tablet See Rx Instructions .ROUTE .COMPLEX Qty: 30 0RF Dose Instruction: TAKE 1 TABLET BY MOUTH EVERY DAY Rx Instructions: TAKE 1 TABLET BY MOUTH EVERY DAY amlodipine 5 mg tablet See Rx Instructions .ROUTE .COMPLEX Qty: 30 0RF Dose Instruction: TAKE 1 TABLET BY MOUTH EVERY DAY Rx Instructions: TAKE 1 TABLET BY MOUTH EVERY DAY cyclobenzaprine 10 mg tablet 10 mg PO TID Qty: 30 0RF leucovorin calcium 15 mg tablet 15 mg PO Q6H 4 Days Qty: 16 0RF gabapentin 300 mg Capsule 300 mg PO BID Held methotrexate sodium 2.5 mg tablet See Rx Instructions PO .week Qty: 40 5RF Hold Instructions: Resume on 06/02/24. Rx Instructions: Split dose.. take 4 tabs in the AM and 4 tabs in the PM on the same day once a week Discharge Orders: Discharge Order (Routine); Ordered 05/19/24 Ordered By: Ricardo Echeverria Referrals: Nathalie Madison MD [Primary Care Provider] - 05/23/24 12:00 pm Patient Instructions: Rheumatoid Arthritis, Methotrexate (By mouth), Opioid Safety Discharge Attestations Time Spent in Discharge Care*: less than 30 min Quality Metrics Clinical Quality Measures [ No reported AMI, CVA or VTE this stay] Coding Level of Care Code Acute Code for Chg Fwd Diagnoses Accidental methotrexate overdose T45.1X1D Encounter type: subsequent encounter Tobacco dependence with current use F17.200 Asthma-COPD overlap syndrome J44.9
== END 2024-05-19 09:45 | disposition home or self-care (01) ==
LOC: ER 19:44 → MEDSURG 19:53
PROVIDERS: Admitting Provider Internal Medicine; Emergency Provider Physician Assistant; PCP Family Medicine; Visit Provider Internal Medicine
DX: T45.1X1D Poisoning by antineoplastic and immunosuppressive drugs, accidental (unintentional), subsequent encounter (principal); J44.9 Chronic obstructive pulmonary disease, unspecified; Z86.14 Personal history of Methicillin resistant Staphylococcus aureus infection; F17.210 Nicotine dependence, cigarettes, uncomplicated
CPT/HCPCS: 36415; 80053; 80299; 83735; 84100; 85025; 96365; 96366; 99285; G0378; J0640; J2270; J2405

== ENCOUNTER → 2024-06-09 09:35 | Outpatient (BNVA) | payer BC, SELFPAY | PROVIDERS: PCP Family Medicine; Visit Provider Nurse Practitioner Psychiatric/Mental Health | DX: Z79.899 Other long term (current) drug therapy (principal) | CPT/HCPCS: 80061; 83036 ==

== ENCOUNTER → 2024-08-05 15:59 | Outpatient (BNVA) | payer BC, SELFPAY | PROVIDERS: PCP Family Medicine; Visit Provider Nurse Practitioner Psychiatric/Mental Health | DX: Z79.899 Other long term (current) drug therapy (principal) | CPT/HCPCS: 80306 ==

== ENCOUNTER 2024-08-08 16:10 | Emergency (ER) | payer BC, MEDICAID, SELFPAY ==
[2024-08-08 16:30] VITALS: BP 149/102; PULSE 94; RESP 18; TEMP 36.6; O2SAT 96; BMI 47.7
--- NOTE | 2024-08-08 19:39 | ED_ITS ---
HPI - Back Pain/Injury General: Chief Complaint: Back Pain/Injury Stated Complaint: Pain hip radiates to legs Time Seen by Provider: 08/08/24 19:29 History of Present Illness: 29-year-old female with history of low b ack pain, possible rheumatoid arthritis who presents emergency room with low back pain and pain radiating down both her thighs. This been going on for about 3 days. She says become difficult to walk. No saddle numbness, no urinary retention or incontinence, no focal motor deficit, no sensory deficit. no recent fever. no cough. no shortness of breath. no chest pain. no abdominal pain. no nausea or vomiting. no dysuria. no altered mental status. no edema. Related Data Home Medications Medication Instructions Recorded Confirmed clobetasol 0.05 % topical ointment 1 applic topical .2-3 TIMES A WEEK 05/28/23 08/05/24 montelukast 10 mg tablet 10 mg PO BEDTIME 05/28/23 08/05/24 Previous Rx's Medication Instructions Recorded ondansetron 8 mg disintegrating 8 mg PO Q8H PRN nausea and 08/21/23 tablet vomiting 5 days #15 tabs albuterol sulfate 2.5 mg/3 mL 2.5 mg (3 mL) inhalation Q6H PRN 09/21/23 (0.083 %) solution for nebulization shortness of breath or wheezing #360 mL albuterol sulfate 90 mcg/actuation 2 puff inhalation Q4H PRN 09/21/23 aerosol inhaler (ProAir HFA) Shortness Of Breath #8.5 grams furosemide 20 mg tablet 20 mg PO DAILY #30 tabs 01/30/24 cetirizine 10 mg tablet See Rx Instructions .Route 03/21/24 .COMPLEX #90 tabs benralizumab 30 mg/mL subcutaneous 30 mg SUBCUT Q28D 3 doses #1 mL 05/12/24 auto-injector (Fasenra Pen) cevimeline 30 mg capsule 1 cap PO TID #90 caps 05/12/24 diclofenac sodium 100 mg 100 mg PO BID PRN pain, severe #60 05/12/24 tablet,extended release 24 hr tabs folic acid 1 mg tablet 1 mg PO DAILY #30 tabs 05/12/24 methotrexate sodium 2.5 mg tablet See Rx Instructions PO .week 05/12/24 Rheumatoid Arthritis #40 tabs nicotine See Rx Instructions transdermal 05/12/24 21mg/24hr-14mg/24hr-7mg/24hr daily .COMPLEX #56 patches transderm patches,sequentl pantoprazole 40 mg tablet,delayed 40 mg PO DAILY #30 tabs 05/12/24 release (Protonix) fluticasone 500 mcg-salmeterol 50 1 inh inhalation Q12H #60 ea 05/20/24 mcg/dose blistr powdr for inhalation (Advair Diskus) vitamin with calcium See Rx Instructions .Route 05/21/24 no.72-iron 27 mg-folic acid 1 mg .COMPLEX #90 tabs tablet ( Vitamins Plus Low Iron) prednisone 10 mg tablet See Rx Instructions PO .COMPLEX 06/05/24 PRN joint pain #30 tabs nebulizer #1 ea 06/12/24 amlodipine 5 mg tablet See Rx Instructions .Route 07/17/24 .COMPLEX #30 tabs losartan 100 mg tablet See Rx Instructions .Route 07/17/24 .COMPLEX #30 tabs lorazepam 2 mg tablet See Rx Instructions PO BID PRN 07/18/24 anxiety #60 tabs bupropion HCl 150 mg 24 hr tablet, 150 mg PO QAM #30 tabs 07/23/24 extended release (Wellbutrin XL) naltrexone 50 mg tablet 50 mg PO DAILY #30 tabs 07/23/24 buspirone 30 mg tablet 30 mg PO BID #60 tabs 08/05/24 escitalopram oxalate 10 mg tablet 10 mg PO DAILY #30 tabs 08/05/24 gabapentin 300 mg capsule 300 mg PO BID #60 caps 08/05/24 lurasidone 120 mg tablet 120 mg PO DAILY #30 tabs 08/05/24 cyclobenzaprine 10 mg tablet 10 mg PO Q8H PRN muscle spasm #20 08/08/24 tabs dexamethasone 6 mg tablet 6 mg PO DAILY 5 days #5 tabs 08/08/24 diclofenac sodium 50 mg 50 mg PO BID PRN pain #14 tabs 08/08/24 tablet,delayed release hydrocodone 5 mg-acetaminophen 325 1 tab PO Q8H PRN pain #14 tabs 08/08/24 mg tablet polyethylene glycol 3350 17 17 g PO DAILY #510 grams 08/08/24 gram/dose oral powder (Miralax) Allergies Allergy/AdvReac Type Severity Reaction Status Date / Time No Known Allergies Allergy Verified 08/08/24 16:38 Review of Systems Narrative: Constitutional symptoms: Negative except as documented in HPI. Skin symptoms: Negative except as documented in HPI. Eye symptoms: Negative except as documented in HPI. ENMT symptoms: Negative except as documented in HPI. Respiratory symptoms: Negative except as documented in HPI. Cardiovascular symptoms: Negative except as documented in HPI. Gastrointestinal symptoms: Negative except as documented in HPI. Genitourinary symptoms: Negative except as documented in HPI. Musculoskeletal symptoms: Negative except as documented in HPI. Neurologic symptoms: Negative except as documented in HPI. Psychiatric symptoms: Negative except as documented in HPI. Endocrine symptoms: Negative except as documented in HPI. 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 Inflammatory arthritis UTI (urinary tract infection) Psychiatric care MRSA (methicillin resistant Staphylococcus aureus) Surgical History History of cholecystectomy Family History Grandmother Lupus Mother Lung disease copd Other Chronic kidney disease (CKD) Heart disease Hypertension Lupus (systemic lupus erythematosus) Rheumatoid arthritis Stroke Social History Smoking and tobacco/nicotine status: current every day tobacco/nicotine user cigarettes Packs smoked per day: 1.5 Years cigarettes smoked: 20 [ Other cigarette details: started at age 8] Alcohol intake: former Year of sobriety/quit date alcohol: 2014 Substance/Drug Use: current Substance/Drug use frequency: daily Other substance/drug use details: history opiate pill abuse Household members: children Number of children: 1 Current occupational status: unemployed 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 Special richa needs: No Agree to transfusion: Yes Physical Exam Narrative: EXAM NARRATIVE: General: Alert, no acute distress. Skin: warm and dry Head: Normocephalic Neck: Trachea midline Eye: Extraocular movements are intact. Ears, nose, mouth and throat: Oral mucosa moist Respiratory: Respirations are non-labored Musculoskeletal: Normal ROM Neurological: Alert and oriented, No focal neurological deficit observed. Psychiatric: Cooperative, appropriate mood & affect. Course Vital Signs: Vital signs: Vital Signs Temperature 98 F 08/08/24 16:30 Pulse Rate 94 08/08/24 16:30 Respiratory Rate 18 08/08/24 16:30 Blood Pressure 149/102 08/08/24 16:30 Pulse Oximetry 96 08/08/24 16:30 MDM - Back Pain/Injury Medical Decision Making I discussed with the patient that We will try to treat her symptoms now and reduce inflammation in that if pain persist she can follow with her primary and they consider an MRI if they need to. She has no traumatic injuries. I do not suspect any bony abnormalities. So a CT or an x-ray would be of no use. Assessment and plan: Lumbar radiculopathy ?P.o. [place]. IM Decadron, Norflex and Toradol. - Discharged home - Discussed plan with patient. Answered any questions. - Evaluation and treatment of this problem were appropriate in the emergency setting. No radiology studies performed this visit Discharge Plan Discharge Patient Disposition: Home Clinical Impression: Lumbar radiculopathy Condition: Stable Prescriptions: New cyclobenzaprine 10 mg tablet 10 mg PO Q8H PRN (Reason: muscle spasm) Qty: 20 0RF hydrocodone-acetaminophen 5-325 mg tablet 1 tab PO Q8H PRN (Reason: pain) Qty: 14 0RF Rx Instructions: Take 1/2 to 1 tab every 8 hours as needed for pain dexamethasone 6 mg tablet 6 mg PO DAILY 5 Days Qty: 5 0RF diclofenac sodium 50 mg tablet,delayed release (DR/EC) 50 mg PO BID PRN (Reason: pain) Qty: 14 0RF polyethylene glycol 3350 [Miralax] 17 gram/dose powder 17 g PO DAILY Qty: 510 0RF Rx Instructions: Take 1 scoop daily while taking pain medications. No Action clobetasol 0.05 % ointment 1 applic topical .2-3 TIMES A WEEK montelukast 10 mg tablet 10 mg PO BEDTIME naltrexone 50 mg tablet 50 mg PO DAILY Qty: 30 0RF bupropion HCl [Wellbutrin XL] 150 mg tablet extended release 24 hr 150 mg PO QAM Qty: 30 0RF lurasidone 120 mg tablet 120 mg PO DAILY Qty: 30 2RF Rx Instructions: Take one tablet once daily; take with food or snack of at least 350 calories escitalopram oxalate 10 mg tablet 10 mg PO DAILY Qty: 30 2RF Rx Instructions: Take one tablet by mouth every morning buspirone 30 mg tablet 30 mg PO BID Qty: 60 2RF Rx Instructions: Take one tablet by mouth each morning and evening albuterol sulfate [ProAir HFA] 90 mcg/actuation HFA aerosol inhaler 2 puff INHALATION Q4H PRN (Reason: Shortness Of Breath) Qty: 8.5 6RF albuterol sulfate 2.5 mg /3 mL (0.083 %) solution for nebulization 2.5 mg inhalation Q6H PRN (Reason: shortness of breath or wheezing) Qty: 360 6RF diclofenac sodium 100 mg tablet extended release 24 hr 100 mg PO BID PRN (Reason: pain, severe) Qty: 60 1RF methotrexate sodium 2.5 mg tablet See Rx Instructions PO .week Qty: 40 5RF Hold Instructions: Resume on 06/02/24. Rx Instructions: Split dose.. take 4 tabs in the AM and 4 tabs in the PM on the same day once a week folic acid 1 mg tablet 1 mg PO DAILY Qty: 30 5RF cevimeline 30 mg capsule 1 cap PO TID Qty: 90 5RF Fasenra Pen 30 mg/mL auto-injector 30 mg SUBCUT Q28D Qty: 1 2RF Rx Instructions: new rx naseem for sunday05/19/24 pantoprazole [Protonix] 40 mg tablet,delayed release (DR/EC) 40 mg PO DAILY Qty: 30 4RF nicotine 21-14-7 mg/24 hr patch, TD daily, sequential See Rx Instructions transdermal .COMPLEX Qty: 56 0RF Rx Instructions: apply 1-21 mg NICOTINE PATCH daily for 28 days; follow with 1-14 mg PATCH daily for 14 days, then 1-7mg PATCH daily for 14 days transdermal (DME) nebulizer See Rx Instructions .Route .MEDSUPPLY Qty: 1 0RF Rx Instructions: As directed ondansetron 8 mg tablet,disintegrating 8 mg PO Q8H PRN (Reason: nausea and vomiting) 5 Days Qty: 15 0RF furosemide 20 mg tablet 20 mg PO DAILY Qty: 30 2RF cetirizine 10 mg tablet See Rx Instructions .ROUTE .COMPLEX Qty: 90 0RF Dose Instruction: TAKE 1 TABLET BY MOUTH DAILY NEEDED FOR allergy symptoms Rx Instructions: TAKE 1 TABLET BY MOUTH DAILY NEEDED FOR allergy symptoms fluticasone propion-salmeterol [Advair Diskus] 500-50 mcg/dose blister with device 1 inh inhalation Q12H Qty: 60 3RF Vitamin Plus Low Iron 27 mg iron- 1 mg tablet See Rx Instructions .ROUTE .COMPLEX Qty: 90 0RF Dose Instruction: take 1 capsule BY MOUTH DAILY Rx Instructions: take 1 capsule BY MOUTH DAILY prednisone 10 mg tablet See Rx Instructions PO .COMPLEX PRN (Reason: joint pain) Qty: 30 1RF Rx Instructions: take 1 or 2 tab daily for 3-7 days prn joint pain flare PO PRN; amlodipine 5 mg tablet See Rx Instructions .ROUTE .COMPLEX Qty: 30 0RF Dose Instruction: TAKE 1 TABLET BY MOUTH EVERY DAY Rx Instructions: TAKE 1 TABLET BY MOUTH EVERY DAY losartan 100 mg tablet See Rx Instructions .ROUTE .COMPLEX Qty: 30 0RF Dose Instruction: TAKE 1 TABLET BY MOUTH EVERY DAY Rx Instructions: TAKE 1 TABLET BY MOUTH EVERY DAY lorazepam 2 mg tablet See Rx Instructions PO BID PRN (Reason: anxiety) Qty: 60 1RF Rx Instructions: Take one-half to one tablet twice daily, if needed, for anxiety gabapentin 300 mg capsule 300 mg PO BID Qty: 60 3RF Discharge Orders: Discharge ED (Routine); Ordered 08/08/24 Ordered By: Grace Aguilera Referrals: Nathalie Madison MD [Primary Care Provider] - Discharge Diet: Usual diet Discharge Activity: Increase activity as tolerated Patient Instructions: Lumbar Radiculopathy (ED), Opioid Safety, Pain Management Activity Restrictions/Additional Instructions: Thank you for choosing [facility] for your healthcare needs today. Pl ease realize this is an emergency room and that we are providing you with a medical screening exam and this may not be complete and all inclusive of all the testing and or work up that you may need to determine your ailment or severity of your illness. You have been screened and evaluated and felt safe for discharge. Health conditions do change or evolve sometimes and as such it is important that you follow up with your Primary Doctor to be re checked, 3-5 days is a general good time frame for follow up. 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
[2024-08-08] MEDS: dexamethasone 10 mg/mL INJ IM (20:08)
[2024-08-08] MEDS: orphenadrine 30 mg/mL Inj 2 mL 60 MG IM (20:09)
[2024-08-08] MEDS: HYDROcodone-acetaminophen 10-325 mg Tablet 1 TAB PO (20:09)
[2024-08-08] MEDS: ketorolac 60 mg/2 mL INJ IM (20:09)
== END 2024-08-08 20:12 | disposition home or self-care (01) ==
PROVIDERS: Emergency Provider Emergency Medicine; PCP Family Medicine
DX: M54.16 Radiculopathy, lumbar region (principal); F17.210 Nicotine dependence, cigarettes, uncomplicated; J44.89 Other specified chronic obstructive pulmonary disease; I10 Essential (primary) hypertension
CPT/HCPCS: 96372; 99284; J1100; J1885; J2360

== ENCOUNTER → 2024-08-24 11:46 | Outpatient (BNVA) | payer BC, MEDICAID, SELFPAY | PROVIDERS: PCP Family Medicine; Visit Provider Emergency Medicine | DX: R05.9 Cough, unspecified (principal) | CPT/HCPCS: 87400; 87426 ==

== ENCOUNTER → 2024-09-04 13:16 | Outpatient (BNVA) | payer BC, SELFPAY | PROVIDERS: PCP Family Medicine; Visit Provider Family Medicine | DX: Z72.51 High risk heterosexual behavior (principal) | CPT/HCPCS: 87210; 87491; 87591 ==

== ENCOUNTER → 2024-10-08 13:51 | Outpatient (BNVA) | payer BC, SELFPAY | PROVIDERS: PCP Family Medicine; Visit Provider Emergency Medicine | DX: M25.562 Pain in left knee (principal); S86.912A Strain of unspecified muscle(s) and tendon(s) at lower leg level, left leg, initial encounter; X58.XXXA Exposure to other specified factors, initial encounter | CPT/HCPCS: 73562 ==

== ENCOUNTER 2024-11-05 09:16 | Outpatient (CLI) | payer BC, MEDICAID, SELFPAY ==
--- NOTE | 2024-11-05 09:20 | MR_ITS ---
WS: [id number] MRI LUMBAR SPINE NONCONTRAST TECHNIQUE: Sagittal T1, T2 and STIR imaging. Axial T1 and T2 imaging. CLINICAL INFORMATION: VERTEBROGENIC LOW BACK PAIN COMPARISON: None. FINDINGS: Mild lumbar curve. No acute compression. No high-grade central canal stenosis. L1-L2: Normal. L2-L3: Normal. L3-L4: No significant disc bulging. Mild facet arthropathy. Spinal canal and foramina are patent. L4-L5: LEFT eccentric disc bulging with slight contact of the exiting LEFT L4 nerve root. Tiny annular fissure. Mild facet arthropathy. Spinal canal and RIGHT foramen are patent. L5-S1: Mild annular bulging. Mild facet arthropathy. Spinal canal and foramen are patent. Visualized pelvic bony structures: Normal. Paravertebral soft tissues: Normal. 1.7 cm RIGHT renal cyst. MR/MR lumbar spine wo con* [id number] IMPRESSION: 1. Tiny LEFT foraminal protrusion L4-5 with a small annular fissure with sligh t contact of the exiting LEFT L4 nerve root. Recommend correlation LEFT L4 nerv e root symptoms. 2. Mild facet arthropathy L4-L5 and L5-S1. 3. No other acute findings.
== END 2024-11-05 09:17 | disposition home or self-care (01) ==
LOC: RAD 09:17
PROVIDERS: PCP Family Medicine; Visit Provider Anesthesiology Pain Medicine
DX: M51.369 Other intervertebral disc degeneration, lumbar region without mention of lumbar back pain or lower extremity pain (principal); M51.379 Other intervertebral disc degeneration, lumbosacral region without mention of lumbar back pain or lower extremity pain; M47.896 Other spondylosis, lumbar region; M47.897 Other spondylosis, lumbosacral region; R93.7 Abnormal findings on diagnostic imaging of other parts of musculoskeletal system; N28.1 Cyst of kidney, acquired
CPT/HCPCS: 72148

== ENCOUNTER 2024-11-29 17:17 | Emergency (ER) | payer BC, MEDICAID, SELFPAY ==
--- NOTE | 2024-11-29 17:47 | XRR_ITS ---
PROCEDURE INFORMATION: Exam: XR Chest Exam date and time: 11/29/2024 5:52 PM Age: 29 years old Clinical indication: Cough and dyspnea; Dyspnea; Cough; Post op cystoscopy yesterday; Additional info: Dyspnea/cough TECHNIQUE: Imaging protocol: Radiologic exam of the chest. Views: 1 view. COMPARISON: CR XR chest 1V portable [id number] 04/24/2024 6:03 PM FINDINGS: Lungs: Unremarkable. No consolidation. Pleural spaces: Unremarkable. No pleural effusion. No pneumothorax. Heart/Mediastinum: Unremarkable. No cardiomegaly. Bones/joints: Unremarkable. XR/XR chest 1V portable [id number] IMPRESSION: No acute findings.
--- NOTE | 2024-11-29 17:48 | ED_ITS ---
Documented by User: Jonathan Arias, 12/01/24 06:31 HPI - General Adult 2 General: Chief complaint: General Medical Stated complaint: bladder sx yesterday - sob Time Seen by Provider: 11/29/24 17:47 History of Present Illness: 29-year-old female presents emergency ro om with complaint of shortness of breath and chest discomfort she has some lower abdominal discomfort as well. She had a bladder surgery yesterday from talking to her additional incision sounds like she may have had a cystoscopy with some injections into the bladder wall. She has not had any dysuria urgency or frequency. No vomiting or diarrhea. She does have a history of sarcoidosis she is supposed to be on Humira with a new held off starting it until after her surgery and she has not had any infusions yet. No previous history of DVT or PE she is not on any anticoagulants. Associated symptoms: Reports chest pain and dyspnea; Deny rash Related Data Home Medications ?Medication ?Instructions ?Recorded ?Confirmed clobetasol 0.05 % topical ointment 1 applic topical .2 -3 TIMES A WEEK 05/28/23 11/14/24 montelukast 10 mg tablet 10 mg PO BEDTIME 05/28/23 Previous Rx's ?Medication ?Instructions ?Recorded ondansetron 8 mg disintegrating 8 mg PO Q8H PRN nausea and 08/21/23 tablet vomiting 5 days #15 tabs albuterol sulfate 2.5 mg/3 mL 2.5 mg (3 mL) inhalation Q6H PRN 09/21/23 (0.083 %) solution for nebulization shortness of breat h or wheezing #360 mL albuterol sulfate 90 mcg/actuation 2 puff inhalation Q 4H PRN 09/21/23 aerosol inhaler (ProAir HFA) Shortness Of Breath #8.5 grams furosemide 20 mg tablet 20 mg PO DAILY #30 tabs 05/0 10/24 cetirizine 10 mg tablet See Rx Instructions .Route 0 03/21/24 .COMPLEX #90 tabs pantoprazole 40 mg tablet,delayed 40 mg PO DAILY #30 t abs 05/12/24 release (Protonix) fluticasone 500 mcg-salmeterol 50 1 inh inhalation Q12 H #60 ea 05/20/24 mcg/dose blistr powdr for inhalation (Advair Diskus) prednisone 10 mg tablet See Rx Instructions PO .COMP NICHOLAS 06/05/24 PRN joint pain #30 tabs nebulizer #1 ea 06/12/24 cyclobenzaprine 10 mg tablet 10 mg PO Q8H PRN muscle s pasm #20 08/08/24 tabs polyethylene glycol 3350 17 17 g PO DAILY #510 grams 1 10/08/23 gram/dose oral powder (Miralax) amlodipine 5 mg tablet See Rx Instructions .Route 1 10/15/23 .COMPLEX #30 tabs losartan 100 mg tablet See Rx Instructions .Route 1 10/15/23 .COMPLEX #30 tabs promethazine-DM 6.25 mg-15 mg/5 mL 10 ml PO Q6H PRN co ugh #473 mL 08/24/24 oral syrup cevimeline 30 mg capsule 1 cap PO TID #90 caps diclofenac sodium 100 mg 100 mg PO BID PRN pain, olivier re #60 09/08/24 tablet,extended release 24 hr tabs gabapentin 300 mg capsule 600 mg (2 x 300 mg) PO BID # 120 09/08/24 caps diclofenac sodium 3 % topical gel 1 applic topical BID PRN muscle 10/08/24 pain, tension #100 grams adalimumab 40 mg/0.8 mL 40 mg (0.8 mL) SUBCUT Q14D # 2 ea 10/29/24 subcutaneous pen kit (Humira Pen) vitamin with calcium See Rx Instructions .Rou te 11/11/24 no.72-iron 27 mg-folic acid 1 mg .COMPLEX #90 tabs tablet ( Vitamins Plus Low Iron) escitalopram oxalate 10 mg tablet 10 mg PO DAILY #30 t abs 11/14/24 lorazepam 2 mg tablet See Rx Instructions PO BID P RN 11/14/24 anxiety #60 tabs lurasidone 120 mg tablet 120 mg PO DAILY #30 tabs trazodone 100 mg tablet 200 mg (2 x 100 mg) PO .q hs PRN 11/14/24 insomnia #60 tabs azithromycin 250 mg tablet See Rx Instructions PO .COM PLEX #6 11/29/24 tabs codeine 10 mg-guaifenesin 100 mg/5 5 ml PO Q4H PRN cou gh #120 mL 11/29/24 mL oral liquid Allergies Allergy/AdvReac Type Severity Reaction Status Date / Time No Known Allergies Allergy Verified 11/14/24 13:50 Review of Systems 2 Const: Denies: fever(s) or chills Card: Reports: chest pain Resp: Reports: dyspnea GI: Denies: abdominal pain : Denies: dysuria, urinary frequency or urinary urgency Musc: Denies: neck pain or back pain Skin/Breast: Denies: rash PFSH ED 2 PFSH: Medical History Trochanteric bursitis of right hip Hypertension Accidental methotrexate overdose Accidental methotrexate overdose Tobacco dependence with current use Asthma-COPD overlap syndrome Generalized anxiety disorder Chronic cough Low back pain 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 Elevated glucose Left atrial enlargement Lichen sclerosus Asthma Nicotine dependence, unspecified, uncomplicated Immunization counseling High risk medication use 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 Inflammatory arthritis UTI (urinary tract infection) Psychiatric care MRSA (methicillin resistant Staphylococcus aureus) Surgical History History of cholecystectomy Family History Grandmother Lupus Mother Lung disease copd Other Chronic kidney disease (CKD) Heart disease Hypertension Lupus (systemic lupus erythematosus) Rheumatoid arthritis Stroke Social History Smoking and tobacco/nicotine status: current every day tobacco/nicotine user cigarettes Packs smoked per day: 1.5 Years cigarettes smoked: 20 [ Other cigarette details: started at age 8] Alcohol intake: former Year of sobriety/quit date alcohol: 2014 Substance/Drug Use: current Substance/Drug use frequency: daily Other substance/drug use details: history opiate pill abuse Household members: children Number of children: 1 Current occupational status: unemployed 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 Special richa needs: No Agree to transfusion: Yes Physical Exam 2 Const: COMMON NORMALS: no acute distress GENERAL APPEARANCE: cooperative and comfortable ORIENTATION/CONSCIOUSNESS: Yes awake, Yes oriented to person, Yes oriented to place and Yes oriented to time HENMT: COMMON NORMALS: normocephalic, atraumatic and hearing grossly normal bilaterally HEAD & SCALP: normocephalic and atraumatic Resp: COMMON NORMALS: normal respiratory effort, No retractions, No use of accessory muscles and clear to auscultation bilaterally AUSCULTATION: clear to auscultation bilaterally Cardio: COMMON NORMALS: regular rate, regular rhythm and No murmurs present (Cardio) RATE: regular rate RHYTHM: regular rhythm GI: COMMON NORMALS: Soft to palpation and No hepatosplenomegaly present A USCULTATION: Yes normoactive bowel sounds PALPATION: Yes Soft to palpation, No Tenderness to palpation present (GI), No Guarding due to palpation present (GI) and Yes No hepatosplenomegaly present Extremity: COMMON NORMALS: normal to inspection, capillary refill normal, no clubbing, cyanosis or edema, no calf tenderness and no pedal edema Neuro: SENSORIUM/ORIENTATION: Yes oriented to person, Yes oriented to place and Yes oriented to time Skin: COMMON NORMALS: no rashes or lesions noted GENERAL SKIN EXAM: no rashes or lesions noted Course 2 Vital Signs: Vital signs: Vital Signs Temperature 97.9 F 11/29/24 18:04 Pulse Rate 65 11/29/24 20:26 Respiratory Rate 18 11/29/24 18:04 Blood Pressure 139/57 11/29/24 20:26 Pulse Oximetry 97 11/29/24 20:26 Oxygen Delivery Me thod Room Air 11/29/24 19:40 MDM - General Adult Medical Decision Making Care signed out to Dr. Herron at change of shift. See final notes for diagnosis and disposition. 29-year-old female checked out to me with chest pain and shortness of breath. She has been coughing. Pain is worse with cough. Chest x-ray is negative. She had a recent procedure, so CTA abdomen ordered. It is negative for PE, but shows groundglass opacities concerning for multifocal pneumonia. Swabs are negative for flu RSV and COVID. She is placed on antibiotics. Cough suppressant. She can use her inhaler. Close outpatient follow-up. Return for worsening. Lab Data 11/29/24 18:07 11/29/24 18:07 Radiology Impressions Chest X-Ray 11/29/24 17:47 IMPRESSION: No acute findings. Chest CTA 11/29/24 17:55 IMPRESSION: 1. Negative for pulmonary embolus. 2. Scattered bilateral ground-glass opacities, concerning for multifocal pneumonia. Laboratory Results WBC 11.62 10^3/uL (3.29-11.43) H 11/29/24 18:07 RBC 4.34 10^6/uL (3.85-5.65) 11/29/24 18:07 Hgb 13.20 g/dL (11.27-16.99) 11/29/24 18:07 Hct 40.5 % (36-47) 11/29/24 18:07 MCV 93.3 fl (85-98) 11/29/24 18:07 MCH 30.4 pg (27-33) 11/29/24 18:07 MCHC 32.6 g/dL (30-55) 11/29/24 18:07 RDW 13.7 % (12.1-15.1) 11/29/24 18:07 Plt Count 361 10^3/cmm (157-399) 11/29/24 18:07 MPV 9.2 fL (7.4-10.4) 11/29/24 18:07 Neut % (Auto) 71.4 % 11/29/24 18:07 Lymph % (Auto) 20.2 % 11/29/24 18:07 Norman % (Auto) 5.2 % 11/29/24 18:07 Eos % (Auto) 2.6 % 11/29/24 18:07 Baso % (Auto) 0.3 % 11/29/24 18:07 Neut # (Auto) 8.28 10^3/uL (1.8-7.7) H 11/29/24 18:07 Lymph # (Auto) 2.4 10^3/uL (0.8-4.8) 11/29/24 18:07 Norman # (Auto) 0.6 10^3/uL (0.2-0.9) 11/29/24 18:07 Eos # (Auto) 0.3 10^3/uL (0.0-0.8) 11/29/24 18:07 Baso # (Auto) 0.0 10^3/uL (0.0-0.1) 11/29/24 18:07 Nucleated RBC % (auto) 0 % 11/29/24 18:07 Nucleated RBCs # 0.0 /100WBC 11/29/24 18:07 Sodium 137 mmol/L (136-145) 11/29/24 18:07 Potassium 3.6 mmol/L (3.5-5.1) 11/29/24 18:07 Chloride 101 mmol/L (98-107) 11/29/24 18:07 Carbon Dioxide 25 mmol/L (22-29) 11/29/24 18:07 Anion Gap 14.6 (5-19) 11/29/24 18:07 BUN 4 mg/dL (6-20) L 11/29/24 18:07 Creatinine 0.6 mg/dL (0.5-0.9) 11/29/24 18:07 GFR Calculation 117.4 mL/min (90-130) 11/29/24 18:07 Glucose 120 mg/dL (65-115) H 11/29/24 18:07 Calculated Osmolality 282 mOsm/kg (285-295) L 11/29/24 18:07 Calcium 9.0 mg/dL (8.5-10.5) 11/29/24 18:07 Total Bilirubin 0.2 mg/dL (0.15-1.2) 11/29/24 18:07 AST 10 U/L (0-32) 11/29/24 18:07 ALT 11 U/L (0-33) 11/29/24 18:07 Alkaline Phosphatase 73 U/L (35-105) 11/29/24 18:07 Total Protein 6.5 g/dL (6.6-8.7) L 11/29/24 18:07 Albumin 3.3 g/dL (3.5-5.2) L 11/29/24 18:07 Globulin 3.2 g/dL (1.3-4.6) 11/29/24 18:07 HCG, Qual Negative (Negative) 11/29/24 18:07 Urine Color Yellow (Yellow) 11/29/24 17:52 Urine Appearance Clear (CLEAR) 11/29/24 17:52 Urine pH 6.5 (5-7) 11/29/24 17:52 Ur Specific [place] 1.006 (1.005-1.030) 11/29/24 17:52 Urine Protein Negative (Negative) 11/29/24 17:52 Urine Glucose (UA) Negative (Normal) 11/29/24 17:52 Urine Ketones Negative (Negative) 11/29/24 17:52 Urine Blood Negative (Negative) 11/29/24 17:52 Urine Nitrate Negative (Negative) 11/29/24 17:52 Urine Bilirubin Negative (Negative) 11/29/24 17:52 Urine Urobilinogen 0.2 mg/dL (Negative) 11/29/24 17:52 Ur Leukocyte Esterase Negative (Negative) 11/29/24 17:52 Amorphous Sediment Not Reportable 11/29/24 17:52 Influenza A (PCR) Negative (Negative) 11/29/24 18:37 Influenza Type B (PCR) Negative (Negative) 11/29/24 18:37 RSV (PCR) Negative (Negative) 11/29/24 18:37 SARS-CoV-2 (PCR) Negative (Negative) 11/29/24 18:37 Discharge Plan Discharge Patient Disposition: Home Clinical Impression: Pneumonia Condition: Stable Prescriptions: New azithromycin 250 mg tablet See Rx Instructions .ROUTE .COMPLEX Qty: 6 0RF Rx Instructions: For 250 mg dose pack: take 500 mg today (day 1), then 250 mg for 4 days (days 2-5) codeine-guaifenesin 10-100 mg/5 mL liquid 5 ml PO Q4H PRN (Reason: cough) Qty: 120 0RF No Action clobetasol 0.05 % ointment 1 applic topical .2-3 TIMES A WEEK montelukast 10 mg tablet 10 mg PO BEDTIME cevimeline 30 mg capsule 1 cap PO TID Qty: 90 5RF diclofenac sodium 100 mg tablet extended release 24 hr 100 mg PO BID PRN (Reason: pain, severe) Qty: 60 1RF gabapentin 300 mg capsule 600 mg PO BID Qty: 120 5RF diclofenac sodium 3 % gel 1 applic topical BID PRN (Reason: muscle pain, tension) Qty: 100 0RF Rx Instructions: rub in well albuterol sulfate [ProAir HFA] 90 mcg/actuation HFA aerosol inhaler 2 puff INHALATION Q4H PRN (Reason: Shortness Of Breath) Qty: 8.5 6RF albuterol sulfate 2.5 mg /3 mL (0.083 %) solution for nebulization 2.5 mg inhalation Q6H PRN (Reason: shortness of breath or wheezing) Qty: 360 6RF pantoprazole [Protonix] 40 mg tablet,delayed release (DR/EC) 40 mg PO DAILY Qty: 30 4RF (DME) nebulizer See Rx Instructions .Route .MEDSUPPLY Qty: 1 0RF Rx Instructions: As directed promethazine-DM 6.25-15 mg/5 mL syrup 10 ml PO Q6H PRN (Reason: cough) Qty: 473 0RF Humira Pen 40 mg/0.8 mL pen injector kit 40 mg SUBCUT Q14D Qty: 2 4RF trazodone 100 mg tablet 200 mg PO .q hs PRN (Reason: insomnia) Qty: 60 2RF Rx Instructions: Take two tablets daily at bedtime, if needed for insomnia lurasidone 120 mg tablet 120 mg PO DAILY Qty: 30 2RF Rx Instructions: Take one tablet once daily; take with food or snack of at least 350 calories escitalopram oxalate 10 mg tablet 10 mg PO DAILY Qty: 30 2RF Rx Instructions: Take one tablet by mouth every morning lorazepam 2 mg tablet See Rx Instructions PO BID PRN (Reason: anxiety) Qty: 60 2RF Rx Instructions: Take one-half to one tablet twice daily, if needed, for anxiety ondansetron 8 mg tablet,disintegrating 8 mg PO Q8H PRN (Reason: nausea and vomiting) 5 Days Qty: 15 0RF furosemide 20 mg tablet 20 mg PO DAILY Qty: 30 2RF cetirizine 10 mg tablet See Rx Instructions .ROUTE .COMPLEX Qty: 90 0RF Dose Instruction: TAKE 1 TABLET BY MOUTH DAILY NEEDED FOR allergy symptoms Rx Instructions: TAKE 1 TABLET BY MOUTH DAILY NEEDED FOR allergy symptoms fluticasone propion-salmeterol [Advair Diskus] 500-50 mcg/dose blister with device 1 inh inhalation Q12H Qty: 60 3RF prednisone 10 mg tablet See Rx Instructions PO .COMPLEX PRN (Reason: joint pain) Qty: 30 1RF Rx Instructions: take 1 or 2 tab daily for 3-7 days prn joint pain flare PO PRN; amlodipine 5 mg tablet See Rx Instructions .ROUTE .COMPLEX Qty: 30 0RF Dose Instruction: TAKE 1 TABLET BY MOUTH EVERY DAY Rx Instructions: TAKE 1 TABLET BY MOUTH EVERY DAY losartan 100 mg tablet See Rx Instructions .ROUTE .COMPLEX Qty: 30 0RF Dose Instruction: TAKE 1 TABLET BY MOUTH EVERY DAY Rx Instructions: TAKE 1 TABLET BY MOUTH EVERY DAY Vitamin Plus Low Iron 27 mg iron- 1 mg tablet See Rx Instructions .ROUTE .COMPLEX Qty: 90 0RF Dose Instruction: TAKE 1 TABLET BY MOUTH EVERY DAY Rx Instructions: TAKE 1 TABLET BY MOUTH EVERY DAY cyclobenzaprine 10 mg tablet 10 mg PO Q8H PRN (Reason: muscle spasm) Qty: 20 0RF polyethylene glycol 3350 [Miralax] 17 gram/dose powder 17 g PO DAILY Qty: 510 0RF Rx Instructions: Take 1 scoop daily while taking pain medications. Discharge Orders: Discharge ED (Routine); Ordered 11/29/24 Ordered By: Giorgi Herron Referrals: Nathalie Madison MD [Primary Care Provider] - 1-3 days Patient Instructions: Pneumonia (ED), Opioid Safety, Pain Management Activity Restrictions/Additional Instructions: Antibiotics as directed. You may use your home nebulizer or albuterol inhaler for the cough as well. You may use the cough suppressant syrup as needed for pain or to lessen cough intensity. Return for fever greater than 100 despite 2- 3 doses of antibiotics, worsening pain, bleeding, shortness of breath, other concerning symptoms. Print Language: Slovak Coding Level of Care Code ED Tax Manager Cpa for Chg Fwd Documented by User: Giorgi Herron DO 11/29/24 22:44 HPI - General Adult 2 General: Chief complaint: General Medical Stated complaint: bladder sx yesterday - sob Time Seen by Provider: 11/29/24 17:47 Related Data Home Medications ?Medication ?Instructions ?Recorded ?Confirmed clobetasol 0.05 % topical ointment 1 applic topical .2 -3 TIMES A WEEK 05/28/23 11/14/24 montelukast 10 mg tablet 10 mg PO BEDTIME 05/28/23 Previous Rx's ?Medication ?Instructions ?Recorded ondansetron 8 mg disintegrating 8 mg PO Q8H PRN nausea and 08/21/23 tablet vomiting 5 days #15 tabs albuterol sulfate 2.5 mg/3 mL 2.5 mg (3 mL) inhalation Q6H PRN 09/21/23 (0.083 %) solution for nebulization shortness of breat h or wheezing #360 mL albuterol sulfate 90 mcg/actuation 2 puff inhalation Q 4H PRN 09/21/23 aerosol inhaler (ProAir HFA) Shortness Of Breath #8.5 grams furosemide 20 mg tablet 20 mg PO DAILY #30 tabs 05/0 10/24 cetirizine 10 mg tablet See Rx Instructions .Route 0 03/21/24 .COMPLEX #90 tabs pantoprazole 40 mg tablet,delayed 40 mg PO DAILY #30 t abs 05/12/24 release (Protonix) fluticasone 500 mcg-salmeterol 50 1 inh inhalation Q12 H #60 ea 05/20/24 mcg/dose blistr powdr for inhalation (Advair Diskus) prednisone 10 mg tablet See Rx Instructions PO .COMP NICHOLAS 06/05/24 PRN joint pain #30 tabs nebulizer #1 ea 06/12/24 cyclobenzaprine 10 mg tablet 10 mg PO Q8H PRN muscle s pasm #20 08/08/24 tabs polyethylene glycol 3350 17 17 g PO DAILY #510 grams 1 10/08/23 gram/dose oral powder (Miralax) amlodipine 5 mg tablet See Rx Instructions .Route 1 10/15/23 .COMPLEX #30 tabs losartan 100 mg tablet See Rx Instructions .Route 1 10/15/23 .COMPLEX #30 tabs promethazine-DM 6.25 mg-15 mg/5 mL 10 ml PO Q6H PRN co ugh #473 mL 08/24/24 oral syrup cevimeline 30 mg capsule 1 cap PO TID #90 caps diclofenac sodium 100 mg 100 mg PO BID PRN pain, olivier re #60 09/08/24 tablet,extended release 24 hr tabs gabapentin 300 mg capsule 600 mg (2 x 300 mg) PO BID # 120 09/08/24 caps diclofenac sodium 3 % topical gel 1 applic topical BID PRN muscle 10/08/24 pain, tension #100 grams adalimumab 40 mg/0.8 mL 40 mg (0.8 mL) SUBCUT Q14D # 2 ea 10/29/24 subcutaneous pen kit (Humira Pen) vitamin with calcium See Rx Instructions .Rou te 11/11/24 no.72-iron 27 mg-folic acid 1 mg .COMPLEX #90 tabs tablet ( Vitamins Plus Low Iron) escitalopram oxalate 10 mg tablet 10 mg PO DAILY #30 t abs 11/14/24 lorazepam 2 mg tablet See Rx Instructions PO BID P RN 11/14/24 anxiety #60 tabs lurasidone 120 mg tablet 120 mg PO DAILY #30 tabs trazodone 100 mg tablet 200 mg (2 x 100 mg) PO .q hs PRN 11/14/24 insomnia #60 tabs azithromycin 250 mg tablet See Rx Instructions PO .COM PLEX #6 11/29/24 tabs codeine 10 mg-guaifenesin 100 mg/5 5 ml PO Q4H PRN cou gh #120 mL 11/29/24 mL oral liquid Allergies Allergy/AdvReac Type Severity Reaction Status Date / Time No Known Allergies Allergy Verified 11/14/24 13:50 PFSH ED 2 PFSH: Medical History Trochanteric bursitis of right hip Hypertension Accidental methotrexate overdose Accidental methotrexate overdose Tobacco dependence with current use Asthma-COPD overlap syndrome Generalized anxiety disorder Chronic cough Low back pain 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 Elevated glucose Left atrial enlargement Lichen sclerosus Asthma Nicotine dependence, unspecified, uncomplicated Immunization counseling High risk medication use 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 Inflammatory arthritis UTI (urinary tract infection) Psychiatric care MRSA (methicillin resistant Staphylococcus aureus) Surgical History History of cholecystectomy Family History Grandmother Lupus Mother Lung disease copd Other Chronic kidney disease (CKD) Heart disease Hypertension Lupus (systemic lupus erythematosus) Rheumatoid arthritis Stroke Social History Smoking and tobacco/nicotine status: current every day tobacco/nicotine user cigarettes Packs smoked per day: 1.5 Years cigarettes smoked: 20 [ Other cigarette details: started at age 8] Alcohol intake: former Year of sobriety/quit date alcohol: 2014 Substance/Drug Use: current Substance/Drug use frequency: daily Other substance/drug use details: history opiate pill abuse Household members: children Number of children: 1 Current occupational status: unemployed 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 Special richa needs: No Agree to transfusion: Yes Course 2 Vital Signs: Vital signs: Vital Signs Temperature 97.9 F 11/29/24 18:04 Pulse Rate 65 11/29/24 20:26 Respiratory Rate 18 11/29/24 18:04 Blood Pressure 139/57 11/29/24 20:26 Pulse Oximetry 97 11/29/24 20:26 Oxygen Delivery Mi thod Room Air 11/29/24 19:40 MDM - General Adult Medical Decision Making 29-year-old female checked out to me with chest pain and shortness of breath. She has been coughing. Pain is worse with cough. Chest x-ray is negative. She had a recent procedure, so CTA abdomen ordered. It is negative for PE, but shows groundglass opacities concerning for multifocal pneumonia. Swabs are negative for flu RSV and COVID. She is placed on antibiotics. Cough suppressant. She can use her inhaler. Close outpatient follow-up. Return for worsening. Lab Data 11/29/24 18:07 11/29/24 18:07 Radiology Impressions Chest X-Ray 11/29/24 17:47 IMPRESSION: No acute findings. Chest CTA 11/29/24 17:55 IMPRESSION: 1. Negative for pulmonary embolus. 2. Scattered bilateral ground-glass opacities, concerning for multifocal pneumonia. Laboratory Results WBC 11.62 10^3/uL (3.29-11.43) H 11/29/24 18:07 RBC 4.34 10^6/uL (3.85-5.65) 11/29/24 18:07 Hgb 13.20 g/dL (11.27-16.99) 11/29/24 18:07 Hct 40.5 % (36-47) 11/29/24 18:07 MCV 93.3 fl (85-98) 11/29/24 18:07 MCH 30.4 pg (27-33) 11/29/24 18:07 MCHC 32.6 g/dL (30-55) 11/29/24 18:07 RDW 13.7 % (12.1-15.1) 11/29/24 18:07 Plt Count 361 10^3/cmm (157-399) 11/29/24 18:07 MPV 9.2 fL (7.4-10.4) 11/29/24 18:07 Neut % (Auto) 71.4 % 11/29/24 18:07 Lymph % (Auto) 20.2 % 11/29/24 18:07 [place] % (Auto) 5.2 % 11/29/24 18:07 Eos % (Auto) 2.6 % 11/29/24 18:07 Baso % (Auto) 0.3 % 11/29/24 18:07 Neut # (Auto) 8.28 10^3/uL (1.8-7.7) H 11/29/24 18:07 Lymph # (Auto) 2.4 10^3/uL (0.8-4.8) 11/29/24 18:07 [place] # (Auto) 0.6 10^3/uL (0.2-0.9) 11/29/24 18:07 Eos # (Auto) 0.3 10^3/uL (0.0-0.8) 11/29/24 18:07 Baso # (Auto) 0.0 10^3/uL (0.0-0.1) 11/29/24 18:07 Nucleated RBC % (auto) 0 % 11/29/24 18:07 Nucleated RBCs # 0.0 /100WBC 11/29/24 18:07 Sodium 137 mmol/L (136-145) 11/29/24 18:07 Potassium 3.6 mmol/L (3.5-5.1) 11/29/24 18:07 Chloride 101 mmol/L (98-107) 11/29/24 18:07 Carbon Dioxide 25 mmol/L (22-29) 11/29/24 18:07 Anion Gap 14.6 (5-19) 11/29/24 18:07 BUN 4 mg/dL (6-20) L 11/29/24 18:07 Creatinine 0.6 mg/dL (0.5-0.9) 11/29/24 18:07 GFR Calculation 117.4 mL/min (90-130) 11/29/24 18:07 Glucose 120 mg/dL (65-115) H 11/29/24 18:07 Calculated Osmolality 282 mOsm/kg (285-295) L 11/29/24 18:07 Calcium 9.0 mg/dL (8.5-10.5) 11/29/24 18:07 Total Bilirubin 0.2 mg/dL (0.15-1.2) 11/29/24 18:07 AST 10 U/L (0-32) 11/29/24 18:07 ALT 11 U/L (0-33) 11/29/24 18:07 Alkaline Phosphatase 73 U/L (35-105) 11/29/24 18:07 Total Protein 6.5 g/dL (6.6-8.7) L 11/29/24 18:07 Albumin 3.3 g/dL (3.5-5.2) L 11/29/24 18:07 Globulin 3.2 g/dL (1.3-4.6) 11/29/24 18:07 HCG, Qual Negative (Negative) 11/29/24 18:07 Urine Color Yellow (Yellow) 11/29/24 17:52 Urine Appearance Clear (CLEAR) 11/29/24 17:52 Urine pH 6.5 (5-7) 11/29/24 17:52 Ur Specific [place] 1.006 (1.005-1.030) 11/29/24 17:52 Urine Protein Negative (Negative) 11/29/24 17:52 Urine Glucose (UA) Negative (Normal) 11/29/24 17:52 Urine Ketones Negative (Negative) 11/29/24 17:52 Urine Blood Negative (Negative) 11/29/24 17:52 Urine Nitrate Negative (Negative) 11/29/24 17:52 Urine Bilirubin Negative (Negative) 11/29/24 17:52 Urine Urobilinogen 0.2 mg/dL (Negative) 11/29/24 17:52 Ur Leukocyte Esterase Negative (Negative) 11/29/24 17:52 Amorphous Sediment Not Reportable 11/29/24 17:52 Influenza A (PCR) Negative (Negative) 11/29/24 18:37 Influenza Type B (PCR) Negative (Negative) 11/29/24 18:37 RSV (PCR) Negative (Negative) 11/29/24 18:37 SARS-CoV-2 (PCR) Negative (Negative) 11/29/24 18:37 All radiology interpretation(s) finalized by discharge Discharge Plan Discharge Patient Disposition: Home Clinical Impression: Pneumonia Condition: Stable Prescriptions: New azithromycin 250 mg tablet See Rx Instructions .ROUTE .COMPLEX Qty: 6 0RF Rx Instructions: For 250 mg dose pack: take 500 mg today (day 1), then 250 mg for 4 days (days 2-5) codeine-guaifenesin 10-100 mg/5 mL liquid 5 ml PO Q4H PRN (Reason: cough) Qty: 120 0RF No Action clobetasol 0.05 % ointment 1 applic topical .2-3 TIMES A WEEK montelukast 10 mg tablet 10 mg PO BEDTIME cevimeline 30 mg capsule 1 cap PO TID Qty: 90 5RF diclofenac sodium 100 mg tablet extended release 24 hr 100 mg PO BID PRN (Reason: pain, severe) Qty: 60 1RF gabapentin 300 mg capsule 600 mg PO BID Qty: 120 5RF diclofenac sodium 3 % gel 1 applic topical BID PRN (Reason: muscle pain, tension) Qty: 100 0RF Rx Instructions: rub in well albuterol sulfate [ProAir HFA] 90 mcg/actuation HFA aerosol inhaler 2 puff INHALATION Q4H PRN (Reason: Shortness Of Breath) Qty: 8.5 6RF albuterol sulfate 2.5 mg /3 mL (0.083 %) solution for nebulization 2.5 mg inhalation Q6H PRN (Reason: shortness of breath or wheezing) Qty: 360 6RF pantoprazole [Protonix] 40 mg tablet,delayed release (DR/EC) 40 mg PO DAILY Qty: 30 4RF (DME) nebulizer See Rx Instructions .Route .MEDSUPPLY Qty: 1 0RF Rx Instructions: As directed promethazine-DM 6.25-15 mg/5 mL syrup 10 ml PO Q6H PRN (Reason: cough) Qty: 473 0RF Humira Pen 40 mg/0.8 mL pen injector kit 40 mg SUBCUT Q14D Qty: 2 4RF trazodone 100 mg tablet 200 mg PO .q hs PRN (Reason: insomnia) Qty: 60 2RF Rx Instructions: Take two tablets daily at bedtime, if needed for insomnia lurasidone 120 mg tablet 120 mg PO DAILY Qty: 30 2RF Rx Instructions: Take one tablet once daily; take with food or snack of at least 350 calories escitalopram oxalate 10 mg tablet 10 mg PO DAILY Qty: 30 2RF Rx Instructions: Take one tablet by mouth every morning lorazepam 2 mg tablet See Rx Instructions PO BID PRN (Reason: anxiety) Qty: 60 2RF Rx Instructions: Take one-half to one tablet twice daily, if needed, for anxiety ondansetron 8 mg tablet,disintegrating 8 mg PO Q8H PRN (Reason: nausea and vomiting) 5 Days Qty: 15 0RF furosemide 20 mg tablet 20 mg PO DAILY Qty: 30 2RF cetirizine 10 mg tablet See Rx Instructions .ROUTE .COMPLEX Qty: 90 0RF Dose Instruction: TAKE 1 TABLET BY MOUTH DAILY NEEDED FOR allergy symptoms Rx Instructions: TAKE 1 TABLET BY MOUTH DAILY NEEDED FOR allergy symptoms fluticasone propion-salmeterol [Advair Diskus] 500-50 mcg/dose blister with device 1 inh inhalation Q12H Qty: 60 3RF prednisone 10 mg tablet See Rx Instructions PO .COMPLEX PRN (Reason: joint pain) Qty: 30 1RF Rx Instructions: take 1 or 2 tab daily for 3-7 days prn joint pain flare PO PRN; amlodipine 5 mg tablet See Rx Instructions .ROUTE .COMPLEX Qty: 30 0RF Dose Instruction: TAKE 1 TABLET BY MOUTH EVERY DAY Rx Instructions: TAKE 1 TABLET BY MOUTH EVERY DAY losartan 100 mg tablet See Rx Instructions .ROUTE .COMPLEX Qty: 30 0RF Dose Instruction: TAKE 1 TABLET BY MOUTH EVERY DAY Rx Instructions: TAKE 1 TABLET BY MOUTH EVERY DAY Vitamin Plus Low Iron 27 mg iron- 1 mg tablet See Rx Instructions .ROUTE .COMPLEX Qty: 90 0RF Dose Instruction: TAKE 1 TABLET BY MOUTH EVERY DAY Rx Instructions: TAKE 1 TABLET BY MOUTH EVERY DAY cyclobenzaprine 10 mg tablet 10 mg PO Q8H PRN (Reason: muscle spasm) Qty: 20 0RF polyethylene glycol 3350 [Miralax] 17 gram/dose powder 17 g PO DAILY Qty: 510 0RF Rx Instructions: Take 1 scoop daily while taking pain medications. Discharge Orders: Discharge ED (Routine); Ordered 11/29/24 Ordered By: Giorgi Herron Referrals: Nathalie Madison MD [Primary Care Provider] - 1-3 days Patient Instructions: Pneumonia (ED), Opioid Safety, Pain Management Activity Restrictions/Additional Instructions: Antibiotics as directed. You may use your home nebulizer or albuterol inhaler for the cough as well. You may use the cough suppressant syrup as needed for pain or to lessen cough intensity. Return for fever greater than 100 despite 2- 3 doses of antibiotics, worsening pain, bleeding, shortness of breath, other concerning symptoms. Print Language: Slovak Coding Level of Care Code ED Tax Manager Cpa for Sunil Ace
--- NOTE | 2024-11-29 17:55 | CTR_ITS ---
PROCEDURE INFORMATION: Exam: CTA Chest With Contrast Exam date and time: 11/29/2024 6:26 PM Age: 29 years old Clinical indication: Pain; Cough and shortness of breath; Chest pressure; Prior surgery; Surgery date: 6+ months; Surgery type: Gb; C/O chest discomfort with cough and SOB post cystoscopy yesterday. ; Additional info: Chest pain shortness of breath postop TECHNIQUE: Imaging protocol: Computed tomographic angiography of the chest with contrast. Exam focused on the arteries. 3D rendering (Not supervised by radiologist): MIP and/or 3D reconstructed images were created by the technologist. Radiation optimization: All CT scans at this facility use at least one of these dose optimization techniques: automated exposure control; mA and/or kV adjustment per patient size (includes targeted exams where dose is matched to clinical indication); or iterative reconstruction. Contrast material: OMNI 350; Contrast volume: 67 ml; Contrast route: INTRAVENOUS (IV); COMPARISON: CR (CHEST, ) 11/29/2024 5:52 PM RADIATION DOSE METRICS: Total DLP (mGy-cm): 507.23 FINDINGS: Pulmonary arteries: Normal. No pulmonary emboli. Aorta: Unremarkable. No aortic aneurysm. No aortic dissection. Lungs: Scattered bilateral ground-glass opacities. Pleural spaces: Unremarkable. No pneumothorax. No pleural effusion. Heart: Unremarkable. No cardiomegaly. No pericardial effusion. Lymph nodes: Unremarkable. No enlarged lymph nodes. Gallbladder and biliary ducts: Cholecystectomy. Bones/joints: Unremarkable. No acute fracture. Soft tissues: Unremarkable. CT/CT angio chest PE protcl [id number] IMPRESSION: 1. Negative for pulmonary embolus. 2. Scattered bilateral ground-glass opacities, concerning for multifocal pneumonia.
[2024-11-29 18:04] VITALS: BP 207/107; PULSE 76; RESP 18; TEMP 36.6; O2SAT 98; BMI 47.4
[2024-11-29 18:17] LABS: Basophils % 0.3 %; Eosinophils # 0.3 10^3/uL (0.0-0.8); Eosinophils % 2.6 %; Hematocrit 40.5 % (36-47); Lymphocytes # 2.4 10^3/uL (0.8-4.8); Lymphocytes % 20.2 %; Mean Corpuscular HGB Conc 32.6 g/dL (30-55); Mean Corpuscular Hemoglobin 30.4 pg (27-33); Mean Corpuscular Volume 93.3 fl (85-98); Mean Platelet Volume 9.2 fL (7.4-10.4); Monocytes # 0.6 10^3/uL (0.2-0.9); Monocytes % 5.2 %; Neutrophils # 8.28 10^3/uL (1.8-7.7); Neutrophils % 71.4 %; Nucleated Red Blood Cells % 0 %; Platelet Count 361 10^3/cmm (157-399); Red Blood Count 4.34 10^6/uL (3.85-5.65); Red Cell Distribution Width 13.7 % (12.1-15.1); White Blood Count 11.62 10^3/uL (3.29-11.43)
[2024-11-29 18:28] LABS: HCG, Serum Qual Negative (Negative)
[2024-11-29] MEDS: iohexol 350 mg/mL 500 mL Btl (per mL) IV (18:33)
[2024-11-29 18:38] LABS: Alanine Aminotransferase 11 U/L (0-33); Albumin Level 3.3 g/dL (3.5-5.2); Alkaline Phosphatase 73 U/L (35-105); Anion Gap 14.6 (5-19); Aspartate Amino Transferase 10 U/L (0-32); Blood Urea Nitrogen 4 mg/dL (6-20); Carbon Dioxide 25 mmol/L (22-29); Chloride 101 mmol/L (98-107); Creatinine Clr Calc Pharmacy 192.4594; Globulin 3.2 g/dL (1.3-4.6); Glomerular Filtration Rate 117.4 mL/min (90-130); Glucose 120 mg/dL (65-115); Osmolality Calculated 282 mOsm/kg (285-295); Potassium 3.6 mmol/L (3.5-5.1); Sodium 137 mmol/L (136-145); Total Bilirubin 0.2 mg/dL (0.15-1.2); Total Protein 6.5 g/dL (6.6-8.7)
[2024-11-29 18:39] LABS: Add Urine Microscopic? NO
[2024-11-29 18:44] LABS: Bilirubin Urine Negative (Negative); Blood Urine Negative (Negative); Glucose Urine UA Negative (Normal); Ketones Urine Negative (Negative); Leukocyte Esterase Urine Negative (Negative); Nitrate Urine Negative (Negative); Protein Urine Negative (Negative); Specific Gravity, Urine 1.006 (1.005-1.030); Urine Appearance Clear (CLEAR); Urine Color Yellow (Yellow); Urobilinogen Urine 0.2 mg/dL (Negative); pH Urine 6.5 (5-7)
[2024-11-29 18:49] LABS: Charge for UA Resulting for Rev
[2024-11-29 19:22] LABS: Influenza A NEGATIVE (Negative); Influenza B NEGATIVE (Negative); Respiratory Syncytial Virus Ce NEGATIVE (Negative); SARS-CoV-2 PCR NEGATIVE (Negative)
[2024-11-29 19:40] VITALS: BP 139/87; PULSE 65; O2SAT 97
[2024-11-29] MEDS: guaiFENesin-codeine UDC 10 mL PO (20:25)
[2024-11-29] MEDS: azithromycin 250 mg Tablet 500 MG PO (20:25)
[2024-11-29 20:26] VITALS: BP 139/57; PULSE 65; O2SAT 97
== END 2024-11-29 20:27 | disposition home or self-care (01) ==
PROVIDERS: Family Medicine; Emergency Provider Emergency Medicine; PCP Family Medicine
DX: J18.9 Pneumonia, unspecified organism (principal); Z11.52 Encounter for screening for COVID-19; F17.210 Nicotine dependence, cigarettes, uncomplicated; I10 Essential (primary) hypertension
CPT/HCPCS: 36415; 71045; 71275; 80053; 81003; 84703; 85025; 87637; 99285; Q0144

== ENCOUNTER → 2024-12-22 13:38 | Outpatient (BNVA) | payer BC, MEDICAID, SELFPAY | PROVIDERS: PCP Family Medicine; Visit Provider Nurse Practitioner Women's Health | DX: N92.6 Irregular menstruation, unspecified (principal); N83.8 Other noninflammatory disorders of ovary, fallopian tube and broad ligament; N83.01 Follicular cyst of right ovary; N83.02 Follicular cyst of left ovary | CPT/HCPCS: 76830 ==

== ENCOUNTER 2025-01-19 13:12 | Outpatient (CLI) | payer BC, MEDICAID, SELFPAY ==
--- NOTE | 2025-01-19 13:17 | MR_ITS ---
WS: [id number] MRI/MRCP OF THE ABDOMEN WITHOUT GADOLINIUM ENHANCEMENT TECHNIQUE: Coronal T2 Fase BH, Axial T2 Fase BH, Axial T2 FS BH, Zxial 3D Gallagher BH, Axial DWI BH, 2D MRCP Radial BH, 3D MRCP (Resp), and Axial 3D Dyn BH Post sequences. CLINICAL INFORMATION: RENAL CYST COMPARISON: MRI 12/04/2023 FINDINGS: Some images degraded by motion. RIGHT renal cyst similar to previous measuring approximately 1.7 x 1.6 cm slightly increased in size compared to previous. No enhancement. Findings compatible with a renal cyst. No hydronephrosis in either kidney. Normal portal vein and splenic vein. Normal spleen. Visualized liver is normal. Normal pancreas. Normal caliber upper abdominal aorta. Hepatic steatosis. MR/MR abdomen wo/w con* [id number] Impression: 1. RIGHT renal cyst slightly increased in size compared to previous today hilda ures 1.7 x 1.6 cm. 2. Hepatic steatosis. 3. Prior cholecystectomy. 4. No other acute findings.
[2025-01-19] MEDS: gadobenate dimeglumine 20 mL vial IV (14:00)
== END 2025-01-19 13:13 | disposition home or self-care (01) ==
PROVIDERS: PCP Family Medicine; Visit Provider Surgery Trauma Surgery
DX: N28.1 Cyst of kidney, acquired (principal); K76.0 Fatty (change of) liver, not elsewhere classified; Z90.49 Acquired absence of other specified parts of digestive tract
CPT/HCPCS: 74183

== ENCOUNTER 2025-01-27 08:29 | Outpatient (CLI) | payer BC, MEDICAID, SELFPAY ==
[2025-01-27 08:41] VITALS: PULSE 85; RESP 18; O2SAT 98
[2025-01-27] MEDS: albuterol 2.5 mg/3 mL Neb INHALATION (08:41)
== END 2025-01-27 08:30 | disposition home or self-care (01) ==
LOC: RT 08:30
PROVIDERS: PCP Family Medicine; Visit Provider Family Medicine
DX: J45.50 Severe persistent asthma, uncomplicated (principal); J98.8 Other specified respiratory disorders
CPT/HCPCS: 94060; J7613

== ENCOUNTER → 2025-02-02 09:19 | Outpatient (BNVA) | payer BC, MEDICAID, SELFPAY | PROVIDERS: PCP Family Medicine; Visit Provider Family Medicine | DX: K76.0 Fatty (change of) liver, not elsewhere classified (principal); E55.9 Vitamin D deficiency, unspecified | CPT/HCPCS: 80053; 82306 ==

== ENCOUNTER → 2025-04-28 09:11 | Outpatient (BNVA) | payer BC, SELFPAY | PROVIDERS: PCP Family Medicine; Visit Provider Nurse Practitioner | DX: R09.89 Other specified symptoms and signs involving the circulatory and respiratory systems (principal) | CPT/HCPCS: 71046 ==

== ENCOUNTER 2025-04-28 16:20 | Emergency (ER) | payer BC, MEDICAID, SELFPAY ==
--- OUTSIDE RECORDS SUMMARY | 2018-05-08 11:00 | XMS_ITS | Continuity of Care Document ---
Author Organization [facility] Address [address] [facility] [place] [id number] Phone Care Team Providers Care Restaurant Team Member Name Role Phone Marilee DDS, Darrynalie Unavailable Unavailable Allergies, Adverse Reactions, Alerts Substance Reaction Status Criticality No Known Allergies Active No Inform ation Procedures Procedure Date Resin - Based Compostive - One Surface, Posterior Resin - Based Composite - One Surface, A nterior Resin - Based Composite - One Surface, A nterior Resin - Based Compostive - One Surface, Posterior Resin - Based Composite - One Surface, A nterior TE Erupted TE Erupted Resin - Based Composite - Four Or More S ufaces Or Involving Incisal Angle Resin - Based Composite - Four Or More S ufaces Or Involving Incisal Angle Resin - Based Composite - Three Surfaces , Anterior Limited Oral Evaluation- Problem Focused Intraoral - Periapical Each Additional R adiographic Image TE Erupted TE Erupted TE Erupted Extraction, Erupted Tooth Or Exposed Christiana t Comprehensive Oral Evaluation - NPX Intraoral - Periapical First Radiographi c Image Intraoral - Periapical Each Additional R adiographic Image Intraoral - Periapical Each Additional R adiographic Image Bitewings - Four Radiographic Images Jul Panoramic Radiographic Image Prophylaxis - Adult Limited Oral Evaluation- Problem Focused Intraoral - Periapical First Radiographi c Image TE Erupted TE Erupted Advance Directives Directive Yes / No Effective Date File Name No Information Encounters Encounter Description Practice Location Reason(s) For Visit Diagnoses Date Provider Providers Copied on Encounter [facility], [address] [facility] , [place], [place], [id number], tel:[phone] [facility] caries, unspecified Aug-0 8-201 8 Kaelke Kindel. [address] [place] [address], [id number] , [place]. tel:[phone] [facility], [address] [facility] , [place], [place], [id number], [place] tel:[phone] [facility] caries, unspecified Aug-0 2-201 8 Kaelke Kindel. [address] [place] [address], [id number] , [place]. tel:[phone] [facility], [address] [facility] [place], [place], [id number], [place] tel:[phone] [facility] caries, unspecified Randolph-2 5-201 8 Kaelke Kindel. [address] [place] [address], [id number] , [place]. tel:[phone] [facility], [address] [facility] [place], [place], [id number], [place] tel:[phone] [facility] Encounter for dental exam and cleaning w abnormal findingsDental caries, unspecified Apr-1 8-201 8 Kaelke Kindel. [address] [place] [address], [id number] , [place]. tel:[phone] [facility], [address] [facility] [place], [place], [id number], [place] tel:[phone] [facility] caries, unspecified Dec-0 7-201 7 Emani Ronn. [address] [place] [address], [id number] , [place]. tel:[phone] [facility], [address] [facility] [place], [place], [id number], [place] tel:[phone] [facility] Encounter for dental exam and cleaning w abnormal findingsDeposits [accretions] on teethDental caries, unspecified 7 Emani Brody. [address] [place] [address], [id number] , [place]. tel:[phone] [facility], [address] [facility], [place], [place], [id number], tel:[phone] [facility] Encounter for dental exam and cleaning w abnormal findingsDental caries, unspecified 7 Marilee Molina. [address] [place] [address], [id number] , [place]. tel: [phone] Family History Family Member Type Diagnosis Age At Onset No Information Payers Payer name Insurance type Covered constitution party ID Authorvictorinodonato villa(s) Dnt [employer] Adults [id number] Social History Type Description Quantity Date Captured Comments Alcohol Use Details Unknown Caffeine Use Details Unknown Tobacco Use Status No Information Smoking Status Current every day smoker 2017 Sex Female Sexual Orientation Don't Know Gender Identity Female Vital Signs Date / Time: Height Weight BMI Pulse Rate Blood Pressure Temperature Respiratory Rate Body Surface Area Head Circumference Head Circ. Percentile Wt./Anam. Percentile BMI percentile Pulse Ox Inhaled Ox 3:52 PM 80 /min 153/91 mm[Hg] Chief Complaint And Reason For Visit No Information Reason For Referral Reason For Referral No Information History Of Present Illness Encounter Date Complaint History Of Prese nt Illness No Information Functional Status Date Functional Assessmen t Pain Score 5/10 Instructions Date Instruction Additional Infor mation No Information Assessments Type Assessment Date No Information Patient Care Teams Name Effective Dates (start - stop) Status Members No Information
--- NOTE | 2025-04-28 16:22 | XRR_ITS ---
PROCEDURE INFORMATION: Exam: XR Chest Exam date and time: 04/28/2025 4:41 PM Age: 30 years old Clinical indication: Cough TECHNIQUE: Imaging protocol: Radiologic exam of the chest. Views: 1 view. COMPARISON: CR XR chest 2V* [id number] 04/28/2025 9:15 AM FINDINGS: Lungs: Unremarkable. No consolidation. Pleural spaces: Unremarkable. No pleural effusion. No pneumothorax. Heart/Mediastinum: Unremarkable. No cardiomegaly. Bones/joints: Unremarkable. XR/XR chest 1V portable [id number] IMPRESSION: No acute findings.
[2025-04-28 16:24] VITALS: BP 161/100; PULSE 97; RESP 18; TEMP 36.7; O2SAT 95; BMI 47.2
--- OUTSIDE RECORDS SUMMARY | 2025-04-28 16:26 | XMS_ITS | Encounter Summary ---
Author Organization [facility] Address [address] [place] [address] Care Team Providers Care Waste Water Or Water Plant Operator Name Role Phone Pratik Dean MD Primary Care Provider [phone] [phone] Encounter Details Date Type Department Care Team (Latest Contact Info) Description 12/08/1998 Outpatient Historical [facility] [place] [address] [place] [address] Pranay Edwards MD NO ADDRESS ON FILE Urinary tract infection, site not specified (Primary Dx) Social History Tobacco Use Types Packs/Day Years Used Date Smoking Tobacco: Never Assessed Comments Unknown Sex and Gender Information Value Date Recorded Sex Assigned at Not on file 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
--- OUTSIDE RECORDS SUMMARY | 2025-04-28 16:26 | XMS_ITS | Encounter Summary ---
Author Organization [facility] Address [address] [place] [address] Care Team Providers Care Product Blending Supervisor Name Role Phone Pratik Dean MD Primary Care Provider [phone] [phone] Encounter Details Date Type Department Care Team (Latest Contact Info) Description 12/08/1998 Outpatient Historical [facility] [facility] [address] [place] [address] Pranay Edwards MD NO ADDRESS ON FILE Urinary tract infection, site not specified (Primary Dx) Social History Tobacco Use Types Packs/Day Years Used Date Smoking Tobacco: Never Assessed Comments Unknown Sex and Gender Information Value Date Recorded Sex Assigned at Not on file 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
--- OUTSIDE RECORDS SUMMARY | 2025-04-28 16:26 | XMS_ITS | Clinical Summary ---
Author Organization [facility] Address [address] [place] [address] Phone Care Team Providers Care Wire Coating Operator Metal Name Role Phone Pratik Dean MD Primary Care Provider [phone] [phone] Allergies No known active allergies Medications venlafaxine (EFFEXOR) 37.5 mg tablet Take 37.5 mg by mouth 3 times daily. Active QUETIAPINE FUMARATE (SEROQUEL ORAL) Take by mouth. Active hydrOXYzine HCl (ATARAX) 25 mg tablet Take 25 mg by mouth 3 times daily as needed for Itching. Active lamoTRIgine (LaMICtal) 200 mg tablet Take 200 mg by mouth daily. Active HYDROcodone-ursula taminophen (NORCO) 5-325 mg tablet Take 1 Tablet by mouth every 4 hours as needed for Pain. Max Daily Amount: 6 Tablet 21 Tablet 0 06/21/2016 Active ondansetron (ZOFRAN ODT) 4 mg Tablet, Rapid Dissolve Take 1 Tablet (4 mg) by mouth every 8 hours as needed for Nausea Place tablet on top of tongue where it will dissolve, then swallow with saliva.. 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 Depression with anxiety 11/26/2012 Abdominal pain, epigastric 09/18/2012 Nausea with vomiting 09/18/2012 Insomnia 01/18/2012 Chronic back pain 09/15/2011 Allergic rhinitis 09/13/2011 Depression 09/13/2011 Immunizations Immunization Administration Dates Next Due (ADACEL/BOOSTRIX)(10 YR UP) TDAP VACCINE, 0.5ML, IM 04/08/2010 (GARDASIL)(9-45 YRS) HUMAN PAPILLOMAVIRUS VACCINE, TYPES 6, 11, 16, 18, QUADRIVALENT (4VHPV), 3 DOSE, IM 04/08/2010,06/25/2009,03/24/2009 (M-M-R II/PRIORIX)(12 MO UP) MEASLES, MUMPS AND RUBELLA VIRUS VACCINE, 0.5 ML IM/SUBCUT 05/24/1995 Dt Dtp Dtap Vaccine 02/22/1995, 4,1994,04/20 HIB, Unspecified Formulation 02/22/1995, 1994,1994,04/20 Hepatitis B Vaccine 09/13/1995,1994,1993 IPV/OPV 02/22/1995, 4,1994,04/20 Family History Medical History Relation Name Comments Healthy Father Unknown Father Heart Disease Maternal Grandmother Hypertension Maternal Grandmother Hypertension Mother Breast Cancer Neg Hx Colon Cancer Neg Hx Diabetes Neg Hx Relation Name Status Comments Father Alive Maternal Grandmother Mother Alive Social History Tobacco Use Types Packs/Day Years Used Date Smoking Tobacco: Former Cigarettes Smokeless Tobacco: Never Alcohol Use Standard Drinks/Week Comments No 0 (1 standard drink = 0.6 oz pur e alcohol) Comments No Sex and Gender Information Value Date Recorded Sex Assigned at Not on file Legal Sex Female 4:36 PM CDT Gender Identity Not on file Sexual Orientation Not on file Last Filed Vital Signs Vital Sign Reading Time Taken Comments Blood Pressure 135/92 06/21/2016 6:08 PM CDT Pulse 76 06/21/2016 5:02 PM CDT Temperature 36.9 C (98.4 F) 06/21/2016 6:08 PM CDT Respiratory Rate 14 06/21/2016 6:08 PM CDT Oxygen Saturation 98% 06/21/2016 6:08 PM CDT Inhaled Oxygen Concentration - - Weight 112 kg (247 lb) 06/21/2016 6:08 PM CDT Height 175.3 cm (5' 9 ) 06/21/2016 6:08 PM CDT Body Mass Index 36.48 06/21/2016 6:08 PM CDT Plan of Treatment Health Maintenance Due Date Last Done Comments Preventative Visit-Managed Medicaid 2013 11/15/2011 HPV/Cotest (21-29) 11/15/2016 11/15/2011 DTAP/TDAP/TD VACCINES (6 - T d or Tdap) 04/08/2020 04/08/2010, 02/22/1995, 1994, Additional history exists CERVICAL CANCER SCREENING 02/18/2024 HPV/Cotest (30-65) 02/18/2024 11/15/2011 PAP SMEAR 02/18/2024 11/15/2011 INFLUENZA VACCINE (#1) 2025 HEPATITIS B VACCINES Completed 09/13/1995, 1994, 1994 HPV VACCINES Completed 04/08/2010, 06/02, 03/24/2009 Insurance [address] [place] [address] [place]ICA[place] Care Teams Wire Coating Operator Metal Relationship Specialty Start Date End Date Pratik Dean MD [address] [facility] [address] [place] [address] PCP - General Family Practice 01/17/17
--- OUTSIDE RECORDS SUMMARY | 2025-04-28 16:26 | XMS_ITS | Encounter Summary ---
Author Organization [facility] Address [address] [place] [address] Care Team Providers Care Leather Goods Maker Name Role Phone Pratik Dean MD Primary Care Provider [phone] [phone] Encounter Details Date Type Department Care Team (Latest Contact Info) Description 12/08/1998 Outpatient Historical [facility] [place] [address] [place] [address] Pranay Edwards MD NO ADDRESS ON FILE Urinary tract infection, site not specified (Primary Dx) Social History Tobacco Use Types Packs/Day Years Used Date Smoking Tobacco: Never Assessed Comments Unknown Sex and Gender Information Value Date Recorded Sex Assigned at Not on file 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
--- OUTSIDE RECORDS SUMMARY | 2025-04-28 16:26 | XMS_ITS | Clinical Summary ---
Author Organization [facility] Address [address] [place] [address] Care Team Providers Care Bathroom Tiling Professional Name Role Phone Pratik Dean MD Primary Care Provider [phone] [phone] Allergies No known active allergies Medications dicyclomine (BENTYL) 10 mg capsuleIndicati ons:Epigastric pain Take 1 Capsule (10 mg) by mouth 4 times daily. 40 Capsule 0 08/19/2015 Active promethazine (PHENERGAN) 25 mg tabletIndicatio ns:Epigastric pain Take 1 Tablet (25 mg) by mouth every 6 hours as needed for Nausea/Emesi s. 30 Tablet 0 09/17/2015 Active HYDROcodone-ursula taminophen (NORCO) 5-325 mg tabletIndicatio ns:Epigastric pain Take 1 Tablet by mouth every 8 hours as needed for Pain, Moderate. 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 [...] Medical History Relation Name Comments Healthy Father Heart Disease Maternal Grandmother Hypertension Maternal Grandmother Hypertension Mother Breast Cancer Neg Hx Colon Cancer Neg Hx Diabetes Neg Hx Relation Name Status Comments Father Maternal Grandmother Mother Social History Tobacco Use Types Packs/Day Years Used Date Smoking Tobacco: Former Cigarettes 0.5 6 Smokeless Tobacco: Never Tobacco Cessation:Ready to Q uit: No; Counseling Given: Yes Alcohol Use Standard Drinks/Week Comments No 0 (1 standard drink = 0.6 oz pur e alcohol) Comments No Sex and Gender Information Value Date Recorded Sex Assigned at Not on file Legal Sex Female 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 EXTRACTOR OPERATOR HELPER Gender Identity Not on file Sexual Orientation Not on file Occupation Industry Job Start Date Job End Date Not on file Not on file Not on file Not on file Not on file Not on file Not on file Not on file Last Filed Vital Signs Vital Sign Reading Time Taken Comments Blood Pressure 124/76 10/29/2015 4:05 PM EXTRACTOR OPERATOR HELPER Pulse 86 10/29/2015 4:05 PM EXTRACTOR OPERATOR HELPER Temperature 36.7 C (98.1 F) 10/29/2015 4:05 PM EXTRACTOR OPERATOR HELPER Respiratory Rate 22 10/29/2015 4:05 PM EXTRACTOR OPERATOR HELPER Oxygen Saturation 99% 10/29/2015 4:05 PM EXTRACTOR OPERATOR HELPER Inhaled Oxygen Concentration - - Weight 116.6 kg (257 lb) 10/29/2015 4:05 PM EXTRACTOR OPERATOR HELPER Height 172.7 cm (5' 8 ) 10/29/2015 4:05 PM EXTRACTOR OPERATOR HELPER Body Mass Index 39.08 10/29/2015 4:05 PM EXTRACTOR OPERATOR HELPER Plan of Treatment Health Maintenance Due Date Last Done Comments HPV/Cotest () 2015 DTAP/TDAP/TD VACCINES (6 - T d or Tdap) 04/08/2020 04/08/2010, 02/22/1995, 1994, Additional history exists CERVICAL CANCER SCREENING 02/18/2024 HPV/Cotest (30-65) 02/18/2024 PAP SMEAR 02/18/2024 11/15/2011 INFLUENZA VACCINE (#1) 2025 HEPATITIS B VACCINES Completed 09/13/1995, 1994, 1994 HPV VACCINES Completed 04/08/2010, 06/02, 03/24/2009 Procedures Procedure Name Priority Date/Time Associated Diagnosis Comments CERV/VAG CYTOPATH, THIN PREP INSURANCE FOLLOW UP REP Routine 11/15/2011 5:13 PM EXTRACTOR OPERATOR HELPER from Last 3 Months or Most Recently Relevant to Health Maintenance Results * CERV/VAG CYTOPATH, THIN PREP INSURANCE FOLLOW UP REP (11/15/2011 5:13 PM EXTRACTOR OPERATOR HELPER) PATHOLOGY/CASTILLO JENNINGSOGY REPORT [facility] Anatomic Pathology Dept [address] [place] [address] Patient: JITENDRA LOVELACE Accn No: [id number] , [id number] Collected: 11/15/2011 5:13:00 PM All cases except those with a DP prefix are performed by pathologists from [facility]ology at [facility]. Case type DP is performed by Dr. Sukh De La Torre, [facility], [facility], [address], [address], [place] [address] (CLIA #[id number]) (Ph. [phone]). CYTOLOGY FLORAL SPECIALIST FINAL REPORT - - INSURANCE FOLLOW UP REP PAP History Specimen Type: Endocervical LMP: Hormones/Contracep tives Previous Pap History: 2010 WNL Specimen Adequacy Satisfactory for interpretation. The smear lacks endocervical or metaplastic cells, and shows scant cellularity. Diagnosis NEGATIVE FOR INTRAEPITHELIAL LESION OR MALIGNANCY. (Previously noted as Within Normal Limits) Web Feeder/ AMY Pathologist: 11/24/11 Completed by: LUANA STANTON BSCT(ASCP) (Electronically signed by) 11/24/11 Comment Repeat Pap smear within 6-12 months. Important Information About Pap Smears The Pap smear is associated with a low but well-documented and probably irreducible false negative rate of up to 10%. Additionally, the false positive rate for a diagnosis of invasive carcinoma or HSIL has been estimated to be approximately 1-10%. Therefore, any visible lesion on the cervix should be biopsied regardless of Pap smear findings. HPV Testing off the Thin Prep vial can be done as a means of further evaluating a Thin Prep Report. For information about ordering the HPV test, phone Virology at . Treatment or follow-up recommendations (if any) that are contained within this report are based upon general recommendations as contained in 2001 Consensus Guidelines For Cervical Cytological Abnormalities LUISA: January 22, 2002, and are provided as a general guideline rather than as a specific recommendation. Final decisions about the most appropriate treatment and follow-up should be made on an individualized basis by the treating physician in consultation with his/her patient. [facility] 11/15/2011 5:13 PM EXTRACTOR OPERATOR HELPER Hiwot Guerra DRESSING MACHINE OPERATOR PATHOLOGY/CYTOLOG Y ORDERABLES Edited INTERFACE SYSTEM Refer to clinic/hospital department [facility] CLIA# [id number] [address] [place] [id number] from Last 3 Months or Most Recently Relevant to Health Maintenance Insurance WORKERS COMP Advance Directives For more information, please contact: [phone] * Full Code (Latest Code Status on File) Date Activated Date Inactivated Comments 10/05/2015 1:00 PM 10/05/2015 3:22 PM * Full Code Date Activated Date Inactivated Comments 09/18/2012 8:55 AM 09/18/2012 11:34 AM Care Teams Bathroom Tiling Professional Relationship Specialty Start Date End Date Pratik Dean MD [address] [facility] [address] [place] [address] PCP - General Family Practice 01/17/17
--- OUTSIDE RECORDS SUMMARY | 2025-04-28 16:26 | XMS_ITS | Encounter Summary ---
Author Organization [facility] Address [address] [place] [address] Care Team Providers Care Physicist Solid State Name Role Phone Pratik Dean MD Primary Care Provider +1 [phone] Encounter Details Date Type Department Care Team (Late st Contact Info) Description 11/24/1998 Outpatient Historical [facility] [place] [address] [place] [address] Social History Tobacco Use Types Packs/Day Years Used Date Smoking Tobacco: Never Assessed Comments Unknown Sex and Gender Information Value Date Recorded Sex Assigned at Not on file Legal Sex Female 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
--- NOTE | 2025-04-28 16:55 | W.ED.ABDPA2 ---
HPI - Abdominal Pain General: Chief Complaint: Abdominal Pain Stated Complaint: cough, congestion, aches, sweating, nausea Time Seen by Provider: 04/28/25 16:37 Source: patient Mode of arrival: ambulatory Limitations: no limitations History of Present Illness: 30-year-old female states that she has not felt well over the last few days states she has been having productive cough along with shortness of breath she has had some abdominal pain along with generalized malaise she had saw urgent care was prescribed antibiotics and a steroid inhaler. She is seeing them this morning. She denies any high fevers or chest pain. Associated Symptoms: Reports chills and nausea; Denies diarrhea, dysuria and fever(s) Related Data Home Medications ?Medication ?Instructions ?Recorded ?Confirmed clobetasol 0.05 % topical ointment 1 applic topical .2-3 TIMES A WEEK 05/28/23 04/28/25 montelukast 10 mg tablet 10 mg PO BEDTIME 05/28/23 04/28/25 fluticasone fur. 100 mcg-umeclid 1 inh inhalation DAILY 03/23/25 04/28/25 62.5 mcg-vilant 25 mcg inhalat.powder (Trelegy Ellipta) amlodipine 5 mg tablet 5 mg PO DAILY 04/06/25 04/28/25 cetirizine 10 mg tablet 10 mg PO DAILY 04/06/25 04/28/25 lorazepam 2 mg tablet 2 mg PO BID PRN anxiety 04/06/25 04/28/25 losartan 100 mg tablet 100 mg PO DAILY 04/06/25 04/28/25 prednisone 10 mg tablet 10 - 20 mg PO DAILY PRN joint pain 04/06/25 04/28/25 vitamins with calcium 1 tab PO DAILY 04/06/25 04/28/25 no.72-iron 27 mg-folic acid 1 mg tablet ( Vitamins Plus Low Iron) varenicline tartrate 0.5 mg (11)-1 1 ea PO PER PKG DIR 04/06/25 04/28/25 mg (42) tablets in a dose pack (Chantix Starting Month Box) Previous Rx's ?Medication ?Instructions ?Recorded ondansetron 8 mg disintegrating 8 mg PO Q8H PRN nausea and 08/21/23 tablet vomiting 5 days #15 tabs albuterol sulfate 2.5 mg/3 mL 2.5 mg (3 mL) inhalation Q6H PRN 09/21/23 (0.083 %) solution for nebulization shortness of breath or wheezing #360 mL albuterol sulfate 90 mcg/actuation 2 puff inhalation Q4H PRN 09/21/23 aerosol inhaler (ProAir HFA) Shortness Of Breath #8.5 grams furosemide 20 mg tablet 20 mg PO DAILY #30 tabs 01/30/24 pantoprazole 40 mg tablet,delayed 40 mg PO DAILY #30 tabs 05/12/24 release (Protonix) nebulizer #1 ea 06/12/24 cyclobenzaprine 10 mg tablet 10 mg PO Q8H PRN muscle spasm #20 08/08/24 tabs polyethylene glycol 3350 17 17 g PO DAILY #510 grams 08/08/24 gram/dose oral powder (Miralax) diclofenac sodium 100 mg 100 mg PO BID PRN pain, severe #60 09/08/24 tablet,extended release 24 hr tabs diclofenac sodium 3 % topical gel 1 applic topical BID PRN muscle 10/08/24 pain, tension #100 grams codeine 10 mg-guaifenesin 100 mg/5 5 ml PO Q4H PRN cough #120 mL 11/29/24 mL oral liquid escitalopram oxalate 20 mg tablet 20 mg PO DAILY #30 tabs 02/12/25 lurasidone 120 mg tablet 120 mg PO DAILY #30 tabs 02/12/25 trazodone 100 mg tablet 200 mg (2 x 100 mg) PO .q hs PRN 02/12/25 insomnia #60 tabs promethazine-DM 6.25 mg-15 mg/5 mL 5 ml PO Q4H PRN cough #118 mL 03/17/25 oral syrup adalimumab 40 mg/0.8 mL 40 mg (0.8 mL) SUBCUT Q14D #2 ea 03/23/25 subcutaneous pen kit (Humira Pen) gabapentin 300 mg capsule 600 mg (2 x 300 mg) PO BID #120 03/23/25 caps cevimeline 30 mg capsule 1 cap PO TID #90 caps 03/30/25 ciprofloxacin HCl 500 mg tablet 500 mg PO BID #12 tabs 03/30/25 amoxicillin 875 mg-potassium 1 tab PO BID 7 days #14 tabs 04/28/25 clavulanate 125 mg tablet compressor, for nebulizer #1 ea 04/28/25 nebulizer accessories #1 ea 04/28/25 prednisone 20 mg tablet 40 mg (2 x 20 mg) PO DAILY 5 days 04/28/25 #10 tabs promethazine-DM 6.25 mg-15 mg/5 mL 5 ml PO Q4H PRN cough #118 mL 04/28/25 oral syrup Allergies Allergy/AdvReac Type Severity Reaction Status Date / Time No Known Allergies Allergy Verified 04/28/25 16:31 Review of Systems Const: Reports: chills and body aches; Denies: fever(s) or change in appetite ENMT: Denies: throat pain or dental pain Card: Denies: chest pain Resp: Reports: dyspnea and non-productive cough GI: Reports: abdominal pain and nausea; Denies: diarrhea : Denies: dysuria Musc: Denies: neck pain or back pain Skin/Breast: Denies: rash Neuro: Denies: headache(s) PFS ED PFSH: Medical History Smoker Trochanteric bursitis of right hip Hypertension Accidental methotrexate overdose Accidental methotrexate overdose Tobacco dependence with current use Asthma-COPD overlap syndrome Generalized anxiety disorder Chronic cough Low back pain Lesion of right [place] kidney complex cyst in the RIGHT kidney Elevated glucose Left atrial enlargement Lichen sclerosus Asthma Nicotine dependence, unspecified, uncomplicated Immunization counseling High risk medication use 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 Inflammatory arthritis UTI (urinary tract infection) Psychiatric care MRSA (methicillin resistant Staphylococcus aureus) Surgical History History of cholecystectomy Family History Grandmother Lupus Hypertension Mother Lung disease copd Hypertension Other Chronic kidney disease (CKD) Heart disease Lupus (systemic lupus erythematosus) Rheumatoid arthritis Stroke Denies family history of Colon cancer Ovarian cancer Diabetes Hyperlipidemia Breast cancer Thyroid disease Social History Smoking and tobacco/nicotine status: current every day tobacco/nicotine user cigarettes Packs smoked per day: 1.5 Years cigarettes smoked: 20 [ Other cigarette details: started at age 8] Alcohol intake: former Year of sobriety/quit date alcohol: 2014 Substance/Drug Use: current Substance/Drug use frequency: daily Other substance/drug use details: history opiate pill abuse Household members: children Number of children: 1 Current occupational status: unemployed 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 Special richa needs: No Agree to transfusion: Yes Physical Exam Const: COMMON NORMALS: no acute distress, patient oriented x3 and healthy appearing HENMT: COMMON NORMALS: normocephalic and atraumatic HEAD & SCALP: normocephalic and atraumatic Eye: COMMON NORMALS: conjunctivae normal CONJUNCTIVA: Yes conjunctivae normal Neck/C-Spine: COMMON NORMALS: full ROM and supple Chest: COMMONS NORMALS: normal inspection of the chest and normal palpation of entire chest wall Resp: COMMON NORMALS: normal respiratory effort, No retractions, No use of accessory muscles and clear to auscultation bilaterally AUSCULTATION: clear to auscultation bilaterally Cardio: COMMON NORMALS: regular rate, regular rhythm and No murmurs present (Cardio) RATE: regular rate RHYTHM: regular rhythm GI: COMMON NORMALS: Normal to inspection, nondistended, normoactive bowel sounds present, Soft to palpation, non-tender and no masses PALPATION: Yes Soft to palpation Extremity: COMMON NORMALS: normal to inspection and full ROM Neuro: COMMON NORMALS: patient oriented x3, moves all extremities and no focal motor deficits Psych: COMMON NORMALS: mental status grossly normal, Normal thought process present and cooperative THOUGHT PROCESS: Normal thought process present Skin: COMMON NORMALS: no rashes or lesions noted and no wounds GENERAL SKIN EXAM: no rashes or lesions noted Course Vital Signs: Vital signs: Vital Signs Temperature 98.1 F 04/28/25 16:24 Pulse Rate 97 04/28/25 16:24 Respiratory Rate 18 04/28/25 16:24 Blood Pressure 161/100 04/28/25 16:24 Pulse Oximetry 95 04/28/25 16:24 Oxygen Delivery Me thod Room Air 04/28/25 16:24 MDM - Abdominal Pain Medical Decision Making Patient presents here with viral-like syndrome she had cough congestion some nausea she is been well-appearing here blood work here is normal she is continue antibiotic she was prescribed today follow-up PCP return if worsening. Medical Records I reviewed the patient's medical records. Lab Data I reviewed the patient's lab results. 04/28/25 17:08 04/28/25 17:08 Labs/Radiology: Radiology Impressions Chest X-Ray 04/28/25 16:22 IMPRESSION: No acute findings. Laboratory Results WBC 11.80 10^3/uL (3.29-11.43) H 04/28/25 17:08 RBC 4.84 10^6/uL (3.85-5.65) 04/28/25 17:08 Hgb 14.80 g/dL (11.27-16.99) 04/28/25 17:08 Hct 44.1 % (36-47) 04/28/25 17:08 MCV 91.1 fl (85-98) 04/28/25 17:08 MCH 30.6 pg (27-33) 04/28/25 17:08 MCHC 33.6 g/dL (30-55) 04/28/25 17:08 RDW 13.2 % (12.1-15.1) 04/28/25 17:08 Plt Count 339 10^3/cmm (157-399) 04/28/25 17:08 MPV 9.4 fL (7.4-10.4) 04/28/25 17:08 Neut % (Auto) 90.0 % 04/28/25 17:08 Lymph % (Auto) 7.6 % 04/28/25 17:08 [place] % (Auto) 1.4 % 04/28/25 17:08 Eos % (Auto) 0.1 % 04/28/25 17:08 Baso % (Auto) 0.3 % 04/28/25 17:08 Neut # (Auto) 10.62 10^3/uL (1.8-7.7) H 04/28/25 17:08 Lymph # (Auto) 0.9 10^3/uL (0.8-4.8) 04/28/25 17:08 [place] # (Auto) 0.2 10^3/uL (0.2-0.9) 04/28/25 17:08 Eos # (Auto) 0.0 10^3/uL (0.0-0.8) 04/28/25 17:08 Baso # (Auto) 0.0 10^3/uL (0.0-0.1) 04/28/25 17:08 Nucleated RBC % (auto) 0 % 04/28/25 17:08 Nucleated RBCs # 0.0 /100WBC 04/28/25 17:08 Sodium 138 mmol/L (136-145) 04/28/25 17:08 Potassium 4.2 mmol/L (3.5-5.1) 04/28/25 17:08 Chloride 100 mmol/L (98-107) 04/28/25 17:08 Carbon Dioxide 24 mmol/L (22-29) 04/28/25 17:08 Anion Gap 18.2 (5-19) 04/28/25 17:08 BUN 5 mg/dL (6-20) L 04/28/25 17:08 Creatinine 0.6 mg/dL (0.5-0.9) 04/28/25 17:08 GFR Calculation 116.6 mL/min (90-130) 04/28/25 17:08 Glucose 157 mg/dL (65-115) H 04/28/25 17:08 Calculated Osmolality 287 mOsm/kg (285-295) 04/28/25 17:08 Calcium 9.2 mg/dL (8.5-10.5) 04/28/25 17:08 Total Bilirubin 0.2 mg/dL (0.15-1.2) 04/28/25 17:08 AST 13 U/L (0-32) 04/28/25 17:08 ALT 15 U/L (0-33) 04/28/25 17:08 Alkaline Phosphatase 71 U/L (35-105) 04/28/25 17:08 Total Protein 7.2 g/dL (6.6-8.7) 04/28/25 17:08 Albumin 3.7 g/dL (3.5-5.2) 04/28/25 17:08 Globulin 3.5 g/dL (1.3-4.6) 04/28/25 17:08 Lipase 19 U/L (13-60) 04/28/25 17:08 HCG, Qual Negative (Negative) 04/28/25 17:08 Urine Color Yellow (Yellow) 04/28/25 17:21 Urine Appearance Clear (CLEAR) 04/28/25 17:21 Urine pH 8.0 (5-7) A 04/28/25 17:21 Ur Specific [place] 1.010 (1.005-1.030) 04/28/25 17:21 Urine Protein Negative (Negative) 04/28/25 17:21 Urine Glucose (UA) Negative (Normal) 04/28/25 17:21 Urine Ketones Negative (Negative) 04/28/25 17:21 Urine Blood Negative (Negative) 04/28/25 17:21 Urine Nitrate Negative (Negative) 04/28/25 17:21 Urine Bilirubin Negative (Negative) 04/28/25 17:21 Urine Urobilinogen 0.2 mg/dL (Negative) 04/28/25 17:21 Ur Leukocyte Esterase Negative (Negative) 04/28/25 17:21 Urine RBC 0-2 /hpf (0-2) 04/28/25 17:21 Urine WBC 0-5 /hpf (0-5) 04/28/25 17:21 Ur Squamous Epith Cells 0-5 /hpf (0-5) 04/28/25 17:21 Amorphous Sediment Not Reportable 04/28/25 17:21 Urine Bacteria None seen /hpf (NONE) 04/28/25 17:21 Hyaline Casts 0-4 /lpf H 04/28/25 17:21 Influenza A (PCR) Negative (Negative) 04/28/25 16:34 Influenza Type B (PCR) Negative (Negative) 04/28/25 16:34 RSV (PCR) Negative (Negative) 04/28/25 16:34 SARS-CoV-2 (PCR) Negative (Negative) 04/28/25 16:34 No radiology studies performed this visit Discharge Plan Discharge Patient Disposition: Home Clinical Impression: Viral syndrome Condition: Stable Prescriptions: No Action clobetasol 0.05 % ointment 1 applic topical .2-3 TIMES A WEEK montelukast 10 mg tablet 10 mg PO BEDTIME diclofenac sodium 100 mg tablet extended release 24 hr 100 mg PO BID PRN (Reason: pain, severe) Qty: 60 1RF diclofenac sodium 3 % gel 1 applic topical BID PRN (Reason: muscle pain, tension) Qty: 100 0RF Rx Instructions: rub in well trazodone 100 mg tablet 200 mg PO .q hs PRN (Reason: insomnia) Qty: 60 2RF Rx Instructions: Take two tablets daily at bedtime, if needed for insomnia lurasidone 120 mg tablet 120 mg PO DAILY Qty: 30 2RF Rx Instructions: Take one tablet once daily; take with food or snack of at least 350 calories escitalopram oxalate 20 mg tablet 20 mg PO DAILY Qty: 30 2RF Rx Instructions: Take 1 tablet daily; discontinue 10 mg dose (DME) nebulizer accessories Kit See Rx Instructions .Route Qty: 1 0RF Rx Instructions: As directed (DME) compressor, for nebulizer Device See Rx Instructions .Route Qty: 1 0RF Rx Instructions: As directed promethazine-DM 6.25-15 mg/5 mL syrup 5 ml PO Q4H PRN (Reason: cough) Qty: 118 0RF Rx Instructions: Do not exceed more than 30ml/24hour period (6 doses) prednisone 20 mg tablet 40 mg PO DAILY 5 Days Qty: 10 0RF amoxicillin-pot clavulanate 875-125 mg tablet 1 tab PO BID 7 Days Qty: 14 0RF albuterol sulfate [ProAir HFA] 90 mcg/actuation HFA aerosol inhaler 2 puff INHALATION Q4H PRN (Reason: Shortness Of Breath) Qty: 8.5 6RF albuterol sulfate 2.5 mg /3 mL (0.083 %) solution for nebulization 2.5 mg inhalation Q6H PRN (Reason: shortness of breath or wheezing) Qty: 360 6RF pantoprazole [Protonix] 40 mg tablet,delayed release (DR/EC) 40 mg PO DAILY Qty: 30 4RF (DME) nebulizer See Rx Instructions .Route .MEDSUPPLY Qty: 1 0RF Rx Instructions: As directed Humira Pen 40 mg/0.8 mL pen injector kit 40 mg SUBCUT Q14D Qty: 2 5RF gabapentin 300 mg capsule 600 mg PO BID Qty: 120 5RF promethazine-DM 6.25-15 mg/5 mL syrup 5 ml PO Q4H PRN (Reason: cough) Qty: 118 0RF Rx Instructions: Do not exceed more than 30ml/24hour period (6 doses) ciprofloxacin HCl 500 mg tablet 500 mg PO BID Qty: 12 0RF ondansetron 8 mg tablet,disintegrating 8 mg PO Q8H PRN (Reason: nausea and vomiting) 5 Days Qty: 15 0RF furosemide 20 mg tablet 20 mg PO DAILY Qty: 30 2RF Trelegy Ellipta 100-62.5-25 mcg blister with device 1 inh inhalation DAILY cevimeline 30 mg capsule 1 cap PO TID Qty: 90 5RF prednisone 10 mg tablet 10 - 20 mg PO DAILY PRN (Reason: joint pain) Rx Instructions: take 1 or 2 tab daily for 3-7 days prn joint pain flare PO PRN; cetirizine 10 mg tablet 10 mg PO DAILY Rx Instructions: TAKE 1 TABLET BY MOUTH DAILY NEEDED FOR allergy symptoms amlodipine 5 mg tablet 5 mg PO DAILY Rx Instructions: TAKE 1 TABLET BY MOUTH DAILY lorazepam 2 mg tablet 2 mg PO BID PRN (Reason: anxiety) Rx Instructions: Take one-half to one tablet twice daily, if needed, for anxiety losartan 100 mg tablet 100 mg PO DAILY Rx Instructions: TAKE 1 TABLET BY MOUTH DAILY varenicline tartrate [Chantix Starting Month Box] 0.5 mg (11)- 1 mg (42) tablets,dose pack 1 ea PO PER PKG DIR Rx Instructions: PO PER PKG DIR Vitamin Plus Low Iron 27 mg iron- 1 mg tablet 1 tab PO DAILY Rx Instructions: TAKE 1 TABLET BY MOUTH EVERY DAY cyclobenzaprine 10 mg tablet 10 mg PO Q8H PRN (Reason: muscle spasm) Qty: 20 0RF polyethylene glycol 3350 [Miralax] 17 gram/dose powder 17 g PO DAILY Qty: 510 0RF Rx Instructions: Take 1 scoop daily while taking pain medications. codeine-guaifenesin 10-100 mg/5 mL liquid 5 ml PO Q4H PRN (Reason: cough) Qty: 120 0RF Discharge Orders: Discharge ED (Routine); Ordered 04/28/25 Ordered By: Mago Stockton Referrals: Nathalie Madison MD [Primary Care Provider, Family Practice] Discharge Diet: Advance as tolerated Discharge Activity: Resume usual activity Patient Instructions: Viral Syndrome (ED) Print Language: [place]an Coding Level of Care Code ED Institutional Research Coordinator for [facility]
[2025-04-28 17:24] LABS: Hematocrit 44.1 % (36-47); Hemoglobin 14.80 g/dL (11.27-16.99); Mean Corpuscular HGB Conc 33.6 g/dL (30-55); Mean Corpuscular Hemoglobin 30.6 pg (27-33); Mean Corpuscular Volume 91.1 fl (85-98); Nucleated Red Blood Cells % 0 %; Platelet Count 339 10^3/cmm (157-399); Red Blood Count 4.84 10^6/uL (3.85-5.65); White Blood Count 11.80 10^3/uL (3.29-11.43)
[2025-04-28 17:27] LABS: Respiratory Syncytial Virus Ce NEGATIVE (Negative); SARS-CoV-2 PCR NEGATIVE (Negative)
[2025-04-28 17:36] LABS: HCG, Serum Qual Negative (Negative)
[2025-04-28 17:38] LABS: Alanine Aminotransferase 15 U/L (0-33); Albumin Level 3.7 g/dL (3.5-5.2); Alkaline Phosphatase 71 U/L (35-105); Anion Gap 18.2 (5-19); Aspartate Amino Transferase 13 U/L (0-32); Blood Urea Nitrogen 5 mg/dL (6-20); Calcium 9.2 mg/dL (8.5-10.5); Carbon Dioxide 24 mmol/L (22-29); Chloride 100 mmol/L (98-107); Creatinine Clr Calc Pharmacy 190.3211; Globulin 3.5 g/dL (1.3-4.6); Glucose 157 mg/dL (65-115); Lipase 19 U/L (13-60); Osmolality Calculated 287 mOsm/kg (285-295); Potassium 4.2 mmol/L (3.5-5.1); Sodium 138 mmol/L (136-145); Total Protein 7.2 g/dL (6.6-8.7)
[2025-04-28 17:40] LABS: Glucose Urine UA Negative (Normal); Nitrate Urine Negative (Negative); Specific Gravity, Urine 1.010 (1.005-1.030)
[2025-04-28 17:43] LABS: Add Urine Microscopic? YES
[2025-04-28] MEDS: ondansetron 2 mg/ML SDV 2 mL 4 MG IVP (17:43)
[2025-04-28 18:44] VITALS: BP 142/93; PULSE 79; O2SAT 96
== END 2025-04-28 19:02 | disposition home or self-care (01) ==
PROVIDERS: Emergency Provider Emergency Medicine; PCP Family Medicine
DX: B34.9 Viral infection, unspecified (principal); Z11.52 Encounter for screening for COVID-19; F17.210 Nicotine dependence, cigarettes, uncomplicated; I10 Essential (primary) hypertension; J44.89 Other specified chronic obstructive pulmonary disease
CPT/HCPCS: 71045; 80053; 81001; 83690; 84703; 85025; 87637; 96361; 96374; 96375; 99284; J1885; J2405; J7030

== ENCOUNTER → 2025-05-22 18:47 | Outpatient (BNVA) | payer BC, SELFPAY | PROVIDERS: PCP Family Medicine; Visit Provider Emergency Medicine | DX: R10.9 Unspecified abdominal pain (principal) | CPT/HCPCS: 81000; 87086 ==

== ENCOUNTER → 2025-05-30 10:24 | Outpatient (BNVA) | payer BC, SELFPAY | PROVIDERS: PCP Family Medicine; Visit Provider Emergency Medicine | DX: Z20.822 Contact with and (suspected) exposure to COVID-19 (principal) | CPT/HCPCS: 87426 ==

== ENCOUNTER → 2025-06-02 14:47 | Outpatient (BNVA) | payer BC, SELFPAY | PROVIDERS: PCP Family Medicine; Visit Provider Registered Nurse Neonatal Intensive Care | DX: R50.9 Fever, unspecified (principal) | CPT/HCPCS: 87400; 87426 ==

== ENCOUNTER → 2025-06-06 10:18 | Outpatient (BNVA) | payer BC, SELFPAY | PROVIDERS: PCP Family Medicine; Visit Provider Nurse Practitioner | DX: R06.2 Wheezing (principal) | CPT/HCPCS: 71046 ==

== ENCOUNTER → 2025-06-09 10:16 | Outpatient (BNVA) | payer BC, MEDICAID, SELFPAY | PROVIDERS: Family Provider Family Medicine; PCP Family Medicine; Visit Provider Family Medicine | DX: R30.0 Dysuria (principal) | CPT/HCPCS: 81000 ==

== ENCOUNTER → 2025-07-03 08:55 | Outpatient (BNVA) | payer BC, MEDICAID, SELFPAY | PROVIDERS: Family Provider Family Medicine; PCP Family Medicine; Visit Provider Nurse Practitioner | DX: L02.91 Cutaneous abscess, unspecified (principal) | CPT/HCPCS: 87070; 87075; 87077; 87184; 87205 ==

== ENCOUNTER 2025-07-04 12:14 | Emergency (ER) | payer BC, MEDICAID, SELFPAY ==
--- OUTSIDE RECORDS SUMMARY | 2025-03-19 12:00 | XMS_ITS ---
Author Organization [facility], [facility] Address [address] [facility] [place] [address] Care Team Providers Care Chainstitch Zipper Setter Name Role Phone Nathalie Madison Primary Care Provider Unavailab IBETH Burton Unavailable [phone] CADY ROWE Unavailable [phone] REASON FOR VISIT EC Urinary Incontinence/Renal Cyst Encounters Encounter Location Date Provider Diagnosis Vitality [facility], [facility] [address] [facility] [place] [address] 03/19/2025 CADY ROWE Plan Of Treatment No Information Progress Notes * Kamala LOVELACE LDOB:[birth year] (30 yo F)Acc No.[id number]:03/19/2025 Progress Notes Patient: Kamala ALVARADO Provider: SHARONDA Myers :1995 A ge:30 Y S ex:Female Date:03/19/2025 Address:[address] [place], [place] [id number] Pcp:Nathalie Madison Subjective: * Chief Complaints: * 1 . EC Urinary Incontinence/Renal Cyst. * Medical History: Objective: * Vitals: Assessment: Plan: * Treatment: * Billing Information: * Visit Code: * Procedure Codes: * Electronic signature of CADY ROWE APRN on 07/04/2025 at 12:18 PM CDT Sign off status: Pending * Provider: SHARONDA Myers Date: 0 03/19/2025 Generated for Юлия ng/Gulshan/eTransmitting on: 1 12:18 PM CDT
[2025-07-04 12:17] VITALS: BP 161/99; PULSE 99; RESP 18; TEMP 36.8; O2SAT 98
--- OUTSIDE RECORDS SUMMARY | 2025-07-04 12:18 | XMS_ITS | Patient Health Record ---
Author Organization [facility] Address [address] [place] [address] Care Team Providers Care Community Engagement Manager Name Role Phone Terrie Kathleen Primary Care Provider Valerie Ambriz Unavailable [phone] Sincere Rosen Unavailable [phone] Allergies No Known Allergies Results Component Value Reference Range Flag Notes Urine Drug Screen (cup read) - [id number] Reviewed date:05/20/2025 03:40:42 PM Interpretation: Performing Lab: Notes/Report: OPI + PCP + OXY + Urine Confirmation Panel (in strument) - [id number] Reviewed date:05/27/2025 08:08:50 AM Interpretation: Performing Lab: Notes/Report: 6-Acetylmorphine 0 <6 ng/mL N This farrah t was developed and its performance characteristics determined by [facility]. It has not been cleared or approved by the U.S. Food and Drug Administration. 7-Aminoclonazepam 0 <60 ng/mL N This te st was developed and its performance characteristics determined by [facility]. It has not been cleared or approved by the U.S. Food and Drug Administration. Alprazolam 0 <60 ng/mL N This test was developed and its performance characteristics determined by [facility]. It has not been cleared or approved by the U.S. Food and Drug Administration. Amphetamine 0 <75 ng/mL N This test was developed and its performance characteristics determined by [facility]. It has not been cleared or approved by the U.S. Food and Drug Administration. aOH-Alprazolam 0 <60 ng/mL N This test was developed and its performance characteristics determined by [facility]. It has not been cleared or approved by the U.S. Food and Drug Administration. Buprenorphine 0.0 <7.5 ng/mL N This test w as developed and its performance characteristics determined by [facility]. It has not been cleared or approved by the U.S. Food and Drug Administration. Norbuprenorphine 0.0 <37.5 ng/mL N This te st was developed and its performance characteristics determined by [facility]. It has not been cleared or approved by the U.S. Food and Drug Administration. Carisoprodol 0 <75 ng/mL N This test wa s developed and its performance characteristics determined by [facility]. It has not been cleared or approved by the U.S. Food and Drug Administration. Codeine 0 <75 ng/mL N This test was developed and its performance characteristics determined by [facility]. It has not been cleared or approved by the U.S. Food and Drug Administration. EDDP 0 <75 ng/mL N This test was developed and its performance characteristics determined by [facility]. It has not been cleared or approved by the U.S. Food and Drug Administration. Fentanyl 0 <6 ng/mL N This test was developed and its performance characteristics determined by [facility]. It has not been cleared or approved by the U.S. Food and Drug Administration. Hydrocodone 1289 <75 ng/mL H This test was developed and its performance characteristics determined by [facility]. It has not been cleared or approved by the U.S. Food and Drug Administration. Hydromorphone 253 <75 ng/mL H This test w as developed and its performance characteristics determined by [facility]. It has not been cleared or approved by the U.S. Food and Drug Administration. Lorazepam 0 <60 ng/mL N This test was developed and its performance characteristics determined by [facility]. It has not been cleared or approved by the U.S. Food and Drug Administration. MDMA 0 <75 ng/mL N This test was developed and its performance characteristics determined by [facility]. It has not been cleared or approved by the U.S. Food and Drug Administration. Meperidine 0.0 <37.5 ng/mL N This test was developed and its performance characteristics determined by [facility]. It has not been cleared or approved by the U.S. Food and Drug Administration. Meprobamate 0 <75 ng/mL N This test was developed and its performance characteristics determined by [facility]. It has not been cleared or approved by the U.S. Food and Drug Administration. Methamphetamine 0 <75 ng/mL N This test was developed and its performance characteristics determined by [facility]. It has not been cleared or approved by the U.S. Food and Drug Administration. Methadone 0 <75 ng/mL N This test was developed and its performance characteristics determined by [facility]. It has not been cleared or approved by the U.S. Food and Drug Administration. Morphine 0 <75 ng/mL N This test was developed and its performance characteristics determined by [facility]. It has not been cleared or approved by the U.S. Food and Drug Administration. Nordiazepam 0 <60 ng/mL N This test was developed and its performance characteristics determined by [facility]. It has not been cleared or approved by the U.S. Food and Drug Administration. Norfentanyl 0 <6 ng/mL N This test was developed and its performance characteristics determined by [facility]. It has not been cleared or approved by the U.S. Food and Drug Administration. Normeperidine 0.0 <37.5 ng/mL N This test was developed and its performance characteristics determined by [facility]. It has not been cleared or approved by the U.S. Food and Drug Administration. O-desmethyltramadol 0 <75 ng/mL N This test was developed and its performance characteristics determined by [facility]. It has not been cleared or approved by the U.S. Food and Drug Administration. Oxazepam 0 <60 ng/mL N This test was developed and its performance characteristics determined by [facility]. It has not been cleared or approved by the U.S. Food and Drug Administration. Oxycodone 0.0 <37.5 ng/mL N This test was developed and its performance characteristics determined by [facility]. It has not been cleared or approved by the U.S. Food and Drug Administration. Oxymorphone 0 <75 ng/mL N This test was developed and its performance characteristics determined by [facility]. It has not been cleared or approved by the U.S. Food and Drug Administration. Phencyclidine 0.0 <7.5 ng/mL N This test w as developed and its performance characteristics determined by [facility]. It has not been cleared or approved by the U.S. Food and Drug Administration. Tapentadol 0.0 <37.5 ng/mL N This test was developed and its performance characteristics determined by [facility]. It has not been cleared or approved by the U.S. Food and Drug Administration. Temazepam 0 <60 ng/mL N This test was developed and its performance characteristics determined by [facility]. It has not been cleared or approved by the U.S. Food and Drug Administration. Tramadol 0 <75 ng/mL N This test was developed and its performance characteristics determined by [facility]. It has not been cleared or approved by the U.S. Food and Drug Administration. Norhydrocodone 3207 <75 ng/mL H This test was developed and its performance characteristics determined by [facility]. It has not been cleared or approved by the U.S. Food and Drug Administration. Noroxycodone 0 <38 ng/mL N This test wa s developed and its performance characteristics determined by [facility]. It has not been cleared or approved by the U.S. Food and Drug Administration. Pregabalin 0 <225 ng/mL N This test was developed and its performance characteristics determined by [facility]. It has not been cleared or approved by the U.S. Food and Drug Administration. Gabapentin >18066 <225 ng/mL > This test was developed and its performance characteristics determined by [facility]. It has not been cleared or approved by the U.S. Food and Drug Administration. Benzoylecgonine 0.0 <37.5 ng/mL N This farrah t was developed and its performance characteristics determined by [facility]. It has not been cleared or approved by the U.S. Food and Drug Administration. 4-Hydroxy Xylazine 0 <25 ng/mL N This t est was developed and its performance characteristics determined by [facility]. It has not been cleared or approved by the U.S. Food and Drug Administration. Tox Results Reviewed date:05/27/2025 09:08:18 AM Interpretation: Performing Lab: Notes/Report: Urine Drug Screen (cup read) - [id number] Reviewed date:06/19/2025 09:15:30 AM Interpretation: Performing Lab: Notes/Report: OPI + Reason For Referral Reason eval and treat Diagnosis 1 Chronic pain syndrom e (G89.4) Referring Provider First Name Nathalie Referring Provider Last Name Los Referring Provider [facility] Referred Organization [facility] Referred Provider Madelyn Steele Referred Address [address] [place] [facility],[place],[address] Referred Provider Specialty Pain Medicin e General Notes Ольга Lomax 12:19:36 PM >won't need appt until March, was given 3 month supply. mailed npp, pt is scheduled Referral Priority Routine Medications Medication SIG (Take, Route, Frequency, Duration) Notes Start Date End Date Status HYDROcodone-Acetami nophen 10-325 MG Tablet 1 tablet Orally every 6 hrs; Duration: 30 days As needed Not to exceed 4 per day Fill on 08/03/2025 06/23/2025 09/02/2025 Active amLODIPine Besylate 5 MG Tablet 1 tablet Orally Once a day Active traZODone HCl 50 MG Tablet TAKE 2 TABLETS BY MOUTH AT BEDTIME NEEDED FOR INSOMNIA Oral; Duration: 30 Active Clobetasol Propionate 0.05 % Cream 1 application Externally Twice a day Active FLUoxetine HCl 20 MG Capsule TAKE 1 CAPSULE BY MOUTH ONCE DAILY Oral; Duration: 30 Active Flovent HFA 110 MCG/ACT Aerosol 2 puff Inhalation Twice a day; Duration: 30 days Active HYDROcodone-Acetami nophen 10-325 MG Tablet 1 tablet Orally every 6 hrs; Duration: 30 days As needed Not to exceed 4 per day Fill on 07/04/2025 06/23/2025 08/03/2025 Active Latuda 120 MG Tablet 1 tablet Orally Once a day Active Gabapentin 300 MG Capsule 1 capsule Orally Once a day Active Losartan Potassium 25 MG Tablet Take 1 tablet by mouth once daily; Duration: 30 Active LORazepam 2 MG Tablet 1 tablet at bedtime as needed Orally Once a day Not-Taking ProAir HFA 108 (90 Base) MCG/ACT Aerosol Solution INHALE 1 PUFF BY MOUTH EVERY 4 HOURS NEEDED; Duration: 30 Active Prazosin HCl 5 MG Capsule TAKE 1 CAPSULE BY MOUTH AT BEDTIME Oral; Duration: 30 Active Social History Tobacco Use: Social History Observation Description Date Details (start date - stop date) Current Smoker NA - NA Social History Depression Screening Social Info Question Answer Notes PHQ-9 Little interest or pleasure in doing thin gs Not at all Feeling down, depressed, or hopeless Not at all Trouble falling or staying asleep, or sleeping t oo much Nearly every day Feeling tired or having little energy Several da ys Poor appetite or overeating Not at all Feeling bad about yourself, or that you are a failure, or have let yourself or your family down Several days Trouble concentrating on thi ngs, such as reading the newspaper or watching television Nearly every day Moving or speaking so slowly that other people could have noticed. Or the opposite ? being so fidgety or restless that you have been moving around a lot more than usual Not at all Thoughts that you would be b sahara off , or of hurting yourself in some way Not at all Total Score 8 Interpretation Mild Depression Drugs/Alcohol: Social Info Question Answer Notes Alcohol Screen (Audit-C) Did you have a drink containing alcohol in the past year? No Points 0 Interpretation Negative Drugs Have you used drugs other than those for medical reasons in the past 12 months? No Caffeine Intake: 2-3 cups per day Comprehensive Health Assessm ent Social Info Question Answer Notes *Social Determinants of Health Do you fe el physically and emotionally safe where you currently live? Yes Tobacco Use: Social Info Question Answer Notes xTobacco Use/Smoking Are you a current smoker How often do you smoke cigarettes? every day How many cigarettes a day do you smoke? 11-20 How soon after you wake up do you smoke your first cigarette? 6-30 minutes Are you interested in quitting? Ready to quit Tobacco use other than smoking: Are you an other tobacco user? No Additional Details Category Social Info Options Details Drugs/Alcohol: Do you smoke marijuana? Ad mits, Recreational use 2-3/week zzMigrated Social History Migrated Social History Smoking Status:Smokes tobacco daily (finding) Section Notes: Onset of smoking was age 10y o and smokes 1ppd. Onset of smoking was age 10y o and smokes 1ppd. Onset of smoking was age 10y o and smokes 1ppd. Onset of smoking was age 10y o and smokes 1ppd. Onset of smoking was age 10y o and smokes 1ppd. Onset of smoking was age 10y o and smokes 1ppd. Onset of smoking was age 10y o and smokes 1ppd. Onset of smoking was age 10y o and smokes 1ppd. Onset of smoking was age 10y o and smokes 1ppd. Onset of smoking was age 10y o and smokes 1ppd. Onset of smoking was age 10y o and smokes 1ppd. Problems Problem Type SNOMED Code ICD Code Onset Dates Problem Status W/U Status Risk Notes Problem Chronic pain syndrome (492604522) Chronic pain syndrome (G89.4) Active confirmed Problem Paresthesia (finding) (34023345) Paresthesia of skin (R20.2) Active confirmed Problem High risk drug monitoring status (788906114) correction (current) use of opiate analgesic (Z79.891) Active confirmed Problem Essential hypertension (26237753) Benign essential HTN (I10) Active confirmed Problem Neuropathy (350621582) Neuropathy (G62.9) Active confirmed Problem Tobacco user (698231734) Tobacco dependence due to cigarettes (F17.210) Active confirmed Problem Lumbar spondylosis (771056744) Lumbar spondylosis (M47.816) Active confirmed Problem Obstructive sleep apnea syndrome (45206483) TABATHA (obstructive sleep apnea) (G47.33) Active confirmed Problem Morbid obesity (631067594) Morbid obesity due to excess calories (E66.01) Active confirmed Problem Scleroderma (891407501) Scleroderma (M34.9) Active confirmed Problem Obesity (977661911) Obesity (E66.9) Active confirmed Problem Asthma (829624332) Asthma (J45.909) Active confirmed Problem Abnormal gait (82062069) Abnormality of gait and mobility (R26.9) Active confirmed Problem Tobacco use (681615786) Continuous tobacco abuse (Z72.0) Active confirmed Vital Signs Height-cm 170.18 cm 06/19/2025 Weight-kg 130.64 kg 06/19/2025 Height 67 in 06/19/2025 Weight 288 lbs 06/19/2025 BMI 45.1 kg/m2 06/19/2025 Procedures Procedure Date Ordered Date Performed Result Body Sit e Facet Inj. / MBB Lumbar/Sacr al, 2 levels - 15410, 85762 06/02/2025 N/A Encounters Encounter Location Date Provider Diagnosis [facility] [address] [place] [address] 04/01/2025 Sincere Rosen Chronic pain syndrome G89.4 ; Abnormality of gait and mobility R26.9 ; Scleroderma M34.9 ; Obesity E66.9 and Continuous tobacco abuse Z72.0 Formerly [facility] [address] [place] [id number] 05/20/2025 Sincere Rosen Chronic pain syndrome G89.4 ; Abnormality of gait and mobility R26.9 ; Scleroderma M34.9 ; Lumbar spondylosis M47.816 ; Obesity E66.9 ; Continuous tobacco abuse Z72.0 ; 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.891 and Depression screen Z13.31 Formerly [facility] [address] [place] [address] 06/19/2025 Valerie Ambriz Chronic pain syndrome G89.4 ; Abnormality of gait and mobility R26.9 ; Scleroderma M34.9 ; Lumbar spondylosis M47.816 ; Obesity E66.9 ; Continuous tobacco abuse Z72.0 ; correction (current) use of opiate analgesic Z79.891 and Depression screen Z13.31 Formerly [facility] [address] [address] 06/19/2025 Sincere Rosen Scleroderma M34.9 Assessments Encounter Date Diagnosis (ICD Code) Assessment Notes Treatment Notes Treatment Clinical Notes Section Notes 04/01/2025 Chronic pain syndrome (ICD-10 - G89.4) I had a nice visit with the patient today regarding her chronic pain issues. Based on her history, PE, as well as lumbar MRI from November, which I reviewed, the worst of her symptoms appear consistent with polyarthralgia, as well as some lumbar spondylosis in the setting of rheumatologic disorder, as well as morbid obesity. We spoke at length about smoking cessation and weight loss, and she's going to work on those 2 things. We'll start cutting her back on her hydrocodone, and she's going to taper herself off of the Ativan, which she says she has already started. She and her daughter seemed relatively receptive to our discussion today, so I am optimistic that she will make some forward progress. We will see her back in about 7 weeks and proceed accordingly. 04/01/2025 Abnormality of gait and mobility (ICD-10 - R26.9) 06/19/2025 Chronic pain syndrome (ICD-10 - G89.4) I had a nice discussion with the patient today regarding her chronic pain complaints. She continues with lower back pain and scleroderma. She was scheduled for bilateral lumbar medial branch blocks but states that she got very sick and had to cancel these. She states she plans on rescheduling those but needs to hold off a little longer as she has a lot of upcoming appointments. She does understand that she can call to get this rescheduled or we can schedule it for her at her next visit. She feels her medications working reasonably well for her so she will continue that at present level. She denies any other changes in her health since we last seen her any untoward side effects of medication. I did discuss lifestyle modifications as well as a bowel regimen. I did review her most recent imaging with her today. She will continue her medication at present level and return to clinic in 2 months to monitor for treatment effectiveness and compliance. The patient continues with chronic pain requiring treatment to help restore function and improve quality of life. Risks of opioid therapy as well as interaction of opioids with alcohol, illicit drugs, muscle relaxers, and other sedative medications are reviewed briefly with patient again today. The patient has trialed all other reasonable treatment options and uses the medication to alleviate pain in order to remain active and rest with less pain. No clinically relevant medication side effects are noted. Last UDS and AR TRAFFIC OPERATOR reviewed today. Patient is advised that best long-term goals include increased activity, core strengthening, proper weight management, coping strategies, avoidance of painful triggers, and targeted interventional therapy. We will see the patient for routine follow up in accordance with all clinic policies. We did remind patient today of current guidelines to decrease opioid when possible. We will continue to stress nonopioid treatment. URINE TESTING TODAY; POINT OF SERVICE Urine drug screening will be performed today to monitor compliance with opioid therapy or to serve as a baseline screen for a patient who may be a candidate for opioid therapy in the future, pending UDS results. We will monitor with in-office testing (rapid testing) today and review the results prior to dispensing prescription, as well. Patient has been made aware of this policy. 06/19/2025 Scleroderma (ICD-10 - M34.9) 05/20/2025 Chronic pain syndrome (ICD-10 - G89.4) I had a nice visit with the patient today regarding her chronic pain issues. She reports that things have been going relatively well. She's off the Ativan completely, which I was pleased to hear. She also lost six pounds, which I was pleased to see. She denies any new problems or issues, but she does have persistent lumbar pain consistent with lumbar spondylosis. We discussed diagnostic LMMBs and rhizotomies. She is interested in these, so we will start that process. We will continue her medication unchanged for now. Hopefully, we will be able to move away from that to some degree in the coming weeks or months. 05/20/2025 Abnormality of gait and mobility (ICD-10 - R26.9) 05/20/2025 Scleroderma (ICD-10 - M34.9) 06/19/2025 Abnormality of gait and mobility (ICD-10 - R26.9) 04/01/2025 Scleroderma (ICD-10 - M34.9) 04/01/2025 Obesity (ICD-10 - E66.9) 06/19/2025 Scleroderma (ICD-10 - M34.9) 05/20/2025 Lumbar spondylosis (ICD-10 - M47.816) RECOMMEND DIAGNOSTIC MEDIAL BRANCH BLOCK, levels L4-5 L5-S1 The patient has an ongoing nonradicular pain component as described above, which we believe could be facet joint mediated. The pain has failed to respond to rest, activity modification NSAIDs therapy, physical therapy, and current prescription medications. Therefore, a diagnostic medial branch block is recommended. Diagnostic medial branch blocks are indicated to determine the source of pain because there is a discrepancy between pathology and complaints, and it is unclear whether patient's pain is central or peripheral in origin. The patient understands that 80% relief is received for a short time in order to be considered successful. If patient has two positive response diagnostic medial branch blocks, then rhizotomy will be considered. If the diagnostic medial branch blocks do not help at least 80%, then patient understands to not proceed with rhizotomy. Patient and provider understand and agree that, per [facility] LCD, medial branch blocks will be performed with a minimum interval of two weeks. The procedure and risks were discussed with the patient including but not limited to infection, bleeding, neurological complications, side effects from medications, no change in pain, worsening of pain, or even . We also discussed conservative options, surgical options, and medical management with patient as well. The patient indicates understanding and wishes to proceed with the recommended treatment approach. The patient was given written information about the procedure and all questions were answered. 05/20/2025 Obesity (ICD-10 - E66.9) 06/19/2025 Lumbar spondylosis (ICD-10 - M47.816) 04/01/2025 Continuous tobacco abuse (ICD-10 - Z72.0) RECOMMEND SMOKING CESSATION The patient continues to smoke. Over a five-minute period, I have briefly reviewed the risks associated with smoking, which include pretty much severe damage to every known organ in the human body. Specifically, this can lead to increased rate of bone and spinal degeneration. Patient understands that smoking cessation is a vital part of maintaining a healthier lifestyle and, in my opinion, will definitely either help alleviate or help prevent worsening of the painful symptoms. If this cannot be accomplished alone, I have urged the patient to discuss medical management with PCP to help with smoking cessation. Patient voiced understanding. 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 Sincere Rosen. I, Dr. Sincere Rosen, personally performed the services described in this documentation, as scribed by IKE Morgan, and it is both accurate and complete. 05/20/2025 Kamila Fisher am scribing for Dr. Sincere Rosen. I, Dr. Sincere Rosen, personally performed the services described in this documentation, as scribed by Kamila Ewing, and it is both accurate and complete. Plan Of Treatment Pending Test Test Name Order Date Facet Inj. / MBB Lumbar/Sacral, 2 levels - 93095, 19174 06/02/2025 Future Test Test Name Order Date Facet Inj. / MBB Lumbar/Sacral, 2 levels - 04371, 12148 05/22/2025 Next Appt Details Provider Name:Valerie Acuna elvi, 08/20/2025 02:20:00 PM, [address] [place], [address], Insurance Providers Payer Name Payer Address Payer Phone Subscriber Number Group Number Insured Name Patient Relationship to Insured Coverage Start Date Coverage End Date [place] [address] [place] [address] [id number] Kamala Lovelace Self - patient is the insured [place] Medicaid [address] [place] [address] [id number] [place] Kamala Self - patient is the insured Medical (General) History Medical History History ICD Code borderline personality disorder Morbid obesity due to excess calories E6 6.01 Benign essential HTN I10 Generalized anxiety disorder F41.1 Major depression, chronic F32.9 Bipolar 1 disorder 296.7 MRSA infection A49.02 Asthma J45.909 Tobacco dependence due to cigarettes F17 .210 Polycystic ovarian syndrome E28.2 High Blood Pressure migraine headaches kidney infection Swelling of multiple joints Surgical History Surgery Date(Month/Year) cholecystectomy 2013 I & D of cyst 05/2020 gall bladder removal Hospitalization History Reason Date(Month/Year) COVID 05/2020 abscessed cyst with MRSA 05/2020
--- OUTSIDE RECORDS SUMMARY | 2025-07-04 12:18 | XMS_ITS | Clinical Summary ---
Author Organization [facility] [address] [place] [address] [address] Phone Care Team Providers Care Manufacturing Shift Supervisor Name Role Phone Pratik Dean MD Primary Care Provider +1 [phone] Allergies No known active allergies Medications venlafaxine [...] VACCINES Completed 04/08/2010, 06/02, 03/24/2009 Insurance [address] [place] [address] [place]ICAID [place] Care Teams Manufacturing Shift Supervisor Relationship Specialty Start Date End Date Pratik Dean MD [address] [facility] [address] [place] [address] PCP - General Family Practice 01/17/17
--- OUTSIDE RECORDS SUMMARY | 2025-07-04 12:19 | XMS_ITS | Encounter Summary ---
Author Organization [facility] Address [address] [place] [address] Care Team Providers Care Checker Bakery Products Name Role Phone Pratik Dean MD Primary Care Provider +1 [phone] Encounter Details Date Type Department Care Team (Latest Contact Info) Description 12/08/1998 Outpatient Historical [facility] [address] [place] [address] Pranay Edwards MD NO ADDRESS ON FILE Urinary tract infection, site not specified (Primary Dx) Social History Tobacco Use Types Packs/Day Years Used Date Smoking Tobacco: Never Assessed Comments Unknown Sex and Gender Information Value Date Recorded Sex Assigned at Not on file 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
--- OUTSIDE RECORDS SUMMARY | 2025-07-04 12:19 | XMS_ITS | Patient Health Record ---
Author Organization [facility] Address [address] [place] [address] Care Team Providers Care Photographer Still Name Role Phone Nathalie Madison Primary Care Provider Unavailab manuel DIAZ IBETH Unavailable [phone] FEICADY ESQUEDA Unavailable [phone] Allergies No Known Allergies Results Component Value Reference Range Notes Urinalysis, Routine Reviewed date:04/30/2025 03:48:01 PM Interpretation: Performing Lab: Notes/Report: Urine-Color yellow Appearance clear Glucose - Bilirubin - Ketones - Specific [place] 1.010 Occult Blood - pH 6.0 Urine Protein - Urobilinogen,Semi-Qn - Nitrite, Urine - WBC Esterase - Urinalysis, Routine Reviewed date:03/30/2025 01:25:41 PM Interpretation: Performing Lab: Notes/Report: Urine-Color yellow Appearance clear Glucose - Bilirubin - Ketones - Specific [place] 1.010 Occult Blood - pH 6.0 Urine Protein - Urobilinogen,Semi-Qn - Nitrite, Urine - WBC Esterase - Reason For Referral No Information Medications Medication SIG (Take, Route, Frequency, Duration) Notes Start Date End Date Status Clobetasol Propionate Active Humira Active Latuda 120 MG 1 tablet in the even ing with food Orally Once a day Active TraZODone HCl ER Act stephy Promethazine HCl Act stephy predniSONE 10 MG 1 tablet with food o r milk Orally Once a day Active LORazepam 1 MG 1 tablet at bedtime as needed Orally Once a day Not-Taking Gabapentin 300 MG 1 capsule Orally Onc e a day Active Trelegy Ellipta 100-62.5-25 MCG/ACT 1 puff Inhalation Once a day Not-Taking HYDROcodone-Acetaminophen 10-325 MG 1 tablet as needed Orally every 6 hrs Active Social History Tobacco Use: Social History Observation Description Date Details (start date - stop date) Current Smoker NA - NA Tobacco Control (Standard) Question Answer Notes Tobacco use: Current smoker How often do you smoke cigarettes? Every day How many cigarettes a day do you smoke? 08-20 AUDIT-C (Standard) Question Answer Notes Did you have a drink containing alcohol in the p ast year? 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) Lichen sclerosus of female genitalia (N90.4) Active confirmed Problem Urgent desire to urinate (40389606) Urinary urgency (R39.15) Active confirmed Problem Incontinence (10632916) Incontinence in female (R32) Active confirmed Vital Signs Heart Rate 84 /min 04/30/2025 Blood pressure diastolic 92 mm Hg 04/30/2025 Height-cm 167.64 cm 04/30/2025 Weight-kg 131.54 kg 04/30/2025 Height 66 in 04/30/2025 Blood pressure systolic 136 mm Hg 04/30/2025 Weight 290 lbs 04/30/2025 BMI 46.8 kg/m2 04/30/2025 Procedures Procedure Date Ordered Date Performed Result Body Sit e Bladder Scan 03/30/2025 03/30/2025 109 ml Encounters Encounter Location Date Provider Diagnosis [id number], [facility] [address] [facility] [place] [address] 03/30/2025 CADY REANO Incontinence in fema le R32 ; Incomplete bladder emptying R33.9 ; Urinary urgency R39.15 ; Lichen sclerosus of female genitalia N90.4 ; Current smoker F17.200 ; Loose bowel movements R19.5 and Fecal incontinence R15.9 [facility], [facility] [address] [place] [address] 04/30/2025 IBETH DIAZ Incomplete bladder emptying R33.9 ; Mixed stress and urge urinary incontinence N39.46 ; Urinary urgency R39.15 ; Lichen sclerosus of female genitalia N90.4 ; Current smoker F17.200 ; Loose bowel movements R19.5 and Fecal incontinence R15.9 [facility], [facility] [address] [place] [address] 03/11/2025 IBETH DIAZ [facility], [facility] [address] [facility] [place] [address] 06/16/2025 IBETH DIAZ Assessments Encounter Date Diagnosis (ICD Code) Assessment Notes Treatment Notes Treatment Clinical Notes Section Notes 04/30/2025 Mixed stress and urge urinary incontinence (ICD-10 - N39.46) 30 yo morbidly obese female with mixed UI, fecal incontinence, urgency. She has failed bulkamid injections x 2. She has also failed multiple OAB meds. Cysto shows mild ISD. Pelvic exam shows urethral hypermobility. I discussed cysto findings with patient. I recommend trying Medtronic PNE trial for her UUI, OAB and FI. I explained she will still have urinary leakage due to the GARRY, but this can be addressed after UUI is corrected. How procedure is performed was reviewed along with risks, benefits, alternatives, and postprocedural expectations. All questions were sought and answered to pt satisfaction and pt is agreeable to proceed. Will schedule next available. Plan: schedule medtronic PNE trial at [facility] 04/30/2025 Incomplete bladder emptying (ICD-10 - R33.9) 30 yo morbidly obese female with mixed UI, fecal incontinence, urgency. She has failed bulkamid injections x 2. She has also failed multiple OAB meds. Cysto shows mild ISD. Pelvic exam shows urethral hypermobility. I discussed cysto findings with patient. I recommend trying Medtronic PNE trial for her UUI, OAB and FI. I explained she will still have urinary leakage due to the GARRY, but this can be addressed after UUI is corrected. How procedure is performed was reviewed along with risks, benefits, alternatives, and postprocedural expectations. All questions were sought and answered to pt satisfaction and pt is agreeable to proceed. Will schedule next available. Plan: schedule medtronic PNE trial at [facility] 03/30/2025 Incontinence in female (ICD-10 - R32) 03/30/2025 Incomplete bladder emptying (ICD-10 - R33.9) 03/30/2025 Urinary urgency (ICD-10 - R39.15) 04/30/2025 Urinary urgency (ICD-10 - R39.15) 30 yo morbidly obese female with mixed UI, fecal incontinence, urgency. She has failed bulkamid injections x 2. She has also failed multiple OAB meds. Cysto shows mild ISD. Pelvic exam shows urethral hypermobility. I discussed cysto findings with patient. I recommend trying Medtronic PNE trial for her UUI, OAB and FI. I explained she will still have urinary leakage due to the GARRY, but this can be addressed after UUI is corrected. How procedure is performed was reviewed along with risks, benefits, alternatives, and postprocedural expectations. All questions were sought and answered to pt satisfaction and pt is agreeable to proceed. Will schedule next available. Plan: schedule medtronic PNE trial at [facility] 04/30/2025 Lichen sclerosus of female genitalia (ICD-10 - N90.4) 30 yo morbidly obese female with mixed UI, fecal incontinence, urgency. She has failed bulkamid injections x 2. She has also failed multiple OAB meds. Cysto shows mild ISD. Pelvic exam shows urethral hypermobility. I discussed cysto findings with patient. I recommend trying Medtronic PNE trial for her UUI, OAB and FI. I explained she will still have urinary leakage due to the GARRY, but this can be addressed after UUI is corrected. How procedure is performed was reviewed along with risks, benefits, alternatives, and postprocedural expectations. All questions were sought and answered to pt satisfaction and pt is agreeable to proceed. Will schedule next available. Plan: schedule medtronic PNE trial at [facility] 03/30/2025 Lichen sclerosus of female genitalia (ICD-10 - N90.4) 04/30/2025 Current smoker (ICD-10 - F17.200) 30 yo morbidly obese female with mixed UI, fecal incontinence, urgency. She has failed bulkamid injections x 2. She has also failed multiple OAB meds. Cysto shows mild ISD. Pelvic exam shows urethral hypermobility. I discussed cysto findings with patient. I recommend trying Medtronic PNE trial for her UUI, OAB and FI. I explained she will still have urinary leakage due to the GARRY, but this can be addressed after UUI is corrected. How procedure is performed was reviewed along with risks, benefits, alternatives, and postprocedural expectations. All questions were sought and answered to pt satisfaction and pt is agreeable to proceed. Will schedule next available. Plan: schedule medtronic PNE trial at [facility] 03/30/2025 Current smoker (ICD-10 - F17.200) 04/30/2025 Loose bowel movements (ICD-10 - R19.5) 30 yo morbidly obese female with mixed UI, fecal incontinence, urgency. She has failed bulkamid injections x 2. She has also failed multiple OAB meds. Cysto shows mild ISD. Pelvic exam shows urethral hypermobility. I discussed cysto findings with patient. I recommend trying Medtronic PNE trial for her UUI, OAB and FI. I explained she will still have urinary leakage due to the GARRY, but this can be addressed after UUI is corrected. How procedure is performed was reviewed along with risks, benefits, alternatives, and postprocedural expectations. All questions were sought and answered to pt satisfaction and pt is agreeable to proceed. Will schedule next available. Plan: schedule medtronic PNE trial at [facility] 03/30/2025 Loose bowel movements (ICD-10 - R19.5) 04/30/2025 Fecal incontinence (ICD-10 - R15.9) 30 yo morbidly obese female with mixed UI, fecal incontinence, urgency. She has failed bulkamid injections x 2. She has also failed multiple OAB meds. Cysto shows mild ISD. Pelvic exam shows urethral hypermobility. I discussed cysto findings with patient. I recommend trying Medtronic PNE trial for her UUI, OAB and FI. I explained she will still have urinary leakage due to the GARRY, but this can be addressed after UUI is corrected. How procedure is performed was reviewed along with risks, benefits, alternatives, and postprocedural expectations. All questions were sought and answered to pt satisfaction and pt is agreeable to proceed. Will schedule next available. Plan: schedule medtronic PNE trial at [facility] 03/30/2025 Fecal incontinence (ICD-10 - R15.9) 03/30/2025 Other UA clear. She has bothersome urinary urgency and UUI. She has tried and failed Gemtesa, Toviaz and Vesicare. She also has bowel incontinence. Recommend avoiding known bladder irritants, handout given. We also reviewed pamphlets for third line OAB option of neuromodulation (sacral or PTNS) versus Botox for recalcitrant symptoms. She has tried pelvic floor therapy and has had Bulkamid x 2 with continued leakage with coughing and sneezing. She is intersted in bladder sling, but states her previous provider told her she wasn't a candidate due to her age. Recommend cystoscopy, pelvic exam, and cough stress test is necessary to define the anatomy of the bladder, urethra, and pelvic support. She will RTC for next available cystoscopy. Plan Of Treatment No Information Insurance Providers Payer Name Payer Address Payer Phone Subscriber Number Group Number Insured Name Patient Relationship to Insured Coverage Start Date Coverage End Date [facility] [address] [address] [place], [place] [id number] Kamala Lovelace Self - patient is the insured Medical (General) History Medical History History ICD Code anxiety arthritis depression HTN IBS COPD Surgical History Surgery Date(Month/Year) cholecystectomy bulkamed
--- OUTSIDE RECORDS SUMMARY | 2025-07-04 12:19 | XMS_ITS | Encounter Summary ---
Author Organization [facility] Address [address] [place] [address] Care Team Providers Care Gold Stamper Name Role Phone Pratik Dean MD Primary Care Provider [phone] [phone] Encounter Details Date Type Department Care Team (Late st Contact Info) Description 11/24/1998 Outpatient Historical [facility] [address] [place] [address] Social History Tobacco Use Types Packs/Day Years Used Date Smoking Tobacco: Never Assessed Comments Unknown Sex and Gender Information Value Date Recorded Sex Assigned at Not on file 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
--- OUTSIDE RECORDS SUMMARY | 2025-07-04 12:19 | XMS_ITS | Encounter Summary ---
Author Organization [facility] Address [address] [place] [address] Care Team Providers Care Surveillance Supervisor Name Role Phone Pratik Dean MD Primary Care Provider [phone] [phone] Encounter Details Date Type Department Care Team (Latest Contact Info) Description 12/08/1998 Outpatient Historical [facility] Pediatrics-[facility] [address] [place] [address] Pranay Edwards MD NO ADDRESS ON FILE Urinary tract infection, site not specified (Primary Dx) Social History Tobacco Use Types Packs/Day Years Used Date Smoking Tobacco: Never Assessed Comments Unknown Sex and Gender Information Value Date Recorded Sex Assigned at Not on file 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
--- OUTSIDE RECORDS SUMMARY | 2025-07-04 12:19 | XMS_ITS | Encounter Summary ---
Author Organization [facility] Address [address] [place] [address] Care Team Providers Care Rn Eligibility Name Role Phone Pratik Dean MD Primary Care Provider +1 -[phone] Encounter Details Date Type Department Care Team (Latest Contact Info) Description 12/08/[address] 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
--- OUTSIDE RECORDS SUMMARY | 2025-07-04 12:19 | XMS_ITS | Clinical Summary ---
Author Organization [facility] Address [address] 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 Gender Identity Not on file Sexual Orientation Not on file Occupation Industry Job Start Date Job End Date Not on file Not on file Not on file Not on file Not on file Not on file Not on file Not on file Last Filed Vital Signs Vital Sign Reading Time Taken Comments Blood Pressure 124/76 10/29/2015 4:05 PM WINDOWS MOBILE DEVELOPER Pulse 86 10/29/2015 4:05 PM WINDOWS MOBILE DEVELOPER Temperature 36.7 C (98.1 F) 10/29/2015 4:05 PM WINDOWS MOBILE DEVELOPER Respiratory Rate 22 10/29/2015 4:05 PM WINDOWS MOBILE DEVELOPER Oxygen Saturation 99% 10/29/2015 4:05 PM WINDOWS MOBILE DEVELOPER Inhaled Oxygen Concentration - - Weight 116.6 kg (257 lb) 10/29/2015 4:05 PM WINDOWS MOBILE DEVELOPER Height 172.7 cm (5' 8 ) 10/29/2015 4:05 PM WINDOWS MOBILE DEVELOPER Body Mass Index 39.08 10/29/2015 4:05 PM WINDOWS MOBILE DEVELOPER Plan of Treatment Health Maintenance Due Date [...] Associated Diagnosis Comments CERV/VAG CYTOPATH, THIN PREP HANDLE MACHINE OPERATOR Routine 11/15/2011 5:13 PM WINDOWS MOBILE DEVELOPER from Last 3 Months or Most Recently Relevant to Health Maintenance Results * CERV/VAG CYTOPATH, THIN PREP HANDLE MACHINE OPERATOR (11/15/2011 5:13 PM WINDOWS MOBILE DEVELOPER) PATHOLOGY/CASTILLO JENNINGSOGY REPORT [facility] Anatomic Pathology Dept [address] [place] [address] Patient: JITENDRA LOVELACE Accn No: [id number] , [id number] Collected: 11/15/2011 5:13:00 PM All cases except those with a DP prefix are performed by pathologists from [facility] at [facility]. Case type DP is performed by Dr. Sukh De La Torre, [facility], [facility] [address], [address] [address] (CLIA #[id number]) (Ph. [phone]). CYTOLOGY BOX SPRING MAKER FINAL REPORT - - HANDLE MACHINE OPERATOR PAP History Specimen Type: Endocervical LMP: Hormones/Contracep tives Previous Pap History: 2010 WNL Specimen Adequacy Satisfactory for interpretation. The smear lacks endocervical or metaplastic cells, and shows scant cellularity. Diagnosis NEGATIVE FOR INTRAEPITHELIAL LESION OR MALIGNANCY. (Previously noted as Within Normal Limits) Spring Manufacturing Set Up Technician/ AMY Pathologist: 11/24/11 Completed by: LUANA STANTON [...] treating physician in consultation with his/her patient. [facility] 11/15/2011 5:13 PM WINDOWS MOBILE DEVELOPER Hiwot Guerra SALES REPRESENTATIVE ADVERTISING PATHOLOGY/CYTOLOG Y ORDERABLES Edited INTERFACE SYSTEM Refer to clinic/hospital department [facility] CLIA# [id number] [address] [place] [id number] from Last 3 Months or Most Recently Relevant to Health Maintenance Insurance WORKERS COMP Advance Directives For more information, please contact: [phone] * Full Code (Latest Code Status on File) Date Activated Date Inactivated Comments 10/05/2015 1:00 PM 10/05/2015 3:22 PM * Full Code Date Activated Date Inactivated Comments 09/18/2012 8:55 AM 09/18/2012 11:34 AM Care Teams Octave Board Assembler Relationship Specialty Start Date End Date Pratik Dean MD [address] [facility] [address] [place] [address] PCP - General Family Practice 01/17/17
--- OUTSIDE RECORDS SUMMARY | 2025-07-04 12:19 | XMS_ITS | Patient Health Record ---
Author Organization [facility] [place] Address [address] [place] [address] Care Team Providers Care Deck Scaler Name Role Phone Lou Lentz Primary Care Provider Helga Hernandez Unavailable [phone] Radha Gan Unavailable Unavailable Allergies No Known Allergies Reason For Referral No Information Medications Medication SIG (Take, Route, Frequency, Duration) Notes Start Date End Date Status Estradiol 0.1 MG/GM as directed Vaginal Active Senna 8.6 MG 1-2 at bedtime Orall y Once a day as needed; Duration: 30 day(s) 04/18/2023 Active hydrOXYzine HCl 25 MG 1 tablet at bedtim e as needed Orally Once a day; Duration: 30 day(s) Active ibuprofen 1 tab Oral; Duration : 14 days Active FLUoxetine HCl 60 MG 1 tablet Orally Onc e a day; Duration: 30 day(s) Active Fluticasone Propionate HFA 110 MCG/ACT 2 puffs Inhalation Twice a day Active Sulfamethoxazole-Trimetho prim 800-160 MG 1 tablet Orally Twice a day; Duration: 10 day(s) Active valACYclovir HCl 500 MG 1 tablet Orally Once a day; Duration: 10 day(s) Not-Taking Prazosin HCl 2 MG 1 capsule at bedtime Orally Once a day; Duration: 30 day(s) Active Spiriva Respimat 2.5 MCG/ACT 2 puffs Inhalation Once a day Active Tacrolimus 0.03 % apply to affected ar eas after flare is calm Externally Once a day; Duration: 30 days 04/16/2023 Active Venlafaxine HCl ER 37.5 MG 1 tablet with food Orally Once a day; Duration: 30 day(s) Not-Taking predniSONE 5 MG 1 tablet Orally Once a day; Duration: 30 day(s) Active Albuterol Sulfate HFA 108 (90 Base) MCG/ACT 1 puff as needed Inhalation every 4 hrs Active Gabapentin 100 MG 1 capsule Orally Onc e a day; Duration: 30 day(s) Active Ibuprofen 800 MG 1 tablet with food o r milk as needed Orally every 8 hrs Active buPROPion HCl 100 MG 1 tablet Orally Twi ce a day; Duration: 30 day(s) Active Clobetasol Propionate 0.05 % apply to affected area Externally Twice a day for up to a week as needed for flares; Duration: 30 days 04/16/2023 Active Albuterol Sulfate (2.5 MG/3ML) 0.083% 3 mL as needed Inhalation every 6 hrs Active traZODone HCl 150 MG 1 tablet at bedtime as needed Orally Once a day; Duration: 30 days Active MiraLax 17 GM/SCOOP 1 scoop mixed with 8 ounces of fluid Orally twice a day; Duration: 30 day(s) 04/18/2023 Active Varenicline Tartrate 0.5 MG 1 tablet after eating with a full glass of water Orally Once a day; Duration: 30 day(s) Active Latuda 60 MG 1 tablet in the even ing with food Orally Once a day; Duration: 30 day(s) Active Losartan Potassium 50 MG 1 tablet Orally Once a day; Duration: 30 days Active Montelukast Sodium 10 MG 1 tablet Orally Once a day Active Budesonide-Formoterol Fumarate 80-4.5 MCG/ACT 2 puffs Inhalation Once a day Active Social History Tobacco Use: Social History Observation Description Date Details (start date - stop date) Current Smoker NA - NA Old Tobacco Use/Smoking Question Answer Notes Are you a current smoker Old Alcohol Screen Question Answer Notes Did you have a drink containing alcohol in the p ast year? No Points 0 Interpretation Negative Problems Problem Type SNOMED Code ICD Code Onset Dates Problem Status W/U Status Risk Notes Problem Localized morphea (461790336) Lichen sclerosus et atrophicus (L90.0) Active confirmed Problem Change in bowel habit (37393628) Change in bowel habits (R19.4) Active confirmed newer onset constipation. Recent CT A/P X 2 with no acute findings, normal TSH. r/o IBS-C, IBD, malignancy, other. Problem Flatulence, eructation and gas pain (903149618) Bloating (R14.0) Active confirmed postprandial, increased with worsening constipation, r/o IBS-C, Celiac, IBD, gastroparesis, other. Problem Upper abdominal pain (43891907) Upper abdominal pain (R10.10) Active confirmed intermittent, r/o PUD, H. pylori, Celiac, gastroparesis, other. h/o cholecysetectomy age 18. Recent LFTs, lipase, CT A/P unrevealing. Problem Constipation (45096233) Constipation, unspecified constipation type (K59.00) Active confirmed New onset, no improvement with MOM or ExLax. Has not tried course of Miralax >1 week. 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 pylori, Celiac, gastroparesis, other. Plan Of Treatment Future Test Test Name Order Date EGD with biopsy 04/18/2023 Insurance Providers Payer Name Payer Address Payer Phone Subscriber Number Group Number Insured Name Patient Relationship to Insured Coverage Start Date Coverage End Date MEDICAID [facility] [address] [place] [id number] Kamala Lovelace Self - patient is the insured 1 Medical (General) History Medical History History ICD Code Anxiety Asthma Bipolar disorder Depression HTN PTSD High blood pressure Surgical History Surgery Date(Month/Year) Gall Bladder Right groin abcess removed-Dr Simeon. [id number]
--- NOTE | 2025-07-04 12:39 | W.ED.SKABFB ---
Documented by User: SIXTO Guzman 07/05/25 00:20 HPI - Skin/Abscess/Foreign Bdy General: Chief complaint: Skin/Abscess/Foreign Body Stated complaint: groin pain Time Seen by Provider: 07/04/25 12:25 History of Present Illness: Patient is a 30-year-old female with history of Bartholin cyst, presents today with pain, swelling, to left labia. Patient stated 2 weeks ago she had a Bartholin gland cyst, but on the lateral side of her left labia, she was treating with Bactrim DS at home, followed by 5 days ago additional area on the medial portion of the left labia that had swelling, pain, and they both now are draining green drainage. Patient states she has a same sexual partner, however he is fairly new. She is not having any dyspareunia other than the fullness in her labia. Associated symptoms: Deny fever(s), nausea or vomiting Related Data Home Medications ?Medication ?Instructions ?Recorded ?Confirmed clobetasol 0.05 % topical ointment 1 applic topical .2-3 TIMES A WEEK 05/28/23 07/04/25 PRN joint flares cetirizine 10 mg tablet 10 mg PO DAILY PRN allergies 04/06/25 07/04/25 vitamins with calcium 1 tab PO DAILY 04/06/25 07/04/25 no.72-iron 27 mg-folic acid 1 mg tablet ( Vitamins Plus Low Iron) albuterol sulfate 2.5 mg/3 mL 2.5 mg inhalation Q6H PRN 07/04/25 07/04/25 (0.083 %) solution for nebulization Shortness Of Breath Or Wheezing albuterol sulfate 90 mcg/actuation 1 puff inhalation Q6H PRN Wheezing 07/04/25 07/04/25 aerosol inhaler (Ventolin HFA) amlodipine 5 mg tablet 5 mg PO DAILY 07/04/25 07/04/25 hydrocodone 10 mg-acetaminophen 1 tab PO Q6H PRN Pain 07/04/25 07/04/25 325 mg tablet losartan 100 mg tablet 100 mg PO DAILY 07/04/25 07/04/25 Previous Rx's ?Medication ?Instructions ?Recorded nebulizer #1 ea 06/12/24 polyethylene glycol 3350 17 17 g PO DAILY #510 grams 08/08/24 gram/dose oral powder (Miralax) adalimumab 40 mg/0.8 mL 40 mg (0.8 mL) SUBCUT Q14D #2 ea 03/23/25 subcutaneous pen kit (Humira Pen) gabapentin 300 mg capsule 600 mg (2 x 300 mg) PO BID #120 03/23/25 caps cevimeline 30 mg capsule 1 cap PO TID #90 caps 03/30/25 compressor, for nebulizer #1 ea 04/28/25 nebulizer accessories #1 ea 04/28/25 escitalopram oxalate 20 mg tablet 20 mg PO DAILY #30 tabs 05/14/25 lurasidone 120 mg tablet 120 mg PO DAILY #30 tabs 05/14/25 trazodone 100 mg tablet 200 mg (2 x 100 mg) PO .q hs PRN 05/14/25 insomnia #60 tabs famotidine 40 mg tablet (Pepcid) 40 mg PO BID #20 tabs 05/22/25 ondansetron 8 mg disintegrating 8 mg PO Q8H PRN nausea and 05/22/25 tablet vomiting 5 days #15 tabs promethazine-DM 6.25 mg-15 mg/5 mL 10 ml PO Q6H PRN cough #473 mL 05/30/25 oral syrup ipratropium 0.5 mg-albuterol 3 mg 3 ml inhalation QID PRN wheezing 06/06/25 (2.5 mg base)/3 mL nebulization #90 mL soln prednisone 20 mg tablet 40 mg (2 x 20 mg) PO DAILY 5 days 06/06/25 #10 tabs budesonide-formoterol HFA 160 2 puff inhalation BID #10.2 grams 06/09/25 mcg-4.5 mcg/actuation aerosol inhaler (Symbicort) chlorthalidone 25 mg tablet 25 mg PO DAILY #30 tabs 06/09/25 nicotine 21 mg/24 hr daily 1 patch transdermal DAILY #28 ea 06/09/25 transdermal patch tirzepatide (weight loss) 2.5 2.5 mg (0.5 mL) SUBCUT .qwk #2 mL 06/09/25 mg/0.5 mL subcutaneous pen injector (Zepbound) mupirocin 2 % topical ointment 1 applic topical TID 7 days #15 10/03/25 (Centany) grams sulfamethoxazole 800 1 tab PO BID 7 days #14 tabs 07/03/25 mg-trimethoprim 160 mg tablet (Bactrim DS) diclofenac sodium 75 mg 75 mg PO BID PRN pain #30 tabs 07/04/25 tablet,delayed release doxycycline hyclate 100 mg capsule 100 mg PO BID 14 days #28 caps 07/04/25 Allergies Allergy/AdvReac Type Severity Reaction Status Date / Time No Known Allergies Allergy Verified 07/03/25 08:40 Review of Systems Const: Denies: fever(s) ENMT: Denies: throat pain, ear or mastoid pain, nasal discharge, nasal congestion or sinus pain Card: Denies: chest pain Resp: Denies: dyspnea or wheezing GI: Denies: abdominal pain, nausea, vomiting or diarrhea : Reports: vaginal discharge and other (Fullness in left labia); Denies: flank pain, difficulty voiding, dysuria or dyspareunia Skin/Breast: Reports: erythema, skin pain and sores; Denies: rash Neuro: Denies: headache(s) Psych: Denies: difficulty concentrating PFSH ED PFSH: Medical History (Updated 07/04/25 @ 12:45 by SIXTO Guzman) GERD (gastroesophageal reflux disease) Renal cyst, right MRI shows cyst 01/23 TABATHA (obstructive sleep apnea) didn't tolerate CPAP so they took it away; 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 Severe persistent asthma Hepatic steatosis on MRI Obesity, Class III, BMI 40-49.9 (morbid obesity) Smoker Trochanteric bursitis of right hip Primary hypertension Asthma-COPD overlap syndrome Generalized anxiety disorder Chronic cough Low back pain Lichen sclerosus Asthma High risk medication use 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 Inflammatory arthritis Psychiatric care Surgical History History of urologic surgery had bulk a max but didn't work History of cholecystectomy Family History Grandmother Lupus Hypertension Mother Lung disease copd Hypertension Other Chronic kidney disease (CKD) Heart disease Lupus (systemic lupus erythematosus) Rheumatoid arthritis Stroke Denies family history of Colon cancer Ovarian cancer Diabetes Hyperlipidemia Breast cancer Thyroid disease Social History Smoking and tobacco/nicotine status: current every day tobacco/nicotine user (1 ppd X 22 years) cigarettes Packs smoked per day: 1.5 Years cigarettes smoked: 20 [ Other cigarette details: started at age 8] Alcohol intake: former Year of sobriety/quit date alcohol: 2014 Substance/Drug Use: current Substance/Drug use frequency: daily Other substance/drug use details: history opiate pill abuse Household members: children Marital status: Number of children: 1 Highest education level completed: High School Graduate Current occupational status: unemployed 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; 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 Special richa needs: No Agree to transfusion: Yes Physical Exam Const: COMMON NORMALS: no acute distress, patient oriented x3 and healthy appearing GENERAL APPEARANCE: cooperative and comfortable HENMT: COMMON NORMALS: normocephalic, external ears normal, Normal external nose present, Normal nasal mucous membranes and turbinates present and moist oral mucous membranes HEAD & SCALP: normocephalic NOSE: Normal external nose present and Normal nasal mucous membranes and turbinates present EXTERNAL EAR: Yes external ears normal Lymph: LYMPHATIC: lymphadenopathy (left groin) Chest: COMMONS NORMALS: normal inspection of the chest and normal palpation of entire chest wall Resp: COMMON NORMALS: normal respiratory effort, No use of accessory muscles and clear to auscultation bilaterally AUSCULTATION: clear to auscultation bilaterally Cardio: COMMON NORMALS: regular rate and regular rhythm RATE: regular rate RHYTHM: regular rhythm : COMMON NORMALS: Yes no CVA tenderness BLADDER/KIDNEY EXAM: Yes no CVA tenderness EXTERNAL FEMALE EXAM: Yes normal appearance of the urethra, Yes Bartholin cyst Bartholin's cyst laterality: left, Yes erythema, Yes externally tender, Yes external swelling and Yes lesion left labial pustule GENITAL IMAGES (FEMALE):  1. Bartholin gland abscess 2. White, clear drainage 3. Incision 4. incision 5. incision inside vulva x2 Back/Pelvis: COMMON NORMALS: no CVA tenderness Extremity: COMMON NORMALS: normal to inspection, full ROM and capillary refill normal Neuro: COMMON NORMALS: patient oriented x3 and moves all extremities Psych: COMMON NORMALS: speech normal SPEECH: Yes normal speech Procedures Abscess I/D Site: bartholin's gland Side (if applicable): left Sedation/analgesia: other (Ketamine per Dr. Stockton) Technique: incised with #11 blade Amount of fluid expressed (mL): 20 Irrigation: Yes (120 ml) Packing used?: none (attempted, would not pack) Complications: pain and bleeding Course Vital Signs: Vital signs: Vital Signs Temperature 98.3 F 07/04/25 12:17 Pulse Rate 83 07/04/25 14:01 Respiratory Rate 17 07/04/25 12:41 Blood Pressure 209/156 07/04/25 12:53 Pulse Oximetry 99 07/04/25 14:01 Oxygen Delivery Me thod Room Air 07/04/25 12:17 MDM - Skin/Abscess/Foreign Bdy Medicial Decision Making Patient is 30-year-old female with history of Bartholin cyst abscess. She was currently on Bactrim DS, initially had 1 2 weeks ago, then a different channel that has met the other 1 from medial to lateral. Certainly has induration and needs to be drained. Patient would like a procedural sedation due to her severe anxiety and concern for pain. Dr. Stockton has assisted with procedural sedation, and will proceed with incision and drainage and culture. Will also obtain STI testing and urine analysis. Medical Records I reviewed the patient's medical records. Lab Data I reviewed the patient's lab results. micro-neg wet prep Laboratory Results Urine Color Dark yellow (Yellow) A 07/04/25 14:35 Urine Appearance Turbid (CLEAR) A 07/04/25 14:35 Urine pH 6.5 (5-7) 07/04/25 14:35 Ur Specific [place] 1.037 (1.005-1.030) H 07/04/25 14:35 Urine Protein 2+ (Negative) A 07/04/25 14:35 Urine Glucose (UA) Negative (Normal) 07/04/25 14:35 Urine Ketones 1+ (Negative) H 07/04/25 14:35 Urine Blood 3+ (Negative) A 07/04/25 14:35 Urine Nitrate Negative (Negative) 07/04/25 14:35 Urine Bilirubin Negative (Negative) 07/04/25 14:35 Urine Urobilinogen 1.0 mg/dL (Negative) 07/04/25 14:35 Ur Leukocyte Esterase Trace (Negative) A 07/04/25 14:35 Urine RBC 80-100 /hpf (0-2) H 07/04/25 14:35 Urine WBC 5-10 /hpf (0-5) H 07/04/25 14:35 Ur Squamous Epith Cells 5-10 /hpf (0-5) H 07/04/25 14:35 Calcium Oxalate Crystal 0-4 /hpf H 07/04/25 14:35 Amorphous Sediment Not Reportable 07/04/25 14:35 Urine Bacteria 2+ /hpf (NONE) H 07/04/25 14:35 Hyaline Casts 5-10 /lpf H 07/04/25 14:35 Urine Mucus Trace /hpf 07/04/25 14:35 C. trachomatis (PCR) Not detected (Negative) 07/04/25 14:35 N. gonorrhoeae (PCR) Not detected (Negative) 07/04/25 14:35 No radiology studies performed this visit Discharge Plan Discharge Patient Disposition: Home Clinical Impression: Bartholin's gland abscess Condition: Stable Prescriptions: New doxycycline hyclate 100 mg capsule 100 mg PO BID 14 Days Qty: 28 0RF diclofenac sodium 75 mg tablet,delayed release (DR/EC) 75 mg PO BID PRN (Reason: pain) Qty: 30 0RF No Action clobetasol 0.05 % ointment 1 applic topical .2-3 TIMES A WEEK PRN (Reason: joint flares) escitalopram oxalate 20 mg tablet 20 mg PO DAILY Qty: 30 2RF lurasidone 120 mg tablet 120 mg PO DAILY Qty: 30 2RF trazodone 100 mg tablet 200 mg PO .q hs PRN (Reason: insomnia) Qty: 60 2RF (DME) nebulizer accessories Kit See Rx Instructions .Route Qty: 1 0RF Rx Instructions: As directed (DME) compressor, for nebulizer Device See Rx Instructions .Route Qty: 1 0RF Rx Instructions: As directed promethazine-DM 6.25-15 mg/5 mL syrup 10 ml PO Q6H PRN (Reason: cough) Qty: 473 0RF chlorthalidone 25 mg tablet 25 mg PO DAILY Qty: 30 3RF Zepbound 2.5 mg/0.5 mL pen injector 2.5 mg SUBCUT .qwk Qty: 2 1RF Rx Instructions: Sunday (DME) nebulizer See Rx Instructions .Route .MEDSUPPLY Qty: 1 0RF Rx Instructions: As directed Humira Pen 40 mg/0.8 mL pen injector kit 40 mg SUBCUT Q14D Qty: 2 5RF gabapentin 300 mg capsule 600 mg PO BID Qty: 120 5RF ondansetron 8 mg tablet,disintegrating 8 mg PO Q8H PRN (Reason: nausea and vomiting) 5 Days Qty: 15 0RF famotidine [Pepcid] 40 mg tablet 40 mg PO BID Qty: 20 0RF ipratropium-albuterol 0.5 mg-3 mg(2.5 mg base)/3 mL solution for nebulization 3 ml inhalation QID PRN (Reason: wheezing) Qty: 90 0RF prednisone 20 mg tablet 40 mg PO DAILY 5 Days Qty: 10 0RF budesonide-formoterol [Symbicort] 160-4.5 mcg/actuation HFA aerosol inhaler 2 puff inhalation BID Qty: 10.2 6RF nicotine 21 mg/24 hr patch 24 hour 1 patch transdermal DAILY Qty: 28 0RF sulfamethoxazole-trimethoprim [Bactrim DS] 800-160 mg tablet 1 tab PO BID 7 Days Qty: 14 0RF mupirocin [Centany] 2 % ointment 1 applic topical TID 7 Days Qty: 15 0RF cevimeline 30 mg capsule 1 cap PO TID Qty: 90 5RF cetirizine 10 mg tablet 10 mg PO DAILY PRN (Reason: allergies) Vitamin Plus Low Iron 27 mg iron- 1 mg tablet 1 tab PO DAILY polyethylene glycol 3350 [Miralax] 17 gram/dose powder 17 g PO DAILY Qty: 510 0RF Rx Instructions: Take 1 scoop daily while taking pain medications. albuterol sulfate 2.5 mg /3 mL (0.083 %) solution for nebulization 2.5 mg inhalation Q6H PRN (Reason: Shortness Of Breath Or Wheezing) hydrocodone-acetaminophen 10-325 mg tablet 1 tab PO Q6H PRN (Reason: Pain) albuterol sulfate [Ventolin HFA] 90 mcg/actuation HFA aerosol inhaler 1 puff INHALATION Q6H PRN (Reason: Wheezing) amlodipine 5 mg tablet 5 mg PO DAILY losartan 100 mg tablet 100 mg PO DAILY Discharge Orders: Discharge ED (Routine); Ordered 07/04/25 Ordered By: Lucy Howell Referrals: Lc Mills MD [Physician, ASSEMBLY LINE DRIVER] Karuna Adam MD [Primary Care Provider, Family Practice] Discharge Diet: Usual diet Patient Instructions: Bartholin's Abscess, Incision and Drainage (ED), Patient Portal & Carli Instructions Activity Restrictions/Additional Instructions: - Ice this area for pain relief - Doxycycline was sent to your pharmacy. Take twice daily with food - Call on Sunday to follow-up with your MARK[employer]EARCH SENIOR PROJECT MANAGER/you stated was Dr. Mills. If you cannot follow-up with your MARKET RESEARCH SENIOR PROJECT MANAGER, your PCP can take care of this issue. - Utilize a probiotic or active culture yogurt to avoid infectious diarrhea with your antibiotics -No intercourse for 1 week - Return to ED if you have worsening pain, swelling, or fever greater than 100.4 ?F Stand Alone Forms: Work/School Release Print Language: Italian Coding Level of Care Code ED Accounting Systems Analyst for Chg Fwd Documented by User: Mago Stockton MD 07/04/25 16:03 HPI - Skin/Abscess/Foreign Bdy General: Chief complaint: Skin/Abscess/Foreign Body Stated complaint: groin pain Time Seen by Provider: 07/04/25 12:25 Related Data Home Medications ?Medication ?Instructions ?Recorded ?Confirmed clobetasol 0.05 % topical ointment 1 applic topical .2-3 TIMES A WEEK 05/28/23 07/04/25 PRN joint flares cetirizine 10 mg tablet 10 mg PO DAILY PRN allergies 04/06/25 07/04/25 vitamins with calcium 1 tab PO DAILY 04/06/25 07/04/25 no.72-iron 27 mg-folic acid 1 mg tablet ( Vitamins Plus Low Iron) albuterol sulfate 2.5 mg/3 mL 2.5 mg inhalation Q6H PRN 07/04/25 07/04/25 (0.083 %) solution for nebulization Shortness Of Breath Or Wheezing albuterol sulfate 90 mcg/actuation 1 puff inhalation Q6H PRN Wheezing 07/04/25 07/04/25 aerosol inhaler (Ventolin HFA) amlodipine 5 mg tablet 5 mg PO DAILY 07/04/25 07/04/25 hydrocodone 10 mg-acetaminophen 1 tab PO Q6H PRN Pain 07/04/25 07/04/25 325 mg tablet losartan 100 mg tablet 100 mg PO DAILY 07/04/25 07/04/25 Previous Rx's ?Medication ?Instructions ?Recorded nebulizer #1 ea 06/12/24 polyethylene glycol 3350 17 17 g PO DAILY #510 grams 08/08/24 gram/dose oral powder (Miralax) adalimumab 40 mg/0.8 mL 40 mg (0.8 mL) SUBCUT Q14D #2 ea 03/23/25 subcutaneous pen kit (Humira Pen) gabapentin 300 mg capsule 600 mg (2 x 300 mg) PO BID #120 03/23/25 caps cevimeline 30 mg capsule 1 cap PO TID #90 caps 03/30/25 compressor, for nebulizer #1 ea 04/28/25 nebulizer accessories #1 ea 04/28/25 escitalopram oxalate 20 mg tablet 20 mg PO DAILY #30 tabs 05/14/25 lurasidone 120 mg tablet 120 mg PO DAILY #30 tabs 05/14/25 trazodone 100 mg tablet 200 mg (2 x 100 mg) PO .q hs PRN 05/14/25 insomnia #60 tabs famotidine 40 mg tablet (Pepcid) 40 mg PO BID #20 tabs 05/22/25 ondansetron 8 mg disintegrating 8 mg PO Q8H PRN nausea and 05/22/25 tablet vomiting 5 days #15 tabs promethazine-DM 6.25 mg-15 mg/5 mL 10 ml PO Q6H PRN cough #473 mL 05/30/25 oral syrup ipratropium 0.5 mg-albuterol 3 mg 3 ml inhalation QID PRN wheezing 06/06/25 (2.5 mg base)/3 mL nebulization #90 mL soln prednisone 20 mg tablet 40 mg (2 x 20 mg) PO DAILY 5 days 06/06/25 #10 tabs budesonide-formoterol HFA 160 2 puff inhalation BID #10.2 grams 06/09/25 mcg-4.5 mcg/actuation aerosol inhaler (Symbicort) chlorthalidone 25 mg tablet 25 mg PO DAILY #30 tabs 06/09/25 nicotine 21 mg/24 hr daily 1 patch transdermal DAILY #28 ea 06/09/25 transdermal patch tirzepatide (weight loss) 2.5 2.5 mg (0.5 mL) SUBCUT .qwk #2 mL 06/09/25 mg/0.5 mL subcutaneous pen injector (Zepbound) mupirocin 2 % topical ointment 1 applic topical TID 7 days #15 07/03/25 (Centany) grams sulfamethoxazole 800 1 tab PO BID 7 days #14 tabs 07/03/25 mg-trimethoprim 160 mg tablet (Bactrim DS) diclofenac sodium 75 mg 75 mg PO BID PRN pain #30 tabs 07/04/25 tablet,delayed release doxycycline hyclate 100 mg capsule 100 mg PO BID 14 days #28 caps 07/04/25 Allergies Allergy/AdvReac Type Severity Reaction Status Date / Time No Known Allergies Allergy Verified 07/03/25 08:40 [facility] ED PFSH: Medical History (Updated 07/04/25 @ 12:45 by SIXTO Guzman) GERD (gastroesophageal reflux disease) Renal cyst, right MRI shows cyst 01/23 TABATHA (obstructive sleep apnea) didn't tolerate CPAP so they took it away; 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 Severe persistent asthma Hepatic steatosis on MRI Obesity, Class III, BMI 40-49.9 (morbid obesity) Smoker Trochanteric bursitis of right hip Primary hypertension Asthma-COPD overlap syndrome Generalized anxiety disorder Chronic cough Low back pain Lichen sclerosus Asthma High risk medication use 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 Inflammatory arthritis Psychiatric care Surgical History History of urologic surgery had bulk a max but didn't work History of cholecystectomy Family History Grandmother Lupus Hypertension Mother Lung disease copd Hypertension Other Chronic kidney disease (CKD) Heart disease Lupus (systemic lupus erythematosus) Rheumatoid arthritis Stroke Denies family history of Colon cancer Ovarian cancer Diabetes Hyperlipidemia Breast cancer Thyroid disease Social History Smoking and tobacco/nicotine status: current every day tobacco/nicotine user (1 ppd X 22 years) cigarettes Packs smoked per day: 1.5 Years cigarettes smoked: 20 [ Other cigarette details: started at age 8] Alcohol intake: former Year of sobriety/quit date alcohol: 2014 Substance/Drug Use: current Substance/Drug use frequency: daily Other substance/drug use details: history opiate pill abuse Household members: children Marital status: Number of children: 1 Highest education level completed: High School Graduate Current occupational status: unemployed 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 Bartholin gland abscess 2. White, clear drainage 3. Incision 4. incision 5. incision inside vulva x2 Procedures Procedural Sedation Indication: incision and drainage of abscess ASA Class: I Time of Last PO Intake: 11:00 Preparation: media monitor applied and pulse oximeter Ketamine: IV Ketamine dose (mg): 150 Patient Tolerated Procedure: well Complications: none Additional Comments: start time 1310 out of room 1314 Course Vital Signs: Vital signs: Vital Signs Temperature 98.3 F 07/04/25 12:17 Pulse Rate 83 07/04/25 14:01 Respiratory Rate 17 07/04/25 12:41 Blood Pressure 209/156 07/04/25 12:53 Pulse Oximetry 99 07/04/25 14:01 Oxygen Delivery Me thod Room Air 07/04/25 12:17 MDM - Skin/Abscess/Foreign Bdy Medicial Decision Making Patient is 30-year-old female with history of Bartholin cyst abscess. She was currently on Bactrim DS, initially had 1 2 weeks ago, then a different channel that has met the other 1 from medial to lateral. Certainly has induration and needs to be drained. Patient would like a procedural sedation due to her severe anxiety and concern for pain. Dr. Stockton has assisted with procedural sedation, and will proceed with incision and drainage and culture. Will also obtain STI testing and urine analysis. Patient presents here with a Bartholin cyst I saw patient with above midlevel I did perform the procedural sedation for the incision and drainage patient is nontoxic-appearing she is stable for discharge return if worsening Lab Data Laboratory Results Urine Color Dark yellow (Yellow) A 07/04/25 14:35 Urine Appearance Turbid (CLEAR) A 07/04/25 14:35 Urine pH 6.5 (5-7) 07/04/25 14:35 Ur Specific [place] 1.037 (1.005-1.030) H 07/04/25 14:35 Urine Protein 2+ (Negative) A 07/04/25 14:35 Urine Glucose (UA) Negative (Normal) 07/04/25 14:35 Urine Ketones 1+ (Negative) H 07/04/25 14:35 Urine Blood 3+ (Negative) A 07/04/25 14:35 Urine Nitrate Negative (Negative) 07/04/25 14:35 Urine Bilirubin Negative (Negative) 07/04/25 14:35 Urine Urobilinogen 1.0 mg/dL (Negative) 07/04/25 14:35 Ur Leukocyte Esterase Trace (Negative) A 07/04/25 14:35 Urine RBC 80-100 /hpf (0-2) H 07/04/25 14:35 Urine WBC 5-10 /hpf (0-5) H 07/04/25 14:35 Ur Squamous Epith Cells 5-10 /hpf (0-5) H 07/04/25 14:35 Calcium Oxalate Crystal 0-4 /hpf H 07/04/25 14:35 Amorphous Sediment Not Reportable 07/04/25 14:35 Urine Bacteria 2+ /hpf (NONE) H 07/04/25 14:35 Hyaline Casts 5-10 /lpf H 07/04/25 14:35 Urine Mucus Trace /hpf 07/04/25 14:35 C. trachomatis (PCR) Not detected (Negative) 07/04/25 14:35 N. gonorrhoeae (PCR) Not detected (Negative) 07/04/25 14:35 Discharge Plan Discharge Patient Disposition: Home Clinical Impression: Bartholin's gland abscess Condition: Stable Prescriptions: New doxycycline hyclate 100 mg capsule 100 mg PO BID 14 Days Qty: 28 0RF diclofenac sodium 75 mg tablet,delayed release (DR/EC) 75 mg PO BID PRN (Reason: pain) Qty: 30 0RF No Action clobetasol 0.05 % ointment 1 applic topical .2-3 TIMES A WEEK PRN (Reason: joint flares) escitalopram oxalate 20 mg tablet 20 mg PO DAILY Qty: 30 2RF lurasidone 120 mg tablet 120 mg PO DAILY Qty: 30 2RF trazodone 100 mg tablet 200 mg PO .q hs PRN (Reason: insomnia) Qty: 60 2RF (DME) nebulizer accessories Kit See Rx Instructions .Route Qty: 1 0RF Rx Instructions: As directed (DME) compressor, for nebulizer Device See Rx Instructions .Route Qty: 1 0RF Rx Instructions: As directed promethazine-DM 6.25-15 mg/5 mL syrup 10 ml PO Q6H PRN (Reason: cough) Qty: 473 0RF chlorthalidone 25 mg tablet 25 mg PO DAILY Qty: 30 3RF Zepbound 2.5 mg/0.5 mL pen injector 2.5 mg SUBCUT .qwk Qty: 2 1RF Rx Instructions: Sunday (DME) nebulizer See Rx Instructions .Route .MEDSUPPLY Qty: 1 0RF Rx Instructions: As directed Humira Pen 40 mg/0.8 mL pen injector kit 40 mg SUBCUT Q14D Qty: 2 5RF gabapentin 300 mg capsule 600 mg PO BID Qty: 120 5RF ondansetron 8 mg tablet,disintegrating 8 mg PO Q8H PRN (Reason: nausea and vomiting) 5 Days Qty: 15 0RF famotidine [Pepcid] 40 mg tablet 40 mg PO BID Qty: 20 0RF ipratropium-albuterol 0.5 mg-3 mg(2.5 mg base)/3 mL solution for nebulization 3 ml inhalation QID PRN (Reason: wheezing) Qty: 90 0RF prednisone 20 mg tablet 40 mg PO DAILY 5 Days Qty: 10 0RF budesonide-formoterol [Symbicort] 160-4.5 mcg/actuation HFA aerosol inhaler 2 puff inhalation BID Qty: 10.2 6RF nicotine 21 mg/24 hr patch 24 hour 1 patch transdermal DAILY Qty: 28 0RF sulfamethoxazole-trimethoprim [Bactrim DS] 800-160 mg tablet 1 tab PO BID 7 Days Qty: 14 0RF mupirocin [Centany] 2 % ointment 1 applic topical TID 7 Days Qty: 15 0RF cevimeline 30 mg capsule 1 cap PO TID Qty: 90 5RF cetirizine 10 mg tablet 10 mg PO DAILY PRN (Reason: allergies) Vitamin Plus Low Iron 27 mg iron- 1 mg tablet 1 tab PO DAILY polyethylene glycol 3350 [Miralax] 17 gram/dose powder 17 g PO DAILY Qty: 510 0RF Rx Instructions: Take 1 scoop daily while taking pain medications. albuterol sulfate 2.5 mg /3 mL (0.083 %) solution for nebulization 2.5 mg inhalation Q6H PRN (Reason: Shortness Of Breath Or Wheezing) hydrocodone-acetaminophen 10-325 mg tablet 1 tab PO Q6H PRN (Reason: Pain) albuterol sulfate [Ventolin HFA] 90 mcg/actuation HFA aerosol inhaler 1 puff INHALATION Q6H PRN (Reason: Wheezing) amlodipine 5 mg tablet 5 mg PO DAILY losartan 100 mg tablet 100 mg PO DAILY Discharge Orders: Discharge ED (Routine); Ordered 07/04/25 Ordered By: Lucy Howell Referrals: Lc Mills MD [Physician, ASSEMBLY LINE DRIVER] Karuna Adam MD [Primary Care Provider, Family Practice] Discharge Diet: Usual diet Patient Instructions: Bartholin's Abscess, Incision and Drainage (ED), Patient Portal & Carli Instructions Activity Restrictions/Additional Instructions: - Ice this area for pain relief - Doxycycline was sent to your pharmacy. Take twice daily with food - Call on Sunday to follow-up with your MARKET RESEARCH SENIOR PROJECT MANAGER/you stated was Dr. Mills. If you cannot follow-up with your MARKET RESEARCH SENIOR PROJECT MANAGER, your PCP can take care of this issue. 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
[2025-07-04 12:41] VITALS: RESP 17; O2SAT 99
[2025-07-04] MEDS: ondansetron 2 mg/ML SDV 2 mL 4 MG IVP (12:41)
[2025-07-04] MEDS: morphine 4 mg/mL SDV 1 mL IVP (12:41)
[2025-07-04 12:53] VITALS: BP 209/156; PULSE 91; O2SAT 98
[2025-07-04] MEDS: ketamine 100 mg/mL Inj 5 mL IVP (12:54)
[2025-07-04] MEDS: ketamine 100 mg/mL Inj 5 mL 50 MG IVP (13:43)
[2025-07-04] MEDS: piperacillin-tazobactam 4.5 GM in sodium chloride 0.9% (plus) 50 ML IV (13:43)
[2025-07-04 14:01] VITALS: PULSE 83; O2SAT 99
[2025-07-04] MEDS: HYDROcodone-acetaminophen 10-325 mg Tablet 2 TAB PO (14:56)
[2025-07-04 15:08] LABS: Glucose Urine UA Negative (Normal); Nitrate Urine Negative (Negative)
[2025-07-04 15:30] LABS: Specific Gravity, Urine 1.037 (1.005-1.030); UA Manual Slide Review YES
[2025-07-04 15:31] LABS: Add Urine Microscopic? YES
[2025-07-04 16:22] LABS: Neisseria Gonorrhea NOT DETECTED (Negative)
== END 2025-07-04 15:24 | disposition home or self-care (01) ==
PROVIDERS: Emergency Provider Physician Assistant; PCP Family Medicine
DX: N75.1 Abscess of Bartholin's gland (principal); F17.210 Nicotine dependence, cigarettes, uncomplicated; I10 Essential (primary) hypertension
CPT/HCPCS: 56420; 81001; 87070; 87077; 87086; 87186; 87210; 87491; 87591; 94799; 96365; 96366; 96375; 99285; J2270; J2405; J2543; J3490; J9999

== ENCOUNTER 2025-07-09 05:58 | Day surgery (SDC) | payer BC, MEDICAID, SELFPAY ==
[2025-07-09] VITALS (14 sets, daily range): BP systolic 114–145; BP diastolic 78–111; PULSE 65–85; RESP 16–26; TEMP 36.3–36.9; O2SAT 92–100; BMI 45.6
--- NOTE | 2025-07-09 06:28 | ANES.PREANE2 ---
Pre-Anesthetic Assessment Height/Weight: Height 5 ft 6 in Weight 283 lb Temp Pulse Resp BP Pulse Ox O2 Del Method 97.4 F L 85 18 134/88 97 Room Air 07/09/25 06:12 07/09/25 06:12 07/09/25 06:12 07/09/25 06:12 07/09/25 06:12 07/09/25 06:12 Preop Diagnosis: Bartholin cyst Operation Date: 07/09/25 07:10 Proposed Procedures p Incision And Drainage Vulvar Abscess 41459 N76.4(Not Applicable) - Lc Mills MD Was Beta Edwin taken within 24 hours: N/A Was Clonidine taken within 24 hours: N/A Last intake: Intake Last Liquid Date 07/08/25 Last Liquid Time 22:00 Last Solid Date 07/08/25 Last Solid Time 19:00 Social Tobacco and No alcohol Exam alert and oriented x 3 Decreased breath sounds bilaterally Airway Submandibular: within normal limits Cervical ROM: within normal limits Mallampati: Class III Comments: Comments: Edentulous Anesthetic Plan ASA status: 3 Anesthesia: General Other: Patient states that she is slow to wake up from anesthesia NPO since yesterday,Patient takes tirzepatide, taken yesterday History of rheumatoid arthritis, states she only takes prednisone when she has a flare Patient believes she had COVID 2 weeks ago but symptoms have resolved Current smoker, COPD and asthma Hypertension on amlodipine, chlorthalidone and losartan Patient denies any fevers with her abscess Plan for GETA with RSI Medications/Allergies Home Medications ?Medication ?Instructions ?Recorded ?Confirmed ?Last Taken ?Type clobetasol 0.05 % topical ointment 1 applic topical .2-3 TIMES A WEEK 05/28/23 07/08/25 10/21/23 History PRN joint flares nebulizer #1 ea 06/12/24 07/08/25 Unknown Rx polyethylene glycol 3350 17 17 g PO DAILY #510 grams 08/08/24 07/08/25 07/08/25 Rx gram/dose oral powder (Miralax) adalimumab 40 mg/0.8 mL 40 mg (0.8 mL) SUBCUT Q14D #2 ea 03/23/25 07/08/25 07/01/25 Rx subcutaneous pen kit (Humira Pen) gabapentin 300 mg capsule 600 mg (2 x 300 mg) PO BID #120 03/23/25 07/08/25 07/08/25 Rx caps cevimeline 30 mg capsule 1 cap PO TID #90 caps 03/30/25 07/08/25 07/08/25 Rx cetirizine 10 mg tablet 10 mg PO DAILY PRN allergies 04/06/25 07/08/25 07/04/25 History vitamins with calcium 1 tab PO DAILY 04/06/25 07/08/25 07/04/25 History no.72-iron 27 mg-folic acid 1 mg tablet ( Vitamins Plus Low Iron) compressor, for nebulizer #1 ea 04/28/25 07/08/25 Unknown Rx nebulizer accessories #1 ea 04/28/25 07/08/25 Unknown Rx escitalopram oxalate 20 mg tablet 20 mg PO DAILY #30 tabs 05/14/25 07/08/25 07/08/25 Rx lurasidone 120 mg tablet 120 mg PO DAILY #30 tabs 05/14/25 07/08/25 07/08/25 Rx trazodone 100 mg tablet 200 mg (2 x 100 mg) PO .q hs PRN 05/14/25 07/08/25 07/07/25 Rx insomnia #60 tabs famotidine 40 mg tablet (Pepcid) 40 mg PO BID #20 tabs 05/22/25 07/08/25 07/08/25 Rx ondansetron 8 mg disintegrating 8 mg PO Q8H PRN nausea and 05/22/25 07/08/25 07/08/25 Rx tablet vomiting 5 days #15 tabs promethazine-DM 6.25 mg-15 mg/5 mL 10 ml PO Q6H PRN cough #473 mL 05/30/25 07/08/25 Unknown Rx oral syrup ipratropium 0.5 mg-albuterol 3 mg 3 ml inhalation QID PRN wheezing 06/06/25 07/08/25 07/08/25 Rx (2.5 mg base)/3 mL nebulization #90 mL soln prednisone 20 mg tablet 40 mg (2 x 20 mg) PO DAILY 5 days 06/06/25 07/08/25 07/04/25 Rx #10 tabs budesonide-formoterol HFA 160 2 puff inhalation BID #10.2 grams 0907/08/25 07/08/25 Rx mcg-4.5 mcg/actuation aerosol inhaler (Symbicort) chlorthalidone 25 mg tablet 25 mg PO DAILY #30 tabs 06/09/25 07/08/25 07/08/25 Rx nicotine 21 mg/24 hr daily 1 patch transdermal DAILY #28 ea 06/09/25 07/08/25 07/04/25 Rx transdermal patch tirzepatide (weight loss) 2.5 2.5 mg (0.5 mL) SUBCUT .qwk #2 mL 06/09/25 07/08/25 07/08/25 Rx mg/0.5 mL subcutaneous pen injector (Zepbound) mupirocin 2 % topical ointment 1 applic topical TID 7 days #15 07/03/25 07/08/25 07/08/25 Rx (Centany) grams albuterol sulfate 2.5 mg/3 mL 2.5 mg inhalation Q6H PRN 07/04/25 07/09/25 07/09/25 History (0.083 %) solution for nebulization Shortness Of Breath Or Wheezing albuterol sulfate 90 mcg/actuation 1 puff inhalation Q6H PRN Wheezing 07/04/25 07/08/25 07/08/25 History aerosol inhaler (Ventolin HFA) amlodipine 5 mg tablet 5 mg PO QPM 07/04/25 07/08/25 07/07/25 History diclofenac sodium 75 mg 75 mg PO BID PRN pain #30 tabs 07/04/25 07/08/25 07/08/25 Rx tablet,delayed release doxycycline hyclate 100 mg capsule 100 mg PO BID 14 days #28 caps 07/04/25 07/08/25 07/08/25 Rx hydrocodone 10 mg-acetaminophen 1 tab PO Q6H PRN Pain 07/04/25 07/08/25 07/08/25 History 325 mg tablet losartan 100 mg tablet 100 mg PO DAILY 07/04/25 07/08/25 07/08/25 History Allergies Allergy/AdvReac Type Severity Reaction Status Date / Time No Known Allergies Allergy Verified 07/08/25 10:46 Current Medications Generic Name Dose Route Start Last Admin Trade Name Freq PRN Reason Stop Dose Admin Sodium Chloride 1,000 mls @ 30 mls/hr 07/09/25 06:15 07/09/25 06:24 Sodium Chloride 0.9% IV 07/10/25 06:14 30 mls/hr .Q24H JULIANA Administration PFSH Anesthesia Medical History (Updated 07/08/25 @ 12:27 by Lc Mills MD) GERD (gastroesophageal reflux disease) Renal cyst, right MRI shows cyst 01/23 TABATHA (obstructive sleep apnea) didn't tolerate CPAP so they took it away; 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 Severe persistent asthma Hepatic steatosis on MRI Obesity, Class III, BMI 40-49.9 (morbid obesity) Smoker Trochanteric bursitis of right hip Primary hypertension Asthma-COPD overlap syndrome Generalized anxiety disorder Chronic cough Low back pain Lichen sclerosus Asthma High risk medication use 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 Inflammatory arthritis Psychiatric care Surgical History History of urologic surgery had bulk a max but didn't work History of cholecystectomy Family History Grandmother Lupus Hypertension Mother Lung disease copd Hypertension Other Chronic kidney disease (CKD) Heart disease Lupus (systemic lupus erythematosus) Rheumatoid arthritis Stroke Denies family history of Colon cancer Ovarian cancer Diabetes Hyperlipidemia Breast cancer Thyroid disease Social History Smoking and tobacco/nicotine status: current every day tobacco/nicotine user (1 ppd X 22 years) cigarettes Packs smoked per day: 1.5 Years cigarettes smoked: 20 [ Other cigarette details: started at age 8] Alcohol intake: former Year of sobriety/quit date alcohol: 2014 Substance/Drug Use: current Substance/Drug use frequency: daily Other substance/drug use details: history opiate pill abuse Household members: children Marital status: Number of children: 1 Highest education level completed: High School Graduate Current occupational status: unemployed 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
--- NOTE | 2025-07-09 06:47 | W.PM.OPSUD ---
Surgery/Procedure H&P Update DATE OF PROCEDURE: July 09, 2025 DATE H&P PERFORMED: 07/08/25 H&P UPDATE INFORMATION: I have reviewed H&P completed within last 30 days, I have examined patient prior to procedure and No changes to prior documentation PREOP DIAGNOSIS: vulvar abscess PLANNED PROCEDURE: Operation Date: 07/09/25 07:10 Proposed Procedures p Incision And Drainage Vulvar Abscess 91728 N76.4(Not Applicable) - Lc Mills MD
[2025-07-09] MEDS: fentaNYL 50 mcg/mL INJ 2mL IVP ×2 (07:56→08:03)
--- NOTE | 2025-07-09 08:05 | PM.OP ---
Operative Report Date of procedure: July 09, 2025 Pre-op diagnosis: Left vulvar abscess Post-op diagnosis: same Post-op findings: 4 cm left vulvar abscess Procedure done: incision, drainage and packing of left vulvar abscess Cultures of purulent material from left vulvar abscess Implants: none Specimens removed/disposition: Cultures of purulent material from left vulvar abscess Surgeon: Lc Mills MD Anesthesia: General Estimated blood loss (mL): 5 Complications: none Findings: 4 cm left vulvar abscess with small amount of pus Condition: stable Disposition: PACU Brief History: 30 y.o. with h/o one week h/o left vulvar abscess presented with pain Procedure: Informed consent was obtained for incision, drainage, and packing of vulvar abscess. The patient was taken to the OR and placed on table. General anesthesia was given. Patient was then placed in dorsolithotomy position. The perineum was prepped and draped in the usual sterile fashion. A 4 cm fluctuant left vulvar abscess was identified. A 2 cm incision was made on the surface of the abscess. Small amount of purulent material was obtained. Cultures done. The abscess cavity was explored and cleared. A 0.25-inch iodoform was then used to pack the abscess cavity. No bleeding was seen. The patient was then placed supine, awakened, and taken to the RR in good condition. Postoperative condition: good Blood loss: 5 cc Complications: none Sponge and instrument counts correct x two
--- NOTE | 2025-07-09 09:00 | ANE.PACU2 ---
Inpatient post-anesthesia follow up: Airway intact: Yes Vital signs: Temperature 98.1 F Pulse Rate 72 Respiratory Rate 18 Blood Pressure 114/79 Pulse Oximetry 96 Oxygen Delivery Me thod Room Air Oxygen Flow Rate 8 Fraction of Inspir ed Oxygen Hydration adequate: Yes Nausea and vomiting: No Pain level: 2 Mental status: Baseline
== END 2025-07-09 09:00 | disposition home or self-care (01) ==
PROVIDERS: PCP Family Medicine; Visit Provider Obstetrics & Gynecology
PROC: (CPT 56405; principal; 2025-07-09 07:00)
DX: N76.4 Abscess of vulva (principal); M06.9 Rheumatoid arthritis, unspecified; J44.9 Chronic obstructive pulmonary disease, unspecified; I10 Essential (primary) hypertension; K21.9 Gastro-esophageal reflux disease without esophagitis; G47.33 Obstructive sleep apnea (adult) (pediatric); E66.01 Morbid (severe) obesity due to excess calories; Z68.42 Body mass index [BMI] 45.0-49.9, adult; F41.9 Anxiety disorder, unspecified; F17.210 Nicotine dependence, cigarettes, uncomplicated
CPT/HCPCS: 56405; 87070; 87075; 87205; A4216; J0330; J2250; J2704; J3010; J3490; J7030; J9999

== ENCOUNTER 2025-08-10 08:14 | Outpatient (CLI) | payer BC, MEDICAID, SELFPAY ==
[2025-08-10 14:42] LABS: Hematocrit 43.0 % (36-47); Hemoglobin 15.00 g/dL (11.27-16.99); Mean Corpuscular HGB Conc 34.9 g/dL (30-55); Mean Corpuscular Hemoglobin 31.9 pg (27-33); Mean Corpuscular Volume 91.5 fl (85-98); Nucleated Red Blood Cells % 0 %; Platelet Count 413 10^3/cmm (157-399); Red Blood Count 4.70 10^6/uL (3.85-5.65); White Blood Count 11.49 10^3/uL (3.29-11.43)
[2025-08-10 15:18] LABS: Alanine Aminotransferase 16 U/L (0-33); Albumin Level 4.1 g/dL (3.5-5.2); Alkaline Phosphatase 78 U/L (35-105); Aspartate Amino Transferase 16 U/L (0-32); Globulin 3.3 g/dL (1.3-4.6); Total Protein 7.4 g/dL (6.6-8.7)
[2025-08-10 15:21] LABS: Hepatitis B Surface Antigen Non-Reactive (Nonreactive)
== END 2025-08-10 08:15 | disposition home or self-care (01) ==
LOC: LAB 08:17
PROVIDERS: PCP Family Medicine; Visit Provider Internal Medicine Rheumatology
DX: Z79.899 Other long term (current) drug therapy (principal)
CPT/HCPCS: 36415; 80076; 82565; 85025; 85651; 86140; 86480; 86704; 86803; 87340

== ENCOUNTER 2025-08-11 12:35 | Outpatient (CLI) | payer BC, MEDICAID, SELFPAY ==
--- NOTE | 2025-08-11 12:40 | XRR_ITS ---
PROCEDURE INFORMATION: Exam: XR Right Hip Exam date and time: 08/11/2025 12:48 PM Age: 30 years old Clinical indication: Hip pain; Right hip; Sudden onset of pain in RT hip x one month. PT states pain has increased in last couple of days. ; Additional info: Right hip pain TECHNIQUE: Imaging protocol: Radiologic exam of the right hip. Views: 1 view hip with pelvis when performed. COMPARISON: CT abdomen pelvis w con* [id number] 02/25/2024 10:41 PM FINDINGS: Bones/joints: No acute appearing fracture. Superolateral acetabular lucency is unchanged from CT 02/25/2024, benign in its imaging appearance is most compatible with subchondral cystic degenerative change. Contour of the femoral head neck junction on frogleg lateral raises a question of possible femoroacetabular impingement. Consider correlation with hip MRI given reported symptoms of pain. Soft tissues: Unremarkable. XR/XR hip RT 2-3V wo/w pel* [id number] IMPRESSION: 1. No acute appearing fracture. 2. Contour of the femoral head neck junction on frogleg lateral raises a question of possible femoroacetabular impingement. Consider correlation with hip MRI given reported symptoms of pain.
== END 2025-08-11 12:36 | disposition home or self-care (01) ==
LOC: RAD 12:35
PROVIDERS: PCP Family Medicine; Visit Provider Family Medicine
DX: M25.551 Pain in right hip (principal); R93.89 Abnormal findings on diagnostic imaging of other specified body structures; R30.0 Dysuria
CPT/HCPCS: 73502; 87086

== ENCOUNTER 2025-08-12 11:54 | Outpatient (CLI) | payer BC, MEDICAID, SELFPAY ==
--- NOTE | 2025-08-12 12:15 | MRR_ITS ---
PROCEDURE INFORMATION: Exam: MR Right Lower Extremity Joint Without Contrast; Hip Exam date and time: 08/12/2025 12:13 PM Age: 30 years old Clinical indication: Right; Prior surgery; Surgery date: 6+ months; Surgery type: Gb, bladder; R hip pain, difficulty walking. Getting worse over time. No specific injury; Additional info: R hip pain; Can't walk TECHNIQUE: Imaging protocol: Magnetic resonance imaging of the right lower extremity joint without contrast. Exam focused on the hip. COMPARISON: CR XR hip RT 2-3V wo/w pel* [id number] 08/11/2025 12:[address] abdomen and pelvis from 02/25/2024 and 08/02/2023 FINDINGS: Bones/joints: There is no acute reactive marrow edema identified. There is no joint effusion. Small degenerative subchondral cysts are seen within the superior anterior aspect of the left acetabulum. There is a prominent stable likely degenerative cyst seen in the superior right acetabulum. The right femoral head is well circumscribed. The right femoral head and acetabular cartilage is well-maintained. Labrum: There is no threshold evidence for articular surface acetabular labral tear. Both the right hip transverse ligament and ligamentum teres are intact. TENDONS: Tendons of iliopsoas group: The iliopsoas tendon inserts normally. Tendons of medial compartment of thigh: Unremarkable. No evidence of tear. Tendons of lateral rotators of hip: Unremarkable. No evidence of tear. Tendons of gluteal group: Unremarkable. No evidence of tear. The right hip gluteal tendons insert normally at the greater trochanter. Tendons of posterior compartment of thigh: The common hamstring origins are normal in appearance. Soft tissues: The soft tissue structures central within the pelvis are unremarkable. The signal intensity within the musculature surrounding and deep within the pelvis is normal in appearance. The proximal IT band is intact. MR/MR hip RT wo con* [id number] IMPRESSION: 1. No acute process 2. Mild bilateral hip degenerative osteoarthritis.
== END 2025-08-12 11:55 | disposition home or self-care (01) ==
PROVIDERS: PCP Family Medicine; Visit Provider Family Medicine
DX: Z30.430 Encounter for insertion of intrauterine contraceptive device (principal); M25.851 Other specified joint disorders, right hip; M16.0 Bilateral primary osteoarthritis of hip
CPT/HCPCS: 73721; 81025

== ENCOUNTER → 2025-08-21 09:57 | Outpatient (BNVA) | payer BC, MEDICAID, SELFPAY | PROVIDERS: PCP Family Medicine; Visit Provider Nurse Practitioner | DX: M70.61 Trochanteric bursitis, right hip (principal); M25.851 Other specified joint disorders, right hip; M54.50 Low back pain, unspecified | CPT/HCPCS: 73502 ==

== ENCOUNTER 2025-09-10 09:43 | Emergency (ER) | payer BC, MEDICAID, SELFPAY ==
[2025-09-10 09:47] VITALS: BP 139/84; PULSE 92; TEMP 36.7; O2SAT 98; BMI 45.1
--- NOTE | 2025-09-10 11:02 | W.ED.SKABFB ---
HPI - Skin/Abscess/Foreign Bdy General: Chief complaint: Skin/Abscess/Foreign Body Stated complaint: lump on groin Time Seen by Provider: 09/10/25 10:37 Source: patient Mode of arrival: ambulatory Limitations: no limitations History of Present Illness: Patient is a 30-year-old female presents to ED today with a concern of an abscess near her labia. She states she has a longstanding history of labial/Bartholin gland abscesses. She states she has had to go to the OR several times-Dr. Mills has performed one here through [facility] but she has had several others in [place] before moving here. She states this 1 started a few days ago. No systemic symptoms. She has not noticed any drainage. Patient states she is immunocompromised. MD complaint: abscess/boil Onset (ago): day(s) Tetanus up to date: yes Location: genitals Severity: moderate Pain Consistency: constant Relieving factors: none Exacerbating factors: none Context: none Associated symptoms: Reports no associated symptoms; Deny chills, fever(s), nausea or vomiting Treatments prior to arrival: none Related Data Home Medications ?Medication ?Instructions ?Recorded ?Confirmed clobetasol 0.05 % topical ointment 1 applic topical .2-3 TIMES A WEEK 05/28/23 09/07/25 PRN joint flares cetirizine 10 mg tablet 10 mg PO DAILY PRN allergies 04/06/25 09/07/25 vitamins with calcium 1 tab PO DAILY 04/06/25 09/07/25 no.72-iron 27 mg-folic acid 1 mg tablet ( Vitamins Plus Low Iron) albuterol sulfate 2.5 mg/3 mL 2.5 mg inhalation Q6H PRN 07/04/25 09/07/25 (0.083 %) solution for nebulization Shortness Of Breath Or Wheezing albuterol sulfate 90 mcg/actuation 1 puff inhalation Q6H PRN Wheezing 07/04/25 09/07/25 aerosol inhaler (Ventolin HFA) hydrocodone 10 mg-acetaminophen 1 tab PO Q6H PRN Pain 07/04/25 09/07/25 325 mg tablet etonogestrel 68 mg subdermal subdermal ONCE 09/02/25 09/07/25 implant (Nexplanon) Previous Rx's ?Medication ?Instructions ?Recorded nebulizer #1 ea 06/12/24 polyethylene glycol 3350 17 17 g PO DAILY #510 grams 08/08/24 gram/dose oral powder (Miralax) compressor, for nebulizer #1 ea 04/28/25 nebulizer accessories #1 ea 04/28/25 ondansetron 8 mg disintegrating 8 mg PO Q8H PRN nausea and 05/22/25 tablet vomiting 5 days #15 tabs ipratropium 0.5 mg-albuterol 3 mg 3 ml inhalation QID PRN wheezing 06/06/25 (2.5 mg base)/3 mL nebulization #90 mL soln budesonide-formoterol HFA 160 2 puff inhalation BID #10.2 grams 06/09/25 mcg-4.5 mcg/actuation aerosol inhaler (Symbicort) nicotine 21 mg/24 hr daily 1 patch transdermal DAILY #28 ea 06/09/25 transdermal patch mupirocin 2 % topical ointment 1 applic topical TID 7 days #15 07/03/25 (Centany) grams diclofenac sodium 75 mg 75 mg PO BID PRN pain #60 tabs 07/14/25 tablet,delayed release promethazine-DM 6.25 mg-15 mg/5 mL 10 ml PO Q6H PRN cough #473 mL 07/14/25 oral syrup spironolactone 25 mg tablet 25 mg PO DAILY #30 tabs 07/14/25 tirzepatide (weight loss) 5 mg/0.5 5 mg (0.5 mL) SUBCUT .qwk #2 mL 07/26/ mL subcutaneous pen injector (Zepbound) amlodipine 5 mg tablet 5 mg PO QPM #90 tabs 07/30/25 losartan 100 mg tablet 100 mg PO DAILY #90 tabs 07/30/25 adalimumab 40 mg/0.8 mL 40 mg (0.8 mL) SUBCUT .Q7days #4 ea 08/06/25 subcutaneous pen kit (Humira Pen) cevimeline 30 mg capsule 1 cap PO TID #90 caps 08/06/25 gabapentin 300 mg capsule 600 mg (2 x 300 mg) PO TID #180 08/06/25 caps prednisone 20 mg tablet See Rx Instructions PO DAILY #30 08/06/25 tabs omeprazole 40 mg capsule,delayed 40 mg PO QAM #30 caps 08/11/25 release prednisone 20 mg tablet 20 mg PO DAILY #10 tabs 08/21/25 escitalopram oxalate 20 mg tablet 20 mg PO DAILY #30 tabs 09/07/25 lurasidone 120 mg tablet 120 mg PO DAILY #30 tabs 09/07/25 trazodone 100 mg tablet 200 mg (2 x 100 mg) PO .q hs PRN 09/07/25 insomnia #60 tabs oxycodone-acetaminophen 10 mg-325 1 tab PO Q6H PRN pain #14 tabs 09/10/25 mg tablet sulfamethoxazole 800 2 tab PO BID 7 days #28 tabs 09/10/25 mg-trimethoprim 160 mg tablet (Bactrim DS) Allergies Allergy/AdvReac Type Severity Reaction Status Date / Time No Known Allergies Allergy Verified 09/10/25 09:50 Review of Systems Const: Denies: fever(s), chills, body aches, fatigue or malaise Card: Denies: chest pain Resp: Denies: dyspnea GI: Denies: abdominal pain, nausea, vomiting, diarrhea, hematochezia or melena : Reports: other (genital abscess); Denies: flank pain, difficulty voiding, dysuria, urinary frequency, urinary urgency or urinary hesitancy Musc: Denies: neck pain, back pain, extremity pain or joint swelling Skin/Breast: Reports: other (genital abscess) Neuro: Denies: headache(s), numbness in extremities, weakness in extremities or sensory changes PFSH ED PFSH: Medical History Morbid obesity with BMI of 45.0-49.9, adult Gastroesophageal reflux disease without esophagitis Renal cyst, right MRI shows cyst 01/23 TABATHA (obstructive sleep apnea) didn't tolerate CPAP so they took it away; 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 Severe persistent asthma Hepatic steatosis on MRI Obesity, Class III, BMI 40-49.9 (morbid obesity) Smoker Trochanteric bursitis of right hip Primary hypertension Asthma-COPD overlap syndrome Generalized anxiety disorder Chronic cough Low back pain Lichen sclerosus Asthma High risk medication use 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 Inflammatory arthritis Psychiatric care Surgical History History of urologic surgery had bulk a max but didn't work History of cholecystectomy Family History Grandmother Lupus Hypertension Mother Lung disease copd Hypertension Other Chronic kidney disease (CKD) Heart disease Lupus (systemic lupus erythematosus) Rheumatoid arthritis Stroke Denies family history of Colon cancer Ovarian cancer Diabetes Hyperlipidemia Breast cancer Thyroid disease Social History Smoking and tobacco/nicotine status: current every day tobacco/nicotine user (1 ppd X 22 years) cigarettes Packs smoked per day: 1.5 Years cigarettes smoked: 20 [ Other cigarette details: started at age 8] Second hand smoke exposure: No Alcohol intake: former Year of sobriety/quit date alcohol: 2014 Substance/Drug Use: current Substance/Drug use frequency: daily Other substance/drug use details: history opiate pill abuse Adopted: No Caregiver/support person: No Lives independently: Yes Household members: children Housing: Apartment Marital status: Number of children: 1 Number of grandchildren: 0 Highest education level completed: High School Graduate service: No Current occupational status: employed and unemployed 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 Current occupational exposures/hazards: No Pets and animals: Yes Pets & animals: dog(s) Leisure activites: exercise and reading Sexually active: No Do you think of yourself as: Straight/Heterosexual Current gender identity: Female Jenifer/Synagogue: Unknown Special jenifer needs: No Agree to transfusion: Yes Physical Exam Const: COMMON NORMALS: no acute distress, patient oriented x3, no limitations, alert and well nourished GENERAL APPEARANCE: cooperative NUTRITIONAL APPEARANCE: obese morbidly obese (BMI 45.2) ORIENTATION/CONSCIOUSNESS: Yes awake, Yes oriented to person, Yes oriented to place and Yes oriented to time Resp: COMMON NORMALS: normal respiratory effort and clear to auscultation bilaterally AUSCULTATION: clear to auscultation bilaterally Cardio: COMMON NORMALS: regular rate and regular rhythm RATE: regular rate RHYTHM: regular rhythm GI: COMMON NORMALS: Normal to inspection, nondistended, normoactive bowel sounds present, Soft to palpation and non-tender PALPATION: Yes Soft to palpation : EXTERNAL FEMALE EXAM: Yes other (genital/mons pubis cellulitis possible abscess) GENITAL IMAGES (FEMALE):  1. large amount of erythema/warmth/induration; no obvious fluctuance; this appears largely to affect mainly her mons pubic region and not her Bartholin gland Neuro: COMMON NORMALS: patient oriented x3 SENSORIUM/ORIENTATION: Yes alert, Yes oriented to person, Yes oriented to place and Yes oriented to time Skin: NARRATIVE SKIN EXAM: see above Course Vital Signs: Vital signs: Vital Signs Temperature 98.0 F 09/10/25 09:47 Pulse Rate 101 H 09/10/25 14:24 Respiratory Rate 16 09/10/25 12:01 Blood Pressure 127/89 09/10/25 14:24 Pulse Oximetry 95 09/10/25 14:24 Oxygen Delivery Me thod Room Air 09/10/25 14:01 MDM - Skin/Abscess/Foreign Bdy Medicial Decision Making Patient is a 30-year-old female here for cellulitis and induration involving her mons pubic region/L labia. There is no fluctuant areas clinically. Pelvic CT obtained showing no drainable fluid collection. Her vital signs are stable. She does have a white count of 18,000 but she is not tachycardic or febrile. She was given IV antibiotics here and will be placed on antibiotics at home. She does have follow-up with LOAN PROCESSOR already scheduled for Sunday. Return to ED precautions discussed. She was incidentally found to have low mag/low potassium versus pseudohypokalemia. She was given oral doses of magnesium and potassium prior to discharge. Differential Diagnosis Likely abscess of skin or subcutaneous tissue Medical Records I reviewed the patient's medical records. Lab Data I reviewed the patient's lab results. 09/10/25 11:28 09/10/25 11:[address] 09/10/25 11:09 IMPRESSION: Subcutaneous stranding and induration in the left labia. No drainable fluid collection. Laboratory Results WBC 18.02 10^3/uL (3.29-11.43) H 09/10/25 11:28 RBC 4.81 10^6/uL (3.85-5.65) 09/10/25 11:28 Hgb 15.30 g/dL (11.27-16.99) 09/10/25 11:28 Hct 43.6 % (36-47) 09/10/25 11:28 MCV 90.6 fl (85-98) 09/10/25 11:28 MCH 31.8 pg (27-33) 09/10/25 11:28 MCHC 35.1 g/dL (30-55) 09/10/25 11:28 RDW 13.5 % (12.1-15.1) 09/10/25 11:28 Plt Count 414 10^3/cmm (157-399) H 09/10/25 11:28 MPV 8.9 fL (7.4-10.4) 09/10/25 11:28 Neut % (Auto) 79.5 % 09/10/25 11:28 Lymph % (Auto) 12.2 % 09/10/25 11:28 Waldo % (Auto) 6.4 % 09/10/25 11:28 Eos % (Auto) 0.9 % 09/10/25 11:28 Baso % (Auto) 0.3 % 09/10/25 11:28 Neut # (Auto) 14.32 10^3/uL (1.8-7.7) H 09/10/25 11:28 Lymph # (Auto) 2.2 10^3/uL (0.8-4.8) 09/10/25 11:28 Waldo # (Auto) 1.2 10^3/uL (0.2-0.9) H 09/10/25 11:28 Eos # (Auto) 0.2 10^3/uL (0.0-0.8) 09/10/25 11:28 Baso # (Auto) 0.1 10^3/uL (0.0-0.1) 09/10/25 11:28 Nucleated RBC % (auto) 0 % 09/10/25 11:28 Nucleated RBCs # 0.0 /100WBC 09/10/25 11:28 Sodium 134 mmol/L (136-145) L 09/10/25 11:28 Potassium 2.9 mmol/L (3.5-5.1) L 09/10/25 11:28 Chloride 92 mmol/L (98-107) L 09/10/25 11:28 Carbon Dioxide 29 mmol/L (22-29) 09/10/25 11:28 Anion Gap 15.9 (5-19) 09/10/25 11:28 BUN 6 mg/dL (6-20) 09/10/25 11:28 Creatinine 0.5 mg/dL (0.5-0.9) 09/10/25 11:28 GFR Calculation 143.9 mL/min (90-130) H 09/10/25 11:28 Glucose 104 mg/dL (65-115) 09/10/25 11:28 Calculated Osmolality 276 mOsm/kg (285-295) L 09/10/25 11:28 Calcium 9.3 mg/dL (8.5-10.5) 09/10/25 11:28 Magnesium 2.4 mg/dL (1.7-2.3) H 09/10/25 11:28 Total Bilirubin 0.5 mg/dL (0.15-1.2) 09/10/25 11:28 AST 9 U/L (0-32) 09/10/25 11:28 ALT 12 U/L (0-33) 09/10/25 11:28 Alkaline Phosphatase 77 U/L (35-105) 09/10/25 11:28 Total Protein 7.3 g/dL (6.6-8.7) 09/10/25 11:28 Albumin 3.9 g/dL (3.5-5.2) 09/10/25 11:28 Globulin 3.4 g/dL (1.3-4.6) 09/10/25 11:28 HCG, Qual Negative (Negative) 09/10/25 11:28 All radiology interpretation(s) finalized by discharge Discharge Plan Discharge Patient Disposition: Home Clinical Impression: Cellulitis of labia Condition: Stable Prescriptions: New oxycodone-acetaminophen 10-325 mg tablet 1 tab PO Q6H PRN (Reason: pain) Qty: 14 0RF sulfamethoxazole-trimethoprim [Bactrim DS] 800-160 mg tablet 2 tab PO BID 7 Days Qty: 28 0RF No Action clobetasol 0.05 % ointment 1 applic topical .2-3 TIMES A WEEK PRN (Reason: joint flares) (DME) nebulizer accessories Kit See Rx Instructions .Route Qty: 1 0RF Rx Instructions: As directed (DME) compressor, for nebulizer Device See Rx Instructions .Route Qty: 1 0RF Rx Instructions: As directed spironolactone 25 mg tablet 25 mg PO DAILY Qty: 30 5RF diclofenac sodium 75 mg tablet,delayed release (DR/EC) 75 mg PO BID PRN (Reason: pain) Qty: 60 0RF promethazine-DM 6.25-15 mg/5 mL syrup 10 ml PO Q6H PRN (Reason: cough) Qty: 473 0RF omeprazole 40 mg capsule,delayed release(DR/EC) 40 mg PO QAM Qty: 30 5RF prednisone 20 mg tablet 20 mg PO DAILY Qty: 10 0RF Rx Instructions: Days 1-3 40mg. days 4-6 20 mg. days 7&8 10mg (DME) nebulizer See Rx Instructions .Route .MEDSUPPLY Qty: 1 0RF Rx Instructions: As directed Humira Pen 40 mg/0.8 mL pen injector kit 40 mg SUBCUT .Q7days Qty: 4 5RF cevimeline 30 mg capsule 1 cap PO TID Qty: 90 5RF gabapentin 300 mg capsule 600 mg PO TID Qty: 180 5RF prednisone 20 mg tablet See Rx Instructions PO DAILY Qty: 30 1RF Rx Instructions: Take 1 or 2 daily up to 5 days prn joint pain flare orally daily; ondansetron 8 mg tablet,disintegrating 8 mg PO Q8H PRN (Reason: nausea and vomiting) 5 Days Qty: 15 0RF ipratropium-albuterol 0.5 mg-3 mg(2.5 mg base)/3 mL solution for nebulization 3 ml inhalation QID PRN (Reason: wheezing) Qty: 90 0RF budesonide-formoterol [Symbicort] 160-4.5 mcg/actuation HFA aerosol inhaler 2 puff inhalation BID Qty: 10.2 6RF nicotine 21 mg/24 hr patch 24 hour 1 patch transdermal DAILY Qty: 28 0RF mupirocin [Centany] 2 % ointment 1 applic topical TID 7 Days Qty: 15 0RF escitalopram oxalate 20 mg tablet 20 mg PO DAILY Qty: 30 2RF Rx Instructions: Take one tablet daily trazodone 100 mg tablet 200 mg PO .q hs PRN (Reason: insomnia) Qty: 60 2RF Rx Instructions: Take two tablets daily at bedtime, if needed for insomnia lurasidone 120 mg tablet 120 mg PO DAILY Qty: 30 2RF Rx Instructions: Take one tablet daily with meal/snack Nexplanon 68 mg implant subdermal ONCE Zepbound 5 mg/0.5 mL pen injector 5 mg SUBCUT .qwk Qty: 2 2RF Rx Instructions: increased dosage amlodipine 5 mg tablet 5 mg PO QPM Qty: 90 0RF losartan 100 mg tablet 100 mg PO DAILY Qty: 90 0RF cetirizine 10 mg tablet 10 mg PO DAILY PRN (Reason: allergies) Vitamin Plus Low Iron 27 mg iron- 1 mg tablet 1 tab PO DAILY polyethylene glycol 3350 [Miralax] 17 gram/dose powder 17 g PO DAILY Qty: 510 0RF Rx Instructions: Take 1 scoop daily while taking pain medications. albuterol sulfate 2.5 mg /3 mL (0.083 %) solution for nebulization 2.5 mg inhalation Q6H PRN (Reason: Shortness Of Breath Or Wheezing) hydrocodone-acetaminophen 10-325 mg tablet 1 tab PO Q6H PRN (Reason: Pain) albuterol sulfate [Ventolin HFA] 90 mcg/actuation HFA aerosol inhaler 1 puff INHALATION Q6H PRN (Reason: Wheezing) Discharge Orders: Discharge ED (Routine); Ordered 09/10/25 Ordered By: Helen Zimmerman Referrals: Karuna Adam MD [Primary Care Provider, Family Practice] Patient Instructions: Patient Portal & Carli Instructions Activity Restrictions/Additional Instructions: As we discussed, please fill your antibiotics and start them immediately. Please follow-up with Dr. Mills as scheduled on Sunday. You need to return to the emergency department for worsening redness, swelling, worsening pain, fevers, generally feeling worse or unwell, or any other concerns you may have. Print Language: Bolivian Coding Level of Care Code ED Nurse Advisor for Sunil Ace
--- NOTE | 2025-09-10 11:09 | CTR_ITS ---
PROCEDURE INFORMATION: Exam: CT Pelvis With Contrast Exam date and time: 09/10/2025 12:35 PM Age: 30 years old Clinical indication: Mass, lump, or swelling; Other: Labia/mons pubis; Additional info: Induration/erythema/hx labial abscess; Mons pubis TECHNIQUE: Imaging protocol: Computed tomography of the pelvis with contrast. Radiation optimization: All CT scans at this facility use at least one of these dose optimization techniques: automated exposure control; mA and/or kV adjustment per patient size (includes targeted exams where dose is matched to clinical indication); or iterative reconstruction. Contrast material: [id number]; Contrast volume: 100 ml; Contrast route: INTRAVENOUS (IV); COMPARISON: CT abdomen pelvis w con* [id number] 02/25/2024 10:41 PM RADIATION DOSE METRICS: Total DLP (mGy-cm): 1044.84 FINDINGS: Intestine: Visualized small and large intestine are unremarkable. Appendix: No evidence of appendicitis. Intraperitoneal space: Unremarkable. No free air. No significant fluid collection. Lymph nodes: Unremarkable. No enlarged lymph nodes. Reproductive: Normal as visualized. Urinary bladder: Normal. No mass. Bones/joints: No acute fracture. Bilateral geodes. Joint spaces are preserved. Soft tissues: Subcutaneous stranding and induration in the left labia. No drainable fluid collection. CT/CT pelvis w con* [id number] IMPRESSION: Subcutaneous stranding and induration in the left labia. No drainable fluid collection.
[2025-09-10 11:29] VITALS: RESP 18; O2SAT 95
[2025-09-10] MEDS: morphine 4 mg/mL SDV 1 mL IVP (11:29)
[2025-09-10] MEDS: ondansetron 2 mg/ML SDV 2 mL 4 MG IVP (11:29)
[2025-09-10] MEDS: piperacillin-tazobactam 3.375 GM in sodium chloride 0.9% (plus) 50 ML IV (11:30)
[2025-09-10 11:49] LABS: Hematocrit 43.6 % (36-47); Hemoglobin 15.30 g/dL (11.27-16.99); Mean Corpuscular HGB Conc 35.1 g/dL (30-55); Mean Corpuscular Hemoglobin 31.8 pg (27-33); Mean Corpuscular Volume 90.6 fl (85-98); Nucleated Red Blood Cells % 0 %; Platelet Count 414 10^3/cmm (157-399); Red Blood Count 4.81 10^6/uL (3.85-5.65); White Blood Count 18.02 10^3/uL (3.29-11.43)
[2025-09-10 12:01] VITALS: BP 124/104; PULSE 75; RESP 16; O2SAT 96
[2025-09-10 12:12] LABS: HCG, Serum Qual Negative (Negative)
[2025-09-10 12:17] LABS: Alanine Aminotransferase 12 U/L (0-33); Albumin Level 3.9 g/dL (3.5-5.2); Alkaline Phosphatase 77 U/L (35-105); Anion Gap 15.9 (5-19); Aspartate Amino Transferase 9 U/L (0-32); Blood Urea Nitrogen 6 mg/dL (6-20); Calcium 9.3 mg/dL (8.5-10.5); Carbon Dioxide 29 mmol/L (22-29); Chloride 92 mmol/L (98-107); Globulin 3.4 g/dL (1.3-4.6); Glucose 104 mg/dL (65-115); Osmolality Calculated 276 mOsm/kg (285-295); Sodium 134 mmol/L (136-145); Total Protein 7.3 g/dL (6.6-8.7)
[2025-09-10 12:18] LABS: Potassium 2.9 mmol/L (3.5-5.1)
[2025-09-10] MEDS: iohexol 350 mg/mL 500 mL Btl (per mL) IV (12:41)
[2025-09-10] MEDS: potassium chloride oral liq 20 mEq/15 mL UDC 40 MEQ PO (12:59)
--- NOTE | 2025-09-10 13:16 | PC.NURSE ---
Assumed Pt. care.
[2025-09-10 13:20] LABS: Magnesium 2.4 mg/dL (1.7-2.3)
[2025-09-10 13:23] VITALS: BP 148/88; PULSE 77; O2SAT 95
[2025-09-10 14:01] VITALS: BP 127/89; PULSE 101; O2SAT 95
[2025-09-10 14:24] VITALS: BP 127/89; PULSE 101; O2SAT 95
== END 2025-09-10 14:26 | disposition home or self-care (01) ==
PROVIDERS: Emergency Provider Physician Assistant; PCP Family Medicine
DX: N76.2 Acute vulvitis (principal); F17.210 Nicotine dependence, cigarettes, uncomplicated; J44.89 Other specified chronic obstructive pulmonary disease; I10 Essential (primary) hypertension
CPT/HCPCS: 36415; 72193; 80053; 83735; 84703; 85025; 87040; 96365; 96367; 96375; 99285; J2270; J2405; J2543; J3373; J9999

== ENCOUNTER 2025-09-14 14:50 | Inpatient (IN) | payer BC, MEDICAID, SELFPAY ==
[2025-09-14] VITALS (7 sets, daily range): BP systolic 118–172; BP diastolic 69–106; PULSE 77–106; RESP 16–17; TEMP 36.7–36.8; O2SAT 96–99; BMI 32.8
--- NOTE | 2025-09-14 15:08 | CTR_ITS ---
PROCEDURE INFORMATION: Exam: CT Abdomen And Pelvis With Contrast Exam date and time: 09/14/2025 4:22 PM Age: 30 years old Clinical indication: Other: Groin abscess TECHNIQUE: Imaging protocol: Computed tomography of the abdomen and pelvis with contrast. Radiation optimization: All CT scans at this facility use at least one of these dose optimization techniques: automated exposure control; mA and/or kV adjustment per patient size (includes targeted exams where dose is matched to clinical indication); or iterative reconstruction. Contrast material: [id number]; Contrast volume: 100 ml; Contrast route: INTRAVENOUS (IV); COMPARISON: CT pelvis w con* [id number] 09/10/2025 12:35 PM RADIATION DOSE METRICS: Total DLP (mGy-cm): 1376.27 FINDINGS: Liver: Normal. No mass. Gallbladder and biliary ducts: Post cholecystectomy. Pancreas: Normal. No ductal dilation. Spleen: Normal. No splenomegaly. Adrenal glands: Normal. No mass. Kidneys and ureters: 22 mm cyst in the lower pole of the right kidney. This was present on the previous MRI study from 01/19/2025. Stomach and bowel: Unremarkable. No obstruction. No mucosal thickening. Appendix: No evidence of appendicitis. Intraperitoneal space: Unremarkable. No free air. No significant fluid collection. Vasculature: Unremarkable. No abdominal aortic aneurysm. Lymph nodes: Unremarkable. No enlarged lymph nodes. Urinary bladder: Unremarkable as visualized. Reproductive: There is a shallow low-density subcutaneous 14 mm thick by 7 cm long subcutaneous fluid collection in the left labia majora with adjacent fat stranding and skin thickening consistent with a small abscess and localized cellulitis. Bones/joints: Unremarkable. No acute fracture. Soft tissues: See Reproductive finding. CT/CT abdomen pelvis w con* [id number] IMPRESSION: Small abscess with cellulitis in the left labia majora.
--- NOTE | 2025-09-14 15:12 | ED_ITS ---
HPI - Skin/Abscess/Foreign Bdy 2 General: Chief complaint: Abdominal Pain Stated complaint: Dr Mills sent, abd pain, nausea, chills Time Seen by Provider: 09/14/25 15:02 History of Present Illness: 30-year-old female with a history of obe sity, hypertension, COPD, anxiety, and arthritis who presents emergency room from gynecology clinic with concern for groin abscess. Spoke with Dr. Mills before she arrived. He had spoken with general surgery and they wanted her sent here for lab work and imaging. Says this been going on for over a week now. The swelling in her groin area. She has had subjective fevers. Chills. Malaise. Related Data Home Medications ?Medication ?Instructions ?Recorded ?Confirmed clobetasol 0.05 % topical ointment 1 applic topical .2 -3 TIMES A WEEK 05/28/23 09/14/25 PRN joint flares cetirizine 10 mg tablet 10 mg PO DAILY PRN allergies 04/06/25 09/14/25 vitamins with calcium 1 tab PO DAILY 04/06/25 09/14/25 no.72-iron 27 mg-folic acid 1 mg tablet ( Vitamins Plus Low Iron) albuterol sulfate 2.5 mg/3 mL 2.5 mg inhalation Q6H CO N 07/04/25 09/14/25 (0.083 %) solution for nebulization Shortness Of Breat h Or Wheezing albuterol sulfate 90 mcg/actuation 1 puff inhalation Q 6H PRN Wheezing 07/04/25 09/14/25 aerosol inhaler (Ventolin HFA) hydrocodone 10 mg-acetaminophen 1 tab PO Q6H PRN Pain 07/04/25 09/14/25 325 mg tablet etonogestrel 68 mg subdermal subdermal ONCE 09/02/25 1 11/15/24 implant (Nexplanon) Previous Rx's ?Medication ?Instructions ?Recorded nebulizer #1 ea 06/12/24 polyethylene glycol 3350 17 17 g PO DAILY #510 grams 1 10/08/23 gram/dose oral powder (Miralax) compressor, for nebulizer #1 ea 04/28/25 nebulizer accessories #1 ea 04/28/25 ondansetron 8 mg disintegrating 8 mg PO Q8H PRN nausea and 05/22/25 tablet vomiting 5 days #15 tabs ipratropium 0.5 mg-albuterol 3 mg 3 ml inhalation QID PRN wheezing 06/06/25 (2.5 mg base)/3 mL nebulization #90 mL soln budesonide-formoterol HFA 160 2 puff inhalation BID #1 0.2 grams 06/09/25 mcg-4.5 mcg/actuation aerosol inhaler (Symbicort) nicotine 21 mg/24 hr daily 1 patch transdermal DAILY # 28 ea 06/09/25 transdermal patch mupirocin 2 % topical ointment 1 applic topical TID 7 days #15 07/03/25 (Centany) grams diclofenac sodium 75 mg 75 mg PO BID PRN pain #60 ta bs 07/14/25 tablet,delayed release promethazine-DM 6.25 mg-15 mg/5 mL 10 ml PO Q6H PRN co ugh #473 mL 07/14/25 oral syrup spironolactone 25 mg tablet 25 mg PO DAILY #30 tabs tirzepatide (weight loss) 5 mg/0.5 5 mg (0.5 mL) SUBCU T .qwk #2 mL 07/26/ mL subcutaneous pen injector (Zepbound) amlodipine 5 mg tablet 5 mg PO QPM #90 tabs 5 losartan 100 mg tablet 100 mg PO DAILY #90 tabs adalimumab 40 mg/0.8 mL 40 mg (0.8 mL) SUBCUT .Q7day s #4 ea 08/06/25 subcutaneous pen kit (Humira Pen) cevimeline 30 mg capsule 1 cap PO TID #90 caps gabapentin 300 mg capsule 600 mg (2 x 300 mg) PO TID # 180 08/06/25 caps omeprazole 40 mg capsule,delayed 40 mg PO QAM #30 caps 08/11/25 release prednisone 20 mg tablet 20 mg PO DAILY #10 tabs 08/02 10/25 escitalopram oxalate 20 mg tablet 20 mg PO DAILY #30 t abs 09/07/25 lurasidone 120 mg tablet 120 mg PO DAILY #30 tabs 05/25 trazodone 100 mg tablet 200 mg (2 x 100 mg) PO .q hs PRN 09/07/25 insomnia #60 tabs oxycodone-acetaminophen 10 mg-325 1 tab PO Q6H PRN debbi n #14 tabs 09/10/25 mg tablet sulfamethoxazole 800 2 tab PO BID 7 days #28 tabs 09/10/25 mg-trimethoprim 160 mg tablet (Bactrim DS) prednisone 20 mg tablet See Rx Instructions PO DAILY #30 09/14/25 tabs Allergies Allergy/AdvReac Type Severity Reaction Status Date / Time No Known Allergies Allergy Verified 09/14/25 14:10 Review of Systems 2 Narrative: Constitutional symptoms: Negative except as documented in HPI. Skin symptoms: Negative except as documented in HPI. Eye symptoms: Negative except as documented in HPI. ENMT symptoms: Negative except as documented in HPI. Respiratory symptoms: Negative except as documented in HPI. Cardiovascular symptoms: Negative except as documented in HPI. Gastrointestinal symptoms: Negative except as documented in HPI. Genitourinary symptoms: Negative except as documented in HPI. Musculoskeletal symptoms: Negative except as documented in HPI. Neurologic symptoms: Negative except as documented in HPI. Psychiatric symptoms: Negative except as documented in HPI. Endocrine symptoms: Negative except as documented in HPI. 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 Severe persistent asthma Hepatic steatosis on MRI Obesity, Class III, BMI 40-49.9 (morbid obesity) Smoker Trochanteric bursitis of right hip Primary hypertension Asthma-COPD overlap syndrome Generalized anxiety disorder Chronic cough Low back pain Lichen sclerosus Asthma High risk medication use 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 Inflammatory arthritis Psychiatric care Surgical History History of urologic surgery had bulk a max but didn't work History of cholecystectomy Family History Grandmother Lupus Hypertension Mother Lung disease copd Hypertension Other Chronic kidney disease (CKD) Heart disease Lupus (systemic lupus erythematosus) Rheumatoid arthritis Stroke Denies family history of Colon cancer Ovarian cancer Diabetes Hyperlipidemia Breast cancer Thyroid disease Social History Smoking and tobacco/nicotine status: current every day tobacco/nicotine user (1 ppd X 22 years) cigarettes Packs smoked per day: 1.5 Years cigarettes smoked: 20 [ Other cigarette details: started at age 8] Second hand smoke exposure: No Alcohol intake: former Year of sobriety/quit date alcohol: 2014 Substance/Drug Use: current Substance/Drug use frequency: daily Other substance/drug use details: history opiate pill abuse Adopted: No Caregiver/support person: No Lives independently: Yes Household members: children Housing: Apartment Marital status: Number of children: 1 Number of grandchildren: 0 Highest education level completed: High School Graduate service: No Current occupational status: employed and unemployed 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 Skin: Warm, dry. Mons and left labia are red and swollen. Possible fluctuance of the labia difficult to tell. Head: Normocephalic, atraumatic. Neck: Supple, trachea midline. Eye: Extraocular movements are intact. Ears, nose, mouth and throat: mucosa moist. Cardiovascular: Regular, Normal peripheral perfusion. Respiratory: Lungs are clear to auscultation, respirations are non-labored, breath sounds are equal, Symmetrical chest wall expansion. Gastrointestinal: Soft, Nontender, Non distended Musculoskeletal: Normal ROM, no deformity. Neurological: Alert and oriented, No focal neurological deficit observed. Psychiatric: Cooperative, appropriate mood & affect. Course 2 Vital Signs: Vital signs: Vital Signs Temperature 98.2 F 09/14/25 15:42 Pulse Rate 77 09/14/25 16:22 Respiratory Rate 16 09/14/25 16:22 Blood Pressure 153/106 09/14/25 16:22 Pulse Oximetry 97 09/14/25 16:22 Oxygen Delivery Me thod Room Air 09/14/25 16:22 MDM - Skin/Abscess/Foreign Bdy Medicial Decision Making Medical decision making Patient's reason for coming to the emergency room: Groin cellulitis and possible abscess Social determinants: Patient is unemployed I reviewed the patient's medical record. 30-year-old female with a history of obesity, hypertension, COPD, anxiety, and arthritis I reviewed the patient's current home meds Not on any anticoagulation. Alternate historians: None Differential diagnosis including but not limited to and based on the above HPI, review of systems and physical exam in this patient with lower extremity swelling and redness: Cellulitis, DVT, osteomyelitis, venous stasis dermatitis. Orders placed to evaluate differential diagnosis based on the above differential, HPI and physical exam Lab Review: Laboratory results were reviewed and interpreted by myself the emergency room physician. No leukocytosis. Inflammatory markers mildly elevated. ESR is 22 CRP is 88. No renal failure. CT of the abdomen pelvis with contrast: Small abscess with cellulitis in the left labia majora. This was reviewed and interpreted by myself the emergency room physician. I also reviewed the radiology report. Assessment of risk: Level of risk: Moderate risk patient. Hospitalization considerations: Patient is being admitted for IV antibiotics and I&D in the morning Reexamination: Patient remained stable. No increased work of breathing. No altered mental status. No focal motor deficits. Consultation: I spoke with Dr. Mills who took the patient here. He is going to admit her on antibiotics and plan for I&D in the morning. Assessment and plan: Labial abscess and cellulitis Tobacco dependence ?IV vancomycin and Zosyn in the emergency room. ?Nicotine patch ordered for the patient. -I discussed the patient with the hospitalist on-call who is admitting the patient. - Discussed findings and plan with patient. Answered any questions. - All laboratory values were reviewed and interpreted personally by myself, the ER physician - All imaging was reviewed and interpreted personally by myself, the ER physician. - Evaluation and treatment of this problem were appropriate in the emergency setting Lab Data 09/14/25 15:11 09/14/25 15:11 Radiology Impressions Abdomen/Pelvis CT 09/14/25 15:08 IMPRESSION: Small abscess with cellulitis in the left labia majora. Laboratory Results WBC 10.44 10^3/uL (3.29-11.43) 09/14/25 15:11 RBC 4.44 10^6/uL (3.85-5.65) 09/14/25 15:11 Hgb 13.90 g/dL (11.27-16.99) 09/14/25 15:11 Hct 40.4 % (36-47) 09/14/25 15:11 MCV 91.0 fl (85-98) 09/14/25 15:11 MCH 31.3 pg (27-33) 09/14/25 15:11 MCHC 34.4 g/dL (30-55) 09/14/25 15:11 RDW 13.5 % (12.1-15.1) 09/14/25 15:11 Plt Count 382 10^3/cmm (157-399) 09/14/25 15:11 MPV 9.0 fL (7.4-10.4) 09/14/25 15:11 Neut % (Auto) 70.6 % 09/14/25 15:11 Lymph % (Auto) 19.8 % 09/14/25 15:11 [place] % (Auto) 5.5 % 09/14/25 15:11 Eos % (Auto) 3.2 % 09/14/25 15:11 Baso % (Auto) 0.5 % 09/14/25 15:11 Neut # (Auto) 7.38 10^3/uL (1.8-7.7) 09/14/25 15:11 Lymph # (Auto) 2.1 10^3/uL (0.8-4.8) 09/14/25 15:11 [place] # (Auto) 0.6 10^3/uL (0.2-0.9) 09/14/25 15:11 Eos # (Auto) 0.3 10^3/uL (0.0-0.8) 09/14/25 15:11 Baso # (Auto) 0.1 10^3/uL (0.0-0.1) 09/14/25 15:11 Nucleated RBC % (auto) 0 % 09/14/25 15: Nucleated RBCs # 0.0 /100WBC 09/14/25 15:11 ESR 22 mm/hr (0-15) H 09/14/25 15:11 Sodium 134 mmol/L (136-145) L 09/14/25 15:11 Potassium 3.1 mmol/L (3.5-5.1) L 12/15/25 15:11 Chloride 93 mmol/L (98-107) L 09/14/25 15:11 Carbon Dioxide 31 mmol/L (22-29) H 09/14/25 15:11 Anion Gap 13.1 (5-19) 09/14/25 15:11 BUN 3 mg/dL (6-20) L 09/14/25 15:11 Creatinine 0.5 mg/dL (0.5-0.9) 09/14/25 15:11 GFR Calculation 143.9 mL/min (90-130) H 09/14/25 15:11 Glucose 139 mg/dL (65-115) H 09/14/25 15:11 Calculated Osmolality 277 mOsm/kg (285-295) L 09/14/25 15:11 Lactic Acid 2.0 mmol/L (0.5-2.2) 09/14/25 15:11 Calcium 9.1 mg/dL (8.5-10.5) 09/14/25 15:11 Total Bilirubin 0.2 mg/dL (0.15-1.2) 09/14/25 15:11 AST 14 U/L (0-32) 09/14/25 15:11 ALT 24 U/L (0-33) 09/14/25 15:11 Alkaline Phosphatase 82 U/L (35-105) 09/14/25 15:11 C-Reactive Protein 86.8 mg/L (0.0-4.9) H 09/14/25 15:11 Total Protein 7.0 g/dL (6.6-8.7) 09/14/25 15:11 Albumin 3.9 g/dL (3.5-5.2) 09/14/25 15:11 Globulin 3.1 g/dL (1.3-4.6) 09/14/25 15:11 Procalcitonin 0.04 ng/mL (0-0.5) 09/14/25 15:11 HCG, Qual Negative (Negative) 09/14/25 15:04 All radiology interpretation(s) finalized by discharge Discharge Plan Discharge Patient Disposition: Placed in Observation Clinical Impression: Cellulitis, Labial abscess Coding Level of Care Code ED [employer] for [employer]
[2025-09-14 15:21] LABS: Hematocrit 40.4 % (36-47); Hemoglobin 13.90 g/dL (11.27-16.99); Mean Corpuscular HGB Conc 34.4 g/dL (30-55); Mean Corpuscular Hemoglobin 31.3 pg (27-33); Mean Corpuscular Volume 91.0 fl (85-98); Nucleated Red Blood Cells % 0 %; Platelet Count 382 10^3/cmm (157-399); Red Blood Count 4.44 10^6/uL (3.85-5.65); White Blood Count 10.44 10^3/uL (3.29-11.43)
[2025-09-14] MEDS: ondansetron 2 mg/ML SDV 2 mL 4 MG IVP (15:37)
[2025-09-14] MEDS: HYDROmorphone 0.5 MG/0.5 ML INJ 1 MG IVP (15:37)
[2025-09-14] MEDS: piperacillin-tazobactam 4.5 GM in sodium chloride 0.9% (plus) 50 ML IV (15:38)
[2025-09-14 15:40] LABS: Lactic Sepsis W/Reflex 2.0 mmol/L (0.5-2.2)
[2025-09-14 15:41] LABS: Alanine Aminotransferase 24 U/L (0-33); Albumin Level 3.9 g/dL (3.5-5.2); Alkaline Phosphatase 82 U/L (35-105); Anion Gap 13.1 (5-19); Aspartate Amino Transferase 14 U/L (0-32); Blood Urea Nitrogen 3 mg/dL (6-20); Calcium 9.1 mg/dL (8.5-10.5); Carbon Dioxide 31 mmol/L (22-29); Chloride 93 mmol/L (98-107); Globulin 3.1 g/dL (1.3-4.6); Glucose 139 mg/dL (65-115); Osmolality Calculated 277 mOsm/kg (285-295); Potassium 3.1 mmol/L (3.5-5.1); Sodium 134 mmol/L (136-145); Total Protein 7.0 g/dL (6.6-8.7)
[2025-09-14 15:46] LABS: HCG Qualitative Urine. Negative (Negative)
[2025-09-14 15:48] LABS: Procalcitonin 0.04 ng/mL (0-0.5)
[2025-09-14] MEDS: levofloxacin-dextrose 5 % 750 MG/150 ML PREMIX 100 MG IV (15:57)
--- NOTE | 2025-09-14 16:23 | PC.NURSE ---
Patient to CT
[2025-09-14] MEDS: iohexol 350 mg/mL 500 mL Btl (per mL) IV (16:24)
--- NOTE | 2025-09-14 18:10 | PM.OBGYHP ---
Providers/Chief Complaint Admitting Physician: Lc Mills MD Primary DELIVERY ARCHITECT: Lc Mills MD Primary Care Provider: Karuna Adam MD Chief Complaint: Dr Mills sent, abd pain, nausea, chills HPI DELIVERY ARCHITECT History of Present Illness Kamala Lovelace is a 30 year old female A1 s/p Nexplanon placement August 12, 2025 after insertion of nexplanon, patient developed discoloration of skin over Nexplanon site Discoloration worsened No pain, exudate, itching, irritation Patient states she has several autoimmune diseases and thinks that these processes are responsible for the skin discoloration Nexplanon was removed on September 07, 2025 States area is still mildly painful but better h/o incision, drainage, and packing of left vulvar abscess July 09, 2025 since resolved was seen in clinic today for followup Nexplanon removal but now c/o pain and swelling of left perineum x 4 days was seen in ER on September 10, 2025 for same complaints was told it was labial cellulitis, was given Bactrim, but symptoms have persisted no fever, chills, abdominal pain, nausea, vomiting Medications/Allergies Home Medications ?Medication ?Instructions ?Recorded ?Confirmed ?Last Taken ?Type clobetasol 0.05 % topical ointment 1 applic topical .2-3 TIMES A WEEK 05/28/23 09/14/25 10/21/23 History PRN joint flares nebulizer #1 ea 06/12/24 09/14/25 Unknown Rx polyethylene glycol 3350 17 17 g PO DAILY #510 grams 08/08/24 09/14/25 07/08/25 Rx gram/dose oral powder (Miralax) cetirizine 10 mg tablet 10 mg PO DAILY PRN allergies 04/06/25 09/14/25 07/04/25 History vitamins with calcium 1 tab PO DAILY 04/06/25 09/14/25 07/04/25 History no.72-iron 27 mg-folic acid 1 mg tablet ( Vitamins Plus Low Iron) compressor, for nebulizer #1 ea 04/28/25 09/14/25 Unknown Rx nebulizer accessories #1 ea 04/28/25 09/14/25 Unknown Rx ondansetron 8 mg disintegrating 8 mg PO Q8H PRN nausea and 08/09/14/25 07/08/25 Rx tablet vomiting 5 days #15 tabs ipratropium 0.5 mg-albuterol 3 mg 3 ml inhalation QID PRN wheezing 06/06/25 09/14/25 07/08/25 Rx (2.5 mg base)/3 mL nebulization #90 mL soln budesonide-formoterol HFA 160 2 puff inhalation BID #10.2 grams 06/09/25 09/14/25 07/08/25 Rx mcg-4.5 mcg/actuation aerosol inhaler (Symbicort) nicotine 21 mg/24 hr daily 1 patch transdermal DAILY #28 ea 06/09/25 09/14/25 07/04/25 Rx transdermal patch mupirocin 2 % topical ointment 1 applic topical TID 7 days #15 07/03/25 09/14/25 07/08/25 Rx (Centany) grams albuterol sulfate 2.5 mg/3 mL 2.5 mg inhalation Q6H PRN 07/04/25 09/14/25 07/09/25 History (0.083 %) solution for nebulization Shortness Of Breath Or Wheezing albuterol sulfate 90 mcg/actuation 1 puff inhalation Q6H PRN Wheezing 07/04/25 09/14/25 07/08/25 History aerosol inhaler (Ventolin HFA) hydrocodone 10 mg-acetaminophen 1 tab PO Q6H PRN Pain 07/04/25 09/14/25 07/08/25 History 325 mg tablet diclofenac sodium 75 mg 75 mg PO BID PRN pain #60 tabs 07/14/25 09/14/25 Unknown Rx tablet,delayed release promethazine-DM 6.25 mg-15 mg/5 mL 10 ml PO Q6H PRN cough #473 mL 07/14/25 09/14/25 Unknown Rx oral syrup spironolactone 25 mg tablet 25 mg PO DAILY #30 tabs 07/14/25 09/14/25 Unknown Rx tirzepatide (weight loss) 5 mg/0.5 5 mg (0.5 mL) SUBCUT .qwk #2 mL 07/26/25 09/14/25 Unknown Rx mL subcutaneous pen injector (Zepbound) amlodipine 5 mg tablet 5 mg PO QPM #90 tabs 07/30/25 09/14/25 Unknown Rx losartan 100 mg tablet 100 mg PO DAILY #90 tabs 07/30/25 09/14/25 Unknown Rx adalimumab 40 mg/0.8 mL 40 mg (0.8 mL) SUBCUT .Q7days #4 ea 08/06/25 09/14/25 Unknown Rx subcutaneous pen kit (Humira Pen) cevimeline 30 mg capsule 1 cap PO TID #90 caps 08/06/25 09/14/25 Unknown Rx gabapentin 300 mg capsule 600 mg (2 x 300 mg) PO TID #180 08/06/25 09/14/25 Unknown Rx caps omeprazole 40 mg capsule,delayed 40 mg PO QAM #30 caps 08/11/25 09/14/25 Unknown Rx release prednisone 20 mg tablet 20 mg PO DAILY #10 tabs 08/21/25 09/14/25 Unknown Rx etonogestrel 68 mg subdermal subdermal ONCE 09/02/25 09/14/25 Unknown History implant (Nexplanon) escitalopram oxalate 20 mg tablet 20 mg PO DAILY #30 tabs 09/07/25 09/14/25 Unknown Rx lurasidone 120 mg tablet 120 mg PO DAILY #30 tabs 09/07/25 09/14/25 Unknown Rx trazodone 100 mg tablet 200 mg (2 x 100 mg) PO .q hs PRN 09/07/25 09/14/25 Unknown Rx insomnia #60 tabs oxycodone-acetaminophen 10 mg-325 1 tab PO Q6H PRN pain #14 tabs 09/10/25 09/14/25 Unknown Rx mg tablet sulfamethoxazole 800 2 tab PO BID 7 days #28 tabs 09/10/25 09/14/25 Unknown Rx mg-trimethoprim 160 mg tablet (Bactrim DS) prednisone 20 mg tablet See Rx Instructions PO DAILY #30 09/14/25 09/14/25 Unknown Rx tabs Allergies Allergy/AdvReac Type Severity Reaction Status Date / Time No Known Allergies Allergy Verified 09/14/25 14:10 PFSH DELIVERY ARCHITECT PFSH: Medical History (Updated 09/14/25 @ 23:51 by Lc Mills MD) Morbid obesity with BMI of 45.0-49.9, adult Gastroesophageal reflux disease without esophagitis Renal cyst, right MRI shows cyst 01/23 TABATHA (obstructive sleep apnea) didn't tolerate CPAP so they took it away; 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 Severe persistent asthma Hepatic steatosis on MRI Obesity, Class III, BMI 40-49.9 (morbid obesity) Smoker Trochanteric bursitis of right hip Primary hypertension Asthma-COPD overlap syndrome Generalized anxiety disorder Chronic cough Low back pain Lichen sclerosus Asthma High risk medication use 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 Inflammatory arthritis Psychiatric care Surgical History History of urologic surgery had bulk a max but didn't work History of cholecystectomy Family History Grandmother Lupus Hypertension Mother Lung disease copd Hypertension Other Chronic kidney disease (CKD) Heart disease Lupus (systemic lupus erythematosus) Rheumatoid arthritis Stroke Denies family history of Colon cancer Ovarian cancer Diabetes Hyperlipidemia Breast cancer Thyroid disease Social History Smoking and tobacco/nicotine status: current every day tobacco/nicotine user (1 ppd X 22 years) cigarettes Packs smoked per day: 1.5 Years cigarettes smoked: 20 [ Other cigarette details: started at age 8] Second hand smoke exposure: No Alcohol intake: former Year of sobriety/quit date alcohol: 2014 Substance/Drug Use: current Substance/Drug use frequency: daily Other substance/drug use details: history opiate pill abuse Adopted: No Caregiver/support person: No Lives independently: Yes Household members: children Housing: Apartment Marital status: Number of children: 1 Number of grandchildren: 0 Highest education level completed: High School Graduate service: No Current occupational status: employed and unemployed 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 Date GA/Weeks Outcome Route Wt Inf Gender Labor Lgth Comp. Anesthesia Location Unknown spontaneous 01/09/08 41 live - full term Vaginal 7 lb [address] [facility] [address] Bello Delivery Date: Last Updated by: Ottoniel Rodrigues CNA 2009 Vitals/I&O/Wt Last Vital Signs Temp 98.0 F 09/14/25 21:20 Pulse 88 09/14/25 21:20 Resp 17 09/14/25 21:20 BP 172/101 09/14/25 21:20 Pulse Ox 96 09/14/25 21:20 O2 Del Method Room Air 09/14/25 21:20 09/14/25 09/14/25 09/15/25 14:59 22:59 06:59 Intake Total 1650 / 1650 Balance 1650 / 1650 Weight last 48 hrs Weight 283 lb 4 oz Weight 210 lb Physical Exam Narrative: Weight 279 lbs; 5?6?; BMI 45 General comfortable Left upper extremity: Nexplanon site with 1 cm surrounding erythema 2 cm eschar several cms away from insertion site, mild tenderness on palpation Lungs: clear Cor: RRR Abd: soft, nontender Vulva: left inguinal region with 8 cm palpable fluctuant area extending to lower abd + erythema + tender to palpation Data 09/14/25 15:11 09/14/25 15:11 Micro: Microbiology 09/14/25 15:11 Blood Culture - Preliminary Blood SPECIMEN COLLECTED 09/14/25 15:13 Blood Culture - Preliminary Blood SPECIMEN COLLECTED Results Labs OB ([facility]): Hct, (36-47) 40.4 % Today Hgb, (11.27-16.99) 13.90 g/dL Today Plt Count, (157-399) 382 10^3/cmm Today Hep Bs Antigen, (Nonreactive) Non-reactive 08/10/25 Hep B Core Total Ab, (Nonreactive) Non-reactive 08/10/25 Hepatitis C Antibody, (Nonreactive) Non-reactive 08/10/25 Hemoglobin A1c, (4.0-6.0) 5.6 % 06/09/24 HCG, Qual, (Negative) Negative Today Urine Opiates Screen, (Negative) Positive ng/mL H 08/05/24 Ur Barbiturates Screen, (Negative) Negative ng/mL 08/05/24 Ur Phencyclidine Scrn, (Negative) Negative ng/mL 08/05/24 Ur Amphetamines Screen, (Negative) Negative ng/mL 08/05/24 U Benzodiazepines Scrn, (Negative) Negative ng/mL 08/05/24 Urine Cocaine Screen, (Negative) Negative ng/mL 08/05/24 U Marijuana (THC) Screen, (Negative) Negative ng/mL 08/05/24 Micro Urine Specimen 08/11/25 A&P Assessment and plan 1. Inguinal abscess: Left inguinal abscess with cellulitis Plan admit for IV antibiotics Possible incision and drainage tomorrow a.m. PDMP PDMP Reviewed: Not Reviewed Attestations Medical Necessity Statement*: patient with left inguinal abscess, admitted for IV antibiotics Coding Level of Care Code Acute Code for [facility] Diagnoses Inguinal abscess L02.214
--- OUTSIDE RECORDS SUMMARY | 2025-09-14 18:44 | XMS_ITS | Encounter Summary ---
Author Organization [facility] Address [address] [place] [address] Care Team Providers Care Dietist Name Role Phone Pratik Dean MD Primary Care Provider [phone] Encounter Details Date Type Department Care Team (Late st Contact Info) Description 11/24/1998 Outpatient Historical [facility] [address] [place] [address] Social History Tobacco Use Types Packs/Day Years Used Date Smoking Tobacco: Never Assessed Comments Unknown Sex and Gender Information Value Date Recorded Sex Assigned at Not on file Legal Sex Female 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
--- OUTSIDE RECORDS SUMMARY | 2025-09-14 18:44 | XMS_ITS | Encounter Summary ---
Author Organization [facility] Address [address] [place] [address] Care Team Providers Care Forming Process Worker Name Role Phone Pratik Dean MD Primary Care Provider +1 [phone] Encounter Details Date Type Department Care Team (Latest Contact Info) Description 12/08/1998 Outpatient Historical [facility] Pediatrics-[place]ona Dickson [place] [address] [place] [address] Pranay Edwards MD NO ADDRESS ON FILE Urinary tract infection, site not specified (Primary Dx) Social History Tobacco Use Types Packs/Day Years Used Date Smoking Tobacco: Never Assessed Comments Unknown Sex and Gender Information Value Date Recorded Sex Assigned at Not on file 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
--- OUTSIDE RECORDS SUMMARY | 2025-09-14 18:44 | XMS_ITS | Encounter Summary ---
Author Organization [facility] Address [address] [place] [address] Care Team Providers Care Conference Center Manager Name Role Phone Pratik Dean MD Primary Care Provider [phone] [phone] Encounter Details Date Type Department Care Team (Latest Contact Info) Description 12/08/1998 Outpatient Historical [facility] Imaging Services-[facility] [place] [address] [place] [address] Pranay Edwards MD NO ADDRESS ON FILE Urinary tract infection, site not specified (Primary Dx) Social History Tobacco Use Types Packs/Day Years Used Date Smoking Tobacco: Never Assessed Comments Unknown Sex and Gender Information Value Date Recorded Sex Assigned at Not on file 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
--- OUTSIDE RECORDS SUMMARY | 2025-09-14 18:44 | XMS_ITS | Clinical Summary ---
Author Organization [facility] Address [address] 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 Gender Identity Not on file Sexual Orientation Not on file Occupation Industry Job Start Date Job End Date Not on file Not on file Not on file Not on file Not on file Not on file Not on file Not on file Last Filed Vital Signs Vital Sign Reading Time Taken Comments Blood Pressure 124/76 10/29/2015 4:05 PM GUITAR REPAIRER Pulse 86 10/29/2015 4:05 PM GUITAR REPAIRER Temperature 36.7 C (98.1 F) 10/29/2015 4:05 PM GUITAR REPAIRER Respiratory Rate 22 10/29/2015 4:05 PM GUITAR REPAIRER Oxygen Saturation 99% 10/29/2015 4:05 PM GUITAR REPAIRER Inhaled Oxygen Concentration - - Weight 116.6 kg (257 lb) 10/29/2015 4:05 PM GUITAR REPAIRER Height 172.7 cm (5' 8 ) 10/29/2015 4:05 PM GUITAR REPAIRER Body Mass Index 39.08 10/29/2015 4:05 PM GUITAR REPAIRER Plan of Treatment Health Maintenance Due Date [...] Associated Diagnosis Comments CERV/VAG CYTOPATH, THIN PREP PRODUCTION CONTROL PLANNER Routine 11/15/2011 5:13 PM GUITAR REPAIRER from Last 3 Months or Most Recently Relevant to Health Maintenance Results * CERV/VAG CYTOPATH, THIN PREP PRODUCTION CONTROL PLANNER (11/15/2011 5:13 PM GUITAR REPAIRER) PATHOLOGY/CASTILLO JENNINGSOGY REPORT [facility] Anatomic Pathology Dept [address] [place] [address] Patient: JITENDRA LOVELACE Accn No: [id number] , [id number] Collected: 11/15/2011 5:13:00 PM All cases except those with a DP prefix are performed by pathologists from [facility]. Case type DP is performed by Dr. Sukh De La Torre, [facility], [facility] [place], [address], [address], [place] [address] (CLIA #[id number]) (Ph. [phone]). CYTOLOGY CALCULATION REVIEWER FINAL REPORT - - PRODUCTION CONTROL PLANNER PAP History Specimen Type: Endocervical LMP: Hormones/Contracep tives Previous Pap History: 2010 WNL Specimen Adequacy Satisfactory for interpretation. The smear lacks endocervical or metaplastic cells, and shows scant cellularity. Diagnosis NEGATIVE FOR INTRAEPITHELIAL LESION OR MALIGNANCY. (Previously noted as Within Normal Limits) Non Destructive Testing Specialist/ AMY Pathologist: 11/24/11 Completed by: LUANA STANTON [...] treating physician in consultation with his/her patient. [facility] 11/15/2011 5:13 PM GUITAR REPAIRER Hiwot Guerra BREASTER PATHOLOGY/CYTOLOG Y ORDERABLES Edited INTERFACE SYSTEM Refer to clinic/hospital department [facility] CLIA# [id number] [address] [place] [id number] from Last 3 Months or Most Recently Relevant to Health Maintenance Insurance WORKERS COMP Advance Directives For more information, please contact: [phone] * Full Code (Latest Code Status on File) Date Activated Date Inactivated Comments 10/05/2015 1:00 PM 10/05/2015 3:22 PM * Full Code Date Activated Date Inactivated Comments 09/18/2012 8:55 AM 09/18/2012 11:34 AM Care Teams Environmental Services Assistant Relationship Specialty Start Date End Date Pratik Dean MD [address] [facility] [address] [place] [address] PCP - General Family Practice 01/17/17
--- OUTSIDE RECORDS SUMMARY | 2025-09-14 18:44 | XMS_ITS | Encounter Summary ---
Author Organization [facility] Address [address] [place] [address] Care Team Providers Care Ranch Hand Livestock Name Role Phone Pratik Dean MD Primary Care Provider [phone] [phone] Encounter Details Date Type Department Care Team (Latest Contact Info) Description 12/08/1998 Outpatient Historical [facility] Imaging Services-[facility] [place] [address] [place] [address] Pranay Edwards MD NO ADDRESS ON FILE Urinary tract infection, site not specified (Primary Dx) Social History Tobacco Use Types Packs/Day Years Used Date Smoking Tobacco: Never Assessed Comments Unknown Sex and Gender Information Value Date Recorded Sex Assigned at Not on file 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
--- OUTSIDE RECORDS SUMMARY | 2025-09-14 18:44 | XMS_ITS | Clinical Summary ---
Author Organization [facility] Address [address] [address] Phone Care Team Providers Care Line Haul Owner Operator Name Role Phone Pratik Dean MD Primary Care Provider [phone] [phone] Allergies No known active allergies Medications venlafaxine [...] VACCINES Completed 04/08/2010, 06/02, 03/24/2009 Insurance [address] [place] [address] [place] Care Teams Line Haul Owner Operator Relationship Specialty Start Date End Date Pratik Dean MD [address] [facility] [address] [place] [address] PCP - General Family Practice 01/17/17
--- NOTE | 2025-09-14 20:30 | PHA.VACGOAL ---
Vancomycin Goal - Goal Vancomycin Goal:: 15-20 mg/L Vancomycin Indication:: Osteo - Therapy Current therapy:: Pip/Tazo Day of therpy:: Day []of [] . Actual body weight (kg): 95.254 kg - Data Labs: WBC 10.44 10^3/uL (3.29-11.43) 09/14/25 15:11 RBC 4.44 10^6/uL (3.85-5.65) 09/14/25 15:11 Hgb 13.90 g/dL (11.27-16.99) 09/14/25 15:11 Hct 40.4 % (36-47) 09/14/25 15:11 MCV 91.0 fl (85-98) 09/14/25 15:11 MCH 31.3 pg (27-33) 09/14/25 15:11 MCHC 34.4 g/dL (30-55) 09/14/25 15:11 RDW 13.5 % (12.1-15.1) 09/14/25 15:11 Sodium 134 mmol/L (136-145) L 09/14/25 15:11 Potassium 3.1 mmol/L (3.5-5.1) L 09/14/25 15:11 Chloride 93 mmol/L (98-107) L 09/14/25 15:11 Carbon Dioxide 31 mmol/L (22-29) H 09/14/25 15:11 Anion Gap 13.1 (5-19) 09/14/25 15:11 BUN 3 mg/dL (6-20) L 09/14/25 15:11 Creatinine 0.5 mg/dL (0.5-0.9) 09/14/25 15:11 GFR Calculation 143.9 mL/min (90-130) H 09/14/25 15:11 Treatment plan:: new consult Regimen:: New start vancomycin for cellulitis/osteomyelitis. No prior vancomycin history found. 2000 mg load dose given in the ER. Started on maintenance dose of 1500 mg q8h.
[2025-09-14] MEDS: piperacillin-tazobactam 3.375 GM in sodium chloride 0.9% (plus) 50 ML IV (21:06)
[2025-09-15] VITALS (11 sets, daily range): BP systolic 115–167; BP diastolic 81–104; PULSE 55–85; RESP 16–18; TEMP 36.4–37.1; O2SAT 95–98
[2025-09-15] MEDS: piperacillin-tazobactam 3.375 GM in sodium chloride 0.9% (plus) 50 ML IV ×3 (06:26→20:35)
[2025-09-15] MEDS: lidocaine 1% 5 ML in potassium chloride premix 100 ML 52.5 ML IV ×2 (10:20→12:42)
[2025-09-15] MEDS: ondansetron 2 mg/ML SDV 2 mL 4 MG IVP (11:10)
[2025-09-15] MEDS: oxyCODONE-APAP 10-325 mg Tablet 1 TAB PO ×2 (12:42→20:31)
--- NOTE | 2025-09-15 15:35 | PM.OBGYPN ---
DIRECTOR OF PRIMARY CARE Subjective Subjective: Interval history: States pain in left groin slightly less Eating well No abdominal pain, nausea, vomiting Vitals/I&O/Wt Last Vital Signs Temp 97.6 F 09/15/25 20:00 Pulse 78 09/15/25 20:00 Resp 16 09/15/25 20:31 BP 159/104 09/15/25 20:00 Pulse Ox 96 09/15/25 20:31 O2 Del Method Room Air 09/15/25 20:00 09/15/25 09/15/25 09/16/25 14:59 22:59 06:59 Intake Total 610 / 610 590 / 1200 Balance 610 / 610 590 / 1200 Weight last 48 hrs Weight 283 lb 4 oz Weight 283 lb 4 oz Weight 210 lb Physical Exam Narrative: VS normal. Afebrile General comfortable, awake, alert Abd: soft, nontender Vulva: left inguinal region with 8 cm palpable indurated area extending to lower abd + erythema + tender to palpation LABS: 09-14-25 WBC 10.4 Hgb 13.9 Abd / pelvis CT 09-14-25 left inguinal region with cellulitis Small abscess Data 09/14/25 15:11 09/14/25 15:11 Micro: Microbiology 09/14/25 15:11 Blood Culture - Preliminary Blood NEGATIVE TO DATE 09/14/25 15:13 Blood Culture - Preliminary Blood NEGATIVE TO DATE A&P Assessment and plan 1. Vulvar abscess: Left inguinal / vulvar cellulitis No evidence of an abscess large enough for drainage Will continue IV antibiotics PDMP PDMP Reviewed: Not Reviewed Attestations Medical Necessity Statement*: patient with left inguinal / vulvar cellulitis, for IV antibiotics Coding Level of Care Code Acute Code for [facility] Fwd Diagnoses Vulvar abscess N76.4
[2025-09-16] VITALS (12 sets, daily range): BP systolic 123–176; BP diastolic 68–95; PULSE 72–95; RESP 16–18; TEMP 36.5–37.1; O2SAT 92–99
[2025-09-16] MEDS: piperacillin-tazobactam 3.375 GM in sodium chloride 0.9% (plus) 50 ML IV ×3 (05:52→22:09)
[2025-09-16] MEDS: LOSARTAN 100 MG TABLET PO (05:53)
[2025-09-16] MEDS: polyethylene glycol 3350 Pkt 17 gm PO (05:54)
[2025-09-16] MEDS: oxyCODONE-APAP 10-325 mg Tablet 1 TAB PO ×2 (08:59→16:03)
--- NOTE | 2025-09-16 16:15 | P.PN_ITS ---
LUBRICATING MACHINE TENDER Subjective 2 Subjective: Interval history: States pain in left groin still present, but less Eating well No abdominal pain, nausea, vomiting Vitals/I&O/Wt Last Vital Signs Temp 98.2 F 09/16/25 16:00 Pulse 80 09/16/25 16:23 Resp 18 09/16/25 16:23 BP 171/92 09/16/25 16:00 Pulse Ox 98 09/16/25 16:23 O2 Del Method Room Air 09/16/25 16:23 09/16/25 09/16/25 09/16/25 06:59 14:59 22:59 Intake Total 1180 / 1180 710 / 1890 Balance 1180 / 1180 710 / 1890 Weight last 48 hrs Weight 284 lb Weight 283 lb 4 oz Weight 283 lb 4 oz Physical Exam 2 Narrative: VS normal. Afebrile General comfortable, awake, alert Abd: soft, nontender Vulva: left inguinal region with decreased induration Decreased erythema and tenderness Data 09/14/25 15:11 09/14/25 15:11 Micro: Microbiology 09/14/25 15:11 Blood Culture - Preliminary Blood NEGATIVE TO DATE 09/14/25 15:13 Blood Culture - Preliminary Blood NEGATIVE TO DATE A&P Assessment and plan 1. Vulvar abscess: Left inguinal / vulvar cellulitis Clinically improving Will continue IV antibiotics PDMP PDMP Reviewed: Not Reviewed Attestations 2 Medical Necessity Statement*: patient with left inguinal / vulvar cellulitis, for IV antibiotics Coding Level of Care Code Acute Code for [facility] Fwd Diagnoses Vulvar abscess N76.4
[2025-09-16] MEDS: vancomycin 1,750 MG/350 ML PIGGYBACK 175 MG IV (17:17)
[2025-09-17] VITALS (10 sets, daily range): BP systolic 113–165; BP diastolic 60–101; PULSE 77–99; RESP 15–18; TEMP 36.7–37; O2SAT 94–98
[2025-09-17] MEDS: vancomycin 1,750 MG/350 ML PIGGYBACK 175 MG IV ×2 (01:49→10:40)
[2025-09-17] MEDS: oxyCODONE-APAP 10-325 mg Tablet 1 TAB PO ×2 (04:07→10:38)
[2025-09-17] MEDS: LOSARTAN 100 MG TABLET PO (04:08)
[2025-09-17] MEDS: polyethylene glycol 3350 Pkt 17 gm PO (04:08)
[2025-09-17] MEDS: piperacillin-tazobactam 3.375 GM in sodium chloride 0.9% (plus) 50 ML IV ×2 (06:46→13:40)
[2025-09-17 08:30] LABS: Blood Urea Nitrogen 4 mg/dL (6-20); Calcium 8.9 mg/dL (8.5-10.5); Carbon Dioxide 24 mmol/L (22-29); Chloride 100 mmol/L (98-107); Glucose 114 mg/dL (65-115); Osmolality Calculated 278 mOsm/kg (285-295); Sodium 135 mmol/L (136-145)
[2025-09-17 08:53] LABS: Anion Gap 15.1 (5-19); Potassium 4.1 mmol/L (3.5-5.1)
--- NOTE | 2025-09-17 09:45 | PC.CHAP ---
Pastoral Care Encounter/Spiritual Assessment Type of Contact [] Declined cd technician visit [] Patient/Family/Request visit [] Outpatient visit [] Follow-up visit [] Physician referral [] Code/Alert [x] Routine visit [] Staff referral [] Actively dying [] Patient sleeping [x] Family support [] [] Out of room [] Palliative care [] [] Receiving care in room [] Pre-surgical visit [] Trauma [] Long length of stay [] ICU visit [] Other: Relational/Emotional Strength [x] Patient feels connected with others/family/visitors/staff [] Distress [] Loneliness/isolation [] Abandonment Spirituality of Patient [x] Person of Jenifer [] Attends Amish of their Jenifer [x] Believes in Prayer [] Reads Bible or Jain materials [] There are Spiritual issues to be addressed Drywall Finisher Interventions [x] Prayer [x] Active listening [x] Non-anxious presence [x] Spiritual/emotional support [] Crisis/trauma care [x] Spiritual counseling [] Bereavement support [] Provided bereavement packet [] Provided Bible/devotional materials [] Provided toy/stuffed animal, coloring book to patient or family member [] Provided Communion [] Anointing/[place] [] Salvation [x] Completed spiritual assessment [] Other: Impact on Illness or Injury [] Angry [] Fearful [] Anxious [] Often cries [] Exhaustion [] Unable to work [] Unable to attend uatsdin [] Unable to walk/stand [] Unable to read [] Unable to drive [] Unable to eat/drink [] Unable to sleep [] Unable to be with family [] Patient intubated [] Other: Summary Time spent with patient 10 min
--- NOTE | 2025-09-17 19:21 | PM.OBGYPN ---
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 Afebrile General comfortable, awake, alert Abd: soft, nontender Vulva: left inguinal region with decreased induration Decreased erythema and tenderness Data 09/14/25 15:11 09/17/25 07:47 A&P Assessment and plan 1. Labial abscess: Left inguinal / vulvar cellulitis Clinically improved with good amount of resolution Plan discharge to home Discontinue IV antibiotics Plan oral antibiotics x 10 days Bactrim ? DS one po bid x 10 days Flagyl 500 mg po bid x 10 days Return to see me September 28, 2025 Go to ER if increasing pain, swelling, or if fever, chills, nausea, vomiting PDMP PDMP Reviewed: Not Reviewed Attestations Medical Necessity Statement*: patient with left inguinal / vulvar cellulitis, plan discharge to home today Coding Level of Care Code Acute Code for [facility] Fwd Diagnoses Labial abscess N76.4
--- NOTE | 2025-09-17 19:32 | PM.OBGYDC ---
Discharge Providers COAL TRIMMER Date of Admission: 09/15/25 15:35 Date of Discharge: 09/17/25 Attending Provider at Admission: Lc Mills MD Attending Provider at Discharge: Lc Mills MD Consults: none Primary COAL TRIMMER: Lc Mills MD Primary Care Provider: Karuna Adam MD Diagnoses at Discharge Discharge Diagnosis 1. Labial abscess: Details from hospital stay: 30 y.o. c/o pain and swelling of left perineum x four days CT scan showed area of cellulitis in left inguinal region extending to lower abdomen patient was admitted for IV antibiotics patient's condition rapidly improved with decreased erythema, size of area of cellulitis, and induration patient was discharged to home to continue with PO antibiotics. Reason for Visit Reason for Visit: Dr Mills sent, abd pain, nausea, chills Brief History: 30 y.o. c/o pain and swelling of left perineum x four days Hospital Course Hospital Course 30 y.o. c/o pain and swelling of left perineum x four days CT scan showed area of cellulitis in left inguinal region extending to lower abdomen patient was admitted for IV antibiotics patient's condition rapidly improved with decreased erythema, size of area of cellulitis, and induration patient was discharged to home to continue with PO antibiotics. Physical Exam Narrative: VS normal. Afebrile General comfortable, awake, alert Abd: soft, nontender Vulva: left inguinal region with decreased induration Decreased erythema and tenderness History History History 2 Term 1 0 Miscarriages/Ectopic 1 Living Children 1 Past Pregnancies Del. Date GA/Weeks Outcome Route Wt Inf Gender Labor Lgth Comp. Anesthesia Location Unknown spontaneous 01/09/08 41 live - full term Vaginal 7 lb [address] [facility] [address] Bello Delivery Date: Last Updated by: Ottoniel Rodrigues CNA 2009 Discharge Data Studies Completed and Pending Completed Studies During Hospitalization Category Date Time Status CT abdomen pelvis w con* [id number] Stat Cat Scan 09/14/25 15:08 Completed Pending at discharge Category Date Time Status Blood Culture Stat Lab 09/14/25 15:11 Results Radiology Impressions Abdomen/Pelvis CT 09/14/25 15:08 IMPRESSION: Small abscess with cellulitis in the left labia majora. Laboratory Results WBC 10.44 10^3/uL (3.29-11.43) 09/14/25 15:11 RBC 4.44 10^6/uL (3.85-5.65) 09/14/25 15:11 Hgb 13.90 g/dL (11.27-16.99) 09/14/25 15:11 Hct 40.4 % (36-47) 09/14/25 15:11 MCV 91.0 fl (85-98) 09/14/25 15:11 MCH 31.3 pg (27-33) 09/14/25 15:11 MCHC 34.4 g/dL (30-55) 09/14/25 15:11 RDW 13.5 % (12.1-15.1) 09/14/25 15:11 Plt Count 382 10^3/cmm (157-399) 09/14/25 15:11 MPV 9.0 fL (7.4-10.4) 09/14/25 15:11 Neut % (Auto) 70.6 % 09/14/25 15:11 Lymph % (Auto) 19.8 % 09/14/25 15:11 [place] % (Auto) 5.5 % 09/14/25 15:11 Eos % (Auto) 3.2 % 09/14/25 15:11 Baso % (Auto) 0.5 % 09/14/25 15:11 Neut # (Auto) 7.38 10^3/uL (1.8-7.7) 09/14/25 15:11 Lymph # (Auto) 2.1 10^3/uL (0.8-4.8) 09/14/25 15:11 [place] # (Auto) 0.6 10^3/uL (0.2-0.9) 09/14/25 15:11 Eos # (Auto) 0.3 10^3/uL (0.0-0.8) 09/14/25 15:11 Baso # (Auto) 0.1 10^3/uL (0.0-0.1) 09/14/25 15:11 Nucleated RBC % (auto) 0 % 09/14/25 15:11 Nucleated RBCs # 0.0 /100WBC 09/14/25 15:11 ESR 22 mm/hr (0-15) H 09/14/25 15:11 Sodium 135 mmol/L (136-145) L 09/17/25 07:47 Potassium 4.1 mmol/L (3.5-5.1) 09/17/25 07:47 Chloride 100 mmol/L (98-107) 09/17/25 07:47 Carbon Dioxide 24 mmol/L (22-29) 09/17/25 07:47 Anion Gap 15.1 (5-19) 09/17/25 07:47 BUN 4 mg/dL (6-20) L 09/17/25 07:47 Creatinine 0.6 mg/dL (0.5-0.9) 09/17/25 07:47 GFR Calculation 116.6 mL/min (90-130) 09/17/25 07:47 Glucose 114 mg/dL (65-115) 09/17/25 07:47 Calculated Osmolality 278 mOsm/kg (285-295) L 09/17/25 07:47 Lactic Acid 2.0 mmol/L (0.5-2.2) 09/14/25 15:11 Calcium 8.9 mg/dL (8.5-10.5) 09/17/25 07:47 Total Bilirubin 0.2 mg/dL (0.15-1.2) 09/14/25 15:11 AST 14 U/L (0-32) 09/14/25 15:11 ALT 24 U/L (0-33) 09/14/25 15:11 Alkaline Phosphatase 82 U/L (35-105) 09/14/25 15:11 C-Reactive Protein 86.8 mg/L (0.0-4.9) H 09/14/25 15:11 Total Protein 7.0 g/dL (6.6-8.7) 09/14/25 15:11 Albumin 3.9 g/dL (3.5-5.2) 09/14/25 15:11 Globulin 3.1 g/dL (1.3-4.6) 09/14/25 15:11 Procalcitonin 0.04 ng/mL (0-0.5) 09/14/25 15:11 HCG, Qual Negative (Negative) 09/14/25 15:04 Vancomycin Trough 10.0 ug/mL (10-15) 09/16/25 01:12 Vitals Last Vital Signs Temp 98.2 F 09/17/25 15:52 Pulse 80 09/17/25 15:52 Resp 17 09/17/25 15:52 BP 152/86 09/17/25 15:52 Pulse Ox 97 09/17/25 15:52 O2 Del Method Room Air 09/17/25 15:52 Results Labs OB ([facility]): Hct, (36-47) 40.4 % 09/14/25 Hgb, (11.27-16.99) 13.90 g/dL 09/14/25 Plt Count, (157-399) 382 10^3/cmm 09/14/25 Hep Bs Antigen, (Nonreactive) Non-reactive 08/10/25 Hep B Core Total Ab, (Nonreactive) Non-reactive 08/10/25 Hepatitis C Antibody, (Nonreactive) Non-reactive 08/10/25 Hemoglobin A1c, (4.0-6.0) 5.6 % 06/09/24 HCG, Qual, (Negative) Negative 09/14/25 Urine Opiates Screen, (Negative) Positive ng/mL H 08/05/24 Ur Barbiturates Screen, (Negative) Negative ng/mL 08/05/24 Ur Phencyclidine Scrn, (Negative) Negative ng/mL 08/05/24 Ur Amphetamines Screen, (Negative) Negative ng/mL 08/05/24 U Benzodiazepines Scrn, (Negative) Negative ng/mL 08/05/24 Urine Cocaine Screen, (Negative) Negative ng/mL 08/05/24 U Marijuana (THC) Screen, (Negative) Negative ng/mL 08/05/24 Micro Urine Specimen 08/11/25 Discharge Plan Discharge Patient Disposition: Home Condition: Stable Prescriptions: New metronidazole 500 mg tablet 500 mg PO BID 14 Days Qty: 28 0RF mupirocin [Centany] 2 % ointment 1 applic topical TID Qty: 22 1RF Continued clobetasol 0.05 % ointment 1 applic topical .2-3 TIMES A WEEK PRN (Reason: joint flares) (DME) nebulizer accessories Kit See Rx Instructions .Route Qty: 1 0RF Rx Instructions: As directed (DME) compressor, for nebulizer Device See Rx Instructions .Route Qty: 1 0RF Rx Instructions: As directed spironolactone 25 mg tablet 25 mg PO DAILY Qty: 30 5RF diclofenac sodium 75 mg tablet,delayed release (DR/EC) 75 mg PO BID PRN (Reason: pain) Qty: 60 0RF promethazine-DM 6.25-15 mg/5 mL syrup 10 ml PO Q6H PRN (Reason: cough) Qty: 473 0RF omeprazole 40 mg capsule,delayed release(DR/EC) 40 mg PO QAM Qty: 30 5RF (DME) nebulizer See Rx Instructions .Route .MEDSUPPLY Qty: 1 0RF Rx Instructions: As directed Humira Pen 40 mg/0.8 mL pen injector kit 40 mg SUBCUT .Q7days Qty: 4 5RF Rx Instructions: Fridays cevimeline 30 mg capsule 1 cap PO TID Qty: 90 5RF gabapentin 300 mg capsule 600 mg PO TID Qty: 180 5RF ondansetron 8 mg tablet,disintegrating 8 mg PO Q8H PRN (Reason: nausea and vomiting) 5 Days Qty: 15 0RF ipratropium-albuterol 0.5 mg-3 mg(2.5 mg base)/3 mL solution for nebulization 3 ml inhalation QID PRN (Reason: wheezing) Qty: 90 0RF budesonide-formoterol [Symbicort] 160-4.5 mcg/actuation HFA aerosol inhaler 2 puff inhalation BID Qty: 10.2 6RF nicotine 21 mg/24 hr patch 24 hour 1 patch transdermal DAILY Qty: 28 0RF mupirocin [Centany] 2 % ointment 1 applic topical TID 7 Days Qty: 15 0RF escitalopram oxalate 20 mg tablet 20 mg PO DAILY Qty: 30 2RF trazodone 100 mg tablet 200 mg PO .q hs PRN (Reason: insomnia) Qty: 60 2RF lurasidone 120 mg tablet 120 mg PO DAILY Qty: 30 2RF Zepbound 5 mg/0.5 mL pen injector 5 mg SUBCUT .qwk Qty: 2 2RF Rx Instructions: increased dosage Sunday amlodipine 5 mg tablet 5 mg PO QPM Qty: 90 0RF losartan 100 mg tablet 100 mg PO DAILY Qty: 90 0RF prednisone 20 mg tablet See Rx Instructions PO DAILY Qty: 30 1RF Rx Instructions: Take 1 or 2 tablets by mouth daily up to 5 days as needed for joint pain flare. cetirizine 10 mg tablet 10 mg PO DAILY PRN (Reason: allergies) Vitamin Plus Low Iron 27 mg iron- 1 mg tablet 1 tab PO DAILY polyethylene glycol 3350 [Miralax] 17 gram/dose powder 17 g PO DAILY Qty: 510 0RF Rx Instructions: Take 1 scoop daily while taking pain medications. albuterol sulfate 2.5 mg /3 mL (0.083 %) solution for nebulization 2.5 mg inhalation Q6H PRN (Reason: Shortness Of Breath Or Wheezing) hydrocodone-acetaminophen 10-325 mg tablet 1 tab PO Q6H PRN (Reason: Pain) albuterol sulfate [Ventolin HFA] 90 mcg/actuation HFA aerosol inhaler 1 puff INHALATION Q6H PRN (Reason: Wheezing) oxycodone-acetaminophen 10-325 mg tablet 1 tab PO Q6H PRN (Reason: pain) Qty: 14 0RF sulfamethoxazole-trimethoprim [Bactrim DS] 800-160 mg tablet 2 tab PO BID 7 Days Qty: 28 0RF chlorthalidone 25 mg tablet 25 mg PO DAILY solifenacin 10 mg tablet 10 mg PO DAILY naloxone [Narcan] 4 mg/actuation spray,non-aerosol See Rx Instructions .ROUTE .COMPLEX Rx Instructions: CALL 911. Use one full spray in one nostril one time. Repeat every 2-3 minutes as needed if no or minimal response. Discharge Order = DC NOW: Discharge Order (Routine); Ordered 09/17/25 Ordered By: Lc Mills Referrals: Karuna Adam MD [Primary Care Provider, Family Practice] Referral Note: We have notified your physician's clinic of the need for a follow-up appointment to be scheduled. If you have not heard from them within the next 2 business days, please call them directly. Discharge Diet: Usual diet Discharge Activity: Resume usual activity Patient Instructions: Metronidazole (By mouth), Abscess (ED), Abdominal Pain (ED), Opioid Safety, Patient Portal & Carli Instructions Activity Restrictions/Additional Instructions: Return to see me Sunday, September 28, 2025 Discharge Attestations COAL TRIMMER Time Spent in Discharge Care*: less than 30 min Coding Level of Care Code Acute Code for Chg Fwd Diagnoses Labial abscess N76.4
--- NOTE | 2025-09-17 19:32 | PC.NURSE ---
Discussed discharge with patient. Went over medications, follow up appointments and if abscess worsens Dr. Mills instructed patient to return to the ER. Dr. Mills told patient he would be out of the office. Medications sent to [facility] in [place]. Patient verbalized understanding.
== END 2025-09-17 18:32 | disposition home or self-care (01) | DRG 531 ==
LOC: ER 17:23 → MEDSURG 19:08
PROVIDERS: Admitting Provider Obstetrics & Gynecology; Emergency Provider Emergency Medicine; PCP Family Medicine; Visit Provider Obstetrics & Gynecology
DX: N76.4 Abscess of vulva (principal); L03.311 Cellulitis of abdominal wall; F17.210 Nicotine dependence, cigarettes, uncomplicated; M06.00 Rheumatoid arthritis without rheumatoid factor, unspecified site; J44.9 Chronic obstructive pulmonary disease, unspecified; K21.9 Gastro-esophageal reflux disease without esophagitis; F41.1 Generalized anxiety disorder; I10 Essential (primary) hypertension
CPT/HCPCS: 36415; 74177; 80048; 80053; 80202; 81025; 83605; 84145; 85025; 85651; 86140; 87040; 94640; 96365; 96366; 96367; 99285; G0378; J1171; J1885; J1956; J2405; J2543; J3372; J3373; J3480; J7030; J7613; J7626; J9999